=== PATIENT | male | born 1935 | race Caucasian/White ===

== ENCOUNTER → 2023-06-24 11:10 | Outpatient (REF) | payer MEDICARE, SELFPAY ==
[2023-06-24 12:02] LABS: Hematocrit 34.8 % (39.0-52.0); Hemoglobin 11.8 g/dL (13.0-18.0)
[2023-06-24 12:22] LABS: Protein/creatinine Ratio 0.3; Urine Protein 21 mg/dl
[2023-06-24 13:01] LABS: Albumin 4.4 g/dl (3.5-5.0); Blood Urea Nitrogen 53 mg/dl (9-20); Calcium 9.6 mg/dl (8.4-10.2); Carbon Dioxide 23 mmol/L (22-30); Chloride 104 mmol/L (98-107); Glucose 87 mg/dl (70-99); Phosphorus 4.8 mg/dl (2.5-4.5); Potassium 5.8 mmol/L (3.5-5.1); Sodium 134 mmol/L (135-145); Uric Acid 4.9 mg/dl (3.5-8.5); eGFR 33.93
[2023-06-25 10:58] LABS: Intact PTH 29.3 pg/ml (13.6-85.8)
== END ==
LOC: REG 11:10
PROVIDERS: ATTENDING PHYSICIAN Specialist
DX: R80.9 Proteinuria, unspecified (principal); I10 Essential (primary) hypertension; E87.5 Hyperkalemia; D63.1 Anemia in chronic kidney disease
CPT/HCPCS: 36415; 80069; 82570; 83970; 84156; 84550; 85014; 85018

== ENCOUNTER → 2023-07-05 15:19 | Outpatient (REF) | payer MEDICARE, SELFPAY ==
[2023-07-05 16:49] LABS: Blood Urea Nitrogen 46 mg/dl (9-20); Calcium 9.4 mg/dl (8.4-10.2); Carbon Dioxide 23 mmol/L (22-30); Chloride 103 mmol/L (98-107); Glucose 92 mg/dl (70-99); Potassium 5.4 mmol/L (3.5-5.1); Sodium 133 mmol/L (135-145); eGFR 30.09
== END ==
LOC: REG 15:19
PROVIDERS: ATTENDING PHYSICIAN Specialist; FAMILY PHYSICIAN Internal Medicine
DX: N18.32 Chronic kidney disease, stage 3b (principal)
CPT/HCPCS: 36415; 80048

== ENCOUNTER → 2023-07-21 13:17 | Outpatient (REF) | payer MEDICARE, SELFPAY | LOC: WDC 13:17 | PROVIDERS: ATTENDING PHYSICIAN Nurse Practitioner Adult Health; FAMILY PHYSICIAN Internal Medicine | DX: N64.4 Mastodynia (principal) | CPT/HCPCS: 76642; 77062; 77066 ==

== ENCOUNTER → 2023-07-22 11:58 | Outpatient (REF) | payer MEDICARE, SELFPAY ==
[2023-07-22 13:24] LABS: Blood Urea Nitrogen 57 mg/dl (9-20); Calcium 10.5 mg/dl (8.4-10.2); Carbon Dioxide 23 mmol/L (22-30); Chloride 101 mmol/L (98-107); Glucose 95 mg/dl (70-99); Sodium 137 mmol/L (135-145)
[2023-07-22 13:29] LABS: Potassium 5.2 mmol/L (3.5-5.1)
== END ==
LOC: REG 11:58
PROVIDERS: ATTENDING PHYSICIAN Specialist; FAMILY PHYSICIAN Internal Medicine
DX: Z86.39 Personal history of other endocrine, nutritional and metabolic disease (principal)
CPT/HCPCS: 36415; 80048

== ENCOUNTER → 2023-08-15 11:45 | Outpatient (REF) | payer MEDICARE, SELFPAY | LOC: RAD 11:45 | PROVIDERS: ATTENDING PHYSICIAN Internal Medicine | DX: M89.8X1 Other specified disorders of bone, shoulder (principal) | CPT/HCPCS: 71046; 73010; 73030 ==

== ENCOUNTER → 2023-08-17 11:10 | Outpatient (REF) | payer MEDICARE, SELFPAY ==
[2023-08-17 12:40] LABS: Blood Urea Nitrogen 41 mg/dl (9-20); Calcium 9.5 mg/dl (8.4-10.2); Carbon Dioxide 22 mmol/L (22-30); Chloride 104 mmol/L (98-107); Glucose 101 mg/dl (70-99); Potassium 4.7 mmol/L (3.5-5.1); Sodium 136 mmol/L (135-145); eGFR 38.78
== END ==
LOC: REG 11:10
PROVIDERS: ATTENDING PHYSICIAN Specialist; FAMILY PHYSICIAN Internal Medicine
DX: N18.32 Chronic kidney disease, stage 3b (principal); I10 Essential (primary) hypertension; E83.52 Hypercalcemia
CPT/HCPCS: 36415; 80048

== ENCOUNTER 2023-09-27 15:58 | Inpatient (IN) | payer MEDICARE, SELFPAY ==
[2023-09-27] VITALS (9 sets, daily range): BP systolic 132–168; BP diastolic 65–87; BMI 26.4
--- NOTE | 2023-09-27 11:59 | ED.GENMED ---
History of Present Illness
General
Chief Complaint: Breathing Problem
Time Seen by Provider: 09/27/23 11:24
Travel History
Have you had any contact with someone who has COVID-19?: No
Do you have any symptoms of coronavirus? Fever > 100 degrees, chills, cough, shortness of breath, sore throat, loss of taste or smell, muscle aches, or headache?: No
History of Present Illness
History of Present Illness:
87-year-old male with history of hypertension, hyperlipidemia, and aortic stenosis status post aortic valve replacement presents to the emergency department for evaluation of dyspnea on exertion developing rather abruptly over the past 7 days.
States he is typically very active and able to work out by using an elliptical for approximately 20 to 30-day, moderate distress with only walk 10 to 20 feet before becoming winded. Denies any orthopnea or chest pain, but does state he has been
waking up at night frequently due to left-sided thoracic back pain. Denies any fevers, chills, sweats, chest pain, leg swelling, coughing. Not on any anticoagulants, takes 162 mg of aspirin daily
Past History
Past History
ED Past Medical History: HTN, Hypercholesterolemia, Valvular disease, Other (Renal disease) and Other (Chronic prostatitis)
ED Past Surgical History: Cardiac (Aortic valve repair mitral repair, pericardial tissue heart valve) and Other (Valve replacement surgery)
Social History
Tobacco: Non-smoker
Alcohol: None
Drug: None
Personal:
Living: with family
Employment: Retired
Family History
Family History: Hypertension
Review of Systems
Review of Systems
Allergies reviewed?: Yes
All Other Systems: ROS reviewed and negative except as documented in HPI and ROS
Phy Exam
Physical Exam
Physical Exam:
GEN: Well appearing, NAD, WDWN
Eyes: PERRLA, EOMs intact, no scleral icterus
HENT: NCAT, oral mucosa moist
Lungs: Normal respiratory effort, severely diminished mid and lower lobe breath sounds no rales or crackles
Cardiac: RRR, no M/R/G, no peripheral edema. Radial pulses 2+ bilat
Abdomen: S, NT, ND, NABS, no masses or hepatosplenomegaly
Neuro: AO x 3
MSK: No gross deformity or ecchymosis. No edema. No digital clubbing
Skin: No rashes, petechiae. Normal color, no pallor or jaundice.
Psych: Calm, cooperative, proper hygiene
Scores
Heart Failure Risk
Heart Failure Risk Score: Not Applicable
Course
Orders/Labs/Results
Orders:
Orders
09/27/23 10:41
Electrocardiogram (*1) Urgent
Reason for Study: Chest Pain
09/27/23 10:42
EKG- Treatment ONCE
09/27/23 11:59
CR Chest - 2 Views Urgent
Comment:
Reason For Exam: WELLER
09/27/23 12:13
Complete Blood Count/With Diff Urgent
Comprehensive Metabolic Panel Urgent
NT-proBNP Urgent
Troponin I Urgent
09/27/23 15:23
Glucose Routine
LDH Routine
Comment: post procedure, add on to morning labs if already drawn
Total Protein Routine
Comment: post procedure, add on to morning labs if already drawn
09/27/23 15:25
Body Fluid Amylase Routine
Fluid Source: Pleural
Body Fluid Cell Count Routine
What is the Body Fluid: pleural fluid
Comment: post procedure
09/27/23 15:26
Add On- LAB Routine
Tests Added?: Body Fluid Triglycerides
Body Fluid Glucose Routine
Fluid Source: Pleural
Body Fluid LDH Routine
Fluid Source: Pleural
Body Fluid Protein Routine
Fluid Source: Pleural
Body Fluid Triglycerides Routine
Fluid Source: Pleural
Body Fluid pH Routine
Fluid Source: Pleural
Fluid Culture with Gram Stain Routine
EMIL Source: Pleural Fluid
Specimen Description:
Comment: post procedure
09/27/23 15:27
IR[facility] CONSULT Routine
Consulting Provider: Dionisio yHatt
Was physician already notified: Yes
Reason for Consult/Procedure: Left Thoracentesis
Acknowledgement that appropriate orders are entered: Yes
IR[facility] Cytology Routine
Source: Pleural Fluid, Left
Clinical Impression: large pleural effusion
History of Malignancy: No
09/27/23 15:29
Admit/Transfer Patient As Directed
Co-Sign Provider:
Level of Care: Inpatient admission
Assign to:: Telemetry
Physician / Group: Guanako Mina
Diagnosis: Pleural Effusion
Reason for Telemetry: Arrhythmia
Date to Stop Telemetry: 09/30/23
Time to Stop Telemetry: 11:00
Reason for Hospitalization: Thoracentesis
Expected length of stay greater than two midnights?: Yes
ELOS- Estimated Length of Stay in days: 3
I certify the patient meets the requirements for IP care: Yes
09/27/23 15:36
Code Status As Directed
Resuscitation Status: Full Code
09/30/23 11:00
DC Protocol for Telemetry ONCE
Abnormal Lab Results
09/27/23
12:13
RBC 3.53 L 10^6/uL
(4.70-6.10)
Hgb 11.3 L g/dL
(13.0-18.0)
Hct 34.2 L %
(39.0-52.0)
MCV 96.9 H fL
(80.0-94.0)
MCH 32.0 H pg
(27.0-31.0)
Abs Immat Gran (auto) 0.2 H 10^3/uL
(0-0.05)
Absolute Neuts (auto) 8.3 H 10^3/uL
(1.4-6.5)
Absolute Monos (auto) 0.7 H 10^3/uL
(0.1-0.6)
Immature Gran % 1.8 H %
(0-0.5)
Neutrophils % 76.2 H %
(42.2-75.2)
Lymphocytes % 14.2 L %
(20.5-51.1)
Carbon Dioxide 21 L mmol/L
(22-30)
BUN 46 H mg/dl
(9-20)
Creatinine 1.8 H mg/dL
(0.7-1.3)
Glucose 100 H mg/dl
(70-99)
09/27/23 12:13
Vital Signs
Initial and Last Documented VS:
Initial Vital Signs
Temp Pulse Resp BP Pulse Ox
98.3 F 87 16 134/74 96
09/27/23 10:40 09/27/23 10:40 09/27/23 10:40 09/27/23 10:40 09/27/23 10:40
Last Documented Vital Signs
Temp Pulse Resp BP Pulse Ox
98.3 F 87 16 134/74 97
09/27/23 10:40 09/27/23 10:40 09/27/23 10:40 09/27/23 10:40 09/27/23 11:59
MDM/Problems Addressed
MDM/Problems Addressed:
Although the patient not hypoxic at rest, he is severely limited with ambulation due to the large left pleural effusion. Prior chest x-ray from 6 weeks ago was independently reviewed by myself and this is a rather rapid development of an effusion.
Does not appear to be volume overloaded and BNP is low suggesting CHF is not a suspected etiology. He has no chest pain or recent hospitalizations suggestive of pulmonary embolism. Will ultimately need diagnostic and therapeutic thoracentesis,
will admit to the hospitalist service for further management of this
Comment
Comment:
EKG independently interpreted by me shows normal sinus rhythm at a rate of [address] changes concerning for ischemia, QTc of 415
*Critical Care Note
Total Time (30-74mins, 75-104mins- exclusive of procedures): Not Applicable
ED Attending Note
-
Portions of this chart may have been created with voice recognition software.� Occasional wrong word or��sound alike� substitutions may have occurred due to the inherent limitations of voice recognition software.
Discharge Plan
Departure
Patient Disposition: Admit
Date of Disposition: 09/27/23
Time of Disposition: 14:36
Admit to: Med/Surg
Presentation/result/management discussed w/ accepting MD/DO: Hospitalist
Discharge Problem:
Pleural effusion on left, Acute respiratory insufficiency, WELLER (dyspnea on exertion)
Prescriptions:
No Action
terazosin 5 MG capsule
5 mg PO HS
simvastatin 20 MG tablet
20 mg PO HS
allopurinol 300 MG tablet
150 mg PO DAILY
aspirin 81 MG tablet,chewable
162 mg PO HS
carvedilol 12.5 MG tablet
6.25 mg PO BID
chlorthalidone 25 MG tablet
12.5 mg PO DAILY
coenzyme Q10 [Co Q-10] 200 MG capsule
200 mg PO HS
Ultra Rohini Plus 1 EACH capsule
1 ea PO DAILY
turmeric 400 MG capsule
400 mg PO BID
Theragen Tablet
1 tab PO DAILY
spironolactone 25 mg Tablet
25 mg PO DAILY
acetaminophen [Tylenol Arthritis Pain] 650 mg Tablet Extended Release
1,300 mg PO Q8H
docusate sodium [Colace] 100 mg Capsule
100 mg PO QPM
Memory Complex 60-30-70-40 ic-umzj-pmv-mg Tablet
1 tab PO HS
PreserVision AREDS 2,148 mcg-113 mg-45 mg-17.4mg Tablet
1 tab PO BID
dapagliflozin propanediol [Farxiga] 10 mg Tablet
10 mg PO DAILY
Referrals:
Jake Oro MD [Family Provider] -
Interventions
Interventions:
*Risk Screen - Suicide Last Done: 09/27/23 11:59
*General Assessment Last Done: 09/27/23 11:59
*Neglect/Abuse Screening Last Done: 09/27/23 11:59
ED- Fall Risk Assessment Last Done: 09/27/23 11:59
*ED COVID-19 Vaccine History Last Done: 09/27/23 10:40
ED- Cardiac Assessment Last Done: 09/27/23 11:59
ED- Pulmonary Assessment Last Done: 09/27/23 11:59
Discharge Date and Time
Print Language: INDONESIAN
[2023-09-27 12:28] LABS: % Basophils 0.3 % (0-2); % Eosinophils 0.9 % (0-6); % Immature Granulocytes 1.8 % (0-0.5); % Lymphocytes 14.2 % (20.5-51.1); % Monocytes 6.6 % (1.7-9.3); % Neutrophils 76.2 % (42.2-75.2); Absolute Eosinophils 0.1 10^3/uL (0-0.7); Absolute Immature Granulocytes 0.2 10^3/uL (0-0.05); Absolute Lymphocytes 1.5 10^3/uL (1.2-3.4); Absolute Monocytes 0.7 10^3/uL (0.1-0.6); Absolute Neutrophils 8.3 10^3/uL (1.4-6.5); Hematocrit 34.2 % (39.0-52.0); Hemoglobin 11.3 g/dL (13.0-18.0); Mean Corpuscular Volume 96.9 fL (80.0-94.0); Mean Platelet Volume 9.6 fL (7.4-10.4); Nucleated Red Blood Cells % 0 % (-); Platelet Count 233 10^3/uL (130-400); Red Blood Cell Count 3.53 10^6/uL (4.70-6.10); Red Cell Dist. Width 14.5 % (11.5-14.5); White Blood Cell Count 10.8 10^3/uL (4.8-10.8)
[2023-09-27 12:49] LABS: AST (SGOT) 23 U/L (17-59); Albumin 4.1 g/dl (3.5-5.0); Alkaline Phosphatase 115 U/L (38-126); Blood Urea Nitrogen 46 mg/dl (9-20); Calcium 9.4 mg/dl (8.4-10.2); Carbon Dioxide 21 mmol/L (22-30); Chloride 106 mmol/L (98-107); Estimated Creatinine Clearance 31 ml/min; Glucose 100 mg/dl (70-99); Sodium 137 mmol/L (135-145); Total Bilirubin 0.3 mg/dl (0.2-1.3); Total Protein 7.1 g/dl (6.3-8.2); eGFR 36.21
[2023-09-27 12:58] LABS: ALT (SGPT) 17 U/L (0-50)
[2023-09-27 14:11] LABS: NT-proBNP 210 pg/ml; Troponin I < 0.012 ng/ml
--- NOTE | 2023-09-27 15:43 | HPS.HSE ---
Family Physician
-
Family Physician: Ruben Oro
Chief Complaint
-
Shortness of breath
History of Present Illness
Patient is an 87 y/o male past medical history of valvular heart disease, hypertension and CKD who presents with dyspnea on exertion. Patient reports he is usually very active exercising on the elliptical for about 20 minutes almost every day.
However over the past week he developed increasing shortness of breath to the point he cant exercise for even a fw minutes. Today he noted shortness of breath with just ambulating a few feet which prompted him to come the emergency department. He
denies cough, chest pain, palpitations or lower extremity edema.
Medical History
Past Medical History
Past Medical History: Reports Other
Additional Past Medical History:
Valvular Heart Disease
Essential Hypertension
Hyperlipemia
CKD Stage III
BPH
Gout
Past Surgical History: Reports Other
Additional Past Surgical History:
Mitral Valve Repair
Aortic Valve Replacement
Left Hand Surgery
Left Arm Surgery
Hernia Repair
Social History
Tobacco: Former Smoker (Quit over 40 years ago)
Alcohol: Daily (One drink nightly)
Family History
Family History: Not pertinent
Allergies / Home Medications
Allergies reflects when Allergies were last updated in [facility].
Home Medications with original date entered in [facility]
Allergy/Medication List:
Allergies
Allergy/AdvReac Type Severity Reaction Status Date / Time
No Known Allergies Allergy Verified 09/27/23 10:41
Home Medications
allopurinol 300 mg tablet 150 mg PO DAILY Gout 04/07/10
simvastatin 20 mg tablet 20 mg PO HS High cholesterol 04/07/10
terazosin 5 mg capsule 5 mg PO HS Urinary issue 04/07/10
aspirin 81 mg chewable tablet 162 mg PO HS Blood clot prevention/tx 01/22/11
carvedilol 12.5 mg tablet 6.25 mg PO BID Heart disease/condition 07/22/14
chlorthalidone 25 mg tablet 12.5 mg PO DAILY Blood pressure 08/20/20
coenzyme Q10 200 mg capsule (Co Q-10) 200 mg PO HS Supplement 08/20/20
lactobacillus rymmu-tovsrk-ioillhec protein 15 billion cell-170 mg cap (Ultra Rohini Plus) 1 ea PO DAILY Supplement 08/20/20
turmeric 400 mg capsule 400 mg PO BID Supplement 08/20/20
acetaminophen 650 mg tablet,extended release (Tylenol Arthritis Pain) 1,300 mg PO Q8H 09/27/23
dapagliflozin propanediol 10 mg tablet (Farxiga) 10 mg PO DAILY 09/27/23
docusate sodium 100 mg capsule (Colace) 100 mg PO QPM 09/27/23
spironolactone 25 mg tablet 25 mg PO DAILY 09/27/23
therapeutic multivitamin 1 tab PO DAILY 09/27/23
vit C-vit E-Se-ginkgo biloba 60 mg-30 unit-70 mcg-40 mg tablet 1 tab PO HS 09/27/23
vitamins A,C,M-fsov-qefozh 2,148 mcg-113 mg-45 mg-17.4 mg tablet (PreserVision AREDS) 1 tab PO BID 09/27/23
Review of Systems
-
A 12 point ROS was completed and negative except as noted: Yes
Constitutional: Denies Fever or Chills
Respiratory: Reports See HPI
Cardiac: Reports See HPI
Physical Exam
Vital Signs
Vital Signs
Temp Pulse Resp BP Pulse Ox
98.3 F 87 16 134/74 97
09/27/23 10:40 09/27/23 10:40 09/27/23 10:40 09/27/23 10:40 09/27/23 11:59
Physical Exam
General: Comfortable and Conversant (Noted conversational dyspnea)
HEENT: Anicteric and Moist mucous membranes
Respiratory: Clear and Decreased Breath Sounds (Decreased/Absent breath sounds left base)
Cardiac: S1/S2 and Regular Rhythm
GI: Soft and Non Tender
Rectal: Deferred by Provider
Musculoskeletal: No Clubbing, No Cyanosis and No Edema
Skin: Warm and Dry
Neuro: Awake, Alert, Oriented and Nonfocal/grossly intact
Laboratory Results
-
09/27/23 12:13
Laboratory Results
Total Bilirubin 0.3 mg/dl (0.2-1.3) 09/27/23 12:13
AST 23 U/L (17-59) 09/27/23 12:13
ALT 17 U/L (0-50) 09/27/23 12:13
Alkaline Phosphatase 115 U/L (38-126) 09/27/23 12:13
Troponin I < 0.012 ng/ml 09/27/23 12:13
Data Reviewed
-
Lab Data: Labs Reviewed by me
Impression/Plan
-
Moderate/Large Left Pleural Effusion, unclear etiology
-Consult IR for diagnostic and therapeutic thoracentesis
-Await fluid studies
Valvular Heart Disease s/p Aortic Valve Replacement and Mitral Valve Repair
-Check Echocardiogram
Essential Hypertension
-continue carvedilol, chlorthalidone and spironolactone
Hyperlipidemia
-Continue statin
CKD Stage III
-Creatinine at baseline
-Continue Farxiga
BPH
-Continue terazosin
Gout
-Continue allopurinol
DVT proph: SC Heparin
Code Status: Full Code
[2023-09-27] MEDS: TYLENOL 650 MG PO ×2 (16:27→21:35)
--- NOTE | 2023-09-27 18:13 | W.PN.UPDATE ---
Update Note
Progress Note Update
I saw and examined the patient.
The COMPLIANCE INVESTIGATOR's note was reviewed and I agree with the note.
87-year-old male presented with new onset of exertional shortness of breath for few days. No reported history of heart failure. Follows up with cardiology with history of mitral valve repair. Patient have not noticed any signs of lower extremity
leg swelling. No recent episode of cough/fever. No recent URTI episode.
HEENT: No pallor, cyanosis, or jaundice. Throat clear.
NECK: Supple. No JVD.
RESPIRATORY: decreased left lung breath sound
CVS: S1, S2 normal. RRR. No murmur, rub or gallop.
ABDOMEN: Soft, non-tender. No distension. BS+/normal.
EXTREMITIES: No peripheral cyanosis or edema.
DRUG SAFETY SPECIALIST: AOx3. No focal deficits.
Left sided pleural effusion
-Chest x-ray showing moderate left-sided pleural effusion.
-Patient denies previous history of heart failure/pleural effusion
-Check echocardiogram
-IRAD consulted for paracentesis
-No signs of underlying infection. Monitor off of antibiotics.
-No hypoxia. Continue monitor.
Full code
[2023-09-27 18:35] LABS: LDH 202 U/L (120-246)
[2023-09-27] MEDS: COREG 6.25 MG PO (20:17)
[2023-09-27] MEDS: HEPARIN 5000 UNITS SC (20:18)
[2023-09-27] MEDS: LIPITOR 10 MG PO (20:19)
[2023-09-27] MEDS: LOW STRENGTH ASPIRIN 162 MG PO (20:20)
[2023-09-27] MEDS: HYTRIN 5 MG PO (20:20)
[2023-09-28] VITALS (10 sets, daily range): BP systolic 66–152; BP diastolic 64–77; PULSE 68–69; O2SAT 97; BMI 25.3
[2023-09-28] MEDS: LIDOCAINE 4% PATCH 1 PATCH TOPICAL ×2 (01:04→20:08)
[2023-09-28] MEDS: HEPARIN 5000 UNITS SC ×4 (01:05→23:47)
[2023-09-28] MEDS: MOTRIN 400 MG PO (04:55)
[2023-09-28 06:02] LABS: Hematocrit 30.2 % (39.0-52.0); Hemoglobin 10.2 g/dL (13.0-18.0); Mean Corp Hgb Conc. 33.8 g/dL (33.0-37.0); Mean Corpuscular Hgb 31.5 pg (27.0-31.0); Mean Corpuscular Volume 93.2 fL (80.0-94.0); Mean Platelet Volume 9.1 fL (7.4-10.4); Platelet Count 198 10^3/uL (130-400); Red Blood Cell Count 3.24 10^6/uL (4.70-6.10); Red Cell Dist. Width 14.4 % (11.5-14.5); White Blood Cell Count 7.9 10^3/uL (4.8-10.8)
[2023-09-28 06:33] LABS: Blood Urea Nitrogen 49 mg/dl (9-20); Calcium 9.1 mg/dl (8.4-10.2); Carbon Dioxide 21 mmol/L (22-30); Estimated Creatinine Clearance 31 ml/min; Glucose 99 mg/dl (70-99); Potassium 4.7 mmol/L (3.5-5.1); Sodium 137 mmol/L (135-145); eGFR 36.21
[2023-09-28 06:41] LABS: Chloride 107 mmol/L (98-107)
[2023-09-28] MEDS: Hygroton 12.5 MG PO (08:14)
[2023-09-28] MEDS: ALDACTONE 25 MG PO (08:16)
[2023-09-28] MEDS: COREG 6.25 MG PO ×2 (08:16→20:03)
[2023-09-28] MEDS: FARXIGA 10 MG PO (08:16)
[2023-09-28] MEDS: ZYLOPRIM 150 MG PO (08:16)
[2023-09-28 09:44] LABS: Body Fluid pH 7.16
[2023-09-28 10:10] LABS: Body Fluid Glucose 41 mg/dl; Body Fluid Protein 4.8 g/dl; Body Fluid Triglycerides 51 mg/dl
[2023-09-28 10:42] LABS: Body Fluid Mononuclear 55.5 %; Body Fluid Polymorphonuclear 44.5 %; Body Fluid WBC 1788 /CUMM
[2023-09-28 10:50] LABS: Body Fluid Second Tech SS
[2023-09-28 11:07] LABS: Body Fluid Amylase 71 U/L; Body Fluid LDH 281 U/L
--- NOTE | 2023-09-28 12:49 | CON.PUL ---
Consultation
Consultation Request
Date/Time Consultation Requested: 09/28/23-12 noon
Date/Time Consultation Performed: 09/28/23-12:15 PM
Requesting Provider: Dr. Mina
Performing Provider: Dr. Basilio
Reason for Consultation: pleural fluid/asbestos exposure
Medical History
-
Chief Complaint: , shortness of breath
History of Present Illness:
87-year-old male with history of hypertension, chronic kidney disease, mitral valve repair, aortic valve replacement who presented with significant shortness of breath and noted to have large pleural effusion-pulmonary consulted for pleural
effusion/shortness of breath 09/28/23. The patient feels much improved after thoracentesis. At rest. He denies any shortness of breath, chest pain, has minimal pleurisy at the site of the thoracentesis, has no hemoptysis, anorexia, unintentional
weight loss, abdominal pain, reflux, increased leg swelling or focal weakness.
Past Medical History
Past Medical History: None ( hypertension. Hyperlipidemia. Chronic kidney disease stage III. BPH. Gout. Mitral valve repair. Aortic valve replacement. Left hand surgery. Left arm surgery. Hernia repair.)
Social History
Tobacco: Former Smoker ( [id number], quit 1959)
Alcohol: Daily ( [id number], quit 1960 drink nightly)
Drug: None
Personal:
Living: With Family
Occupational Exposures: asbestos dust exposure
Environmental Exposures: . No known tuberculosis exposure
Family History
Family History: Other (. No family history of lung disease)
Allergies / Home Medications
Allergies
Allergy/AdvReac Type Severity Reaction Status Date / Time
No Known Allergies Allergy Verified 09/27/23 10:41
Home Medications
�Medication �Instructions �Recorded �Confirmed �Last Taken �Type
allopurinol 300 mg tablet 150 mg PO DAILY Gout 04/07/10 09/27/23 09/27/23 History
simvastatin 20 mg tablet 20 mg PO HS High cholesterol 04/07/10 09/27/23 09/26/23 History
terazosin 5 mg capsule 5 mg PO HS Urinary issue 04/07/10 09/27/23 09/26/23 History
aspirin 81 mg chewable tablet 162 mg PO HS Blood clot 01/22/11 09/27/23 09/26/23 History
prevention/tx
carvedilol 12.5 mg tablet 6.25 mg PO BID Heart 07/22/14 09/27/23 09/27/23 History
disease/condition
chlorthalidone 25 mg tablet 12.5 mg PO DAILY Blood pressure 08/20/20 09/27/23 09/27/23 History
coenzyme Q10 200 mg capsule (Co 200 mg PO HS Supplement 08/20/20 09/27/23 09/26/23 History
Q-10)
lactobacillus 1 ea PO DAILY Supplement 08/20/20 09/27/23 09/27/23 History
rfoyt-qeqnhf-yszeshdp protein 15
billion cell-170 mg cap (Ultra
Rohini Plus)
turmeric 400 mg capsule 400 mg PO BID Supplement 08/20/20 09/27/23 09/27/23 History
acetaminophen 650 mg 1,300 mg PO Q8H 09/27/23 09/27/23 09/27/23 History
tablet,extended release (Tylenol
Arthritis Pain)
dapagliflozin propanediol 10 mg 10 mg PO DAILY 09/27/23 09/27/23 09/27/23 History
tablet (Farxiga)
docusate sodium 100 mg capsule 100 mg PO QPM 09/27/23 09/27/23 09/26/23 History
(Colace)
spironolactone 25 mg tablet 25 mg PO DAILY 09/27/23 09/27/23 09/27/23 History
therapeutic multivitamin 1 tab PO DAILY 09/27/23 09/27/23 09/27/23 History
vit C-vit E-Se-ginkgo biloba 60 1 tab PO HS 09/27/23 09/27/23 09/26/23 History
mg-30 unit-70 mcg-40 mg tablet
vitamins A,C,N-mcdb-ebahwh 2,148 1 tab PO BID 09/27/23 09/27/23 09/27/23 History
mcg-113 mg-45 mg-17.4 mg tablet
(PreserVision AREDS)
Review of Systems
-
Unable to Obtain full review of systems at this time due to: Other ( per HPI)
Vitals / Labs / Diagnostic Testing
Vital Signs
Temp Pulse Resp BP Pulse Ox
97.6 F 64 22 135/68 95
09/28/23 10:30 09/28/23 10:30 09/28/23 10:30 09/28/23 10:30 09/28/23 10:30
Lab Data
09/28/23 05:54
09/28/23 05:54
Microbiology
09/28/23 09:00 Pleural Fluid Gram Stain - Preliminary
Diagnostic Testing:
Physical Exam
-
Exam:
HEENT atraumatic normocephalic and anicteric. Heart was regular without murmur. Chest was clear without wheezes or crackles. Integument without rashes or icterus. Neurologic exam without weakness or numbness. Abdomen soft and nondistended.
The patient had no JVD, cyanosis, clubbing or edema.
Assessment
-
87-year-old male with history of hypertension, chronic kidney disease, mitral valve repair, aortic valve replacement who presented with significant shortness of breath and noted to have large pleural effusion-pulmonary consulted for pleural
effusion/shortness of breath 09/28/23.
Shortness of breath from large left pleural effusion
Large left pleural effusion
Status post thoracentesis 09/27/23
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
Mild hkazdp-xfdqmwqzfw-ytcyyutfpe 10.2
Conditions present prior to admission:
Hypertension
Hyperlipidemia.
Chronic kidney disease stage III.
BPH.
Gout.
Former glsfly-43-boug-year-quit 40 years ago
Mitral valve repair. Aortic valve replacement. Left hand surgery. Left arm surgery. Hernia repair.
Plan
Radiographs dating back to 2009 were personally reviewed-patient had pleural plaque that was calcified dating back to 2010 with some progression and now a pleural effusion.
Bloody pleural fluid worrisome for asbestos-related potential pleural malignancy such as mesothelioma.
Supplemental oxygen.
Incentive spirometry.
Follow radiographically-obtain CT chest
Monitor for fluid reaccumulation.
If pleural fluid analysis is nondiagnostic, then VATS pleural biopsy may be in order.
Nebulizers if needed.
DVT prophylaxis.
Nutrition
Early mobilization.
Reviewed with Dr. Mina
Outpatient pulmonary kifxkm-fx-Empvpio pleural fluid, follow up on pathology, PFTs
Data:
Chest x-ray 03/04/10-cardiac dilation, interstitial pulmonary edema, no signs of asbestos related lung disease.
Chest x-ray 05/04/10-no acute cardiopulmonary disease, bilateral asbestos calcified pleural plaques.
Chest x-ray 07/22/14-chronic changes, no acute pathology.
Chest x--bilateral calcified pleural plaques, left greater than right, plaques are slightly progressed compared to 2014.
Chest x-ray 09/27/23-moderate to large left pleural effusion
CT jreia-ljx-lowp 01/15/14 few small pulmonary nodules unchanged from 09/06/06, 1 cm pulmonary nodule lateral basilar segment left lower lobe appears unchanged, calcified pleural plaques consistent with prior asbestos exposure, status post midline
sternotomy and aortic valve replacement..
CT abdomen and pelvis 04/19/18-acute diverticulitis. No comments on lower lung ward.
CT abdomen and pelvis 10/29/19-calcified pleural plaques in the lung bases suggesting prior asbestos exposure, mild subpleural interstitial fibrosis at the lung bases.
CT abdomen and pelvis 02/07/23-multiple calcified pleural plaques suggesting prior asbestos exposure, acute sigmoid diverticulitis.
Thoracentesis 09/28/23-successful ultrasound-guided thoracentesis for 1.45 L of dark bloody pleural fluid, cultures pending, pathology pending
Echocardiogram 07/23/22-EF 50-55%, mitral valve angioplasty ring with mild mitral regurgitation, bovine aortic valve
Data Reviewed
-
EKG: Report reviewed by me
Radiology: Image personally visualized and interpreted and Report reviewed by me
CT Scan: Image personally visualized and interpreted and Report reviewed by me
Medical Tests (Nuc Med, Echo etc): Report reviewed by me
Labs: Labs reviewed by me
Old Records: Reviewed
Total Time Spent with Patient (in minutes): 65
--- NOTE | 2023-09-28 13:06 | W.PN.HOSP.TC ---
Today's Communication/Plan
-
f/u fluid cs and cytopath report
ct chest w/o contrast
Assessment / Plan
Assessment / Plan
1. Left sided pleural effusion
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
-Chest x-ray showing moderate left-sided pleural effusion.
-s/p drainage of 1.4 L sero sanguinous fluid. TWBC 1.8K PMN 45%, f/u cytopathology report
-Patient approximate 30-year occupational asbestos exposure. Have not seen pulmonology for 20 years plus
-CT abdomen pelvis in 23 showing left pleural thickening and calcification on review of images myself
-Pulmonology has asked to evaluate
-CT chest w/o contrast ordered
2. Valvular Heart Disease
s/p Aortic Valve Replacement and Mitral Valve Repair
-f/u TTE report
3. Essential Hypertension
-continue carvedilol, chlorthalidone and spironolactone
4. Hyperlipidemia
-Continue statin
5. CKD Stage III
-Creatinine at baseline
-Continue Farxiga
6. BPH
-Continue terazosin
7. Gout
-Continue allopurinol
DVT proph: SC Heparin
Code Status: Full Code
Anticipated Discharge: Within 24 hours
Subjective/Interval History
-
Date of Service: September 28, 2023
Resting comfortably in bed
Denies of having any significant shortness of breath or left-sided chest pain
No other acute issues reported overnight
Objective Data
-
Labs:
Laboratory Results
09/28/23
05:54
WBC 7.9
Hgb 10.2 L
Hct 30.2 L
Plt Count 198
Sodium 137
Potassium 4.7
Chloride 107
Carbon Dioxide 21 L
BUN 49 H
Creatinine 1.8 H
Glucose 99
Calcium 9.1
Vital Signs:
Vital Signs
Temp Pulse Resp BP Pulse Ox
97.6 F 64 22 135/68 95
09/28/23 10:30 09/28/23 10:30 09/28/23 10:30 09/28/23 10:30 09/28/23 10:30
I&O
09/27/23 09/28/23 09/29/23
06:59 06:59 06:59
Intake Total 300 / 300
Balance 300 / 300
Review of Systems
-
Respiratory: Reports No Symptoms
Cardiac: Reports No Symptoms
Abdomen/GI: Reports No Symptoms
Physical Exam
-
General: No Apparent Distress and Comfortable
HEENT: Negative Oxygen
Respiratory: Clear to Auscultation
Cardiac: Regular Rhythm and S1/S2; Negative Murmur or Rub
GI: Soft, Nontender, Nondistended and Normal Bowel Sounds
Musculoskeletal: No Edema
Neuro: Awake, Alert, Oriented, No Motor Deficits and Nonfocal/Grossly Intact
Psych: Calm
--- NOTE | 2023-09-28 15:05 | CM ---
Alert awake oriented patient who lives with his Abiola who lives in a 1 story home with 2 step to enter and bed and bathroom on first floor. He is independent in driving and in all activities of daily living.He was offered VN he declined need.He
uses a cane.
No VN hx / No SNF history
[facility]
PCP DR Melvina Cummings
PLAN Home Declined VN
[2023-09-28] MEDS: ROXICODONE 5 MG PO (20:08)
[2023-09-28] MEDS: LOW STRENGTH ASPIRIN 162 MG PO (20:08)
[2023-09-28] MEDS: HYTRIN 5 MG PO (20:08)
[2023-09-28] MEDS: LIPITOR 10 MG PO (20:09)
[2023-09-28] MEDS: TYLENOL 650 MG PO (23:50)
[2023-09-29] MEDS: ROXICODONE 5 MG PO (00:42)
[2023-09-29 03:56] VITALS: BP 127/65
[2023-09-29 05:39] VITALS: BMI 25.3
[2023-09-29 07:53] LABS: Hematocrit 32.1 % (39.0-52.0); Hemoglobin 10.8 g/dL (13.0-18.0); Mean Corp Hgb Conc. 33.6 g/dL (33.0-37.0); Mean Corpuscular Hgb 32.4 pg (27.0-31.0); Mean Corpuscular Volume 96.4 fL (80.0-94.0); Mean Platelet Volume 9.9 fL (7.4-10.4); Platelet Count 234 10^3/uL (130-400); Red Blood Cell Count 3.33 10^6/uL (4.70-6.10); Red Cell Dist. Width 14.4 % (11.5-14.5); White Blood Cell Count 8.1 10^3/uL (4.8-10.8)
[2023-09-29 07:55] VITALS: BP 132/74
[2023-09-29 08:14] LABS: Blood Urea Nitrogen 45 mg/dl (9-20); Calcium 9.5 mg/dl (8.4-10.2); Carbon Dioxide 22 mmol/L (22-30); Chloride 106 mmol/L (98-107); Estimated Creatinine Clearance 33 ml/min; Glucose 100 mg/dl (70-99); Potassium 4.8 mmol/L (3.5-5.1); Sodium 137 mmol/L (135-145); eGFR 38.78
[2023-09-29] MEDS: Hygroton 12.5 MG PO (08:29)
[2023-09-29] MEDS: HEPARIN 5000 UNITS SC (08:29)
[2023-09-29] MEDS: ALDACTONE 25 MG PO (08:29)
[2023-09-29] MEDS: ZYLOPRIM 150 MG PO (08:29)
[2023-09-29] MEDS: FARXIGA 10 MG PO (08:29)
[2023-09-29] MEDS: COREG 6.25 MG PO (08:29)
--- NOTE | 2023-09-29 10:04 | W.PN.PUL.V3 ---
Today's Communication / Plan
-
.
Wean oxygen.
Increase activity.
Monitor for pleural fluid reaccumulation.
Await pleural fluid cytology.
Outpatient pulmonary follow-up
Assessment
-
87-year-old male with history of hypertension, chronic kidney disease, mitral valve repair, aortic valve replacement who presented with significant shortness of breath and noted to have large pleural effusion-pulmonary consulted for pleural
effusion/shortness of breath 09/28/23.
Shortness of breath from large left pleural effusion
Large left pleural effusion
Status post thoracentesis 09/27/23
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
Mild jtxyun-afqafalfwi-pwuhqhnhfe 10.2
Conditions present prior to admission:
Hypertension
Hyperlipidemia.
Chronic kidney disease stage III.
BPH.
Gout.
Former joujeg-75-lhlv-year-quit 40 years ago
Mitral valve repair. Aortic valve replacement. Left hand surgery. Left arm surgery. Hernia repair.
Plan
Once again, the patient's radiographs dating back to 2009 were personally reviewed-patient had pleural plaque that was calcified dating back to 2010 with some progression and now a pleural effusion.
Bloody pleural fluid worrisome for asbestos-related potential pleural malignancy such as mesothelioma.
Supplemental oxygen-does not appear like he will require supplemental oxygen at the time of discharge
Incentive spirometry
CT chest-09/28/23-small loculated left pleural effusion, much improved, moderate lingular and left lower lobe atelectasis, severe pleural calcifications
Monitor for fluid reaccumulation-patient told if increased shortness of breath, then to call an outpatient thoracentesis could be arranged.
Consider PET scan
If pleural fluid analysis is nondiagnostic, then VATS pleural biopsy may be in order.
Nebulizers if needed.
DVT prophylaxis.
Nutrition
Early mobilization..
Stable for proposed discharge
Reviewed with Dr. Mina as well as nursing
Outpatient pulmonary wbhglj-uw-Niptrea pleural fluid, follow up on pathology, PFTs
Data:
Chest x-ray 03/04/10-cardiac dilation, interstitial pulmonary edema, no signs of asbestos related lung disease.
Chest x-ray 05/04/10-no acute cardiopulmonary disease, bilateral asbestos calcified pleural plaques.
Chest x-ray 07/22/14-chronic changes, no acute pathology.
Chest x--bilateral calcified pleural plaques, left greater than right, plaques are slightly progressed compared to 2014.
Chest x-ray 09/27/23-moderate to large left pleural effusion
CT ysjrb-akp-srel 01/15/14 few small pulmonary nodules unchanged from 09/06/06, 1 cm pulmonary nodule lateral basilar segment left lower lobe appears unchanged, calcified pleural plaques consistent with prior asbestos exposure, status post midline
sternotomy and aortic valve replacement..
CT abdomen and pelvis 04/19/18-acute diverticulitis. No comments on lower lung ward.
CT abdomen and pelvis 10/29/19-calcified pleural plaques in the lung bases suggesting prior asbestos exposure, mild subpleural interstitial fibrosis at the lung bases.
CT abdomen and pelvis 02/07/23-multiple calcified pleural plaques suggesting prior asbestos exposure, acute sigmoid diverticulitis.
Thoracentesis 09/28/23-successful ultrasound-guided thoracentesis for 1.45 L of dark bloody pleural fluid, cultures pending, pathology pending
Echocardiogram 07/23/22-EF 50-55%, mitral valve angioplasty ring with mild mitral regurgitation, bovine aortic valve
Subjective Data
-
Date of Service:
Date of Service: September 29, 2023
Chief Complaint: Pulmonary Follow Up and Dyspnea Follow Up
Subjective:
Feels much improved, no shortness of breath, ambulating without difficulties or desaturations, no chest pain or abdominal pain
Review of Systems
General: Other (. Her HPI)
Objective Data
Data Reviewed
Vital Signs / I&O:
Vital Signs
Temp Pulse Resp BP Pulse Ox
97.8 F 69 16 132/74 96
09/29/23 07:55 09/29/23 07:55 09/29/23 07:55 09/29/23 07:55 09/29/23 08:00
Intake and Output
09/28/23 09/29/23 09/30/23
06:59 06:59 06:59
Intake Total 300 / 300 1140 / 1140
Balance 300 / 300 1140 / 1140
SaO2: 96
Physical Exam
General: Respiratory Distress (n) and Comfortable
HEENT: Normocephalic, Anicteric and Moist Mucous Membranes
Cardiovascular: Regular Rhythm and Murmur
Respiratory: Wheeze (n), Crackles ( rare left basilar), Rhonchi (n), Non-Labored Respirations, Accessory Resp Muscle Use (n) and Stridor (n)
GI: Soft, Non Distended and Non Tender
Neurology: Awake, Alert and No Motor Deficits
Skin: Warm, Good Color, Cyanosis (n), Jaundice (n) and Rash (n)
Labs/Micro/Reports
Lab Data
09/29/23 07:06
09/29/23 07:06
Microbiology
09/28/23 09:00 Pleural Fluid Gram Stain - Preliminary
--- NOTE | 2023-09-29 10:27 | W.PN.HOSP.TC ---
Today's Communication/Plan
-
d/c home
Assessment / Plan
Assessment / Plan
1. Left sided pleural effusion
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
-Chest x-ray showing moderate left-sided pleural effusion.
-s/p drainage of 1.4 L sero sanguinous fluid. TWBC 1.8K PMN 45%,
-Patient approximate 30-year occupational asbestos exposure. Have not seen pulmonology for 20 years plus
-CT abdomen pelvis in 23 showing left pleural thickening and calcification on review of images myself
-CT chest w/o contrast showing bilateral lower lobe pleural thickening with some calcification suggestive of stable asbestosis changes
-Patient to follow-up with pulmonology office. Cytopathology report is pending at time of discharge.
2. Valvular Heart Disease
s/p Aortic Valve Replacement and Mitral Valve Repair
-TTE showing preserved EF. No change in valvulopathy with
3. Essential Hypertension
-continue carvedilol, chlorthalidone and spironolactone
4. Hyperlipidemia
-Continue statin
5. CKD Stage III
-Creatinine at baseline
-Continue Farxiga
6. BPH
-Continue terazosin
7. Gout
-Continue allopurinol
DVT proph: SC Heparin
Code Status: Full Code
Care plan Discussed with Pulmonology
More than 30 minutes spent in discharge including
Final examination of the patient
Summarizing hospital stay
Instructions for continuing care to all relevant caregivers
Preparation of discharge records, prescriptions, and referral forms
Total time spent (in minutes): 39 mins
Anticipated Discharge: Today
Subjective/Interval History
-
Date of Service: September 29, 2023
Resting comfortably in chair
Denies of any issues overnight
Objective Data
-
Labs:
Laboratory Results
09/29/23
07:06
WBC 8.1
Hgb 10.8 L
Hct 32.1 L
Plt Count 234
Sodium 137
Potassium 4.8
Chloride 106
Carbon Dioxide 22
BUN 45 H
Creatinine 1.7 H
Glucose 100 H
Calcium 9.5
Vital Signs:
Vital Signs
Temp Pulse Resp BP Pulse Ox
97.8 F 69 16 132/74 96
09/29/23 07:55 09/29/23 07:55 09/29/23 07:55 09/29/23 07:55 09/29/23 10:04
I&O
09/28/23 09/29/23 09/30/23
06:59 06:59 06:59
Intake Total 300 / 300 1140 / 1140
Balance 300 / 300 1140 / 1140
Review of Systems
-
Respiratory: Reports No Symptoms
Cardiac: Reports No Symptoms
Abdomen/GI: Reports No Symptoms
Physical Exam
-
General: No Apparent Distress and Comfortable
HEENT: Negative Oxygen
Respiratory: Clear to Auscultation
Cardiac: Regular Rhythm and S1/S2; Negative Murmur or Rub
GI: Soft, Nontender, Nondistended and Normal Bowel Sounds
Musculoskeletal: No Edema
Neuro: Awake, Alert, Oriented, No Motor Deficits and Nonfocal/Grossly Intact
Psych: Calm
[2023-09-29 11:05] VITALS: BP 121/71
--- NOTE | 2023-09-29 11:35 | CM ---
Patient seen at bedside. Patient stated that he has a ride home and CM reviewed with him IMM completed by admissions 09/27/23 at 11:31. Patient indicated that he had no questions. CM will continue to follow for discharge planning needs.
Plan; home with no needs.
--- NOTE | 2023-09-29 18:46 | W.DCSUMMARY ---
Discharge Summary
Discharge Data
Date of Admission: 09/27/23
Date of Discharge: 09/29/23
-
Pending Results: No
Hospital Course
Discharging Physician : Dr Guanako Mina
Disposition : Home with home care
Primary care physician : Dr Miley Cummings
Principal Discharge diagnosis :
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
Chronic Discharge diagnosis :
Valvular heart disease
History of aortic valve replacement and mitral valve repair
Essential hypertension
Hyperlipidemia
Chronic kidney disease stage III
Benign prostatic hyperplasia
Gout
Hospital Course :
Patient is a 57-year-old male with mentioned past medical history came to ER for having new onset of shortness of breath ongoing for few days. Symptoms were noted to be exertional mainly over the last 1 week. In ER chest x-ray done showing patient
had moderate left-sided effusion. Patient denied of having previous history of effusion/heart failure any pulmonary problems. Interventional radiology was consulted and patient underwent drainage of 1.4 L serosanguineous fluid with fluid studies
showing this being exudative in nature. On further history gathering patient reported a 30-year occupational asbestos exposure. CT abdomen pelvis from previous visits are showing pleural thickening and calcification. Repeat CT chest was done this
admission confirming pleural thickening and calcification suggestive of stable asbestosis changes. Pulmonology was involved in care and have requested for patient to follow-up in office to discuss cytopathology report which is pending at time of
discharge. Of note an echocardiogram was done which did not show any change in EF/no new valvulopathy. Patient was discharged home with plan for follow-up in pulmonology office.
Important imaging findings :
None
Procedure findings :
None
Discharge Plan
-
Patient Disposition: Home (Routine Discharge)
Discharge Diagnosis/Procedures: Left pleural effusion from asbestosis
Condition: Fair
Diet: Regular
Activity: As tolerated
Driving Restrictions: As prior to admission
Bathing Restrictions: OK to Shower
Referrals:
Jake Oro MD [Family Provider] - in one week
Meño Basilio MD [Active] - in four to six weeks (Follow-up pleural fluid)
Prescriptions:
Continued
terazosin 5 MG capsule
5 mg PO HS
simvastatin 20 MG tablet
20 mg PO HS
allopurinol 300 MG tablet
150 mg PO DAILY
aspirin 81 MG tablet,chewable
162 mg PO HS
carvedilol 12.5 MG tablet
6.25 mg PO BID
chlorthalidone 25 MG tablet
12.5 mg PO DAILY
coenzyme Q10 [Co Q-10] 200 MG capsule
200 mg PO HS
Ultra Rohini Plus 1 EACH capsule
1 ea PO DAILY
turmeric 400 MG capsule
400 mg PO BID
therapeutic multivitamin Tablet
1 tab PO DAILY
spironolactone 25 mg Tablet
25 mg PO DAILY
acetaminophen [Tylenol Arthritis Pain] 650 mg Tablet Extended Release
1,300 mg PO Q8H
docusate sodium [Colace] 100 mg Capsule
100 mg PO QPM
vit C-vit E-Se-ginkgo biloba 60-30-70-40 jg-yamt-qev-mg Tablet
1 tab PO HS
PreserVision AREDS 2,148 mcg-113 mg-45 mg-17.4mg Tablet
1 tab PO BID
dapagliflozin propanediol [Farxiga] 10 mg Tablet
10 mg PO DAILY
Discharge Orders:
Discharge Patient (As Directed); Ordered 09/29/23
Ordered By: Guanako Mina
Discharge Date and Time
Discharge Date/Time: 09/29/23 12:38
Print Language: [place]
== END 2023-09-29 12:38 | disposition home or self-care (01) | DRG 197 ==
LOC: 4 EAST ACU 15:58
PROVIDERS: Physician Assistant; Physician Assistant Medical; Radiology Vascular & Interventional Radiology; ADMITTING PHYSICIAN Hospitalist; CONSULT PHYSICIAN Internal Medicine Critical Care Medicine; EMERGENCY PHYSICIAN Emergency Medicine; FAMILY PHYSICIAN Internal Medicine
PROC: 0W9B3ZZ Drainage of Left Pleural Cavity, Percutaneous Approach (ICD-10-PCS; 2023-09-28)
DX: J61 Pneumoconiosis due to asbestos and other mineral fibers (principal); J90 Pleural effusion, not elsewhere classified; Z87.891 Personal history of nicotine dependence; I51.7 Cardiomegaly; N18.30 Chronic kidney disease, stage 3 unspecified; I13.10 Hypertensive heart and chronic kidney disease without heart failure, with stage 1 through stage 4 chronic kidney disease, or unspecified chronic kidney disease; N40.0 Benign prostatic hyperplasia without lower urinary tract symptoms; M10.9 Gout, unspecified; Z77.090 Contact with and (suspected) exposure to asbestos; E78.00 Pure hypercholesterolemia, unspecified
CPT/HCPCS: 88305; 32555; 71045; 71046; 71250; 80048; 80053; 82150; 82945; 83615; 83880; 83986; 84157; 84478; 84484; 85025; 85027; 87015; 87070; 87205; 88112; 89051; 93005; 93306; 97116; 97162; 97166; 99285; Q9950

== ENCOUNTER → 2023-10-07 14:58 | Outpatient (REF) | payer MEDICARE, SELFPAY | LOC: RAD 14:58 | PROVIDERS: ATTENDING PHYSICIAN Internal Medicine | DX: Z09 Encounter for follow-up examination after completed treatment for conditions other than malignant neoplasm (principal) | CPT/HCPCS: 71046 ==

== ENCOUNTER → 2023-10-07 19:18 | Outpatient (REF) | payer MEDICARE, SELFPAY | LOC: MRI 19:18 | PROVIDERS: ATTENDING PHYSICIAN Physical Medicine & Rehabilitation; FAMILY PHYSICIAN Internal Medicine | DX: M47.22 Other spondylosis with radiculopathy, cervical region (principal) | CPT/HCPCS: 72141 ==

== ENCOUNTER 2023-10-11 01:16 | Inpatient (IN) | payer MEDICARE, SELFPAY ==
[2023-10-10 22:26] VITALS: BMI 26.9
[2023-10-10 22:27] VITALS: BP 127/75
--- NOTE | 2023-10-10 23:01 | ED.GENMED ---
History of Present Illness
General
Chief Complaint: Breathing Problem
Source: patient
Exam Limitations: none
Time Seen by Provider: 10/10/23 22:42
Travel History
Have you had any contact with someone who has COVID-19?: No
Do you have any symptoms of coronavirus? Fever > 100 degrees, chills, cough, shortness of breath, sore throat, loss of taste or smell, muscle aches, or headache?: No
History of Present Illness
History of Present Illness:
This is a 87 year old male that comes in with c/o SOB. States that a couple weeks ago he had his lung taped. States that he feels it is filling up with fluid again. States that he went to see Dr. Oro after his discharge and he had an X-ray last
. States that tonight he was more SOB with any activity. Denies any fever, chills, chest pain, abd pain, nausea, vomiting, diarrhea, headache, dizziness, urinary burning
Past History
Past History
ED Past Medical History: HTN, Hypercholesterolemia, Valvular disease, Other (Renal disease, chronic back pain, Diverticulitis, Urinary retention, Anemia, ) and Other (Chronic prostatitis)
ED Past Surgical History: Cardiac (Aortic valve repair mitral repair, pericardial tissue heart valve), Orthopedic (Left hand surgery, Left arm surgery, ) and Other ( Hernia. Pilonidal cyst, )
Social History
Tobacco: Former smoker
Alcohol: Occasional
Drug: None
Personal:
Living: with family
Employment: Retired
Family History
Family History: Hypertension
Review of Systems
Review of Systems
All Other Systems: ROS reviewed and negative except as documented in HPI and ROS
Constitutional: Reports no symptoms; Denies fever or chills
EENT: Reports no symptoms
Respiratory: Reports trouble breathing; Denies cough
Cardiac: Reports no symptoms; Denies chest pain
ABD/GI: Reports no symptoms; Denies abdominal pain, nausea, vomiting or diarrhea
: Reports no symptoms; Denies dysuria, frequency or urgency
Musculoskeletal: Reports no symptoms
Skin: Reports no symptoms
Neurological: Reports no symptoms; Denies dizzy or headache
Psychiatric: Reports no symptoms
Phy Exam
General Physical Exam
General Presentation: no apparent distress
General age: appears stated age
General Skin: warm and dry
General Habitus: elderly
General Mental: alert
General Hydration: dry mucous membranes
ENT Exam
ENT Exam: TM's normal, pharynx normal and neck supple
Eye Exam
Eye Exam: EOMI
Cardiovascular Exam
Cardiovascular Exam: regular rate/rhythm and normal peripheral pulses
Pulmonary Exam
Pulmonary Exam: no respiratory distress, chest non tender, no rhonchi, no wheezing, no cough and other (Fine rales left base)
Gastrointestinal Exam
Gastrointestinal Exam: normal bowel sounds, non tender, soft, no organomegaly, no pulsatile mass and non distended
Musculoskeletal Exam
Musculoskeletal Exam: full ROM and edema (Slight nonpitting lower leg edema)
Skin Exam
Skin Exam: normal color, warm/dry, no rash and no petechia
Psychiatric Exam
Psychiatric Exam: normal mood/affect
Scores
Heart Failure Risk
Heart Failure Risk Score: Not Applicable
Course
Orders/Labs/Results
Orders:
Orders
10/10/23 23:01
CR Chest - 2 Views Urgent
Comment:
Reason For Exam: SOB
10/10/23 23:12
Electrocardiogram (*1) Urgent
Reason for Study: Shortness of Breath
EKG- Treatment ONCE
10/10/23 23:20
Complete Blood Count/With Diff Urgent
Comprehensive Metabolic Panel Urgent
NT-proBNP Urgent
Prothrombin Time Urgent
Troponin I Urgent
Abnormal Lab Results
10/10/23
23:20
RBC 3.28 L 10^6/uL
(4.70-6.10)
Hgb 10.5 L g/dL
(13.0-18.0)
Hct 32.2 L %
(39.0-52.0)
MCV 98.2 H fL
(80.0-94.0)
MCH 32.0 H pg
(27.0-31.0)
MCHC 32.6 L g/dL
(33.0-37.0)
Absolute Monos (auto) 0.8 H 10^3/uL
(0.1-0.6)
Lymphocytes % 16.1 L %
(20.5-51.1)
BUN 45 H mg/dl
(9-20)
Creatinine 1.7 H mg/dL
(0.7-1.3)
Glucose 121 H mg/dl
(70-99)
Alkaline Phosphatase 156 H U/L
(38-126)
10/10/23 23:20
10/10/23 23:20
H/H low. Anemia, chronic renal insufficiency, Glucose nonfasting. Alk phos elevation. PT 14.4 with INR 1.13, Troponin <0.012, Pro-BNP 289
Vital Signs
Initial and Last Documented VS:
Initial Vital Signs
Temp Pulse Resp BP Pulse Ox
98.9 F 76 20 127/75 96
10/10/23 22:27 10/10/23 22:27 10/10/23 22:27 10/10/23 22:27 10/10/23 22:27
Last Documented Vital Signs
Temp Pulse Resp BP Pulse Ox
98.9 F 76 20 128/76 97
10/10/23 22:27 10/10/23 22:27 10/10/23 22:27 10/11/23 00:00 10/11/23 00:00
MDM/Problems Addressed
Differential Diagnosis Includes:
Pleural effusion. CHF
MDM/Problems Addressed:
This is a 87 year old male that comes in with c/o SOB. States that he was tapped a couple weeks ago and he was seen by his PCP on . States that he had a repeat X-ray done at that time.States that tonight he became more SOB with any
activity.
will check labs, Chest X-ray.
Back into see patient. Explained that his blood work shows that he is anemic and he has chronic renal insufficiency. Patient X-ray shows a left sided pleural effusion. Will patient c/o SOB and his pulse ox goes down with any movement will admit.
Hospitalist notified.
Chronic conditions affecting care:
history of Pleural effusion
Acute Exacerbation and/or Progression of Chronic Illness:
Pleural effusion
*Radiology
Radiology exam reviewed: preliminary read by ED provider (Chest- Left pleural effusion)
*Pulse Oximetry
Patient hypoxic: no
*EKG
Interpreted by ED Provider?: Yes
Heart Rate: 66
Rhythm: sinus
[place]: left axis deviation
Interval: normal interval
QRS Pattern: normal QRS
Ischemia: no ischemia
*Critical Care Note
Total Time (30-74mins, 75-104mins- exclusive of procedures): Not Applicable
ED Attending Note
-
Portions of this chart may have been created with voice recognition software.� Occasional wrong word or��sound alike� substitutions may have occurred due to the inherent limitations of voice recognition software.
Discharge Plan
Departure
Patient Disposition: Admit
Date of Disposition: 10/11/23
Time of Disposition: 00:43
Admit to: Telemetry
Presentation/result/management discussed w/ accepting MD/DO: Hospitalist
Patient with high blood pressure during this ER visit?: No
Condition: Good
Covid-19: Not Applicable
Discharge Problem:
Pleural effusion, left, SOB (shortness of breath)
Prescriptions:
No Action
terazosin 5 MG capsule
5 mg PO HS
simvastatin 20 MG tablet
20 mg PO HS
allopurinol 300 MG tablet
150 mg PO DAILY
chlorthalidone 25 MG tablet
12.5 mg PO DAILY
coenzyme Q10 [Co Q-10] 200 MG capsule
200 mg PO HS
Ultra Rohini Plus 1 EACH capsule
1 cap PO DAILY
Patient Comments:
10/10/2023, probiotic.
turmeric 400 MG capsule
400 mg PO BID
Patient Comments:
10/10/2023, w/ curcumin.
therapeutic multivitamin Tablet
1 tab PO DAILY
Patient Comments:
10/10/2023, Essential 1 multi.
spironolactone 25 mg Tablet
25 mg PO DAILY
acetaminophen [Tylenol Arthritis Pain] 650 mg Tablet Extended Release
1,300 mg PO Q8HPRN PRN (Reason: mild pain)
docusate sodium [Colace] 100 mg Capsule
100 mg PO HSPRN PRN (Reason: constipation)
PreserVision AREDS 2,148 mcg-113 mg-45 mg-17.4mg Tablet
1 tab PO BID
dapagliflozin propanediol [Farxiga] 10 mg Tablet
10 mg PO DAILY
B12 Folate tablet
500 mg PO DAILY
carvedilol 6.25 mg Tablet
6.25 mg PO BID
aspirin 81 mg Tablet,Delayed Release (Dr/Ec)
162 mg PO HS
tramadol 50 mg Tablet
50 mg PO Q6H PRN (Reason: severe pain)
esomeprazole magnesium 40 mg Capsule,Delayed Release(Dr/Ec)
40 mg PO DAILY PRN (Reason: indigestion/heartburn)
gabapentin 300 mg Capsule
300 mg PO BID
Patient Comments:
10/10/2023. filled on 10/06/2023 for 15-day supply.
calcium carbonate [Tums 500] 500 mg calcium (1,250 mg) Tablet,Chewable
500 mg PO TID PRN (Reason: indigestion)
Memory And Brain Supplement capsule
1 cap PO HS
Metamucil Fiber Thin wafer
2 wafer PO DAILY@1500
Patient Comments:
10/10/2023, one packet contains 2 wafers.
Referrals:
Jake Oro MD [Family Provider] -
Interventions
Interventions:
*Risk Screen - Suicide Last Done: 10/10/23 22:27
*General Assessment Last Done: 10/10/23 22:27
*Neglect/Abuse Screening Last Done: 10/10/23 22:27
ED- Fall Risk Assessment Last Done: 10/10/23 23:24
*ED COVID-19 Vaccine History Last Done: 10/10/23 23:22
ED- Cardiac Assessment Last Done: 10/10/23 23:24
ED- Pulmonary Assessment Last Done: 10/10/23 23:24
Discharge Date and Time
Print Language: STATELESS
[2023-10-10 23:22] VITALS: BP 132/68
[2023-10-10 23:39] LABS: % Basophils 0.3 % (0-2); % Eosinophils 2.4 % (0-6); % Immature Granulocytes 0.5 % (0-0.5); % Lymphocytes 16.1 % (20.5-51.1); % Monocytes 8.9 % (1.7-9.3); % Neutrophils 71.8 % (42.2-75.2); Absolute Eosinophils 0.2 10^3/uL (0-0.7); Absolute Lymphocytes 1.4 10^3/uL (1.2-3.4); Absolute Monocytes 0.8 10^3/uL (0.1-0.6); Absolute Neutrophils 6.2 10^3/uL (1.4-6.5); Hematocrit 32.2 % (39.0-52.0); Hemoglobin 10.5 g/dL (13.0-18.0); Mean Corp Hgb Conc. 32.6 g/dL (33.0-37.0); Mean Corpuscular Volume 98.2 fL (80.0-94.0); Mean Platelet Volume 9.4 fL (7.4-10.4); Nucleated Red Blood Cells % 0 % (-); Platelet Count 300 10^3/uL (130-400); Red Blood Cell Count 3.28 10^6/uL (4.70-6.10); Red Cell Dist. Width 13.8 % (11.5-14.5); White Blood Cell Count 8.7 10^3/uL (4.8-10.8)
[2023-10-10 23:48] LABS: ALT (SGPT) 30 U/L (0-50); AST (SGOT) 31 U/L (17-59); Alkaline Phosphatase 156 U/L (38-126); Blood Urea Nitrogen 45 mg/dl (9-20); Calcium 9.7 mg/dl (8.4-10.2); Carbon Dioxide 23 mmol/L (22-30); Chloride 105 mmol/L (98-107); Estimated Creatinine Clearance 32 ml/min; Glucose 121 mg/dl (70-99); Potassium 4.9 mmol/L (3.5-5.1); Sodium 139 mmol/L (135-145); Total Bilirubin 0.3 mg/dl (0.2-1.3); Total Protein 7.2 g/dl (6.3-8.2); eGFR 38.78
[2023-10-10 23:49] LABS: INR 1.13; PT 14.4 Sec (11.4-14.6)
[2023-10-11] VITALS (8 sets, daily range): BP systolic 128–174; BP diastolic 71–93; BMI 26.9
[2023-10-11 00:07] LABS: NT-proBNP 289 pg/ml; Troponin I < 0.012 ng/ml
--- NOTE | 2023-10-11 01:01 | HPS.HSE ---
Family Physician
-
Family Physician: Ruben Oro
Chief Complaint
-
SoB
History of Present Illness
87M HX 30 yrs occupational exposure to asbestos, recent s/p thoracentesis of Lt sided pleural effusion, NEG cytopathology for malignant cells seen at ER for evaluation of SoB
Current SoB
- worsening for last few days ? recurrent Lt sided pleural effusion
- Current XR looks recurrent Lt sided plural effusion
ROS
Denies any fever, chills, chest pain,
Medical History
Past Medical History
Past Medical History: Reports Other
Additional Past Medical History:
Valvular Heart Disease
Essential Hypertension
Hyperlipemia
CKD Stage III
BPH
Gout
Past Surgical History: Reports Other
Additional Past Surgical History:
Mitral Valve Repair
Aortic Valve Replacement
Left Hand Surgery
Left Arm Surgery
Hernia Repair
Social History
Tobacco: Former Smoker (Quit over 40 years ago)
Alcohol: Daily (One drink nightly)
Family History
Family History: Not pertinent
Allergies / Home Medications
Allergies reflects when Allergies were last updated in [facility].
Home Medications with original date entered in [facility]
Allergy/Medication List:
Allergies
Allergy/AdvReac Type Severity Reaction Status Date / Time
No Known Allergies Allergy Verified 09/27/23 10:41
Home Medications
allopurinol 300 mg tablet 150 mg PO DAILY Gout 04/07/10
simvastatin 20 mg tablet 20 mg PO HS High cholesterol 04/07/10
terazosin 5 mg capsule 5 mg PO HS Urinary issue 04/07/10
aspirin 81 mg chewable tablet 162 mg PO HS Blood clot prevention/tx 01/22/11
carvedilol 12.5 mg tablet 6.25 mg PO BID Heart disease/condition 07/22/14
chlorthalidone 25 mg tablet 12.5 mg PO DAILY Blood pressure 08/20/20
coenzyme Q10 200 mg capsule (Co Q-10) 200 mg PO HS Supplement 08/20/20
lactobacillus ibwjj-odhxon-wggdxpls protein 15 billion cell-170 mg cap (Ultra Rohini Plus) 1 ea PO DAILY Supplement 08/20/20
turmeric 400 mg capsule 400 mg PO BID Supplement 08/20/20
acetaminophen 650 mg tablet,extended release (Tylenol Arthritis Pain) 1,300 mg PO Q8H 09/27/23
dapagliflozin propanediol 10 mg tablet (Farxiga) 10 mg PO DAILY 09/27/23
docusate sodium 100 mg capsule (Colace) 100 mg PO QPM 09/27/23
spironolactone 25 mg tablet 25 mg PO DAILY 09/27/23
therapeutic multivitamin 1 tab PO DAILY 09/27/23
vit C-vit E-Se-ginkgo biloba 60 mg-30 unit-70 mcg-40 mg tablet 1 tab PO HS 09/27/23
vitamins A,C,I-ggjm-cyjnna 2,148 mcg-113 mg-45 mg-17.4 mg tablet (PreserVision AREDS) 1 tab PO BID 09/27/23
Review of Systems
-
Constitutional: Reports No Symptoms
EENT: Reports No Symptoms
Respiratory: Reports See HPI and Trouble Breathing
Cardiac: Reports No Symptoms
Abdomen/GI: Reports No Symptoms
: Reports No Symptoms
Musculoskeletal: Reports No Symptoms
Skin: Reports No Symptoms
Neurological: Reports No Symptoms
Endocrine: Reports No Symptoms
Hematologic/Lymphatic: Reports No Symptoms
Psych: Reports No Symptoms
Physical Exam
Vital Signs
Vital Signs
Temp Pulse Resp BP Pulse Ox
98.9 F 76 20 128/76 98
10/10/23 22:27 10/10/23 22:27 10/10/23 22:27 10/11/23 00:00 10/11/23 00:45
Physical Exam
General: Comfortable and Conversant (Noted conversational dyspnea)
HEENT: Anicteric and Moist mucous membranes
Respiratory: Clear and Decreased Breath Sounds (Decreased/Absent breath sounds left base)
Cardiac: S1/S2 and Regular Rhythm
GI: Soft and Non Tender
Rectal: Deferred by Provider
Musculoskeletal: No Clubbing, No Cyanosis and No Edema
Skin: Warm and Dry
Neuro: Awake, Alert, Oriented and Nonfocal/grossly intact
Laboratory Results
-
10/10/23 23:20
10/10/23 23:20
Laboratory Results
PT 14.4 Sec (11.4-14.6) 10/10/23 23:20
INR 1.13 10/10/23 23:20
Total Bilirubin 0.3 mg/dl (0.2-1.3) 10/10/23 23:20
AST 31 U/L (17-59) 10/10/23 23:20
ALT 30 U/L (0-50) 10/10/23 23:20
Alkaline Phosphatase 156 U/L (38-126) H 10/10/23 23:20
Troponin I < 0.012 ng/ml 10/10/23 23:20
Data Reviewed
-
Diagnostic Radiology: Image Personally Visualized and interpreted
CT Scan: Report Reviewed by me
Lab Data: Labs Reviewed by me
Old Records: Reviewed
Impression/Plan
-
Reviewed VS: unremarkable
Data
Hgb 10.5 - bl is 10s
BUN 45
Cr 1.7 - bl is 1.7
NEG TPNI
pro BNP 290
10/09/26 My view on CXR :
Lt sided pleural effusion ? moderate
10/07/23 CXR:
Small to moderate left effusion, partially loculated laterally. As appears slightly increased as compared with the most recent prior examination.
09/28/23 : Successful ultrasound-guided thoracentesis, yielding 1450 cc of dark bloody pleural fluid.
09/28/23 Patho: NEG for malignant cells
09/28/23 CT Chest W/o Iv Contrast
- Small loculated left pleural effusion. Much improved.
- Moderate lingular and left lower lobe possibly atelectasis.
- New from prior CT of the abdomen Pneumonia. and underlying masses not excluded.
- Limited exam without IV contrast.
- Severe pleural calcification bilaterally suggesting prior asbestos exposure. Stable
- Mild diffuse pleural thickening left hemithorax. New
Last hospitalist admission: 09/27/23 - 09/29/23
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
ASSESSMENT & PLAN
Pending Rx reconciliation
Recurrent symptomatic pleural effusion
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
- Recent Lt thoracentesis yielding 1450 cc of dark bloody pleural fluid on 09/28/23
- NEG cytopathology for malignant cells
- Pul consult ? evaluation for pleural catheter
HX Aortic Valve Replacement and Mitral Valve Repair
- stable
Essential HTN
- cont carvedilol, chlorthalidone and spironolactone
Hyperlipidemia
-cont. statin
CKD3
- Creatinine at baseline
- Continue Farxiga
BPH
- cont. terazosin
Gout
- cont allopurinol
Chr back pain
- use TENs simulator applied to Lt post chest
DVT proph: SC Heparin
Code Status: Full Code
IP MS
--- NOTE | 2023-10-11 07:55 | CON.PUL ---
Consultation
Consultation Request
Date/Time Consultation Requested: 10/11/2023-8 AM
Date/Time Consultation Performed: 10/11/2023-8:30 AM
Requesting Provider: Hospitalist
Performing Provider: Dr. Basilio
Reason for Consultation: Shortness of breath
Medical History
-
Chief Complaint: Shortness of breath
History of Present Illness:
87-year-old male with history of hypertension, chronic kidney disease, mitral valve repair, aortic valve replacement who presented with significant shortness of breath and noted to have large pleural effusion-pulmonary consulted for pleural
effusion/shortness of breath 09/28/23-thoracentesis was performed, patient felt much improved, cytology was negative and returns with progressive shortness of breath and moderate loculated pleural effusion-pulmonary reconsulted for shortness of
breath/pleural effusion 10/11/2023.
.
Past Medical History
Past Medical History: None (Hypertension. Hyperlipidemia. Chronic kidney disease stage III. BPH. Gout. Mitral valve repair. Aortic valve replacement. Left hand surgery. Left arm surgery. Hernia repair.)
Social History
Tobacco: Former Smoker (34-yhyd-idre quit 1960)
Alcohol: Occasional (1 drink nightly)
Drug: None
Personal:
Living: With Family
Occupational Exposures: No known tuberculosis exposure
Environmental Exposures: Asbestos dust exposure
Family History
Family History: Other (No family history of lung disease)
Allergies / Home Medications
Allergies
Allergy/AdvReac Type Severity Reaction Status Date / Time
No Known Allergies Allergy Verified 10/10/23 22:27
Home Medications
�Medication �Instructions �Recorded �Confirmed �Last Taken �Type
allopurinol 300 mg tablet 150 mg PO DAILY Gout 04/07/10 10/10/23 10/10/23 History
simvastatin 20 mg tablet 20 mg PO HS High cholesterol 04/07/10 10/10/23 10/10/23 History
terazosin 5 mg capsule 5 mg PO HS Urinary issue 04/07/10 10/10/23 10/10/23 History
chlorthalidone 25 mg tablet 12.5 mg PO DAILY Blood pressure 08/20/20 10/10/23 10/10/23 History
coenzyme Q10 200 mg capsule (Co 200 mg PO HS Supplement 08/20/20 10/10/23 10/10/23 History
Q-10)
lactobacillus 1 cap PO DAILY Supplement 08/20/20 10/10/23 10/10/23 History
dpvde-gomqcb-wwopnprf protein 15
billion cell-170 mg cap (Ultra
Rohini Plus)
turmeric 400 mg capsule 400 mg PO BID Supplement 08/20/20 10/10/23 10/10/23 History
acetaminophen 650 mg 1,300 mg PO Q8HPRN PRN mild pain 09/27/23 10/10/23 10/09/23 History
tablet,extended release (Tylenol
Arthritis Pain)
dapagliflozin propanediol 10 mg 10 mg PO DAILY 09/27/23 10/10/23 10/10/23 History
tablet (Farxiga)
docusate sodium 100 mg capsule 100 mg PO HSPRN PRN constipation 09/27/23 10/10/23 10/09/23 History
(Colace)
spironolactone 25 mg tablet 25 mg PO DAILY 09/27/23 10/10/23 10/10/23 History
therapeutic multivitamin 1 tab PO DAILY 09/27/23 10/10/23 10/10/23 History
vitamins A,C,X-nxer-ozbfeg 2,148 1 tab PO BID 09/27/23 10/10/23 10/10/23 History
mcg-113 mg-45 mg-17.4 mg tablet
(PreserVision AREDS)
B12 Folate 500 mg PO DAILY 10/10/23 10/10/23 10/10/23 History
Memory And Brain Supplement 1 cap PO HS 10/10/23 10/10/23 10/10/23 History
Metamucil Fiber Thin 2 wafer PO DAILY@1500 10/10/23 10/10/23 10/10/23 History
aspirin 81 mg tablet,delayed 162 mg PO HS 10/10/23 10/10/23 10/10/23 History
release
calcium carbonate 500 mg PO TID PRN indigestion 10/10/23 10/10/23 10/10/23 History
carvedilol 6.25 mg tablet 6.25 mg PO BID 10/10/23 10/10/23 10/10/23 History
esomeprazole magnesium 40 mg 40 mg PO DAILY PRN 10/10/23 10/10/23 3 Weeks Ago History
capsule,delayed release indigestion/heartburn ~09/19/23
gabapentin 300 mg capsule 300 mg PO BID 10/10/23 10/10/23 10/10/23 History
tramadol 50 mg tablet 50 mg PO Q6H PRN severe pain 10/10/23 10/10/23 10/10/23 History
Review of Systems
-
Unable to Obtain full review of systems at this time due to: Other (Per HPI)
Vitals / Labs / Diagnostic Testing
Vital Signs
Temp Pulse Resp BP Pulse Ox
97.5 F 68 18 160/90 96
10/11/23 07:25 10/11/23 07:25 10/11/23 07:25 10/11/23 07:25 10/11/23 07:25
Lab Data
10/10/23 23:20
10/10/23 23:20
Laboratory Results
10/10/23
23:20
PT 14.4
INR 1.13
Diagnostic Testing:
Physical Exam
-
Exam:
Well-nourished and well-developed in no apparent distress
HEENT-atraumatic, normocephalic
Neck-supple, no JVD, no bruit
Heart-regular rate and rhythm-systolic murmur
Chest with diminished breath sounds left greater than right base and no wheezes
Back without tenderness
Abdomen-soft, nontender, nondistended, no hepatosplenomegaly
Extremities-no cyanosis, clubbing, edema and good peripheral pulses
Integument-intact, no rashes, lesions or ecchymosis
Neurology-alert and oriented, nonfocal motor and sensory exam
Assessment
-
87-year-old male with history of hypertension, chronic kidney disease, mitral valve repair, aortic valve replacement who presented with significant shortness of breath and noted to have large pleural effusion-pulmonary consulted for pleural
effusion/shortness of breath 09/28/23-thoracentesis was performed, patient felt much improved, cytology was negative and returns with progressive shortness of breath and moderate loculated pleural effusion-pulmonary reconsulted for shortness of
breath/pleural effusion 10/11/2023.
Assessment
Conditions present prior to admission:
Recent hospitalization 08/2023-large left pleural effusion status post thoracentesis
Hypertension
Hyperlipidemia.
Chronic kidney disease stage III.
BPH.
Gout.
Former [id number]-year-quit 40 years ago
Mitral valve repair. Aortic valve replacement. Left hand surgery. Left arm surgery. Hernia repair.
Plan
Radiographs dating back to 2009 were personally reviewed-patient had pleural plaque that was calcified dating back to 2010 with some progression and now a recurrent pleural effusion.
He had a thoracentesis 08/2023-bloody pleural fluid worrisome for asbestos-related potential pleural malignancy such as mesothelioma-however cytology was negative
Interventional radiology consulted-repeat thoracentesis-recheck cytology
If pleural fluid continues to reaccumulate then thoracic surgical consultation for VATS pleural biopsy may be in order
If pleural fluid continues to reaccumulate may be a candidate for Pleurx catheter
Supplemental oxygen as needed-assess discharge supplemental oxygen needs
Incentive spirometry.
Follow radiographically
Continue to monitor for fluid reaccumulation.
Nebulizers if needed-currently not bronchospastic
DVT prophylaxis-on subcu heparin
Nutrition
Early mobilization.
Reviewed with nursing and primary team
Outpatient pulmonary nkwlpn-hl-Xjvwzfn pleural fluid, follow up on pathology, PFTs-patient has appointment tomorrow 10/12/2023 at 3:15 PM-will rearrange for 2 weeks later with PFTs
Diagnostic data:
Chest x-ray 03/04/10-cardiac dilation, interstitial pulmonary edema, no signs of asbestos related lung disease.
Chest x-ray 05/04/10-no acute cardiopulmonary disease, bilateral asbestos calcified pleural plaques.
Chest x-ray 07/22/14-chronic changes, no acute pathology.
Chest x-ray-bilateral calcified pleural plaques, left greater than right, plaques are slightly progressed compared to 2014.
Chest x-ray 09/27/23-moderate to large left pleural effusion
CT qhtyu-hgx-mldn 01/15/14 few small pulmonary nodules unchanged from 09/06/06, 1 cm pulmonary nodule lateral basilar segment left lower lobe appears unchanged, calcified pleural plaques consistent with prior asbestos exposure, status post midline
sternotomy and aortic valve replacement..
CT abdomen and pelvis 04/19/18-acute diverticulitis. No comments on lower lung ward.
CT abdomen and pelvis 10/29/19-calcified pleural plaques in the lung bases suggesting prior asbestos exposure, mild subpleural interstitial fibrosis at the lung bases.
CT abdomen and pelvis 02/07/23-multiple calcified pleural plaques suggesting prior asbestos exposure, acute sigmoid diverticulitis.
Thoracentesis 09/28/23-successful ultrasound-guided thoracentesis for 1.45 L of dark bloody pleural fluid, cultures pending, pathology pending
Echocardiogram 07/23/22-EF 50-55%, mitral valve angioplasty ring with mild mitral regurgitation, bovine aortic valve
Data Reviewed
-
EKG: Report reviewed by me
Radiology: Image personally visualized and interpreted and Report reviewed by me
CT Scan: Image personally visualized and interpreted and Report reviewed by me
Ultrasound: Report reviewed by me
Medical Tests (Nuc Med, Echo etc): Report reviewed by me
Labs: Labs reviewed by me and Discussed with Physician
Old Records: Reviewed
Total Time Spent with Patient (in minutes): 65
[2023-10-11] MEDS: NEURONTIN 300 MG PO ×2 (08:38→22:37)
[2023-10-11] MEDS: ALDACTONE 25 MG PO (08:38)
[2023-10-11] MEDS: ZYLOPRIM 150 MG PO (08:39)
[2023-10-11] MEDS: HEPARIN 5000 UNITS SC ×2 (08:39→20:51)
[2023-10-11] MEDS: VISBIOME 1 CAP PO (08:40)
[2023-10-11] MEDS: FARXIGA 10 MG PO (08:40)
[2023-10-11] MEDS: Hygroton 12.5 MG PO (08:40)
[2023-10-11] MEDS: COREG 6.25 MG PO ×2 (08:40→20:51)
[2023-10-11] MEDS: ULTRAM 25 MG PO ×2 (10:25→22:42)
--- NOTE | 2023-10-11 10:50 | W.PN.UPDATE ---
Update Note
Progress Note Update
Patient seen and examined after post midnight admission. Patient denies chest pain or shortness of breath at rest. He does have dyspnea on exertion. Vital signs stable. No acute distress, awake alert and orient x 3, regular rate and rhythm,
normal S1-S2. Decreased breath sounds in the left base and midlung field. Cranials 2-12 are intact. Consult IR for left thoracentesis. Appreciate pulmonary. Continue plan as outlined in the H&P done earlier today.
--- NOTE | 2023-10-11 15:17 | CM ---
MEt with patient who is admitted from home. He said he has thought he had to come to for thorcentisis but had evaluation today and no fluid needed to be tapped. He lives with in one level home with 2 steps to enter. He and are
independent. He remarked he had pool cleaned and opened up for his . He has a cane he uses at times.
He does not anticipate any discharge needs.
PCP Dr. Jan Cummings
Pharmacy [facility]
PLAN: home no needs.
[2023-10-11] MEDS: METAMUCIL, KONSYL 1 PACKET PO (15:31)
[2023-10-11] MEDS: NEURONTIN PO (20:51)
[2023-10-11] MEDS: LIPITOR 10 MG PO (22:37)
[2023-10-11] MEDS: ASPIR LOW (ENTERIC COATED) 162 MG PO (22:37)
[2023-10-11] MEDS: HYTRIN 5 MG PO (22:39)
[2023-10-12 03:00] VITALS: BP 127/74
[2023-10-12] MEDS: ULTRAM 25 MG PO (05:17)
[2023-10-12 07:00] VITALS: BP 159/80
[2023-10-12] MEDS: FARXIGA 10 MG PO (08:30)
[2023-10-12] MEDS: VISBIOME 1 CAP PO (08:30)
[2023-10-12] MEDS: Hygroton 12.5 MG PO (08:31)
[2023-10-12] MEDS: NEURONTIN 300 MG PO (08:31)
[2023-10-12] MEDS: ALDACTONE 25 MG PO (08:31)
[2023-10-12] MEDS: ZYLOPRIM 150 MG PO (08:33)
[2023-10-12] MEDS: COREG 6.25 MG PO (08:33)
[2023-10-12] MEDS: HEPARIN 5000 UNITS SC (08:34)
--- NOTE | 2023-10-12 09:26 | W.PN.PUL.V3 ---
Today's Communication / Plan
-
Wean oxygen
Increase activity
Not enough fluid for thoracentesis
Outpatient pulmonary follow-up
Assessment
-
87-year-old male with history of hypertension, chronic kidney disease, mitral valve repair, aortic valve replacement who presented with significant shortness of breath and noted to have large pleural effusion-pulmonary consulted for pleural
effusion/shortness of breath 09/28/23-thoracentesis was performed, patient felt much improved, cytology was negative and returns with progressive shortness of breath and moderate loculated pleural effusion-pulmonary reconsulted for shortness of
breath/pleural effusion 10/11/2023.
Assessment
Conditions present prior to admission:
Recent hospitalization 08/2023-large left pleural effusion status post thoracentesis
Hypertension
Hyperlipidemia.
Chronic kidney disease stage III.
BPH.
Gout.
Former [id number]-year-quit 40 years ago
Mitral valve repair. Aortic valve replacement. Left hand surgery. Left arm surgery. Hernia repair.
Plan
Radiographs dating back to 2009 were personally reviewed-patient had pleural plaque that was calcified dating back to 2010 with some progression and now a recurrent pleural effusion.
He had a thoracentesis 08/2023-bloody pleural fluid worrisome for asbestos-related potential pleural malignancy such as mesothelioma-however cytology was negative
Interventional radiology consulted-not enough fluid for thoracentesis
If pleural fluid continues to reaccumulate then thoracic surgical consultation for VATS pleural biopsy may be in order
If pleural fluid continues to reaccumulate may be a candidate for Pleurx catheter
Supplemental oxygen as needed-assess discharge supplemental oxygen needs
Incentive spirometry.
Follow radiographically as an outpatient if increased shortness of breath
Continue to monitor for fluid reaccumulation.
Nebulizers if needed-currently not bronchospastic
DVT prophylaxis-on subcu heparin
Nutrition
Increase activity
Stable from a pulmonary perspective for tentative discharge
Reviewed with nursing and primary team
Outpatient pulmonary fbetqt-pr-Ggyxofx pleural fluid, follow up on pathology, PFTs-patient has appointment today 10/12/2023 at 3:15 PM-will rearrange for 2 weeks later with PFTs
Diagnostic data:
Chest x-ray 03/04/10-cardiac dilation, interstitial pulmonary edema, no signs of asbestos related lung disease.
Chest x-ray 05/04/10-no acute cardiopulmonary disease, bilateral asbestos calcified pleural plaques.
Chest x-ray 07/22/14-chronic changes, no acute pathology.
Chest x-ray-bilateral calcified pleural plaques, left greater than right, plaques are slightly progressed compared to 2014.
Chest x-ray 09/27/23-moderate to large left pleural effusion
CT jmwun-ppk-bcre 01/15/14 few small pulmonary nodules unchanged from 09/06/06, 1 cm pulmonary nodule lateral basilar segment left lower lobe appears unchanged, calcified pleural plaques consistent with prior asbestos exposure, status post midline
sternotomy and aortic valve replacement..
CT abdomen and pelvis 04/19/18-acute diverticulitis. No comments on lower lung ward.
CT abdomen and pelvis 10/29/19-calcified pleural plaques in the lung bases suggesting prior asbestos exposure, mild subpleural interstitial fibrosis at the lung bases.
CT abdomen and pelvis 02/07/23-multiple calcified pleural plaques suggesting prior asbestos exposure, acute sigmoid diverticulitis.
Thoracentesis 09/28/23-successful ultrasound-guided thoracentesis for 1.45 L of dark bloody pleural fluid, cultures pending, pathology pending
Echocardiogram 07/23/22-EF 50-55%, mitral valve angioplasty ring with mild mitral regurgitation, bovine aortic valve
Subjective Data
-
Date of Service:
Date of Service: October 12, 2023
Chief Complaint: Pulmonary Follow Up and Dyspnea Follow Up
Subjective:
Patient still frustrated that he has some dyspnea on exertion. He has no fevers, chills, chest pain, chest congestion, productive cough or abdominal pain
Review of Systems
General: Other (Per HPI)
Objective Data
Data Reviewed
Vital Signs / I&O:
Vital Signs
Temp Pulse Resp BP Pulse Ox
98.0 F 76 18 159/80 96
10/12/23 07:00 10/12/23 07:00 10/12/23 07:00 10/12/23 07:00 10/12/23 07:00
Intake and Output
10/11/23 10/12/23 10/13/23
06:59 06:59 06:59
Intake Total 1620 / 1620
Balance 1620 / 1620
SaO2: 96
Physical Exam
General: Respiratory Distress (n) and Comfortable
HEENT: Normocephalic, Anicteric and Moist Mucous Membranes
Cardiovascular: Regular Rhythm
Respiratory: Wheeze (n), Crackles (Rare basilar), Rhonchi (n), Non-Labored Respirations, Accessory Resp Muscle Use (n) and Stridor (n)
GI: Soft, Non Distended and Non Tender
Neurology: Awake, Alert and No Motor Deficits
Skin: Warm, Good Color, Cyanosis (n), Jaundice (n) and Rash (n)
Labs/Micro/Reports
Lab Data
10/10/23 23:20
10/10/23 23:20
--- NOTE | 2023-10-12 09:38 | CM ---
Patient seen at bedside. Patient stated that his son or daughter would provide transportation home. Patient states that he has no needs at this time. IMM completed and signed form placed on chart. CM will continue to follow for discharge planning
needs.
Plan; home with no needs at this time.
--- NOTE | 2023-10-12 10:19 | W.PN.HOSP.TC ---
Today's Communication/Plan
-
d/c
Assessment / Plan
Assessment / Plan
Gen: NAD, AAOx3.
Eyes: EOMI, PERRLA, no scleral icterus.
Neck: supple.
CV: RRR, +S1/S2, no m/r/g.
Resp: decreased BS L base
Abd: +BS, soft, NT, ND
Skin: No rashes.
Neuro: CN 2-12 intact, non-focal.
Psych: Normal mood and affect.
Recurrent L pleural effusion due to pleural asbestosis:
-Currently not enough fluid to tap
-Patient saturating well on room air
-Case discussed with pulmonary and patient is medically cleared for discharge.
Other problems:
h/o Aortic Valve Replacement and Mitral Valve Repair
Essential HTN: cont carvedilol, chlorthalidone and spironolactone
Hyperlipidemia cont statin
CKD3
BPH: cont terazosin
Gout: cont allopurinol
Chronic back pain: uses TENs simulator applied to Lt post chest
Total time spent on d/c = 31 min. This included today's physical exam, progress note, review of laboratory and diagnostic data, preparation of discharge documents and prescriptions, and discussions about the pt's hospital course and discharge plan
with the patient and other medical editor involved in the patient's care.
Anticipated Discharge: Today
Subjective/Interval History
-
Date of Service: October 12, 2023
No new complaints.
Objective Data
-
Vital Signs:
Vital Signs
Temp Pulse Resp BP Pulse Ox
98.0 F 76 18 159/80 96
10/12/23 07:00 10/12/23 07:00 10/12/23 07:00 10/12/23 07:00 10/12/23 09:26
I&O
10/11/23 10/12/23 10/13/23
06:59 06:59 06:59
Intake Total 1620 / 1620
Balance 1620 / 1620
--- NOTE | 2023-10-12 13:16 | W.DCSUMMARY ---
Discharge Summary
Discharge Data
Date of Admission: 10/11/23
Date of Discharge: 10/12/23
-
Pending Results: No
Hospital Course
Primary diagnoses:
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
Secondary diagnoses:
h/o Aortic Valve Replacement and Mitral Valve Repair
Essential hypertension
Hyperlipidemia
Chronic kidney disease stage 3
Benign prostatic hypertrophy
Gout
Chronic back pain
Consultants:
Pulmonary
Imaging:
CXR: Moderate loculated left pleural effusion. Slightly improved. Findings consistent with prior benign granulomas disease. Stable.
L chest U/S: Small LEFT pleural effusion. Amount of fluid present not sufficient for safe thoracentesis.
Hospital course: 87-year-old male who presented with a chief complaint of shortness of breath as outlined in the H&P done on admission. Imaging above. The patient was admitted for left-sided thoracentesis. The patient ended up not having enough
fluid for thoracentesis. He was discharged in medically stable condition.
Discharge Plan
-
Patient Disposition: Home (Routine Discharge)
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
Condition: Good
Diet: Regular
Activity: As tolerated
Driving Restrictions: As prior to admission
Referrals:
Jake Oro MD [Family Provider] - in less than 1 week
Prescriptions:
Continued
terazosin 5 MG capsule
5 mg PO HS
simvastatin 20 MG tablet
20 mg PO HS
allopurinol 300 MG tablet
150 mg PO DAILY
chlorthalidone 25 MG tablet
12.5 mg PO DAILY
coenzyme Q10 [Co Q-10] 200 MG capsule
200 mg PO HS
Ultra Rohini Plus 1 EACH capsule
1 cap PO DAILY
Patient Comments:
10/10/2023, probiotic.
turmeric 400 MG capsule
400 mg PO BID
Patient Comments:
10/10/2023, w/ curcumin.
therapeutic multivitamin Tablet
1 tab PO DAILY
Patient Comments:
10/10/2023, Essential 1 multi.
spironolactone 25 mg Tablet
25 mg PO DAILY
acetaminophen [Tylenol Arthritis Pain] 650 mg Tablet Extended Release
1,300 mg PO Q8HPRN PRN (Reason: mild pain)
docusate sodium [Colace] 100 mg Capsule
100 mg PO HSPRN PRN (Reason: constipation)
PreserVision AREDS 2,148 mcg-113 mg-45 mg-17.4mg Tablet
1 tab PO BID
dapagliflozin propanediol [Farxiga] 10 mg Tablet
10 mg PO DAILY
B12 Folate tablet
500 mg PO DAILY
carvedilol 6.25 mg Tablet
6.25 mg PO BID
aspirin 81 mg Tablet,Delayed Release (Dr/Ec)
162 mg PO HS
tramadol 50 mg Tablet
50 mg PO Q6H PRN (Reason: severe pain)
esomeprazole magnesium 40 mg Capsule,Delayed Release(Dr/Ec)
40 mg PO DAILY PRN (Reason: indigestion/heartburn)
gabapentin 300 mg Capsule
300 mg PO BID
Patient Comments:
10/10/2023. filled on 10/06/2023 for 15-day supply.
calcium carbonate 500 mg calcium (1,250 mg) Tablet,Chewable
500 mg PO TID PRN (Reason: indigestion)
Memory And Brain Supplement capsule
1 cap PO HS
Metamucil Fiber Thin wafer
2 wafer PO DAILY@1500
Patient Comments:
10/10/2023, one packet contains 2 wafers.
Discharge Orders:
Discharge Patient (As Directed); Ordered 10/12/23
Ordered By: Taye Rolon
Discharge Date and Time
Print Language: [place]
[2023-10-12 13:25] VITALS: BP 128/71
== END 2023-10-12 13:40 | disposition home or self-care (01) | DRG 195 ==
LOC: 4 WEST ACU 01:16
PROVIDERS: Clinical Nurse Specialist Family Health; ADMITTING PHYSICIAN Internal Medicine; ATTENDING PHYSICIAN Internal Medicine; EMERGENCY PHYSICIAN Emergency Medicine; FAMILY PHYSICIAN Internal Medicine; OTHER PHYSICIAN Internal Medicine Critical Care Medicine
DX: J92.0 Pleural plaque with presence of asbestos (principal); J91.8 Pleural effusion in other conditions classified elsewhere; I12.9 Hypertensive chronic kidney disease with stage 1 through stage 4 chronic kidney disease, or unspecified chronic kidney disease; D64.9 Anemia, unspecified; N18.30 Chronic kidney disease, stage 3 unspecified; Z95.2 Presence of prosthetic heart valve; G89.29 Other chronic pain; M54.9 Dorsalgia, unspecified; M10.9 Gout, unspecified; N40.0 Benign prostatic hyperplasia without lower urinary tract symptoms; E78.5 Hyperlipidemia, unspecified; Z77.090 Contact with and (suspected) exposure to asbestos; Z87.19 Personal history of other diseases of the digestive system; Z87.891 Personal history of nicotine dependence
CPT/HCPCS: 71046; 76604; 80053; 83880; 84484; 85025; 85610; 93005; 99285

== ENCOUNTER → 2023-10-27 16:07 | Outpatient (REF) | payer MEDICARE, SELFPAY ==
[2023-10-27 17:01] LABS: Blood Urea Nitrogen 48 mg/dl (9-20); Calcium 9.7 mg/dl (8.4-10.2); Carbon Dioxide 25 mmol/L (22-30); Chloride 103 mmol/L (98-107); Glucose 90 mg/dl (70-99); Potassium 5.3 mmol/L (3.5-5.1); Sodium 136 mmol/L (135-145); eGFR 33.93
== END ==
LOC: REG 16:07
PROVIDERS: ATTENDING PHYSICIAN Specialist; FAMILY PHYSICIAN Internal Medicine
DX: R80.9 Proteinuria, unspecified (principal); I10 Essential (primary) hypertension; E87.5 Hyperkalemia; D63.1 Anemia in chronic kidney disease
CPT/HCPCS: 36415; 80048

== ENCOUNTER → 2023-11-10 09:00 | Outpatient (REF) | payer MEDICARE, SELFPAY | LOC: RAD 09:00 | PROVIDERS: ATTENDING PHYSICIAN Nurse Practitioner Family; FAMILY PHYSICIAN Internal Medicine | DX: J90 Pleural effusion, not elsewhere classified (principal); R06.02 Shortness of breath | CPT/HCPCS: 71046 ==

== ENCOUNTER → 2023-11-18 13:43 | Outpatient (REF) | payer MEDICARE, SELFPAY ==
[2023-11-18 15:39] LABS: Blood Urea Nitrogen 59 mg/dl (9-20); Calcium 9.9 mg/dl (8.4-10.2); Carbon Dioxide 22 mmol/L (22-30); Chloride 103 mmol/L (98-107); Glucose 115 mg/dl (70-99); Potassium 6.2 mmol/L (3.5-5.1); Sodium 135 mmol/L (135-145); eGFR 28.46
== END ==
LOC: REG 13:43
PROVIDERS: ATTENDING PHYSICIAN Specialist; FAMILY PHYSICIAN Internal Medicine
DX: N18.32 Chronic kidney disease, stage 3b (principal)
CPT/HCPCS: 36415; 80048

== ENCOUNTER → 2023-11-24 16:17 | Outpatient (REF) | payer MEDICARE, SELFPAY ==
[2023-11-24 17:47] LABS: Blood Urea Nitrogen 43 mg/dl (9-20); Calcium 10.7 mg/dl (8.4-10.2); Carbon Dioxide 28 mmol/L (22-30); Chloride 102 mmol/L (98-107); Glucose 90 mg/dl (70-99); Potassium 4.3 mmol/L (3.5-5.1); Sodium 134 mmol/L (135-145)
== END ==
LOC: REG 16:17
PROVIDERS: ATTENDING PHYSICIAN Specialist; FAMILY PHYSICIAN Internal Medicine
DX: R80.9 Proteinuria, unspecified (principal); E87.5 Hyperkalemia; D63.1 Anemia in chronic kidney disease
CPT/HCPCS: 36415; 80048

== ENCOUNTER → 2023-12-16 10:42 | Outpatient (REF) | payer MEDICARE, SELFPAY | LOC: RAD 10:42 | PROVIDERS: ATTENDING PHYSICIAN Internal Medicine Critical Care Medicine; FAMILY PHYSICIAN Internal Medicine | DX: R06.02 Shortness of breath (principal) | CPT/HCPCS: 71046 ==

== ENCOUNTER → 2023-12-23 13:59 | Outpatient (REF) | payer MEDICARE, SELFPAY ==
[2023-12-23 15:49] LABS: Albumin 4.1 g/dl (3.5-5.0); Blood Urea Nitrogen 46 mg/dl (9-20); Calcium 9.7 mg/dl (8.4-10.2); Carbon Dioxide 29 mmol/L (22-30); Chloride 98 mmol/L (98-107); Glucose 97 mg/dl (70-99); Potassium 4.7 mmol/L (3.5-5.1); Sodium 138 mmol/L (135-145); eGFR 38.53
[2023-12-24 10:10] LABS: Intact PTH 44.9 pg/ml (13.6-85.8)
== END ==
LOC: REG 13:59
PROVIDERS: ATTENDING PHYSICIAN Specialist; FAMILY PHYSICIAN Internal Medicine
DX: I10 Essential (primary) hypertension (principal); E87.5 Hyperkalemia; N26.9 Renal sclerosis, unspecified; N25.81 Secondary hyperparathyroidism of renal origin
CPT/HCPCS: 36415; 80069; 83970

== ENCOUNTER → 2024-01-10 08:42 | Outpatient (REF) | payer MEDICARE, SELFPAY ==
[2024-01-10 10:05] LABS: % Basophils 0.3 % (0-2); % Eosinophils 2.5 % (0-6); % Immature Granulocytes 0.5 % (0-0.5); % Lymphocytes 12.3 % (20.5-51.1); % Monocytes 7.2 % (1.7-9.3); % Neutrophils 77.2 % (42.2-75.2); Absolute Eosinophils 0.3 10^3/uL (0-0.7); Absolute Immature Granulocytes 0.1 10^3/uL (0-0.05); Absolute Lymphocytes 1.4 10^3/uL (1.2-3.4); Absolute Monocytes 0.8 10^3/uL (0.1-0.6); Absolute Neutrophils 8.8 10^3/uL (1.4-6.5); Hematocrit 32.2 % (39.0-52.0); Hemoglobin 10.7 g/dL (13.0-18.0); Mean Corp Hgb Conc. 33.2 g/dL (33.0-37.0); Mean Corpuscular Volume 93.3 fL (80.0-94.0); Nucleated Red Blood Cells % 0 % (-); Platelet Count 274 10^3/uL (130-400); Red Blood Cell Count 3.45 10^6/uL (4.70-6.10); Red Cell Dist. Width 15.7 % (11.5-14.5); White Blood Cell Count 11.5 10^3/uL (4.8-10.8)
[2024-01-10 10:39] LABS: Intact PTH 33.5 pg/ml (13.6-85.8)
[2024-01-10 10:40] LABS: ALT (SGPT) 28 U/L (0-50); AST (SGOT) 28 U/L (17-59); Albumin 3.8 g/dl (3.5-5.0); Alkaline Phosphatase 112 U/L (38-126); Blood Urea Nitrogen 44 mg/dl (9-20); Calcium 10.6 mg/dl (8.4-10.2); Carbon Dioxide 26 mmol/L (22-30); Chloride 102 mmol/L (98-107); Glucose 101 mg/dl (70-99); HDL Cholesterol 57 mg/dl; LDL Cholesterol, Calculated 63 mg/dl; Sodium 140 mmol/L (135-145); Total Bilirubin 0.3 mg/dl (0.2-1.3); Total Cholesterol 149 mg/dl (50-199); Total Protein 6.6 g/dl (6.3-8.2); Triglyceride 145 mg/dl (10-149); Very Low Density Lipoprotein 29 mg/dl (0-30); eGFR 38.53
== END ==
LOC: REG 08:42
PROVIDERS: ATTENDING PHYSICIAN Internal Medicine; REFERRING PHYSICIAN Specialist
DX: I15.8 Other secondary hypertension (principal); H26.9 Unspecified cataract; R09.89 Other specified symptoms and signs involving the circulatory and respiratory systems; M21.371 Foot drop, right foot; M21.372 Foot drop, left foot; M79.622 Pain in left upper arm; G56.00 Carpal tunnel syndrome, unspecified upper limb; I10 Essential (primary) hypertension; E87.5 Hyperkalemia; N26.9 Renal sclerosis, unspecified; N25.81 Secondary hyperparathyroidism of renal origin; N18.32 Chronic kidney disease, stage 3b
CPT/HCPCS: 36415; 80053; 80061; 83970; 84100; 85025

== ENCOUNTER → 2024-01-25 15:48 | Outpatient (REF) | payer MEDICARE, SELFPAY ==
[2024-01-25 17:18] LABS: Blood Urea Nitrogen 63 mg/dl (9-20); Calcium 9.7 mg/dl (8.4-10.2); Carbon Dioxide 24 mmol/L (22-30); Chloride 100 mmol/L (98-107); Glucose 95 mg/dl (70-99); Phosphorus 5.3 mg/dl (2.5-4.5); Potassium 4.9 mmol/L (3.5-5.1); Sodium 140 mmol/L (135-145)
[2024-01-28 08:35] LABS: 24 Hour Urine Total Volume Random mL; Urine Collection Length Random hr; Urine Free Lambda Light Chains 17.33 mg/L (0.00-3.79)
== END ==
LOC: REG 15:48
PROVIDERS: ATTENDING PHYSICIAN Specialist; FAMILY PHYSICIAN Internal Medicine
DX: R80.9 Proteinuria, unspecified (principal); N18.32 Chronic kidney disease, stage 3b; N25.81 Secondary hyperparathyroidism of renal origin
CPT/HCPCS: 36415; 80069; 83521; 84155; 84156; 84165; 86335

== ENCOUNTER → 2024-02-01 16:09 | Outpatient (REF) | payer MEDICARE, SELFPAY | LOC: RAD 16:09 | PROVIDERS: ATTENDING PHYSICIAN Internal Medicine Critical Care Medicine; FAMILY PHYSICIAN Internal Medicine | DX: J90 Pleural effusion, not elsewhere classified (principal) | CPT/HCPCS: 71046 ==

== ENCOUNTER → 2024-02-02 16:29 | Outpatient (REF) | payer MEDICARE, SELFPAY ==
[2024-02-02 17:17] LABS: Urine Protein 23 mg/dl (0-12)
[2024-02-02 17:23] LABS: Albumin 4.1 g/dl (3.5-5.0); Blood Urea Nitrogen 46 mg/dl (9-20); Calcium 9.2 mg/dl (8.4-10.2); Carbon Dioxide 25 mmol/L (22-30); Chloride 105 mmol/L (98-107); Glucose 91 mg/dl (70-99); Phosphorus 3.4 mg/dl (2.5-4.5); Potassium 4.6 mmol/L (3.5-5.1); Sodium 143 mmol/L (135-145); eGFR 41.44
[2024-02-02 17:25] LABS: NT-proBNP 542 pg/ml
[2024-02-02 17:41] LABS: Intact PTH 72.1 pg/ml (13.6-85.8)
== END ==
LOC: REG 16:29
PROVIDERS: ATTENDING PHYSICIAN Specialist; FAMILY PHYSICIAN Internal Medicine
DX: I10 Essential (primary) hypertension (principal); E87.5 Hyperkalemia; N25.81 Secondary hyperparathyroidism of renal origin; R80.9 Proteinuria, unspecified; D63.1 Anemia in chronic kidney disease; N18.32 Chronic kidney disease, stage 3b; I42.9 Cardiomyopathy, unspecified
CPT/HCPCS: 36415; 80069; 82570; 83880; 83970; 84156

== ENCOUNTER 2024-02-13 22:42 | Inpatient (IN) | payer MEDICARE, SELFPAY ==
[2024-02-13 14:13] VITALS: BP 149/72
--- NOTE | 2024-02-13 14:17 | ED.GENMED ---
ED Provider Triage
<Ruben Ji PA-C - Last Filed: 02/13/24 14:18>
-
Patient seen by provider in Triage?: Seen in Triage
88-year-old male with history of asbestosis presents with shortness of breath. Is followed by pulmonology. He was admitted in September of this year for pleural effusion requiring thoracentesis. His shortness of breath has progressed over the past
week. He denies leg swelling or chest pain. He is not anticoagulated.
Chest x-ray ordered labs ordered. EKG ordered through triage. He is not hypoxic
History of Present Illness
<Ruben Ji PA-C - Last Filed: 02/13/24 14:18>
General
Chief Complaint: Breathing Problem
Time Seen by Provider: 02/13/24 19:24
<Danya Salamanca PA-C - Last Filed: 02/13/24 23:27>
General
Source: patient and family
Exam Limitations: none
Nursing documentation reviewed up to this point in time: agreed with
History of Present Illness
History of Present Illness:
Patient is an 88-year-old male with past medical history of large pleural effusion on the left requiring thoracentesis back in October 2023 thought to be secondary to asbestos exposure, hypertension, hyperlipidemia, valve replacement currently on
aspirin daily, who presents emergency department from home accompanied by his son for evaluation of dyspnea on exertion. Patient reports that his symptoms have become much worse over the past week or so. He reports that just walking to the
restroom makes him extremely dyspneic. He states that he is also dyspneic when he talks for a little while. Son reports that when the patient returns from the bathroom, he checks his pulse ox and notes that it sometimes as low as 88%. He reports
that it does come up relatively quickly to the in the low 90s. Patient denies any chest pain, abdominal pain, nausea, vomiting, change in his bowel habits. Patient reports that he does have bilateral lower extremity edema for which he is on
furosemide every other day as prescribed by his PCP. He reports that he is also been wearing compression stockings which does help. Patient denies fevers, chills, cough. Patient notes that he was started on pregabalin 2 or 3 weeks ago. He
reports that it is helping with severe nerve pain that he has from neck and back problems. However, he read the side effects list and is concerned that that could be contributing to his shortness of breath today.
Past History
<Ruben Ji PA-C - Last Filed: 02/13/24 14:18>
Past History
ED Past Medical History: HTN, Hypercholesterolemia, Valvular disease, Other (Renal disease, chronic back pain, Diverticulitis, Urinary retention, Anemia, ) and Other (Chronic prostatitis)
ED Past Surgical History: Cardiac (Aortic valve repair mitral repair, pericardial tissue heart valve), Orthopedic (Left hand surgery, Left arm surgery, ) and Other ( Hernia. Pilonidal cyst, )
Social History
Tobacco: Former smoker
Alcohol: Occasional
Drug: None
Personal:
Living: with family
Employment: Retired
Family History
Family History: Hypertension
Review of Systems
<Danya Salamanca PA-C - Last Filed: 02/13/24 23:27>
Review of Systems
Allergies reviewed?: Yes
All Other Systems: ROS reviewed and negative except as documented in HPI and ROS
Constitutional: Reports no symptoms
EENT: Reports no symptoms
Respiratory: Reports trouble breathing; Denies cough or hemoptysis
Cardiac: Reports no symptoms
ABD/GI: Reports no symptoms
: Reports no symptoms
Musculoskeletal: Reports edema
Skin: Reports no symptoms
Neurological: Reports no symptoms
Endocrine: Reports no symptoms
Hematologic/Lymphatic: Reports no symptoms
Psychiatric: Reports no symptoms
Phy Exam
<Danya Salamanca PA-C - Last Filed: 02/13/24 23:27>
General Physical Exam
General Presentation: well appearing and no apparent distress
General Skin: warm and dry
General Habitus: normal
General Mental: alert
General Hydration: appears well hydrated
ENT Exam
ENT Exam: EOMI, pharynx normal, neck supple and normocephalic
Eye Exam
Eye Exam: PERRL, cornea clear and conjunctiva normal
Cardiovascular Exam
Cardiovascular Exam: regular rate/rhythm, no edema, no murmur and normal peripheral pulses
Pulmonary Exam
Pulmonary Exam: no respiratory distress, no rales, no crackles, no rhonchi, no stridor, no wheezing, no cough and decreased breath sounds (on the left)
Gastrointestinal Exam
Gastrointestinal Exam: normal bowel sounds, non tender, soft, no organomegaly, no pulsatile mass and non distended
Neurological Exam
Neurological Exam: alert, oriented x3, no motor deficits and speech normal
Musculoskeletal Exam
Musculoskeletal Exam: full ROM and no edema
Skin Exam
Skin Exam: normal color, warm/dry, no rash and no petechia
Psychiatric Exam
Psychiatric Exam: normal mood/affect
Scores
<Danya Salamanca PA-C - Last Filed: 02/13/24 23:27>
Heart Failure Risk
Heart Failure Risk Score: Not Applicable
Course
<Ruben Ji PA-C - Last Filed: 02/13/24 14:18>
Orders/Labs/Results
Orders:
Orders
02/13/24 Breakfast
Cholesterol Lowering
At Your Request: Non-Participating
Cholesterol Lowering: Sodium, 2 Gram
02/13/24 14:07
Electrocardiogram (*1) Urgent
Reason for Study: Shortness of Breath
EKG- Treatment ONCE
02/13/24 14:16
CR Chest - 2 Views Urgent
Comment:
Reason For Exam: sob
02/13/24 14:24
Complete Blood Count/With Diff Urgent
Comprehensive Metabolic Panel Urgent
NT-proBNP Urgent
02/13/24 21:58
Azithromycin 500 mg/250 ml [Zithromax Infusion] 500 mg in 250 ml IV NOW
CefTRIAXone [Rocephin] 1,000 mg IV NOW STA
02/13/24 22:32
Admit/Transfer Patient As Directed
Co-Sign Provider:
Level of Care: Inpatient admission
Assign to:: Medical/Surgical
Physician / Group: htay
Diagnosis: Recurrent Lt sided pleural effusion/ LLL PNA
Reason for Hospitalization: Recurrent Lt sided pleural effusion/ LLL PNA
Expected length of stay greater than two midnights?: Yes
ELOS- Estimated Length of Stay in days: 3
I certify the patient meets the requirements for IP care: Yes
02/13/24 22:34
Code Status As Directed
Resuscitation Status: Full Code
02/13/24 23:00
Flush (0.9% Sodium Chloride) [Flush (Nss)] See Dose Instructions IV PER PROTOCOL
02/13/24 23:05
Acetaminophen [Tylenol] 650 mg PO Q4HPRN PRN
Bisacodyl [Dulcolax] 10 mg RECTAL [id number] PRN
Docusate W/Senna [Senokot-S] 1 tablet PO BIDPRN PRN
Polyethylene Glycol Powder [Miralax] 17 grams PO DAILYPRN PRN
02/13/24 23:05
Consult Interventional Radiology [IRAD CONSULT] Routine
Consulting Provider: Dionisio Hyatt
Was physician already notified: No
Reason for Consult/Procedure: Recurrent symptomatic Lt sided loculated pleural effusion
Acknowledgement that appropriate orders are entered: Yes
Consult Notification Routine
Specialty to Notify: IRAD (Interventional Radiology)
Consult Notification Routine
Specialty to Notify: Pulmonary
PULMONARY CONSULT Routine
Consulting Provider: Meño Basilio
Was physician already notified: No
Reason for consult: Recurrent symptomatic Lt sided loculated pleural effusion, PNA @ LLL
Body Fluid Cell Count Routine
What is the Body Fluid: pleural fluid
Comment: post procedure
Body Fluid Glucose Routine
Fluid Source: Pleural
Body Fluid Protein Routine
Fluid Source: Pleural
Body Fluid pH Routine
Fluid Source: Pleural
Glucose Routine
Hematocrit Routine
Total Protein Routine
Comment: post procedure, add on to morning labs if already drawn
Gram Stain Routine
EMIL Source: Pleural Fluid
Specimen Description:
Comment: POST PROCEDURE
Activity As Directed
Activity Level: With Assistance
Intake/ Output As Directed
Frequency: Per unit guidelines
Vital Signs As Directed
Frequency: Per unit guidelines
Weight As Directed
Frequency: Daily
DX Deep Vein Thrombosis Video Routine
02/13/24 23:15
Pantoprazole [Protonix] 40 mg PO DAILYPRN PRN
02/14/24 06:00
Basic Metabolic Panel IN AM
Complete Blood Count/No Diff IN AM
Procalcitonin IN AM
PCT Algorithmm Indication: Respiratory
02/14/24 08:00
Allopurinol [Zyloprim] 150 mg PO DAILY
Carvedilol [Coreg] 6.25 mg PO BID
Dapagliflozin [Farxiga] 10 mg PO DAILY
Heparin 5,000 units SC Q12
Pregabalin [Lyrica] 75 mg PO BID
Spironolactone [Aldactone] 25 mg PO DAILY
Vit C/Vit E/Lutein/Min/[place]-3 [Ocuvite Softgel] 1 cap PO BID
02/14/24 15:00
Psyllium [Metamucil, Konsyl] 1 packet PO DAILY@1500
02/14/24 22:00
Aspirin Low Dose EC [Aspir Low (Enteric Coated)] 162 mg PO HS
Atorvastatin [Lipitor] 10 mg PO HS
Azithromycin [Zithromax] 500 mg PO DAILY@2200
CefTRIAXone [Rocephin] 1,000 mg IV Q24H
Terazosin [Hytrin] 5 mg PO HS
Abnormal Lab Results
02/13/24
14:24
RBC 3.21 L 10^6/uL
(4.70-6.10)
Hgb 9.7 L g/dL
(13.0-18.0)
Hct 30.4 L %
(39.0-52.0)
MCV 94.7 H fL
(80.0-94.0)
MCHC 31.9 L g/dL
(33.0-37.0)
RDW 17.1 H %
(11.5-14.5)
Absolute Monos (auto) 0.7 H 10^3/uL
(0.1-0.6)
Lymphocytes % 17.7 L %
(20.5-51.1)
Monocytes % 9.7 H %
(1.7-9.3)
BUN 44 H mg/dl
(9-20)
Creatinine 1.6 H mg/dL
(0.7-1.3)
Glucose 124 H mg/dl
(70-99)
Alkaline Phosphatase 141 H U/L
(38-126)
02/13/24 14:24
02/13/24 14:24
Vital Signs
Initial and Last Documented VS:
Initial Vital Signs
Temp Pulse Resp BP Pulse Ox
97.5 F 68 20 149/72 97
02/13/24 14:13 02/13/24 14:13 02/13/24 14:13 02/13/24 14:13 02/13/24 14:13
Last Documented Vital Signs
Temp Pulse Resp BP Pulse Ox
97.5 F 67 20 157/83 96
02/13/24 21:16 02/13/24 18:24 02/13/24 14:13 02/13/24 18:24 02/13/24 21:14
<aDnya Salamanca PA-C - Last Filed: 02/13/24 23:27>
Orders/Labs/Results
Orders:
Orders
02/13/24 Breakfast
Cholesterol Lowering
At Your Request: Non-Participating
Cholesterol Lowering: Sodium, 2 Gram
02/13/24 14:07
Electrocardiogram (*1) Urgent
Reason for Study: Shortness of Breath
EKG- Treatment ONCE
02/13/24 14:16
CR Chest - 2 Views Urgent
Comment:
Reason For Exam: sob
02/13/24 14:24
Complete Blood Count/With Diff Urgent
Comprehensive Metabolic Panel Urgent
NT-proBNP Urgent
02/13/24 21:58
Azithromycin 500 mg/250 ml [Zithromax Infusion] 500 mg in 250 ml IV NOW
CefTRIAXone [Rocephin] 1,000 mg IV NOW STA
02/13/24 22:32
Admit/Transfer Patient As Directed
Co-Sign Provider:
Level of Care: Inpatient admission
Assign to:: Medical/Surgical
Physician / Group: htay
Diagnosis: Recurrent Lt sided pleural effusion/ LLL PNA
Reason for Hospitalization: Recurrent Lt sided pleural effusion/ LLL PNA
Expected length of stay greater than two midnights?: Yes
ELOS- Estimated Length of Stay in days: 3
I certify the patient meets the requirements for IP care: Yes
02/13/24 22:34
Code Status As Directed
Resuscitation Status: Full Code
02/13/24 23:00
Flush (0.9% Sodium Chloride) [Flush (Nss)] See Dose Instructions IV PER PROTOCOL
02/13/24 23:05
Acetaminophen [Tylenol] 650 mg PO Q4HPRN PRN
Bisacodyl [Dulcolax] 10 mg RECTAL [id number] PRN
Docusate W/Senna [Senokot-S] 1 tablet PO BIDPRN PRN
Polyethylene Glycol Powder [Miralax] 17 grams PO DAILYPRN PRN
02/13/24 23:05
Consult Interventional Radiology [IRAD CONSULT] Routine
Consulting Provider: Dionisio Hyatt
Was physician already notified: No
Reason for Consult/Procedure: Recurrent symptomatic Lt sided loculated pleural effusion
Acknowledgement that appropriate orders are entered: Yes
Consult Notification Routine
Specialty to Notify: IRAD (Interventional Radiology)
Consult Notification Routine
Specialty to Notify: Pulmonary
PULMONARY CONSULT Routine
Consulting Provider: Meño Basilio
Was physician already notified: No
Reason for consult: Recurrent symptomatic Lt sided loculated pleural effusion, PNA @ LLL
Body Fluid Cell Count Routine
What is the Body Fluid: pleural fluid
Comment: post procedure
Body Fluid Glucose Routine
Fluid Source: Pleural
Body Fluid Protein Routine
Fluid Source: Pleural
Body Fluid pH Routine
Fluid Source: Pleural
Glucose Routine
Hematocrit Routine
Total Protein Routine
Comment: post procedure, add on to morning labs if already drawn
Gram Stain Routine
EMIL Source: Pleural Fluid
Specimen Description:
Comment: POST PROCEDURE
Activity As Directed
Activity Level: With Assistance
Intake/ Output As Directed
Frequency: Per unit guidelines
Vital Signs As Directed
Frequency: Per unit guidelines
Weight As Directed
Frequency: Daily
DX Deep Vein Thrombosis Video Routine
02/13/24 23:15
Pantoprazole [Protonix] 40 mg PO DAILYPRN PRN
02/14/24 06:00
Basic Metabolic Panel IN AM
Complete Blood Count/No Diff IN AM
Procalcitonin IN AM
PCT Algorithmm Indication: Respiratory
02/14/24 08:00
Allopurinol [Zyloprim] 150 mg PO DAILY
Carvedilol [Coreg] 6.25 mg PO BID
Dapagliflozin [Farxiga] 10 mg PO DAILY
Heparin 5,000 units SC Q12
Pregabalin [Lyrica] 75 mg PO BID
Spironolactone [Aldactone] 25 mg PO DAILY
Vit C/Vit E/Lutein/Min/[place]-3 [Ocuvite Softgel] 1 cap PO BID
02/14/24 15:00
Psyllium [Metamucil, Konsyl] 1 packet PO DAILY@1500
02/14/24 22:00
Aspirin Low Dose EC [Aspir Low (Enteric Coated)] 162 mg PO HS
Atorvastatin [Lipitor] 10 mg PO HS
Azithromycin [Zithromax] 500 mg PO DAILY@2200
CefTRIAXone [Rocephin] 1,000 mg IV Q24H
Terazosin [Hytrin] 5 mg PO HS
Abnormal Lab Results
02/13/24
14:24
RBC 3.21 L 10^6/uL
(4.70-6.10)
Hgb 9.7 L g/dL
(13.0-18.0)
Hct 30.4 L %
(39.0-52.0)
MCV 94.7 H fL
(80.0-94.0)
MCHC 31.9 L g/dL
(33.0-37.0)
RDW 17.1 H %
(11.5-14.5)
Absolute Monos (auto) 0.7 H 10^3/uL
(0.1-0.6)
Lymphocytes % 17.7 L %
(20.5-51.1)
Monocytes % 9.7 H %
(1.7-9.3)
BUN 44 H mg/dl
(9-20)
Creatinine 1.6 H mg/dL
(0.7-1.3)
Glucose 124 H mg/dl
(70-99)
Alkaline Phosphatase 141 H U/L
(38-126)
02/13/24 14:24
02/13/24 14:24
Vital Signs
Initial and Last Documented VS:
Initial Vital Signs
Temp Pulse Resp BP Pulse Ox
97.5 F 68 20 149/72 97
02/13/24 14:13 02/13/24 14:13 02/13/24 14:13 02/13/24 14:13 02/13/24 14:13
Last Documented Vital Signs
Temp Pulse Resp BP Pulse Ox
97.5 F 67 20 157/83 96
02/13/24 21:16 02/13/24 18:24 02/13/24 14:13 02/13/24 18:24 02/13/24 21:14
<Danya Salamanca PA-C - Last Filed: 02/13/24 23:27>
*Critical Care Note
Total Time (30-74mins, 75-104mins- exclusive of procedures): Not Applicable
<Danya Salamanca PA-C - Last Filed: 02/13/24 23:27>
Update Note
Update Note:
88 yo male with recurrent pleural effusion requiring thoracentesis p/w worsening dyspnea on exertion over the past 1.5 weeks. Pt is mildly hypertensive, afebrile. On exam, pt is well-appearing and in NAD, he does have decreased breath sounds on
the left as well as mild pedal and pretibial edema bilaterally. Labs are at the patient's baseline. CXR demonstrates persistent pleural effusion, which is not significantly changed from prior. However, there is also note of a left lower lobe
pneumonia. Will treat the patient for community acquired pneumonia and admit given his comorbidities and worsening shortness of breath. All results and plan were discussed with the patient and his son who expressed understanding and agreed.
ED Attending Note
<Ruben Ji PA-C - Last Filed: 02/13/24 14:18>
-
Portions of this chart may have been created with voice recognition software.� Occasional wrong word or��sound alike� substitutions may have occurred due to the inherent limitations of voice recognition software.
Discharge Plan
Departure
Patient Disposition: Admit
Date of Disposition: 02/13/24
Time of Disposition: 22:03
Presentation/result/management discussed w/ accepting MD/DO: Hospitalist
Patient with high blood pressure during this ER visit?: Yes
Condition: Good
Covid-19: Not Applicable
Discharge Problem:
Pleural effusion, left, Left lower lobe pneumonia, WELLER (dyspnea on exertion)
Interventions
Interventions:
*Risk Screen - Suicide Last Done: 02/13/24 14:13
*General Assessment Last Done: 02/13/24 14:13
*Neglect/Abuse Screening Last Done: 02/13/24 14:19
*ED COVID-19 Vaccine History Last Done: 02/13/24 14:13
ED- Cardiac Assessment Last Done: 02/13/24 21:14
ED- Pulmonary Assessment Last Done: 02/13/24 21:14
[2024-02-13 14:39] LABS: % Basophils 0.5 % (0-2); % Immature Granulocytes 0.4 % (0-0.5); % Lymphocytes 17.7 % (20.5-51.1); % Monocytes 9.7 % (1.7-9.3); % Neutrophils 68.7 % (42.2-75.2); Absolute Eosinophils 0.2 10^3/uL (0-0.7); Absolute Lymphocytes 1.3 10^3/uL (1.2-3.4); Absolute Monocytes 0.7 10^3/uL (0.1-0.6); Hematocrit 30.4 % (39.0-52.0); Hemoglobin 9.7 g/dL (13.0-18.0); Mean Corp Hgb Conc. 31.9 g/dL (33.0-37.0); Mean Corpuscular Hgb 30.2 pg (27.0-31.0); Mean Corpuscular Volume 94.7 fL (80.0-94.0); Mean Platelet Volume 10.2 fL (7.4-10.4); Nucleated Red Blood Cells % 0 % (-); Platelet Count 231 10^3/uL (130-400); Red Blood Cell Count 3.21 10^6/uL (4.70-6.10); Red Cell Dist. Width 17.1 % (11.5-14.5); White Blood Cell Count 7.3 10^3/uL (4.8-10.8)
[2024-02-13 14:55] LABS: ALT (SGPT) 22 U/L (0-50); AST (SGOT) 24 U/L (17-59); Alkaline Phosphatase 141 U/L (38-126); Blood Urea Nitrogen 44 mg/dl (9-20); Calcium 9.5 mg/dl (8.4-10.2); Carbon Dioxide 25 mmol/L (22-30); Chloride 106 mmol/L (98-107); Glucose 124 mg/dl (70-99); Potassium 4.9 mmol/L (3.5-5.1); Sodium 142 mmol/L (135-145); Total Bilirubin 0.2 mg/dl (0.2-1.3); Total Protein 6.9 g/dl (6.3-8.2); eGFR 41.44
[2024-02-13 14:58] LABS: NT-proBNP 703 pg/ml
[2024-02-13 18:24] VITALS: BP 157/83
[2024-02-13 21:10] VITALS: BMI 28.1
[2024-02-13 21:11] VITALS: BP 132/61
--- NOTE | 2024-02-13 22:27 | HPS.HSE ---
Family Physician
-
Family Physician: Ruben Oro
Chief Complaint
-
worsening SoB
History of Present Illness
88FM HX Asbestos Lung dz, HX recurrent pleural effusion asbestosis requiring thoracentesis was seen at ER for:
- worsening dyspnea on exertion x 1 week.
- He denies leg swelling or chest pain. He is not anticoagulated.
Medical History
Past Medical History
Past Medical History: Reports Other
Additional Past Medical History:
Valvular Heart Disease
Essential Hypertension
Hyperlipemia
CKD Stage III
BPH
Gout
Past Surgical History: Reports Other
Additional Past Surgical History:
Mitral Valve Repair
Aortic Valve Replacement
Left Hand Surgery
Left Arm Surgery
Hernia Repair
Social History
Tobacco: Former Smoker (Quit over 40 years ago)
Alcohol: Daily (One drink nightly)
Family History
Family History: Not pertinent
Allergies / Home Medications
Allergies reflects when Allergies were last updated in [employer].
Home Medications with original date entered in [employer]
Allergy/Medication List:
Allergies
Allergy/AdvReac Type Severity Reaction Status Date / Time
No Known Allergies Allergy Verified 09/27/23 10:41
Home Medications
allopurinol 300 mg tablet 150 mg PO DAILY Gout 04/07/10
simvastatin 20 mg tablet 20 mg PO HS High cholesterol 04/07/10
terazosin 5 mg capsule 5 mg PO HS Urinary issue 04/07/10
aspirin 81 mg chewable tablet 162 mg PO HS Blood clot prevention/tx 01/22/11
carvedilol 12.5 mg tablet 6.25 mg PO BID Heart disease/condition 07/22/14
chlorthalidone 25 mg tablet 12.5 mg PO DAILY Blood pressure 08/20/20
coenzyme Q10 200 mg capsule (Co Q-10) 200 mg PO HS Supplement 08/20/20
lactobacillus dojuo-sdbpqd-mcxqpvrm protein 15 billion cell-170 mg cap (Ultra Rohini Plus) 1 ea PO DAILY Supplement 08/20/20
turmeric 400 mg capsule 400 mg PO BID Supplement 08/20/20
acetaminophen 650 mg tablet,extended release (Tylenol Arthritis Pain) 1,300 mg PO Q8H 09/27/23
dapagliflozin propanediol 10 mg tablet (Farxiga) 10 mg PO DAILY 09/27/23
docusate sodium 100 mg capsule (Colace) 100 mg PO QPM 09/27/23
spironolactone 25 mg tablet 25 mg PO DAILY 09/27/23
therapeutic multivitamin 1 tab PO DAILY 09/27/23
vit C-vit E-Se-ginkgo biloba 60 mg-30 unit-70 mcg-40 mg tablet 1 tab PO HS 09/27/23
vitamins A,C,K-pixn-npctou 2,148 mcg-113 mg-45 mg-17.4 mg tablet (PreserVision AREDS) 1 tab PO BID 09/27/23
Review of Systems
-
Constitutional: Reports No Symptoms
EENT: Reports No Symptoms
Respiratory: Reports Trouble Breathing
Cardiac: Reports No Symptoms
Abdomen/GI: Reports No Symptoms
: Reports No Symptoms
Musculoskeletal: Reports No Symptoms
Skin: Reports No Symptoms
Neurological: Reports No Symptoms
Endocrine: Reports No Symptoms
Hematologic/Lymphatic: Reports No Symptoms
Psych: Reports No Symptoms
Physical Exam
Vital Signs
Vital Signs
Temp Pulse Resp BP Pulse Ox
97.5 F 67 20 157/83 96
02/13/24 21:16 02/13/24 18:24 02/13/24 14:13 02/13/24 18:24 02/13/24 21:14
Physical Exam
General: Comfortable and Conversant (Noted conversational dyspnea)
HEENT: Anicteric and Moist mucous membranes
Respiratory: Clear and Decreased Breath Sounds (Decreased/Absent breath sounds left base)
Cardiac: S1/S2 and Regular Rhythm
GI: Soft and Non Tender
Rectal: Deferred by Provider
Musculoskeletal: No Clubbing, No Cyanosis and No Edema
Skin: Warm and Dry
Neuro: Awake, Alert, Oriented and Nonfocal/grossly intact
Laboratory Results
-
02/13/24 14:24
02/13/24 14:24
Laboratory Results
Total Bilirubin 0.2 mg/dl (0.2-1.3) 02/13/24 14:24
AST 24 U/L (17-59) 02/13/24 14:24
ALT 22 U/L (0-50) 02/13/24 14:24
Alkaline Phosphatase 141 U/L (38-126) H 02/13/24 14:24
Data Reviewed
-
Diagnostic Radiology: Report Reviewed by me
Lab Data: Labs Reviewed by me
Old Records: Reviewed
Impression/Plan
-
Reviewed VS: unremarkable
Data
nl WCC
Hgb 9.7 - baseline is hi 10s
Cr 1.6 - baseline is 1.6- 1.7
eGFR 41
CXR :
Moderate loculated left pleural effusion. Stable.
Probable associated mild left lower lobe pneumonia. New
Findings consistent with prior asbestos exposure. Stable.
Last hospitalist admission: Date of Admission: 10/11/23 - Date of Discharge: 10/12/23
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
ASSESSMENT & PLAN
Recurrent symptomatic Lt sided loculated pleural effusion
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
- Recent Lt thoracentesis yielding 1450 cc of dark bloody pleural fluid on 09/28/23 with NEG cytopathology
- IR consult for Lt sided therapeutic thoracentesis
- Pul consult
Probable associated mild left lower lobe pneumonia
- check PCT
- c/w empiric IV CFTZ and PO Azithromycin
HX Aortic Valve Replacement and Mitral Valve Repair
- stable
Essential HTN
- cont carvedilol, chlorthalidone and spironolactone
Hyperlipidemia
-cont. statin
CKD3
- Creatinine at baseline
- Continue Farxiga
BPH
- cont. terazosin
Gout
- cont allopurinol
Chr back pain
- use TENs simulator applied to Lt post chest
DVT proph: SC Heparin
Code Status: Full Code
IP MS
[2024-02-13] MEDS: ROCEPHIN 1000 MG IV (23:07)
[2024-02-13] MEDS: ZITHROMAX INFUSION 250 IV (23:07)
[2024-02-14] VITALS (8 sets, daily range): BP systolic 67–138; BP diastolic 62–81
[2024-02-14] MEDS: COREG 6.25 MG PO ×3 (00:51→20:12)
[2024-02-14] MEDS: LIPITOR 10 MG PO ×2 (00:51→20:13)
[2024-02-14] MEDS: HYTRIN 5 MG PO ×2 (00:51→20:13)
[2024-02-14] MEDS: TYLENOL 650 MG PO (00:52)
[2024-02-14] MEDS: ROXICODONE 5 MG PO (02:27)
[2024-02-14] MEDS: SENOKOT-S 1 TABLET PO (02:27)
[2024-02-14 04:20] LABS: Hematocrit 27.6 % (39.0-52.0); Hemoglobin 9.1 g/dL (13.0-18.0); Mean Corpuscular Hgb 29.3 pg (27.0-31.0); Mean Corpuscular Volume 88.7 fL (80.0-94.0); Mean Platelet Volume 10.3 fL (7.4-10.4); Platelet Count 231 10^3/uL (130-400); Red Blood Cell Count 3.11 10^6/uL (4.70-6.10); White Blood Cell Count 7.4 10^3/uL (4.8-10.8)
[2024-02-14 04:38] LABS: Glucose 91 mg/dl (70-99); Total Protein 6.8 g/dl (6.3-8.2)
[2024-02-14 05:25] LABS: Procalcitonin < 0.05 ng/ml (0.0-0.25)
[2024-02-14 05:28] LABS: Blood Urea Nitrogen 45 mg/dl (9-20); Calcium 9.5 mg/dl (8.4-10.2); Carbon Dioxide 22 mmol/L (22-30); Chloride 109 mmol/L (98-107); Estimated Creatinine Clearance 34 ml/min; Glucose 91 mg/dl (70-99); Potassium 4.9 mmol/L (3.5-5.1); Sodium 142 mmol/L (135-145); eGFR 41.44
[2024-02-14] MEDS: LYRICA 75 MG PO (06:02)
--- NOTE | 2024-02-14 07:40 | W.PN.HOSP.TC ---
Today's Communication/Plan
-
.
Assessment / Plan
Assessment / Plan
Mr. Reji Cruz is an 88yoM pmh HTN, HLD, CKD stage 3, asbestosis, BPH admitted 02/12 for dyspnea on exertion.
Recurrent symptomatic L sided loculated pleural effusion
Pleural asbestosis
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
- L thoracentesis (09/28/23) - 1450 cc of dark bloody pleural fluid. Neg cytopathology
- [facility] consulted for L thoracentesis - not enough fluid to tap
- pulmonary consulted
Possible L lower lobe pneumonia vs atelectasis
- procal undetectable
- started on empiric abx (azithromycin, ceftriaxone) - stopped
- unlikely an infectious process as pt is afebrile, WBC wnl, procal undetectable
- incentive spirometer
Acute onset exertional dyspnea
BL JUSTUS
- likely pregabalin side effect since WELLER started same time as pregabalin
- infectious process unlikely at this time
- diurese
- stop pregabalin
Aortic valve replacement, Mitral valve repair
- echo (09/28/23) - well seated aortic valve
- well seated annuloplasty ring for mitral valve
HTN, HLD, overweight secondary to excessive calory intake
- cont carvedilol, chlothalidone, spironolactone
- cont statin
CKD stage 3
- Cr at baseline
- cont farxiga
BPH
- cont terazosin
Gout
- cont allopurinol
Chronic back pain
- TENs simulator to L posterior chest
- f/u 03/14 w [facility]
- pain control
DVT prophylaxis
- SC heparin
Code status: FULL CODE
Diet: cholesterol lowering
Anticipated Discharge: Today
Subjective/Interval History
-
Date of Service: February 14, 2024
Mr. Reji Cruz is an 88yoM h HTN, HLD, CKD stage 3, asbestosis, chronic back pain admitted 02/12 for dyspnea on exertion. Started lyrica 2 weeks ago for his chronic back pain. States his WELLER started two weeks ago. Was unsure if the WELLER was
related to lyrica side effects or another pleural effusion. No sx at rest. Also has b/l foot swelling for the last two weeks.
Objective Data
-
Labs:
Laboratory Results
02/14/24 02/14/24 02/14/24
04:03 04:03 04:03
WBC 7.4
Hgb 9.1 L
Hct Cancelled 27.6 L
Plt Count 231
Sodium 142
Potassium 4.9
Chloride 109 H
Carbon Dioxide 22
BUN 45 H
Creatinine 1.6 H
Glucose 91 91
Calcium 9.5
Vital Signs:
Vital Signs
Temp Pulse Resp BP Pulse Ox
97.5 F 73 20 128/67 96
02/14/24 06:19 02/13/24 21:52 02/13/24 21:52 02/14/24 06:07 02/13/24 21:14
Review of Systems
-
History Source: Patient
Constitutional: Reports Sleep Disturbance (unable to sleep last night secondary to pain/discomfort)
Respiratory: Reports Trouble Breathing; Denies Cough or Hemoptysis
Cardiac: Reports No Symptoms
Abdomen/GI: Reports Constipated; Denies Nausea, Vomiting, Diarrhea or Bloody Stools
Genitourinary: Reports No Symptoms
Musculoskeletal: Reports Muscle Pain and Muscle Stiffness
Neuro: Reports Headache; Denies Ataxia or Lightheadedness
Physical Exam
-
General: Well Developed and Well Nourished
HEENT: Normocephalic, Atraumatic, Moist Mucous Membranes and Neck Non Tender
Respiratory: Wheezes (L basilar) and Non Labored Respirations
Cardiac: Regular Rhythm and S1/S2
GI: Soft, Nontender, Nondistended, Normal Bowel Sounds and No Hepatosplenomegaly
Genito-urinary: No Costovertebral Tender
Musculoskeletal: No Clubbing, No Cyanosis, Edema, Right Lower Extrem, Edema, Left Lower Extrem and Other (atrophied L supraspinatus, hypertonic paraspinal mm b/l in cervical and thoracic regions)
Skin: Warm and Dry; Negative Rash
Neuro: AO x 3
Psych: Calm
[2024-02-14] MEDS: ZYLOPRIM 150 MG PO (07:58)
[2024-02-14] MEDS: ALDACTONE 25 MG PO (07:58)
[2024-02-14] MEDS: OCUVITE SOFTGEL 1 CAP PO ×2 (07:58→20:12)
[2024-02-14] MEDS: FARXIGA 10 MG PO (07:58)
[2024-02-14] MEDS: LYRICA PO (08:07)
--- NOTE | 2024-02-14 08:14 | PTCARENOTE ---
VSS. 97% on RA, Left side diminished throughout, R base w/ fine crackles. AM meds given as were available. Pt taken to [facility] at this time.
--- NOTE | 2024-02-14 09:37 | CON.PUL ---
Consultation
Consultation Request
Date/Time Consultation Requested: 02/13/20242304
Date/Time Consultation Performed: 02/14/2024 - 932
Requesting Provider: Dr. Lubin
Performing Provider: Dr. Villeda
Reason for Consultation: Recurrent symptomatic left-sided pleural effusion
Medical History
-
Chief Complaint: SOB
History of Present Illness:
88-year-old male former tobacco smoker with a past medical history of asbestosis, benign asbestos related pleural plaque, LLL rounded atelectasis, anemia, recurrent left-sided loculated pleural effusion most likely due to asbestos related pleural
effusion, restrictive lung disease, history of prostatitis, pulmonary hypertension, paroxysmal A-fib, BPH, gout, spinal stenosis with chronic back pain, personal history of COVID-19 (May 2023), history of RA and cervical neck pain who presents
with worsening SOB. Shortness of breath been ongoing for about 1 week without chest pain or leg swelling. Initial vitals in the ER showed he was afebrile to 97.5 �F, pulse rate 68, breathing at 20 breaths/min, BP 149/72 and saturating 97% on room
air. Labs showed normal WBC at 7.3, anemia to 9.7, creatinine 1.6, ALP 141, proBNP 713 and procalcitonin negative at <0.05. CXR showed moderate left-sided loculated pleural effusion, stable when compared to prior CXR on 02/01/2024. Chest
ultrasound performed on 02/14/2024 showing small left-sided pleural effusion insufficient for thoracentesis. Patient continues to be managed on the floor and pulmonary service now consulted for additional management/recommendations.
When I saw the pt he was sitting in a chair in the ER with son, Geovanny, at bedside. All questions were answered. The pt still is feeling SOB when he exerts himself, but breathing well at rest. He is currently on room air saturating 97%. He has a
pulse oximeter at home and he drops down to 88% with activity, but quickly rebounds with rest. He has chronic back pain and is awaiting another epidural shot next month - if this is not helpful for his Sx then he will get an ablation, as per
patient. He started to have lower extremity swelling after starting Lyrica. He currently denies chest pain, HEATON, abd pain, N/V/f/c.
Of note patient follows with us in the [facility] office with Dr. Aaron, last visit on 01/30/2024. Patient endorsed mild shortness of breath especially when taking a shower with activity limited by back pain causing him to be sedentary. There was no
complaints of cough, wheezing or shortness of breath at nighttime. Patient does have moderate-severe restrictive lung disease (T%, VC: 71%, with DLco: 46% and DLco/VA: 100% via PFT on 01/03/2024). He does have a history of left-sided loculated
pleural effusion requiring a thoracentesis on 09/28/2023 removing 1.45 L of sanguinous fluid with cytology + cultures negative. Suspected asbestos related effusion. 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
Also history of LLL rounded atelectasis. Prior 6MWT in October 2023 showed dionna SpO2 96% and he walked 675 feet. Pleural biopsy was discussed given risk of malignant mesothelioma however given the patient's advanced age this was held off with plans
for discussion of pleural biopsy if fluid becomes significantly increased.
PMHx: Recurrent left-sided loculated pleural effusion, asbestos induced pleural plaque, history of aortic valve replacement with bioprosthetic valve, MR s/p mitral valve repair, GERD, snoring, hypertension, CKD stage IIIb, history of rounded
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
stenosis, personal history COVID-19 (May 2023), history of hyponatremia (thiazide induced), history of RA, cervical neck pain
PSHx: Bioprosthetic aortic valve replacement (2009), MV repair (2009), left arm ORIF (as a child), left hand surgery (), hernia repair, pilonidal cyst I&D, right L4-5 ILESI (October 2018), Reyes catheter (2019), TURP (August 2020), bilateral
cataract surgery (August 2023), left-sided thoracentesis (August 2023)
Past Medical History
Past Medical History: Other (Above as per HPI)
Past Surgical History: Other (Above as per HPI)
Social History
Tobacco: Former Smoker
Alcohol: Occasional (5 beers a week)
Drug: None
Employment: Retired (Retired [employer])
Family History
Family History: CAD (Father), Cancer (Sister: Breast cancer in remission), Hypertension (Son) and Other (Mother: History of emphysema)
Allergies / Home Medications
Allergies
Allergy/AdvReac Type Severity Reaction Status Date / Time
No Known Allergies Allergy Verified 02/13/24 14:19
Home Medications
�Medication �Instructions �Recorded �Confirmed �Last Taken �Type
allopurinol 300 mg tablet 150 mg PO DAILY Gout 04/07/10 02/13/24 02/13/24 History
simvastatin 20 mg tablet 20 mg PO HS High cholesterol 04/07/10 02/13/24 02/12/24 History
terazosin 5 mg capsule 5 mg PO HS Urinary issue 04/07/10 02/13/24 02/12/24 History
coenzyme Q10 200 mg capsule (Co 200 mg PO HS Supplement 08/20/20 02/13/24 02/12/24 History
Q-10)
lactobacillus 1 cap PO DAILY Supplement 08/20/20 02/13/24 02/13/24 History
ymaux-popfnm-kkosrgfj protein 15
billion cell-170 mg cap (Ultra
Rohini Plus)
turmeric 400 mg capsule 400 mg PO BID Supplement 08/20/20 02/13/24 02/13/24 History
acetaminophen 650 mg 1,300 mg PO Q8HPRN PRN mild pain 09/27/23 02/13/24 10/09/23 History
tablet,extended release (Tylenol
Arthritis Pain)
dapagliflozin propanediol 10 mg 10 mg PO DAILY diabetes 09/27/23 02/13/24 02/13/24 History
tablet (Farxiga)
docusate sodium 100 mg capsule 100 mg PO HSPRN PRN constipation 09/27/23 02/13/24 10/09/23 History
(Colace)
spironolactone 25 mg tablet 25 mg PO DAILY Blood Pressure/edema 09/27/23 02/13/24 02/13/24 History
therapeutic multivitamin 1 tab PO DAILY Supplement 09/27/23 02/13/24 02/13/24 History
vitamins A,C,Z-nhvm-zwpqlu 2,148 1 tab PO BID Supplement 09/27/23 02/13/24 02/13/24 History
mcg-113 mg-45 mg-17.4 mg tablet
(PreserVision AREDS)
Metamucil Fiber Thin 2 wafer PO DAILY@1500 constipation 10/10/23 02/13/24 02/12/24 History
aspirin 81 mg tablet,delayed 162 mg PO HS Blood Clot 10/10/23 02/13/24 02/12/24 History
release Prevention/Tx
calcium carbonate 500 mg PO TIDPRN PRN indigestion 10/10/23 02/13/24 10/10/23 History
carvedilol 6.25 mg tablet 6.25 mg PO BID Blood Pressure 10/10/23 02/13/24 02/13/24 History
esomeprazole magnesium 40 mg 40 mg PO DAILY PRN 10/10/23 02/13/24 02/13/24 History
capsule,delayed release indigestion/heartburn
amoxicillin 500 mg capsule 2,000 mg PO DAILYPRN PRN prior to 02/13/24 02/13/24 Unknown History
dental procedure
pregabalin 75 mg capsule 75 mg PO BID 02/13/24 02/13/24 02/13/24 17:00 History
torsemide 5 mg tablet 5 mg PO Q48H 02/13/24 02/13/24 02/13/24 History
Review of Systems
-
History Source: Patient
All other systems: Negative unless noted
Vitals / Labs / Diagnostic Testing
Vital Signs
Temp Pulse Resp BP Pulse Ox
97.6 F 67 18 134/81 97
02/14/24 08:31 02/14/24 08:31 02/14/24 08:31 02/14/24 08:31 02/14/24 08:31
Lab Data
02/14/24 04:03
02/14/24 04:03
Diagnostic Testing:
Physical Exam
-
HEENT: Normocephalic and Anicteric
Cardiovascular: S1/S2 and Peripheral Edema (+1 LE pitting edema b/l)
Respiratory: Wheeze (negative), Rales (right hemithorax), Rhonchi (negative), Non-Labored Respirations and Other (Diminished BS at left hemithorax)
GI: Soft, Non Distended, Non Tender and Normal Bowel Sounds
Neurology: Awake, Alert and Tremors (negative)
Skin: Warm and Dry
General: Respiratory Distress (negative), Comfortable, Chills (negative) and Sweats (negative)
Assessment
-
Assessment: 88-year-old male former tobacco smoker with a past medical history of asbestosis, benign asbestos related pleural plaque, LLL rounded atelectasis, anemia, recurrent left-sided loculated pleural effusion most likely due to asbestos
related pleural effusion, restrictive lung disease, history of prostatitis, pulmonary hypertension, paroxysmal A-fib, BPH, gout, spinal stenosis with chronic back pain, personal history of COVID-19 (May 2023), history of RA and cervical neck
pain who presents with worsening SOB. Shortness of breath been ongoing for about 1 week without chest pain or leg swelling. Initial vitals in the ER showed he was afebrile to 97.5 �F, pulse rate 68, breathing at 20 breaths/min, BP 149/72 and
saturating 97% on room air. Labs showed normal WBC at 7.3, anemia to 9.7, creatinine 1.6, ALP 141, proBNP 713 and procalcitonin negative at <0.05. CXR showed moderate left-sided loculated pleural effusion, stable when compared to prior CXR on
02/01/2024. Chest ultrasound performed on 02/14/2024 showing small left-sided pleural effusion insufficient for thoracentesis. Patient continues to be managed on the floor and pulmonary service now consulted for additional
management/recommendations.
Chronic conditions [employer]ILDR[employer]S [employer] DIRECTOR: Recurrent left-sided loculated pleural effusion, asbestos induced pleural plaque, history of aortic valve replacement with bioprosthetic valve, MR s/p mitral valve repair, GERD, snoring, hypertension, CKD stage IIIb, history
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
spinal stenosis, personal history COVID-19 (May 2023), history of hyponatremia (thiazide induced), history of RA, cervical neck pain
Impression:
#Recurrent left-sided loculated pleural effusion likely due to benign asbestos pleural effusion; doubt this is due to malignant mesothelioma as no evidence of nodular pleural masses and pleural thickening is <1 cm in thickness
#Lower extremity peripheral edema - likely due to adverse reaction from pregabalin
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
#Acute on chronic anemia (baseline Hb 11�12.5)
#CKD III
#Former tobacco smoker
#Personal Hx of COVID-19 (May 2023)
#LLL rounded atelectasis
#Gout
#Spinal stenosis with chronic LBP now on Lyrica
Plan:
- Patient was going to undergo thoracentesis today however chest ultrasound shows small L-sided pleural effusion which is not amenable to tapping
- Doubt that this left-sided pleural effusion is due to mesothelioma given pleural thickening is <1 cm in thickness with no evidence of nodular pleural masses per last CT chest in August 2023; re-check CT chest to assess lung parenchyma/pleural
surface, andreina given concern for moderate sized pleural effusion on CXR which was found to be very small on chest US
- Patient received ceftriaxone/Zithromax on 02/13/2024, however with negative procalcitonin (<0.05), continue to monitor off antibiotics ; if patient spikes fever then consider resuming Abx
- Infectious workup with sputum cultures if patient can produce a decent sample
- Maintain SpO2 >90-94% with supplemental O2 as needed
- If pt is going to resume lyrica despite it causing peripheral edema, then he should wear compression stockings, and may need to raise the dose of torsemide (home med)
- Incentive spirometer encouraged
- Replete electrolytes with K>4, Mg>2
- Maintain euglycemia with goal BG >100 and <180
- prn nebulized bronchodilators - pt not currently bronchospastic
- DVT ppx: HSQ
Pulmonary service will continue to follow along. Outpatient follow-up will be arranged with Dr. Aaron, as last visit was on 01/30/2024 - he already has a follow-up appointment on 03/14/2024 at 4 PM and was advised to keep that appt.
Patient was seen and evaluated on 02/14/2024
Data:
CXR 02/13/2024:
Moderate loculated left pleural effusion. Stable.
Probable associated mild left lower lobe pneumonia. New
Findings consistent with prior asbestos exposure. Stable.
Chest US 02/14/2024: Small LEFT pleural effusion. Amount of fluid present not sufficient for safe thoracentesis.
Total time spent today was 58 minutes for this encounter. Time includes reviewing laboratory test/imaging results, reviewing pertinent medical records, obtaining and reviewing medical history, performing an appropriate exam, ordering medications,
tests and procedures. Time also includes documentation of this encounter, coordinating patient care and communicating with other healthcare professionals. Total time does not include separately billed tests performed on this date of service.
[2024-02-14] MEDS: LASIX 20 MG IV (11:38)
[2024-02-14] MEDS: METAMUCIL, KONSYL 1 PACKET PO (14:18)
[2024-02-14] MEDS: ASPIR LOW (ENTERIC COATED) 162 MG PO (20:12)
[2024-02-14] MEDS: LIDOCAINE 4% PATCH 2 PATCH TOPICAL (21:07)
[2024-02-14] MEDS: MOTRIN 200 MG PO (21:08)
--- NOTE | 2024-02-15 04:15 | DOWNTIME ---
There was a [employer] Client Help Desk Team Leader Downtime on 02/15/2024 from 0100 to 02/15/2024 at 0355. Downtime documentation of patient's care, including medication administrations, has been reconciled in the electronic record per guidelines. Refer to the
patient's paper chart under the miscellaneous tab to see printed paper medication records and downtime forms.
[2024-02-15 06:00] VITALS: BMI 26.6
--- NOTE | 2024-02-15 07:58 | W.PN.PUL3 ---
Today's Communication / Plan
-
Recommend to stop lyrica given his SOB, lower extremity edema and L-sided pleural effusion, which is overall stable when compared to prior CT chest in August 2023 and is likely due to asbestos exposure
Check home O2 assessment prior to discharge - done today showing dionna SpO2 92% and he walked 250 feet and does not need home O2 upon discharge
Output follow up with repeat Ct chest to re-assess left pleural effusion
Patient is stable for discharge home. Outpatient follow-up will be arranged with Dr. Aaron, as last visit was on 01/30/2024 - he already has a follow-up appointment on 03/14/2024 at 4 PM and was advised to keep that appt. Pulmonary service will
now sign off. Please call back with any questions.
Assessment
-
Assessment: 88-year-old male former tobacco smoker with a past medical history of asbestosis, benign asbestos related pleural plaque, LLL rounded atelectasis, anemia, recurrent left-sided loculated pleural effusion most likely due to asbestos
related pleural effusion, restrictive lung disease, history of prostatitis, pulmonary hypertension, paroxysmal A-fib, BPH, gout, spinal stenosis with chronic back pain, personal history of COVID-19 (May 2023), history of RA and cervical neck
pain who presents with worsening SOB. Shortness of breath been ongoing for about 1 week without chest pain or leg swelling. Initial vitals in the ER showed he was afebrile to 97.5 �F, pulse rate 68, breathing at 20 breaths/min, BP 149/72 and
saturating 97% on room air. Labs showed normal WBC at 7.3, anemia to 9.7, creatinine 1.6, ALP 141, proBNP 713 and procalcitonin negative at <0.05. CXR showed moderate left-sided loculated pleural effusion, stable when compared to prior CXR on
02/01/2024. Chest ultrasound performed on 02/14/2024 showing small left-sided pleural effusion insufficient for thoracentesis. Patient continues to be managed on the floor and pulmonary service now consulted for additional
management/recommendations.
Chronic conditions [facility]: Recurrent left-sided loculated pleural effusion, asbestos induced pleural plaque, history of aortic valve replacement with bioprosthetic valve, MR s/p mitral valve repair, GERD, snoring, hypertension, CKD stage IIIb, history
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
spinal stenosis, personal history COVID-19 (May 2023), history of hyponatremia (thiazide induced), history of RA, cervical neck pain
Impression:
#Recurrent left-sided loculated pleural effusion likely due to benign asbestos pleural effusion in setting of lyrica; doubt this is due to malignant mesothelioma as no evidence of nodular pleural masses and pleural thickening is <1 cm in thickness
#Lower extremity peripheral edema - likely due to adverse reaction from pregabalin
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
#Acute on chronic anemia (baseline Hb 11�12.5)
#CKD III
#Former tobacco smoker
#Personal Hx of COVID-19 (May 2023)
#LLL rounded atelectasis
#Gout
#Spinal stenosis with chronic LBP now on Lyrica
Plan:
- Patient was going to undergo thoracentesis yesterday however chest ultrasound shows small L-sided pleural effusion which is not amenable to tapping
- Doubt that this left-sided pleural effusion is due to mesothelioma given pleural thickening is <1 cm in thickness with no evidence of nodular pleural masses per last CT chest in August 2023; CT chest shows similar effusion compared to prior Ct chest
from August 2023, with slightly more reticular changes/patchy GGO in the lingula/LLL
- Patient received ceftriaxone/Zithromax on 02/13/2024, however with negative procalcitonin (<0.05), continue to monitor off antibiotics ; if patient spikes fever then consider resuming Abx
- Infectious workup with sputum cultures if patient can produce a decent sample
- Maintain SpO2 >90-94% with supplemental O2 as needed
- Check walking home o2 assessment prior to discharge - checked today and he does not need home O2
- If pt is going to resume lyrica despite it causing peripheral edema, then he should wear compression stockings, and may need to raise the dose of torsemide (home med)
- given his degree of SOB (which lyrica can also cause), I advised him to stop lyrica and to discuss alternative options with his doctor who started this on him
- Incentive spirometer encouraged
- Replete electrolytes with K>4, Mg>2
- Maintain euglycemia with goal BG >100 and <180
- prn nebulized bronchodilators - pt not currently bronchospastic
- DVT ppx: HSQ
Patient is stable for discharge home. Outpatient follow-up will be arranged with Dr. Aaron, as last visit was on 01/30/2024 - he already has a follow-up appointment on 03/14/2024 at 4 PM and was advised to keep that appt. Pulmonary service will
now sign off. Thank you for allowing us to be involved in the care of this patient. Please call back with any questions.
Data:
CT Chest 02/15/2024:
Small-moderate stable partially loculated left pleural effusion with associated underlying atelectasis.
Stable postoperative changes
Stable calcified pleural plaques suggesting prior asbestos exposure
Atherosclerosis
CXR 02/13/2024:
Moderate loculated left pleural effusion. Stable.
Probable associated mild left lower lobe pneumonia. New
Findings consistent with prior asbestos exposure. Stable.
Chest US 02/14/2024: Small LEFT pleural effusion. Amount of fluid present not sufficient for safe thoracentesis.
Total time spent today was 38 minutes for this encounter. Time includes reviewing laboratory test/imaging results, reviewing pertinent medical records, obtaining and reviewing medical history, performing an appropriate exam, ordering medications,
tests and procedures. Time also includes documentation of this encounter, coordinating patient care and communicating with other healthcare professionals. Total time does not include separately billed tests performed on this date of service.
Subjective Data
-
Date of Service:
Date of Service: February 15, 2024
Chief Complaint: Pulmonary Follow Up
Subjective:
Pt seen this AM - he is doing well. He is eager to go home. He is able to walk around the floor and still feels SOB, but it is not worsening. He does not endorse a cough. Also denies abd pain, N/v/D/f/c.
Review of Systems
General: Other (negative unless mentioned above)
Objective Data
Data Reviewed
Vital Signs / I&O / Oxygen:
Vital Signs
Temp Pulse Resp BP Pulse Ox
98.2 F 71 16 129/67 97
02/14/24 22:41 02/14/24 22:41 02/14/24 22:41 02/14/24 22:41 02/14/24 22:41
Intake and Output
02/14/24 02/15/24 02/16/24
06:59 06:59 06:59
Intake Total 1200 / 1200
Output Total 1450 / 1450
Balance -250 / -250
SaO2 97
Physical Exam
General: Respiratory Distress (negative), Comfortable, Chills (negative), Sweats (negative) and Good Appetite
HEENT: Normocephalic and Anicteric
Cardiovascular: S1-S2 and Peripheral Edema (+1 LE pitting edema)
Respiratory: Wheeze (negative), Crackles (right hemithorax), Rhonchi (negative), Non-Labored Respirations and Other (diminished BS at left base)
GI: Soft, Non Distended, Non Tender and Normal Bowel Sounds
Neurology: AO x 3 and Tremors (negative)
Skin: Warm, Dry, Cyanosis (negative) and Jaundice (negative)
Labs/Micro/Reports
Lab Data
02/14/24 04:03
02/14/24 04:03
[2024-02-15] MEDS: ZYLOPRIM 150 MG PO (08:03)
[2024-02-15] MEDS: FARXIGA 10 MG PO (08:03)
[2024-02-15] MEDS: OCUVITE SOFTGEL 1 CAP PO (08:03)
[2024-02-15] MEDS: COREG 6.25 MG PO (08:03)
[2024-02-15] MEDS: ALDACTONE 25 MG PO (08:03)
[2024-02-15 08:17] VITALS: BP 141/69
--- NOTE | 2024-02-15 08:18 | W.PN.HOSP.TC ---
Today's Communication/Plan
-
.
Assessment / Plan
Assessment / Plan
Mr. Reji Cruz is an 88yoM pmh HTN, HLD, CKD stage 3, asbestosis, BPH admitted 02/12 for dyspnea on exertion.
Recurrent symptomatic L sided loculated pleural effusion
Pleural asbestosis
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
- L thoracentesis (09/28/23) - 1450 cc of dark bloody pleural fluid. Neg cytopathology
- IRAD consulted for L thoracentesis - not enough fluid to tap
- pulmonary consulted
- chest CT: Small-moderate stable partially loculated left pleural effusion with associated underlying atelectasis. Stable postoperative changes. Stable calcified pleural plaques suggesting prior asbestos exposure. Atherosclerosis
Possible L lower lobe pneumonia vs atelectasis
- procal undetectable
- started on empiric abx (azithromycin, ceftriaxone) - stopped
- unlikely an infectious process as pt is afebrile, WBC wnl, procal undetectable
- incentive spirometer
- prn neb bronchodilators
- sputum cx
- maintain SpO2>90-94%
- f/u outpt pulm
Acute onset exertional dyspnea
BL JUSTUS
- likely pregabalin side effect since WELLER started same time as pregabalin
- infectious process unlikely at this time
- diurese - torsemide daily for 1 week
Aortic valve replacement, Mitral valve repair
- echo (09/28/23) - well seated aortic valve
- well seated annuloplasty ring for mitral valve
HTN, HLD, overweight secondary to excessive calory intake
- cont carvedilol, chlothalidone, spironolactone
- cont statin
CKD stage 3
- Cr at baseline
- cont farxiga
BPH
- cont terazosin
Gout
- cont allopurinol
Chronic back pain secondary to spinal stenosis
- TENs simulator to L posterior chest
- f/u 03/14 w [facility]
- pain control
DVT prophylaxis
- SC heparin
Code status: FULL CODE
Diet: cholesterol lowering
Anticipated Discharge: Within 24 hours
Subjective/Interval History
-
Date of Service: February 15, 2024
Mr. Reji Cruz is an 88yoM h HTN, HLD, CKD stage 3, asbestosis, BPH admitted 02/12 for dyspnea on exertion. Wishes to continue taking lyrica despite the side effects.
Objective Data
-
Vital Signs:
Vital Signs
Temp Pulse Resp BP Pulse Ox
98.2 F 71 16 129/67 97
02/14/24 22:41 02/14/24 22:41 02/14/24 22:41 02/14/24 22:41 02/14/24 22:41
I&O
02/14/24 02/15/24 02/16/24
06:59 06:59 06:59
Intake Total 1200 / 1200
Output Total 1450 / 1450
Balance -250 / -250
[2024-02-15] MEDS: LYRICA 75 MG PO (10:51)
[2024-02-15] MEDS: DEMADEX 5 MG PO (10:51)
[2024-02-15] MEDS: SENOKOT-S 1 TABLET PO (10:54)
--- NOTE | 2024-02-15 15:03 | W.DCSUMMARY ---
Discharge Summary
Discharge Data
Date of Admission: 02/13/24
Date of Discharge: 02/15/24
-
Pending Results: No
Hospital Course
Discharging Physician : Dr. Guanako Mina, Dr. Paola Hooper
Disposition : home
Primary care physician : Ruben Oro
Principal Discharge diagnosis : Dyspnea on exertion, iatrogenic
Chronic Discharge diagnosis : HTN, HLD, CKD stage 3, asbestosis, chronic back pain, bph, gout
Hospital Course : Mr. Reji Cruz is an 88yoM pmh HTN, HLD, CKD stage 3, asbestosis, chronic back pain admitted 02/12 for dyspnea on exertion. Findings on CXR concerning for L pleural effusion vs pneumonia. Insufficient fluid for thoracentesis,
so pleural effusion ruled out. Sx timeline aligns with starting pregabalin 2 weeks prior. Also aligns w b/l le edema that started about two weeks ago, also a known side effect of gabapentin. Evaluated by pulmonology. Hemodynamically stable,
afebrile.
Important imaging findings :
CXR (02/12) - Moderate loculated left pleural effusion. Stable. Probable associated mild left lower lobe pneumonia. New. Findings consistent with prior asbestos exposure. Stable.
Chest CT - Small-moderate stable partially loculated left pleural effusion with associated underlying atelectasis. Stable postoperative changes. Stable calcified pleural plaques suggesting prior asbestos exposure. Atherosclerosis
Procedure findings :
U/s prior to Thoracentesis (02/13) - insufficient fluid to tap
Discharge Plan
-
Patient Disposition: Home (Routine Discharge)
Discharge Diagnosis/Procedures: Iatrogenic dyspnea on exertion, Asbestosis
Condition: Fair
Diet: Low Cholesterol
Activity: As tolerated
Driving Restrictions: As prior to admission
Bathing Restrictions: OK to Shower
Activity Restrictions/Additional Instructions:
Please get a repeat chest CT in 3-4 weeks, before your appointment w Dr. James Aaron at 4pm on 03/14.
Please follow up with Dr. Ruben Oro in 1 week.
Instructions: Pregabalin, Low-fat diet
Referrals:
James Aaron MD [Active] - 03/14/24 4:00 pm
Jake Oro MD [Family Provider] - in one week
Additional Discharge Medication Instructions: Take torsemide 5mg/d for next 5 days and then switch back to 5mg every other day.
Prescriptions:
Continued
terazosin 5 MG capsule
5 mg PO HS
simvastatin 20 MG tablet
20 mg PO HS
allopurinol 300 MG tablet
150 mg PO DAILY
coenzyme Q10 [Co Q-10] 200 MG capsule
200 mg PO HS
Ultra Rohini Plus 1 EACH capsule
1 cap PO DAILY
Patient Comments:
10/10/2023, probiotic.
turmeric 400 MG capsule
400 mg PO BID
Patient Comments:
10/10/2023, w/ curcumin.
therapeutic multivitamin Tablet
1 tab PO DAILY
Patient Comments:
10/10/2023, Essential 1 multi.
spironolactone 25 mg Tablet
25 mg PO DAILY
acetaminophen [Tylenol Arthritis Pain] 650 mg Tablet Extended Release
1,300 mg PO Q8HPRN PRN (Reason: mild pain)
docusate sodium [Colace] 100 mg Capsule
100 mg PO HSPRN PRN (Reason: constipation)
PreserVision AREDS 2,148 mcg-113 mg-45 mg-17.4mg Tablet
1 tab PO BID
dapagliflozin propanediol [Farxiga] 10 mg Tablet
10 mg PO DAILY
carvedilol 6.25 mg Tablet
6.25 mg PO BID
aspirin 81 mg Tablet,Delayed Release (Dr/Ec)
162 mg PO HS
esomeprazole magnesium 40 mg Capsule,Delayed Release(Dr/Ec)
40 mg PO DAILY PRN (Reason: indigestion/heartburn)
calcium carbonate 500 mg calcium (1,250 mg) Tablet,Chewable
500 mg PO TIDPRN PRN (Reason: indigestion)
Metamucil Fiber Thin wafer
2 wafer PO DAILY@1500
Patient Comments:
10/10/2023, one packet contains 2 wafers.
amoxicillin 500 mg capsule
2,000 mg PO DAILYPRN PRN (Reason: prior to dental procedure)
torsemide 5 mg tablet
5 mg PO Q48H
pregabalin 75 mg capsule
75 mg PO BID
Discharge Orders:
Discharge Patient (As Directed); Ordered 02/15/24
Ordered By: Guanako Mina
Discharge Date and Time
Print Language: MACEDONIAN
--- NOTE | 2024-02-15 15:32 | CM ---
Alert awake oriented patient who lives with his Abiola who lives in a 1 story home with 2 step to enter and bed and bathroom on first floor. He is independent in driving and in all activities of daily living.He was offered VN he declined need.He
said his son Neal will drive him home.He uses a cane.
No VN hx / No SNF history
[facility] [place].
PCP DR Melvina Cummings
PLAN Home Declined VN
[2024-02-15 15:42] VITALS: BP 127/69
[2024-02-15] MEDS: METAMUCIL, KONSYL 1 PACKET PO (16:08)
== END 2024-02-15 17:32 | disposition home or self-care (01) | DRG 197 ==
LOC: 3 WEST ACU 22:42
PROVIDERS: Physician Assistant; ADMITTING PHYSICIAN Internal Medicine; ATTENDING PHYSICIAN Hospitalist; EMERGENCY PHYSICIAN Emergency Medicine; FAMILY PHYSICIAN Internal Medicine; OTHER PHYSICIAN Internal Medicine Critical Care Medicine
DX: J61 Pneumoconiosis due to asbestos and other mineral fibers (principal); J98.11 Atelectasis; I27.20 Pulmonary hypertension, unspecified; I12.9 Hypertensive chronic kidney disease with stage 1 through stage 4 chronic kidney disease, or unspecified chronic kidney disease; N18.32 Chronic kidney disease, stage 3b; Z95.3 Presence of xenogenic heart valve; D53.9 Nutritional anemia, unspecified; J84.9 Interstitial pulmonary disease, unspecified; J98.4 Other disorders of lung; E78.00 Pure hypercholesterolemia, unspecified; I48.0 Paroxysmal atrial fibrillation; M10.9 Gout, unspecified; M48.00 Spinal stenosis, site unspecified; N40.1 Benign prostatic hyperplasia with lower urinary tract symptoms; R33.8 Other retention of urine; K21.9 Gastro-esophageal reflux disease without esophagitis; G89.29 Other chronic pain; M54.50 Low back pain, unspecified; M54.2 Cervicalgia; E55.9 Vitamin D deficiency, unspecified; R73.9 Hyperglycemia, unspecified; Z77.090 Contact with and (suspected) exposure to asbestos; Z79.82 Long term (current) use of aspirin; Z79.899 Other long term (current) drug therapy; Z86.16 Personal history of COVID-19; Z87.891 Personal history of nicotine dependence; Z87.19 Personal history of other diseases of the digestive system; Z86.79 Personal history of other diseases of the circulatory system; Z82.49 Family history of ischemic heart disease and other diseases of the circulatory system; Z82.5 Family history of asthma and other chronic lower respiratory diseases
CPT/HCPCS: 71046; 71250; 76604; 80048; 80053; 82947; 83880; 84145; 84155; 85025; 85027; 93005; 99285

== ENCOUNTER → 2024-02-23 12:46 | Outpatient (REF) | payer MEDICARE, SELFPAY ==
[2024-02-23 13:32] LABS: Hematocrit 32.3 % (39.0-52.0); Hemoglobin 10.4 g/dL (13.0-18.0)
[2024-02-23 13:58] LABS: Albumin 4.2 g/dl (3.5-5.0); Blood Urea Nitrogen 56 mg/dl (9-20); Calcium 10.1 mg/dl (8.4-10.2); Carbon Dioxide 28 mmol/L (22-30); Chloride 99 mmol/L (98-107); Glucose 99 mg/dl (70-99); Phosphorus 4.1 mg/dl (2.5-4.5); Sodium 139 mmol/L (135-145); eGFR 35.98
[2024-02-23 14:10] LABS: Uric Acid 4.9 mg/dl (3.5-8.5)
== END ==
LOC: REG 12:46
PROVIDERS: ATTENDING PHYSICIAN Specialist; FAMILY PHYSICIAN Internal Medicine
DX: R80.9 Proteinuria, unspecified (principal); N25.81 Secondary hyperparathyroidism of renal origin; I10 Essential (primary) hypertension; E87.5 Hyperkalemia; D63.1 Anemia in chronic kidney disease
CPT/HCPCS: 36415; 80069; 84550; 85014; 85018

== ENCOUNTER → 2024-03-12 08:37 | Outpatient (REF) | payer MEDICARE, SELFPAY | LOC: RAD 08:37 | PROVIDERS: FAMILY PHYSICIAN Internal Medicine; REFERRING PHYSICIAN Internal Medicine Critical Care Medicine | DX: J90 Pleural effusion, not elsewhere classified (principal); J61 Pneumoconiosis due to asbestos and other mineral fibers | CPT/HCPCS: 71250 ==

== ENCOUNTER 2024-04-12 23:03 | Observation (INO) | payer MEDICARE, SELFPAY ==
[2024-04-12] VITALS (8 sets, daily range): BP systolic 101–152; BP diastolic 57–93; BMI 22.3
[2024-04-12] MEDS: NSS 500 IV (13:40)
[2024-04-12] MEDS: ULTRAM 50 MG PO ×2 (13:40→19:59)
--- NOTE | 2024-04-12 13:48 | ED.GENMED ---
History of Present Illness
General
Chief Complaint: Abdominal Symptoms
Source: patient
Exam Limitations: none
Time Seen by Provider: 04/12/24 13:02
Nursing documentation reviewed up to this point in time: agreed with
History of Present Illness
History of Present Illness:
88-year-old male with past medical history of hypertension hyperlipidemia, anemia presenting to the emergency department today with concerns of decreased appetite decreased ability to tolerate by mouth and today with vomiting. This been progressing
over the past few weeks. Initially this was presumed to be secondary to his severe back pain and new medications including tramadol but symptoms have been significantly worsening. He had some outpatient testing ordered for assessment of this but
had significant issues tolerating by mouth today which prompted him to come to the ER. He has lost 25 pounds in the last month.
Past History
Past History
ED Past Medical History: HTN, Hypercholesterolemia, Valvular disease, Other (Renal disease, chronic back pain, Diverticulitis, Urinary retention, Anemia, ) and Other (Chronic prostatitis)
ED Past Surgical History: Cardiac (Aortic valve repair mitral repair, pericardial tissue heart valve), Orthopedic (Left hand surgery, Left arm surgery, ) and Other ( Hernia. Pilonidal cyst, )
Social History
Tobacco: Former smoker
Alcohol: Occasional
Drug: None
Personal:
Living: with family
Employment: Retired
Family History
Family History: Hypertension
Review of Systems
Review of Systems
Allergies reviewed?: Yes
All Other Systems: ROS reviewed and negative except as documented in HPI and ROS
Phy Exam
Physical Exam
Physical Exam:
GENERAL: Alert , in no apparent distress
EYE: pupils equal and reactive
NECK: Supple, no significant adenopathy.
ENT: o/p clr, mmm.
CARDIAC: Regular rate and rhythm .
LUNGS: Clear breath sounds bilaterally, no acute respiratory distress, no wheezes/rales/rhonchi
ABDOMEN: Soft, without focal tenderness, no r/g, no cvat
NEUROLOGICAL: Alert and oriented, no focal neuro deficits
SKIN: Warm and dry, skin intact.
MUSCULOSKELETAL: No edema, well perfused.
PSYCH: Normal and appropriate interaction.
Course
Orders/Labs/Results
Orders:
Orders
04/12/24 13:32
CT Abd/Pel (IV only)-DH only Urgent
Comment:
Reason For Exam: abd pain decreased ability to toleraste by mouth
0.9% Sodium Chloride 500 ml [Nss] 500 ml IV BOLUS
04/12/24 13:33
Tramadol HCl [Ultram] 50 mg PO NOW STA
04/12/24 13:39
Complete Blood Count/With Diff Urgent
Comprehensive Metabolic Panel Urgent
Lipase Urgent
04/12/24 15:27
Urinalysis Reflex To Culture Urgent
Date Specimen was Collected: 04/12/24
Time Specimen was Collected: 14:00
04/12/24 17:37
Enema- Treatment ONCE
Type: Soap Suds
04/12/24 19:44
Lactulose Enema 300 ml RECTAL NOW STA
Magnesium Citrate [Citroma] 300 ml PO ONCE ONE
04/12/24 19:47
Tramadol HCl [Ultram] 50 mg PO NOW STA
04/12/24 19:58
Glycerin [Glycerin Suppository Adult] 1 supp RECTAL NOW STA
Abnormal Lab Results
04/12/2424
13:39 15:27
RBC 3.86 L 10^6/uL
(4.70-6.10)
Hgb 11.2 L g/dL
(13.0-18.0)
Hct 33.6 L %
(39.0-52.0)
RDW 15.7 H %
(11.5-14.5)
Abs Immat Gran (auto) 0.1 H 10^3/uL
(0-0.05)
Absolute Neuts (auto) 8.1 H 10^3/uL
(1.4-6.5)
Absolute Monos (auto) 0.8 H 10^3/uL
(0.1-0.6)
Immature Gran % 0.6 H %
(0-0.5)
Neutrophils % 78.6 H %
(42.2-75.2)
Lymphocytes % 12.6 L %
(20.5-51.1)
Sodium 132 L mmol/L
(135-145)
BUN 51 H mg/dl
(9-20)
Glucose 100 H mg/dl
(70-99)
Calcium 10.3 H mg/dl
(8.4-10.2)
Alkaline Phosphatase 201 H U/L
(38-126)
Urine Glucose 1+ A
(Negative)
04/12/24 13:39
04/12/24 13:39
Vital Signs
Initial and Last Documented VS:
Initial Vital Signs
BP
122/69
04/12/24 12:46
Last Documented Vital Signs
Temp Pulse Resp BP Pulse Ox
97.7 F 91 17 152/82 97
04/12/24 12:47 04/12/24 20:15 04/12/24 20:15 04/12/24 20:03 04/12/24 20:15
MDM/Problems Addressed
MDM/Problems Addressed:
88-year-old male presenting to the emergency department today with concerns of decreased oral intake over the past 4 weeks worse to the point today where he was unable to tolerate any food by mouth. He is also concerned about weight over the past
month. At this time patient in no obvious distress vital signs are normal on arrival. Labs showing slightly low sodium level and elevated BUN however this is somewhat chronic. CT scan was obtained showing large amount of fecal retention in the
rectum with fat stranding as well as potential stercoral colitis. No signs of obstruction. Also finding of iliac artery aneurysm that is unchanged compared to prior CT. Here manual disimpaction was attempted unable to relieve the fecal impaction.
Was then given enema without relief as well. Patient was watched for multiple hours and given magnesium citrate still unable to have a bowel movement. Concerning findings of potential stercoral colitis and inability to resolve the impaction at
this time plan to admit for further monitoring and treatment. Here he was able to urinate but did have some retaining urine in his bladder. No discomfort to the area. Plan to monitor.
*Critical Care Note
Total Time (30-74mins, 75-104mins- exclusive of procedures): Not Applicable
ED Attending Note
-
Portions of this chart may have been created with voice recognition software.� Occasional wrong word or��sound alike� substitutions may have occurred due to the inherent limitations of voice recognition software.
Discharge Plan
Departure
Patient Disposition: Admit
Date of Disposition: 04/12/24
Time of Disposition: 21:01
Admit to: Med/Surg
Admit to doctor: Tj
Presentation/result/management discussed w/ accepting MD/DO: Hospitalist
Patient with high blood pressure during this ER visit?: No
Condition: Good
Covid-19: Not Applicable
Discharge Problem:
Stercoral colitis, Fecal impaction
Prescriptions:
No Action
terazosin 5 MG capsule
5 mg PO HS
simvastatin 20 MG tablet
20 mg PO HS
allopurinol 300 MG tablet
150 mg PO DAILY
coenzyme Q10 [Co Q-10] 200 MG capsule
200 mg PO HS
Ultra Rohini Plus 1 EACH capsule
1 cap PO DAILY
Patient Comments:
10/10/2023, probiotic.
turmeric 400 MG capsule
400 mg PO BID
Patient Comments:
10/10/2023, w/ curcumin.
therapeutic multivitamin Tablet
1 tab PO DAILY
Patient Comments:
10/10/2023, Essential 1 multi.
spironolactone 25 mg Tablet
25 mg PO DAILY
acetaminophen [Tylenol Arthritis Pain] 650 mg Tablet Extended Release
1,300 mg PO Q8HPRN PRN (Reason: mild pain)
docusate sodium [Colace] 100 mg Capsule
100 mg PO HSPRN PRN (Reason: constipation)
PreserVision AREDS 2,148 mcg-113 mg-45 mg-17.4mg Tablet
1 tab PO BID
dapagliflozin propanediol [Farxiga] 10 mg Tablet
10 mg PO DAILY
carvedilol 6.25 mg Tablet
6.25 mg PO BID
aspirin 81 mg Tablet,Delayed Release (Dr/Ec)
162 mg PO HS
esomeprazole magnesium 40 mg Capsule,Delayed Release(Dr/Ec)
40 mg PO DAILY PRN (Reason: indigestion/heartburn)
calcium carbonate 500 mg calcium (1,250 mg) Tablet,Chewable
500 mg PO TIDPRN PRN (Reason: indigestion)
Metamucil Fiber Thin wafer
2 wafer PO DAILY@1500
Patient Comments:
10/10/2023, one packet contains 2 wafers.
amoxicillin 500 mg capsule
2,000 mg PO DAILYPRN PRN (Reason: prior to dental procedure)
torsemide 5 mg tablet
5 mg PO Q48H
pregabalin 75 mg capsule
75 mg PO BID
Referrals:
Jake Oro MD [Family Provider] -
Interventions
Interventions:
*Risk Screen - Suicide Last Done: 04/12/24 12:47
*General Assessment Last Done: 04/12/24 12:47
*Neglect/Abuse Screening Last Done: 04/12/24 12:47
ED- Fall Risk Assessment Last Done: 04/12/24 12:54
*ED COVID-19 Vaccine History Last Done: 04/12/24 12:47
IJ-Xyqwyl-Wketxvpvgq Assessment Last Done: 04/12/24 12:54
ED-Musculoskeletal Assessment Last Done: 04/12/24 12:54
Discharge Date and Time
Print Language: [place]IZ[place]
[2024-04-12 13:56] LABS: % Basophils 0.3 % (0-2); % Eosinophils 0.2 % (0-6); % Immature Granulocytes 0.6 % (0-0.5); % Lymphocytes 12.6 % (20.5-51.1); % Monocytes 7.7 % (1.7-9.3); % Neutrophils 78.6 % (42.2-75.2); Absolute Immature Granulocytes 0.1 10^3/uL (0-0.05); Absolute Lymphocytes 1.3 10^3/uL (1.2-3.4); Absolute Monocytes 0.8 10^3/uL (0.1-0.6); Absolute Neutrophils 8.1 10^3/uL (1.4-6.5); Hematocrit 33.6 % (39.0-52.0); Hemoglobin 11.2 g/dL (13.0-18.0); Mean Corp Hgb Conc. 33.3 g/dL (33.0-37.0); Mean Platelet Volume 9.7 fL (7.4-10.4); Nucleated Red Blood Cells % 0 % (-); Platelet Count 314 10^3/uL (130-400); Red Blood Cell Count 3.86 10^6/uL (4.70-6.10); Red Cell Dist. Width 15.7 % (11.5-14.5); White Blood Cell Count 10.3 10^3/uL (4.8-10.8)
[2024-04-12 14:13] LABS: ALT (SGPT) 34 U/L (0-50); AST (SGOT) 36 U/L (17-59); Albumin 3.6 g/dl (3.5-5.0); Alkaline Phosphatase 201 U/L (38-126); Blood Urea Nitrogen 51 mg/dl (9-20); Calcium 10.3 mg/dl (8.4-10.2); Carbon Dioxide 23 mmol/L (22-30); Chloride 100 mmol/L (98-107); Estimated Creatinine Clearance 40 ml/min; Glucose 100 mg/dl (70-99); Lipase 122 U/L (23-300); Potassium 4.7 mmol/L (3.5-5.1); Sodium 132 mmol/L (135-145); Total Bilirubin 0.4 mg/dl (0.2-1.3); Total Protein 6.6 g/dl (6.3-8.2); eGFR 53.17
[2024-04-12 15:43] LABS: Urine Albumin Trace (Neg - Trace); Urine Bilirubin Negative (Negative); Urine Character Clear (Clear); Urine Color Yellow; Urine Glucose 1+ (Negative); Urine Ketone Negative (Negative); Urine Leukocyte Negative (Negative); Urine Nitrite Negative (Negative); Urine Occult Blood Negative (Negative); Urine Urobilinogen Negative (Neg - 1+)
[2024-04-12] MEDS: CITROMA 300 ML PO (20:00)
[2024-04-12] MEDS: GLYCERIN SUPPOSITORY ADULT 1 SUPP RECTAL (20:04)
--- NOTE | 2024-04-12 21:38 | HPS.HSE ---
Family Physician
-
Family Physician: Ruben Oro
Chief Complaint
-
Constipation x 1 week
History of Present Illness
88-year-old male who has been taking different types of pain medications due to extreme right posterior scapular pain(muscle surrounding scapular from cervical to thoracic area nonradiating to arm or neck) he currently is on tramadol 50 mg every 6
hours with Flexeril 5 mg at bedtime along with Tylenol arthritis 1300 mg twice daily and Tylenol p.m. 2 tabs at bedtime. The patient's son is at bedside and states the patient has been in so much pain he has not been eating like he normally does
for the past 3 to 4 weeks he has noticed a significant weight loss he believes 25 pounds. When I compared to his recent admission February 14 he has lost 30.8 pounds in the last 60 days. The patient has seen his primary care provider
Ruben Cummings who is given him a prescription for a CMP, PSA, TSH with T4 along with a nuc med bone scan of his whole body. His son states he has been also giving his father some marijuana Gummies 2-3 a day and smoking occasional marijuana for
pain relief although they have not perfected and exact regimen. The patient reports 1 week of constipation he was given soapsuds enema, mag citrate and Dulcolax suppository with eventual 2 bowel movements in the ER.
He past medical history HTN, HLD, CKD 3B, anemia macrocytic, chronic back pain secondary to spinal stenosis/10 stimulator left posterior chest, diverticulitis, urinary retention, chronic prostatitis, former smoker, asbestosis, BPH, gout, loculated
left pleural effusion on CXR 02/13/2024 new consistent with prior asbestosis exposure, obesity
Medical History
Past Medical History
Past Medical History: Reports Other
Additional Past Medical History:
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
Weight loss from February 15, 2024�04/1224 30 pounds possible underlying malignancy versus failure to thrive
HTN
HLD
CKD 3
anemia macrocytic
chronic right scapular neuro cervical and thoracic posterior back pain
History of stimulator left posterior chest
diverticulitis
urinary retention
chronic prostatitis
former smoker
loculated left pleural effusion on CXR 02/13/2024 new consistent with prior asbestosis exposure ( follows with Dr. Uriostegui has been stable on recent CT 03/12/2024)
asbestosis
BPH/TURP
gout
Prior obesity
Past Surgical History: Reports Other
Additional Past Surgical History:
Aortic valve repair, mitral repair, pericardial tissue heart valve
Left hand surgery/left arm surgery
Hernia repair
Pilonidal cyst
Social History
Tobacco: Former Smoker (Quit 40 years ago)
Alcohol: None
Drug: Marijuana (Using Gummies 2 to 3/day and occasionally smoking marijuana)
Personal:
Living: With Family ( and son)
Employment: Retired
Family History
Family History: Not pertinent
Allergies / Home Medications
Allergies reflects when Allergies were last updated in [employer].
Home Medications with original date entered in [employer]
Allergy/Medication List:
Allergies
Allergy/AdvReac Type Severity Reaction Status Date / Time
No Known Allergies Allergy Verified 02/13/24 14:19
Home Medications
allopurinol 300 mg tablet 150 mg PO DAILY Gout 04/07/10
coenzyme Q10 200 mg capsule (Co Q-10) 200 mg PO HS Supplement 08/20/20
turmeric 400 mg capsule 400 mg PO BID Supplement 08/20/20
acetaminophen 650 mg tablet,extended release (Tylenol Arthritis Pain) 1,300 mg PO Q8H 09/27/23
dapagliflozin propanediol 10 mg tablet (Farxiga) 10 mg PO DAILY diabetes 09/27/23
docusate sodium 100 mg capsule (Colace) 200 mg PO HS 09/27/23
spironolactone 25 mg tablet 12.5 mg PO DAILY Blood Pressure/edema 09/27/23
therapeutic multivitamin 1 tab PO DAILY Supplement 09/27/23
vitamins A,C,D-qwfg-ulusps 2,148 mcg-113 mg-45 mg-17.4 mg tablet (PreserVision AREDS) 1 tab PO BID Supplement 09/27/23
aspirin 81 mg tablet,delayed release 162 mg PO HS Blood Clot Prevention/Tx 10/10/23
calcium carbonate 500 mg PO TIDPRN PRN indigestion 10/10/23
esomeprazole magnesium 40 mg capsule,delayed release 40 mg PO DAILYPRN PRN indigestion/heartburn 10/10/23
amoxicillin 500 mg capsule 2,000 mg PO DAILYPRN PRN prior to dental procedure 02/13/24
Lactobac no.2-Bifidobac no.1-S. thermo 112.5 billion cell capsule (Visbiome) 1 cap PO DAILY 04/12/24
carvedilol 3.125 mg tablet 3.125 mg PO BID 04/12/24
cyclobenzaprine 5 mg tablet 5 mg PO HS 04/12/24
diphenhydramine 25 mg-acetaminophen 500 mg tablet (Tylenol PM Extra Strength) 2 tab PO HS 04/12/24
fluorouracil 5 % topical cream 1 applic topical BIDPRN PRN scalp lesions 04/12/24
polyethylene glycol 3350 17 gram oral powder packet (Miralax) 17 g PO DAILYPRN PRN constipation 04/12/24
tamsulosin 0.4 mg capsule 0.4 mg PO HS 04/12/24
tramadol 50 mg tablet 50 mg PO Q6H 04/12/24
Review of Systems
-
History Source: Patient and Family (Son at bedside)
A 12 point ROS was completed and negative except as noted: Yes
Constitutional: Reports Weight Loss (30.8 pounds past 2 months); Denies Fever or Chills
EENT: Denies Sore Throat or Runny Nose
Respiratory: Denies Cough or Trouble Breathing
Cardiac: Denies Chest Pain, Diaphoresis, Palpitations or Syncope
Abdomen/GI: Reports Constipated; Denies Abdominal Pain, Nausea, Vomiting, Diarrhea, Bloody Stools or Black Stools
: Denies Dysuria, Frequency, Flank Pain, Incontinence or Difficulty Voiding
Musculoskeletal: Reports Other (Chronic right scapular pain near cervical and thoracic area); Denies Joint Pain or Edema
Skin: Denies Itching or Rash
Neurological: Denies Dizzy or Headache
Endocrine: Reports No Symptoms
Hematologic/Lymphatic: Reports No Symptoms
Psych: Reports Calm
Physical Exam
Vital Signs
Vital Signs
Temp Pulse Resp BP Pulse Ox
97.7 F 103 27 142/70 96
04/12/24 12:47 04/12/24 21:00 04/12/24 21:00 04/12/24 21:00 04/12/24 21:30
Physical Exam
General: Comfortable, Conversant and Pain; No Fever or Chills
HEENT: NormoCephalic, Anicteric, Moist mucous membranes, PERRLA, [place] Conjunctivae and No Ptosis
Respiratory: Clear; No Wheezes, Rales or Rhonchi
Cardiac: S1/S2 and Regular Rhythm; No Murmur, Rub, Gallop or Peripheral Edema
Breast: Deferred by me
GI: Soft, Non Tender, Non Distended, Normal Bowel Sounds and No Hepatosplenomegaly
Rectal: Deferred by Provider
Genito-urinary: Deferred by me
Musculoskeletal: No Clubbing, No Cyanosis and No Edema
Skin: Warm and Dry; No Rash or Jaundice
Neuro: AO x 3 (Patient tends to talk in tangent about past and does not focus on current present time so when questions are asked they can become skewed patient's son brought this up during our discussion) and No Motor Deficits; No Slurred Speech,
Facial Droop, Tremors or Sedated
Psych: Calm
Laboratory Results
-
04/12/24 13:39
04/12/24 13:39
Laboratory Results
Total Bilirubin 0.4 mg/dl (0.2-1.3) 04/12/24 13:39
AST 36 U/L (17-59) 04/12/24 13:39
ALT 34 U/L (0-50) 04/12/24 13:39
Alkaline Phosphatase 201 U/L (38-126) H 04/12/24 13:39
Lipase 122 U/L (23-300) 04/12/24 13:39
Data Reviewed
-
Lab Data: Labs Reviewed by me
Impression/Plan
-
Impression/plan:
Observation MedSurg
#Fecal impaction possible stercoral colitis possibly secondary to pain meds(tramadol, Flexeril)
-Manual disimpaction attempted in the ER without relief
-Soapsuds enema given in ER without relief
-Will start mag citrate and Dulcolax suppository
-Will start MiraLAX 17 g p.o. Daily
-Start senna twice daily
-If no bowel movement Milk molasses
--Bladder scan protocol to monitor for urinary retention due to above constipation
#Acute weight loss unclear etiology concern for possible underlying malignancy versus failure to thrive
30.8 pound weight loss past 60 days
Weight 70.45 kg <84 kg on 02/15/2024 total weight loss 14 kg/30.8 pounds past 60 days
-Per son at bedside father decreased oral intake 1/10 of what he was eating now drinking 1 Ensure 30 mg protein a day, some scrambled eggs and 2 to 3 ounces of meat but not consistent
-Patient has prescription for outpatient NUC med bone scan whole body by Dr. Ruben Cummings
-We will add on CMP, TSH with free T4 and PSA per Dr. Cummings's lab prescription
#Chronic cervical/thoracic scapular pain x 1 month due to severe DDD at C4/C5, C5-C6, C6/C7
- TENs simulator to L posterior chest
-Follows with [facility]
-History of Cervical epidural x 3 last 1 approximately 3 weeks ago
-Is currently taking tramadol 50 mg every 6 hours along with Flexeril 5 mg at bedtime, Tylenol arthritis 1300 mg twice daily and Tylenol PM 1000 mg / 50 mg Benadryl at bedtime
-Will initiate bowel regimen with MiraLAX 17 g twice daily, senna twice daily
MRI cervical spine 10/10/2023.
1. VERY SEVERE DISCOGENIC DEGENERATIVE DISEASE at C4/C5, C5/C6, and C6/C7.
2. Large disc-osteophyte complex at C4/C5 causing MODERATE SPINAL CORD COMPRESSION, MODERATE CENTRAL CANAL STENOSIS, and SEVERE BILATERAL NEURAL FORAMINAL NARROWING.
3. Moderate-sized disc-osteophyte complex at C3/C4 causing mild spinal cord compression. Severe right neural foraminal narrowing at C3/C4.
4. Large disc-osteophyte complex at C6/C7 causing mild spinal cord compression
#CKD stage 3
- Cr 1.3 appears better than baseline
-Follow BMP
#Hx recurrent symptomatic L sided loculated pleural effusion on CXR 02/13/2024 new consistent with prior asbestosis exposure
#Hx pleural asbestosis
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
- L thoracentesis (09/28/23) - 1450 cc of dark bloody pleural fluid. Neg cytopathology
-CT 03/12/2024 shows stable left-sided loculated pleural effusion
-Patient follows with Dr. Uriostegui from pulmonary
#Chronic heart failure -unclear type
I/O, daily weight
-Continue Farxiga 10 mg daily
-Continue spironolactone 12.5 mg daily
#Exertional dyspnea BL JUSTUS thought to be a side effect to Lyrica-no current swelling on exam
Symptoms started at time of Lyrica initiation
Completed 1 week of torsemide in January
#Aortic valve replacement, Mitral valve repair
- echo (09/28/23) - well seated aortic valve
- well seated annuloplasty ring for mitral valve
#HTN- benign
-BP 142/70
-Continue carvedilol 3.125 mg twice daily
#HLD
-No reported meds
#GERD
-Continue Nexium 40 mg daily, calcium carbonate 500 mg 3 times daily as needed
#BPH/TURP
- cont terazosin
#Gout
- cont allopurinol
DVT prophylaxis
-SCDs
Code status: FULL CODE
--- NOTE | 2024-04-12 22:45 | W.PN.UPDATE ---
Update Note
Progress Note Update
This is an addendum to the H&P written by Yudelka Marvin on 04/12/2024. Patient seen and examined independently with [employer].
88-year-old male past medical history of recurrent loculated left-sided pleural effusion, pleural asbestosis, CKD 3, aortic valve replacement, mitral valve repair, HFmrEF, hypertension, hyperlipidemia, BPH s/p TURP, gout, chronic back pain secondary
to spinal stenosis, presenting for decreased appetite, vomiting, weight loss.
Patient recently with severe scapular pain secondary to cervical disc disease undergoing spinal epidural injections with minimal improvement. Taking tramadol and Flexeril for this.
Primary care physician has been concern for underlying malignancy and recommended lab work including CMP, TSH and PSA. There is also plan for nuclear medicine scan of whole body.
CT abdomen pelvis shows fecal retention within the rectum secondary to fecal impaction/possible stercoral colitis. Labs unremarkable.
Manual disimpaction attempted unable to relieve the fecal impaction. Patient given glycerin enema, lactulose, magnesium citrate without any bowel movement.
Patient with 1 week of constipation secondary to decreased oral intake and tramadol. Patient had 2 bowel movements in ER with improvement in symptoms.
Start MiraLAX and senna twice daily. Concern for urinary retention from constipation. Bladder scan protocol. Check CMP, TSH and PSA. No pulmonary symptoms to suggest reaccumulation of pleural effusion.
[2024-04-12] MEDS: TYLENOL 1000 MG PO (22:59)
[2024-04-12] MEDS: BENADRYL 50 MG PO (23:00)
[2024-04-13] MEDS: ULTRAM 50 MG PO ×2 (00:32→09:00)
[2024-04-13] MEDS: ZOFRAN 4 MG IV (00:33)
[2024-04-13] MEDS: TUMS CHEWABLE TABLET 400 MG PO (00:53)
[2024-04-13 01:17] VITALS: BP 109/60
[2024-04-13] MEDS: LIDOCAINE 4% PATCH 2 PATCH TOPICAL (01:48)
--- NOTE | 2024-04-13 02:14 | PTCARENOTE ---
Pt arrived from ED via stretcher safely to room 317-1 with nurse to sit in chair. Pt oriented to room, call nunez within reach, will continue to monitor.
[2024-04-13 06:00] VITALS: BMI 23.5
[2024-04-13 06:31] VITALS: BMI 23.5
[2024-04-13 07:15] VITALS: BP 143/80
[2024-04-13 07:15] LABS: % Basophils 0.3 % (0-2); % Eosinophils 0.5 % (0-6); % Immature Granulocytes 0.3 % (0-0.5); % Lymphocytes 19.7 % (20.5-51.1); % Monocytes 8.8 % (1.7-9.3); % Neutrophils 70.4 % (42.2-75.2); Absolute Lymphocytes 1.7 10^3/uL (1.2-3.4); Absolute Monocytes 0.8 10^3/uL (0.1-0.6); Absolute Neutrophils 6.1 10^3/uL (1.4-6.5); Hemoglobin 10.8 g/dL (13.0-18.0); Mean Corp Hgb Conc. 32.7 g/dL (33.0-37.0); Mean Corpuscular Hgb 28.6 pg (27.0-31.0); Mean Corpuscular Volume 87.5 fL (80.0-94.0); Mean Platelet Volume 9.7 fL (7.4-10.4); Nucleated Red Blood Cells % 0 % (-); Platelet Count 341 10^3/uL (130-400); Red Blood Cell Count 3.77 10^6/uL (4.70-6.10); Red Cell Dist. Width 15.9 % (11.5-14.5); White Blood Cell Count 8.7 10^3/uL (4.8-10.8)
[2024-04-13 07:32] LABS: ALT (SGPT) 33 U/L (0-50); AST (SGOT) 37 U/L (17-59); Albumin 3.5 g/dl (3.5-5.0); Alkaline Phosphatase 191 U/L (38-126); Blood Urea Nitrogen 44 mg/dl (9-20); Carbon Dioxide 22 mmol/L (22-30); Chloride 102 mmol/L (98-107); Estimated Creatinine Clearance 42 ml/min; Glucose 82 mg/dl (70-99); Potassium 4.8 mmol/L (3.5-5.1); Sodium 135 mmol/L (135-145); Total Bilirubin 0.3 mg/dl (0.2-1.3); Total Protein 6.5 g/dl (6.3-8.2); eGFR 58.53
[2024-04-13 08:04] LABS: PSA, Total - Diagnostic 0.43 ng/ml (0.0-4.0); TSH Reflex To Free T4 1.54 uIU/ml (0.47-4.68)
--- NOTE | 2024-04-13 08:32 | W.PN.UPDATE ---
Addendum entered and electronically signed by Taye Rolon MD 04/13/24 10:32:
Total time spent on d/c = 31 min. This included today's physical exam, progress note, review of laboratory and diagnostic data, preparation of discharge documents and prescriptions, and discussions about the pt's hospital course and discharge plan
with the patient and other medical collections specialist involved in the patient's care.
Original Note:
Update Note
Progress Note Update
I saw and evaluated the patient. I reviewed the resident�s note and agree with findings and plan as documented in the resident�s note.
Gen: NAD, Awake and alert, NCAT
Eyes: EOMI, PERRLA, no scleral icterus.
Neck: supple.
CV: RRR, +S1/S2, no m/r/g.
Resp: CTAB, no rales, wheezes, or rhonchi.
Abd: +BS, soft, NT, ND
Skin: No rashes.
Neuro: CN 2-12 intact, non-focal.
Psych: Normal mood and affect.
CT A/P:
1. Pronounced fecal retention within the rectum, which measures 8.1 cm in greatest transverse dimension. Fat stranding in the perirectal fat. Findings may related to fecal impaction and/or stercoral colitis.
2. No evidence of intestinal obstruction. Colonic diverticulosis without evidence of diverticulitis.
3. 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
4. Small loculated left pleural effusion. Given asbestos related pleural plaques and pleural effusion, mesothelioma is not excluded. Consider thoracentesis with fluid analysis, as clinically appropriate.
5. 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 Ectasia of the abdominal aorta, which measures 2.8 cm in greatest orthogonal dimension.
Constipation/fecal retention:
-Likely due to SEs of tramadol
-had 2 BMs in the ER and 1 this AM
-cont Miralax/senna
Acute weight loss:
-31lb wt loss past 60 days
-poor PO intake
-has prescription for outpatient full body nuclear bone scan
-outpt w/u
Chronic cervical/thoracic scapular pain x 1 month due to severe DDD at C4/C5, C5-C6, C6/C7
-TENs simulator to L posterior chest
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
-cont standing Tylenol/Tramadol with bowel regimen as above
Other problems:
h/o recurrent symptomatic L sided loculated pleural effusion
h/o pleural asbestosis
CKD3a
Chronic HFpEF: cont BB
h/o WELLER and B/L LE edema thought to be a side effect to Lyrica
h/o AVR and MVR
Essential HTN: cont Coreg
HLD
GERD: cont PPI
BPH/TURP: cont terazosin
Gout: cont allopurinol
FULL/SCDs
Medically cleared for d/c. Case management aware.
--- NOTE | 2024-04-13 08:52 | W.PN.HOSP.TC ---
Today's Communication/Plan
-
.
Assessment / Plan
Assessment / Plan
Fecal impaction:
- Today patient had a large bowel movement at around 6 am and feels much better
- Currently on miralax, senna, and as needed maalox
- Had a glycerin enema, lactulose, magnesium citrate last night without any relief
- Manual disimpaction and enema in ER did not provide any relief
- Bladder scan protocol
Acute weight possible malignancy versus failure to thrive:
- around 30.8 pounds past 60 days
-Patient is supposed to undergo whole body nuclear scan that he planned with his pcp
-check CMP, TSH with free T4 and PSA per primary
Severe degenerative disease of spine:
-Follows with [facility]
- Currently on as needed tramadol every 6 hours, and tylenol, and lidocaine patch
L sided loculated pleural effusion
pleural asbestosis:
- Seen on CT abdomen/ pelvis on 04/12/24
-Continue to follow up with Dr. Uriostegui from pulmonary
Heart failure with reduced ejection fraction:
- Last echo shows ejection fraction of 50%
-Continue Farxiga and spironolactone
- Aortic valve replacement, Mitral valve repair
HTN:
-BP 143/80 and well controlled
-Continue carvedilol
GERD
-Continue protonix and calcium carbonate
BPH:
- cont terazosin
Gout:
- cont allopurinol
DVT prophylaxis
-SCDs
Anticipated Discharge: Within 24 hours
Subjective/Interval History
-
Date of Service: April 13, 2024
88-year-old male, full code, pmh of recurrent loculated left-sided pleural effusion, pleural asbestosis, CKD 3, aortic valve replacement, mitral valve repair, HFmrEF, hypertension, hyperlipidemia, BPH s/p TURP, gout, chronic back pain secondary to
spinal stenosis, presenting for decreased appetite, vomiting, weight loss since 4 weeks. Hes had decreased appetite and has not been able to tolerate anything oral since 4 weeks. Yesterday he had an episode of non bloody vomiting. Overall hes lost
about 30.8since 1 month. Had planned to get labs and whole body nuclear scan done with at the insistence of PCP but symptoms got worse and patient was admitted here. Ct scan showed fecal impaction and calcified pleural plaques at both the bases of
lungs, small loculated pleural effusion.
Patient has had a bowel movement today at around 6 am. Started on miralx and senna twice daily.
Would like pain control for his back pain.
Objective Data
-
Labs:
Laboratory Results
04/13/24
06:40
WBC 8.7
Hgb 10.8 L
Hct 33.0 L
Plt Count 341
Sodium 135
Potassium 4.8
Chloride 102
Carbon Dioxide 22
BUN 44 H
Creatinine 1.2
Glucose 82
Calcium 10.0
Total Bilirubin 0.3
AST 37
ALT 33
Alkaline Phosphatase 191 H
Vital Signs:
Vital Signs
Temp Pulse Resp BP Pulse Ox
97.5 F 77 18 143/80 99
04/13/24 07:15 04/13/24 07:15 04/13/24 07:15 04/13/24 07:15 04/13/24 07:15
Review of Systems
-
History Source: Patient
Constitutional: Reports Weight Loss; Denies Fever or Chills
Respiratory: Denies Cough or Wheezing
Cardiac: Denies Chest Pain, Diaphoresis, Palpitations, Syncope, PND or Orthopnea
Abdomen/GI: Reports Abdominal Pain, Vomiting and Constipated; Denies Nausea, Diarrhea or Bloody Stools
Genitourinary: Denies Dysuria
Musculoskeletal: Denies Joint Pain
Skin: Denies Itching or Rash
Neuro: Denies Dizzy or Headache
Physical Exam
-
Respiratory: Clear to Auscultation
Cardiac: Regular Rhythm and S1/S2
GI: Soft, Nontender, Nondistended and Normal Bowel Sounds
Skin: Warm and Dry
Neuro: Awake and Alert
Data Reviewed
-
Medical Tests (Nuc Med, Echo etc): Image personally visualized and interpreted and Discussed with Physician
Labs: Labs Reviewed by me and Discussed with Physician
[2024-04-13] MEDS: ALDACTONE 12.5 MG PO (09:00)
[2024-04-13] MEDS: ZYLOPRIM 150 MG PO (09:00)
[2024-04-13] MEDS: VISBIOME 1 CAP PO (09:00)
[2024-04-13] MEDS: OCUVITE SOFTGEL 1 CAP PO (09:00)
[2024-04-13] MEDS: COREG 3.125 MG PO (09:00)
[2024-04-13] MEDS: MIRALAX 17 GRAMS PO (09:02)
[2024-04-13] MEDS: TYLENOL 1000 MG PO (09:04)
[2024-04-13] MEDS: SENNA SYRUP 8.8 MG PO (09:27)
--- NOTE | 2024-04-13 10:35 | W.DCSUMMARY ---
Addendum entered and electronically signed by Taye Rolon MD 04/13/24 16:04:
Read, reviewed, and agree. See same day progress note for additional details.
Original Note:
Discharge Summary
Discharge Data
Date of Admission: 04/12/24
Date of Discharge: 04/13/24
-
Pending Results: No
Hospital Course
Discharging Physician : Dr. Taye Rolon
Disposition : Home
Primary care physician : Dr. Ruben Oro
Principal Discharge diagnosis : Fecal impaction
Chronic Discharge diagnosis : Acute weight loss due to possible malignancy vs failure to thrive, severe degenerative disease of spine, Left sided loculated pleural effusion, Heart failure with ejection fraction, Hypertension, Acid reflux, Benign
prostatic hyperplasia, gout
Hospital Course : 88-year-old male, full code, pm of recurrent loculated left-sided pleural effusion, pleural asbestosis, CKD 3, aortic valve replacement, mitral valve repair, HFmrEF, hypertension, hyperlipidemia, BPH s/p TURP, gout, chronic back
pain secondary to spinal stenosis, presenting for decreased appetite, vomiting, weight loss since 4 weeks. He's had decreased appetite and has not been able to tolerate anything oral since 4 weeks. Yesterday he had an episode of non bloody vomiting.
Overall hes lost about 30 pounds in 2 months. Had planned to get labs and whole body nuclear scan done with at the insistence of PCP but symptoms got worse and patient was admitted to [facility] emergency department. Ct scan showed fecal impaction
and calcified pleural plaques at both the bases of lungs, small loculated pleural effusion. In the ED manual disimpaction, glycerin enema, lactulose, magnesium citrate were all attempted. After some time, Patient had 2 bowel movements in the ER and
then a bowel movement today at around 6 am. Started on Miralax and senna twice daily. He is medically stable for discharge as his symptoms have improved considerably and he had multiple bowel movements.
Acute weight loss due to malignancy or failure to thrive- patient is to undergo whole body nuclear scan with primary care. CMP, TSH, PSA to be repeated outpatient.
Severe degenerative disease of spine- Continue tramadol
L sided loculated pleural effusion: seen on CT scan 04/12/24, continue to follow up with Primary care.
Hypertension- continue carvedilol
Gerd- continue Protonix and calcium carbonate
BPH- continue terazosin
Gout- Continue allopurinol
Important imaging findings :
Abdomen/ pelvis CT 04/12/24:
IMPRESSION:
1. Pronounced fecal retention within the rectum, which measures 8.1 cm in greatest transverse dimension. Fat stranding in the perirectal fat. Findings may related to fecal impaction and/or stercoral colitis.
2. No evidence of intestinal obstruction. Colonic diverticulosis without evidence of diverticulitis.
3. 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
4. Small loculated left pleural effusion. Given asbestos related pleural plaques and pleural effusion, mesothelioma is not excluded. Consider thoracentesis with fluid analysis, as clinically appropriate.
5. 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 Ectasia of the abdominal aorta, which measures 2.8 cm in greatest orthogonal dimension.
Procedure findings :
Discharge Plan
-
Patient Disposition: Home (Routine Discharge)
Discharge Diagnosis/Procedures: Fecal impaction, acute weight loss due to either malignancy or failure to thrive, severe degenerative disease of spine, left sided loculated pleural effusion, heart failure with reduced ejection fraction,
Hypertension, Acid reflux, Benign prostatic hyperplasia, gout, Hyponatremia
Condition: Fair
Diet: Regular
Activity: As tolerated
Driving Restrictions: As prior to admission
Bathing Restrictions: None
Activity Restrictions/Additional Instructions:
CBC with primary care in 1 week
Instructions: Constipation, Adult (DC), Fecal Impaction (DC)
Referrals:
Jake Oro MD [Family Provider] - in less than 1 week
Prescriptions:
New
sennosides 8.8 mg/5 mL Syrup
8.8 mg PO BID Qty: 10 0RF
Continued
fluorouracil 5 % Cream
1 applic TOPICAL BIDPRN PRN (Reason: scalp lesions)
amoxicillin 500 mg capsule
2,000 mg PO DAILYPRN PRN (Reason: prior to dental procedure) Qty: 10 0RF
aspirin 81 mg Tablet,Delayed Release (Dr/Ec)
162 mg PO HS Qty: 30 0RF
carvedilol 3.125 mg Tablet
3.125 mg PO BID Qty: 30 0RF
acetaminophen [Tylenol Arthritis Pain] 650 mg Tablet Extended Release
1,300 mg PO Q8H Qty: 30 0RF
docusate sodium [Colace] 100 mg Capsule
200 mg PO HS Qty: 30 0RF
allopurinol 300 MG tablet
150 mg PO DAILY Qty: 30 0RF
calcium carbonate 500 mg calcium (1,250 mg) Tablet,Chewable
500 mg PO TIDPRN PRN (Reason: indigestion) Qty: 30 0RF
diphenhydramine-acetaminophen [Tylenol PM Extra Strength] 25-500 mg Tablet
2 tab PO HS Qty: 30 0RF
cyclobenzaprine 5 mg Tablet
5 mg PO HS Qty: 30 0RF
coenzyme Q10 [Co Q-10] 200 MG capsule
200 mg PO HS Qty: 30 0RF
dapagliflozin propanediol [Farxiga] 10 mg Tablet
10 mg PO DAILY Qty: 30 0RF
polyethylene glycol 3350 [Miralax] 17 gram Powder In Packet
17 g PO DAILYPRN PRN (Reason: constipation) Qty: 1 0RF
therapeutic multivitamin Tablet
1 tab PO DAILY Qty: 30 0RF
tramadol 50 mg Tablet
50 mg PO Q6H Qty: 30 0RF
spironolactone 25 mg Tablet
12.5 mg PO DAILY Qty: 30 0RF
tamsulosin 0.4 mg Capsule
0.4 mg PO HS Qty: 30 0RF
esomeprazole magnesium 40 mg Capsule,Delayed Release(Dr/Ec)
40 mg PO DAILYPRN PRN (Reason: indigestion/heartburn) Qty: 30 0RF
Visbiome 112.5 billion cell Capsule
1 cap PO DAILY Qty: 30 0RF
PreserVision AREDS 2,148 mcg-113 mg-45 mg-17.4mg Tablet
1 tab PO BID Qty: 30 0RF
turmeric 400 MG capsule
400 mg PO BID Qty: 30 0RF
Discharge Orders:
Discharge Patient (As Directed); Ordered 04/13/24
Ordered By: Alexandro Townsend
Discharge Date and Time
Discharge Date/Time: 04/13/24 13:48
Print Language: SWEDISH
[2024-04-13 11:15] VITALS: BP 121/69; BP 135/86; PULSE 64; O2SAT 98
[2024-04-13 11:17] VITALS: BP 121/69; BP 135/86; PULSE 70; O2SAT 96
--- NOTE | 2024-04-13 12:08 | CM ---
Received notification from attending that patient is cleared for discharge. Met with patient to obtain information for assessment. Patient stated that he lives with his and son in a one story home with a basement and one step to enter. He
stated that he is able to complete his ADLs, personal care, dress and bathe but it is difficult as he has severe back pain. He stated he takes Tramadol for the pain. Patient's son does all the cooking, cleaning, marketing team lead and laundry. He
transports patient to his appointments and takes him shopping or does the shopping for patient and his .
Patient stated that he uses a cane for short distances, and a walker for long distances.
He denied any other DME.
He has never had VN services.
He has not been to a SNF in the past.
Patient has a prescription plan and uses, [facility] in [place] for all of his medications.
Patient signed and reviewed CAI letter. He was advised that he is stable for discharge and is agreeable. He stated that his son will be in to pick him up soon. He had no further concerns.
Attending updated that patient will be returning home.
Plan: Case management will continue to follow and assist with discharge planning. Home today.
[2024-04-13 13:00] VITALS: BP 132/78
== END 2024-04-13 13:48 | disposition home or self-care (01) ==
LOC: 3 WEST ACU 23:03
PROVIDERS: Clinical Nurse Specialist Family Health; Physician Assistant; ADMITTING PHYSICIAN Hospitalist; ATTENDING PHYSICIAN Internal Medicine; EMERGENCY PHYSICIAN Emergency Medicine; FAMILY PHYSICIAN Internal Medicine
DX: K56.41 Fecal impaction (principal); R10.9 Unspecified abdominal pain; R63.4 Abnormal weight loss; R11.2 Nausea with vomiting, unspecified; J90 Pleural effusion, not elsewhere classified; G89.29 Other chronic pain; I50.32 Chronic diastolic (congestive) heart failure; M54.9 Dorsalgia, unspecified; M50.021 Cervical disc disorder at C4-C5 level with myelopathy; M48.02 Spinal stenosis, cervical region; E78.00 Pure hypercholesterolemia, unspecified; I13.0 Hypertensive heart and chronic kidney disease with heart failure and stage 1 through stage 4 chronic kidney disease, or unspecified chronic kidney disease; N18.31 Chronic kidney disease, stage 3a; N40.1 Benign prostatic hyperplasia with lower urinary tract symptoms; R33.9 Retention of urine, unspecified; E87.1 Hypo-osmolality and hyponatremia; F12.90 Cannabis use, unspecified, uncomplicated; M10.9 Gout, unspecified; R94.4 Abnormal results of kidney function studies; K57.30 Diverticulosis of large intestine without perforation or abscess without bleeding; I77.811 Abdominal aortic ectasia; K21.9 Gastro-esophageal reflux disease without esophagitis; M25.78 Osteophyte, vertebrae; I72.3 Aneurysm of iliac artery; M25.511 Pain in right shoulder; Z87.891 Personal history of nicotine dependence; Z82.49 Family history of ischemic heart disease and other diseases of the circulatory system; Z96.82 Presence of neurostimulator; Z77.090 Contact with and (suspected) exposure to asbestos; Z79.84 Long term (current) use of oral hypoglycemic drugs; Z90.79 Acquired absence of other genital organ(s)
CPT/HCPCS: 51798; 74177; 80053; 81003; 83690; 84153; 84443; 85025; 96360; 97162; 97166; 99285; Q9967

== ENCOUNTER → 2024-04-18 08:00 | Outpatient (REF) | payer MEDICARE, SELFPAY | LOC: RAD 08:00 | PROVIDERS: ATTENDING PHYSICIAN Internal Medicine | DX: R63.4 Abnormal weight loss (principal); M54.2 Cervicalgia; M54.59 Other low back pain; R63.0 Anorexia | CPT/HCPCS: 78306; A9503 ==

== ENCOUNTER 2024-04-20 14:42 | Observation (INO) | payer MEDICARE, SELFPAY ==
[2024-04-20] VITALS (9 sets, daily range): BP systolic 98–140; BP diastolic 56–75; BMI 25.1; BMI 21.8
[2024-04-20 09:55] LABS: % Basophils 0.5 % (0-2); % Eosinophils 1.4 % (0-6); % Immature Granulocytes 1.1 % (0-0.5); % Lymphocytes 19.5 % (20.5-51.1); % Monocytes 14.5 % (1.7-9.3); Absolute Eosinophils 0.1 10^3/uL (0-0.7); Absolute Immature Granulocytes 0.1 10^3/uL (0-0.05); Absolute Lymphocytes 1.7 10^3/uL (1.2-3.4); Absolute Monocytes 1.2 10^3/uL (0.1-0.6); Absolute Neutrophils 5.4 10^3/uL (1.4-6.5); Hematocrit 33.9 % (39.0-52.0); Hemoglobin 11.2 g/dL (13.0-18.0); Mean Corpuscular Hgb 28.5 pg (27.0-31.0); Mean Corpuscular Volume 86.3 fL (80.0-94.0); Mean Platelet Volume 9.1 fL (7.4-10.4); Nucleated Red Blood Cells % 0 % (-); Platelet Count 454 10^3/uL (130-400); Red Blood Cell Count 3.93 10^6/uL (4.70-6.10); Red Cell Dist. Width 15.9 % (11.5-14.5); White Blood Cell Count 8.5 10^3/uL (4.8-10.8)
[2024-04-20 10:42] LABS: Blood Urea Nitrogen 48 mg/dl (9-20); Calcium 10.2 mg/dl (8.4-10.2); Carbon Dioxide 23 mmol/L (22-30); Chloride 95 mmol/L (98-107); Glucose 95 mg/dl (70-99); Sodium 129 mmol/L (135-145); eGFR 44.78
--- NOTE | 2024-04-20 11:10 | EDRN ---
Dr. Harrison in room w/pt at this time.
--- NOTE | 2024-04-20 11:15 | EDRN ---
Pt administered water after emigdio w/ Dr. Harrison.
--- NOTE | 2024-04-20 11:50 | ED.GENMED ---
History of Present Illness
General
Chief Complaint: Failure to Thrive
Time Seen by Provider: 04/20/24 10:49
History of Present Illness
History of Present Illness:
88-year-old male with history of chronic kidney disease, hypertension, hyperlipidemia, chronic pain to the back presenting from nephrology's office for concern of failure to thrive. Patient arrives with son who lives with him, notes decreased p.o.
intake in the past several months, decreased appetite. At the nephrology office today, was hypotensive. Patient has lost about 30 pounds in the past few months without trying. He has been following with orthopedics regarding the chronic pain to
his back. Denies any acute weakness or numbness to his extremities. Denies abdominal pain. Denies any fever. Denies additional acute medical complaints
Past History
Past History
ED Past Medical History: HTN, Hypercholesterolemia, Valvular disease, Other (Renal disease, chronic back pain, Diverticulitis, Urinary retention, Anemia, ) and Other (Chronic prostatitis)
ED Past Surgical History: Cardiac (Aortic valve repair mitral repair, pericardial tissue heart valve), Orthopedic (Left hand surgery, Left arm surgery, ) and Other ( Hernia. Pilonidal cyst, )
Social History
Tobacco: Former smoker
Alcohol: Occasional
Drug: None
Personal:
Living: with family
Employment: Retired
Family History
Family History: Hypertension
Phy Exam
Physical Exam
Physical Exam:
General: No acute distress, dry mucous membranes
HEENT: protecting airway
Neck: appears supple
CV: Normal heart rate, regular rhythm, no evidence of cyanosis
Resp: No accessory muscle use, no increased work of breathing, lungs clear to auscultation bilaterally
Abd: Soft and non-distended, no tenderness to palpation
Extremities: No deformities, no swelling, no erythema
Neuro: alert, no focal neurologic deficit
: deferred
Rectal: deferred
Psych: Normal affect
Skin: Intact
Course
Orders/Labs/Results
Orders:
Orders
04/20/24 09:45
Basic Metabolic Panel Urgent
CBC/With Diff [Complete Blood Count/With Diff] Urgent
04/20/24 11:02
Cardiac Monitoring- Treatment ONCE
IV Insert/Care/Rem.- Treatment PRN
04/20/24 11:13
Urinalysis Reflex To Culture Urgent
0.9% Sodium Chloride 1000 ml [Nss] 1,000 ml IV BOLUS
04/20/24 11:50
Comprehensive Metabolic Panel Urgent
PTT Urgent
Prothrombin Time Urgent
04/20/24 12:00
Tramadol HCl [Ultram] 50 mg PO NOW STA
Abnormal Lab Results
04/20/24 04/20/24
09:45 11:50
RBC 3.93 L 10^6/uL
(4.70-6.10)
Hgb 11.2 L g/dL
(13.0-18.0)
Hct 33.9 L %
(39.0-52.0)
RDW 15.9 H %
(11.5-14.5)
Plt Count 454 H 10^3/uL
(130-400)
Abs Immat Gran (auto) 0.1 H 10^3/uL
(0-0.05)
Absolute Monos (auto) 1.2 H 10^3/uL
(0.1-0.6)
Immature Gran % 1.1 H %
(0-0.5)
Lymphocytes % 19.5 L %
(20.5-51.1)
Monocytes % 14.5 H %
(1.7-9.3)
Sodium 129 L mmol/L 129 L mmol/L
(135-145) (135-145)
Potassium 5.2 H mmol/L
(3.5-5.1)
Chloride 95 L mmol/L 95 L mmol/L
(98-107) (98-107)
BUN 48 H mg/dl 49 H mg/dl
(9-20) (9-20)
Creatinine 1.5 H mg/dL 1.5 H mg/dL
(0.7-1.3) (0.7-1.3)
Alkaline Phosphatase 212 H U/L
(38-126)
Total Protein 6.2 L g/dl
(6.3-8.2)
Albumin 3.4 L g/dl
(3.5-5.0)
04/20/24 11:13
04/20/24 11:50
Vital Signs
Initial and Last Documented VS:
Initial Vital Signs
Temp Pulse Resp BP Pulse Ox
97.9 F 89 16 102/56 95
04/20/24 09:32 04/20/24 09:32 04/20/24 09:32 04/20/24 09:32 04/20/24 09:32
Last Documented Vital Signs
Temp Pulse Resp BP Pulse Ox
97.9 F 80 24 108/71 94
04/20/24 09:32 04/20/24 12:00 04/20/24 12:00 04/20/24 12:00 04/20/24 12:00
MDM/Problems Addressed
MDM/Problems Addressed:
88-year-old male with history of chronic kidney disease and chronic musculoskeletal pain presenting for failure to thrive from nephrology office. Vital signs on arrival within normal limits, however noted to be hypotensive prior to arrival.
On exam patient is resting comfortably, no acute distress or discomfort. Per implementation architect prior to arrival, was hypotensive, with concern for failure to thrive, has lost 40 pounds over the past 3 to 4 months and is not eating, recommending
admission. On arrival, patient afebrile, nontoxic. Does have some dry mucous membranes, suspect underlying dehydration. Will start IV fluids and screen with laboratory analysis.
12:20 - Labs consistent with mild GIOVANY on CKD, as well as hyponatremia. Labs are consistent with acute dehydration. Agree of nephrology, plan for admission for failure to thrive for nutrition, goals of care discussion, volume repletion
*Critical Care Note
Total Time (30-74mins, 75-104mins- exclusive of procedures): Not Applicable
ED Attending Note
-
Portions of this chart may have been created with voice recognition software.� Occasional wrong word or��sound alike� substitutions may have occurred due to the inherent limitations of voice recognition software.
Discharge Plan
Departure
Prescriptions:
No Action
fluorouracil 5 % Cream
1 applic TOPICAL BIDPRN PRN (Reason: scalp lesions)
amoxicillin 500 mg capsule
2,000 mg PO DAILYPRN PRN (Reason: prior to dental procedure) Qty: 10 0RF
aspirin 81 mg Tablet,Delayed Release (Dr/Ec)
162 mg PO HS Qty: 30 0RF
carvedilol 3.125 mg Tablet
3.125 mg PO BID Qty: 30 0RF
acetaminophen [Tylenol Arthritis Pain] 650 mg Tablet Extended Release
1,300 mg PO Q8H Qty: 30 0RF
docusate sodium [Colace] 100 mg Capsule
200 mg PO HS Qty: 30 0RF
allopurinol 300 MG tablet
150 mg PO DAILY Qty: 30 0RF
calcium carbonate 500 mg calcium (1,250 mg) Tablet,Chewable
500 mg PO TIDPRN PRN (Reason: indigestion) Qty: 30 0RF
diphenhydramine-acetaminophen [Tylenol PM Extra Strength] 25-500 mg Tablet
2 tab PO HS Qty: 30 0RF
cyclobenzaprine 5 mg Tablet
5 mg PO HS Qty: 30 0RF
coenzyme Q10 [Co Q-10] 200 MG capsule
200 mg PO HS Qty: 30 0RF
dapagliflozin propanediol [Farxiga] 10 mg Tablet
10 mg PO DAILY Qty: 30 0RF
polyethylene glycol 3350 [Miralax] 17 gram Powder In Packet
17 g PO DAILYPRN PRN (Reason: constipation) Qty: 1 0RF
therapeutic multivitamin Tablet
1 tab PO DAILY Qty: 30 0RF
tramadol 50 mg Tablet
50 mg PO Q6H Qty: 30 0RF
spironolactone 25 mg Tablet
12.5 mg PO DAILY Qty: 30 0RF
tamsulosin 0.4 mg Capsule
0.4 mg PO HS Qty: 30 0RF
esomeprazole magnesium 40 mg Capsule,Delayed Release(Dr/Ec)
40 mg PO DAILYPRN PRN (Reason: indigestion/heartburn) Qty: 30 0RF
Visbiome 112.5 billion cell Capsule
1 cap PO DAILY Qty: 30 0RF
PreserVision AREDS 2,148 mcg-113 mg-45 mg-17.4mg Tablet
1 tab PO BID Qty: 30 0RF
turmeric 400 MG capsule
400 mg PO BID Qty: 30 0RF
sennosides 8.8 mg/5 mL Syrup
8.8 mg PO BID Qty: 10 0RF
Referrals:
Jake Oro MD [Family Provider] -
Interventions
Interventions:
*Risk Screen - Suicide Last Done: 04/20/24 09:32
*General Assessment Last Done: 04/20/24 09:32
*Neglect/Abuse Screening Last Done: 04/20/24 09:32
ED- Fall Risk Assessment Last Done: 04/20/24 11:06
*ED COVID-19 Vaccine History Last Done: 04/20/24 11:06
Discharge Date and Time
Print Language: MALAY
[2024-04-20] MEDS: NSS 1000 IV ×2 (11:51→15:57)
[2024-04-20 12:15] LABS: INR 1.05
[2024-04-20 12:16] LABS: APTT 36.5 Sec (23.4-35.0)
[2024-04-20 12:23] LABS: ALT (SGPT) 48 U/L (0-50); AST (SGOT) 52 U/L (17-59); Albumin 3.4 g/dl (3.5-5.0); Alkaline Phosphatase 212 U/L (38-126); Blood Urea Nitrogen 49 mg/dl (9-20); Carbon Dioxide 24 mmol/L (22-30); Chloride 95 mmol/L (98-107); Estimated Creatinine Clearance 32 ml/min; Glucose 91 mg/dl (70-99); Potassium 5.2 mmol/L (3.5-5.1); Sodium 129 mmol/L (135-145); Total Bilirubin 0.3 mg/dl (0.2-1.3); Total Protein 6.2 g/dl (6.3-8.2); eGFR 44.78
[2024-04-20] MEDS: ULTRAM 50 MG PO ×3 (12:41→23:28)
--- NOTE | 2024-04-20 12:49 | HPS.HSE ---
Family Physician
-
Family Physician: Ruben Oro
Chief Complaint
-
Sent by nephrology for hypotension and weight loss which is chronic
History of Present Illness
88-year-old male who was seen by his tenterer today was hypotensive in the office was sent here for evaluation of failure to thrive and nutrition consult. He is normotensive 108/71 in the ER of the weight loss is not new for this patient he has
been seeing his primary care provider for a 30 to 40 pound weight loss since the middle of January. His son is very concerned about his intake he was very concerned thinking his father needed a feeding tube. I discussed both with the son and the
patient that his weight loss is related to his chronic pain which is causing a failure to thrive. The patient reports he is drinking Ensure 30 g protein in the morning and he is attempting to eat small bites but he does not have an appetite due to
his pain. He has tried Remeron but had hallucinations with that pill. I advised the patient and his son we will add Megace and consult dietary to add suggestions in addition to what he is currently doing, however I feel until he has his facet
rhizotomy which is currently scheduled in June with [facility] it is going to be difficult to manage his oral intake until he has adequate pain control. The patient reports chronic sharp, spasm, dull ache left side cervical into upper
thoracic left scapular area nonradiating he currently is wearing 4% Lidoderm patch and is using a TENS unit. Due to multiple appointments today he took his Flexeril in the a.m. instead of p.m. he is currently only taking once a day which we can
increase. He reports his current pain 6 out of 10 his last solid bowel movement was 2 days ago he does have history of recent fecal impaction I advised the patient we will add his MiraLAX 17 g daily with as needed senna twice daily. His son states
when he takes them altogether he tends to get diarrhea. He has had a 0.9 pound weight gain in the past 8 days. Patient denies any current headache, fever, chills, chest pain, palpitations, shortness breath, cough, abdominal pain, nausea, vomiting,
diarrhea, urinary symptoms.
He had a recent admission 04/12 - 04/13/2024 secondary to fecal impaction requiring manual disimpaction, glycerin enema, lactulose, mag citrate with eventual 2 bowel movements in the ED and in the early a.m. he was discharged on MiraLAX in the a.m.
and senna twice daily. He was also seen for weight loss and failure to thrive that is being managed outpatient. He is on chronic tramadol for severe DDD of the spine. He past medical history Severe DDD cervical spine causing chronic left sided
scapular pain, HTN, HLD, CKD 3B, anemia macrocytic, chronic back pain secondary to spinal stenosis/10 stimulator left posterior chest, diverticulitis, urinary retention, chronic prostatitis, former smoker, asbestosis, BPH, gout, loculated left
pleural effusion on CXR 02/13/2024 new consistent with prior asbestosis exposure, obesity
Medical History
Past Medical History
Past Medical History: Reports Other
Additional Past Medical History:
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
Weight loss from February 15, 2024�04/1224 30 pounds possible underlying malignancy versus failure to thrive
HTN
HLD
CKD 3
anemia macrocytic
chronic right scapular neuro cervical and thoracic posterior back pain
History of stimulator left posterior chest
diverticulitis
urinary retention
chronic prostatitis
former smoker
loculated left pleural effusion on CXR 02/13/2024 new consistent with prior asbestosis exposure ( follows with Dr. Uriostegui has been stable on recent CT 03/12/2024)
asbestosis
BPH/TURP
gout
Prior obesity
Past Surgical History: Reports Other
Additional Past Surgical History:
Aortic valve repair, mitral repair, pericardial tissue heart valve
Left hand surgery/left arm surgery
Hernia repair
Pilonidal cyst
Social History
Tobacco: Former Smoker (Quit 40 years ago)
Alcohol: None
Drug: Marijuana (Using Gummies 2 to 3/day and occasionally smoking marijuana)
Personal:
Living: With Family ( and son)
Employment: Retired
Family History
Family History: Not pertinent
Allergies / Home Medications
Allergies reflects when Allergies were last updated in [facility].
Home Medications with original date entered in [facility]
Allergy/Medication List:
Allergies
Allergy/AdvReac Type Severity Reaction Status Date / Time
No Known Allergies Allergy Verified 04/20/24 09:32
Home Medications
Lactobac no.2-Bifidobac no.1-S. thermo 112.5 billion cell capsule (Visbiome) 1 cap PO DAILY #30 caps 04/13/24
allopurinol 300 mg tablet 150 mg (1/2 x 300 mg) PO DAILY Gout #30 tabs 04/13/24
aspirin 81 mg tablet,delayed release 162 mg (2 x 81 mg) PO HS Blood Clot Prevention/Tx #30 tabs 04/13/24
calcium carbonate 500 mg PO TIDPRN PRN indigestion #30 tabs 04/13/24
coenzyme Q10 200 mg capsule (Co Q-10) 200 mg PO HS Supplement #30 caps 04/13/24
cyclobenzaprine 5 mg tablet 5 mg PO HS #30 tabs 04/13/24
dapagliflozin propanediol 10 mg tablet (Farxiga) 10 mg PO DAILY diabetes #30 tabs 04/13/24
polyethylene glycol 3350 17 gram oral powder packet (Miralax) 17 g PO DAILYPRN PRN constipation #1 ea 04/13/24
tamsulosin 0.4 mg capsule 0.4 mg PO HS #30 caps 04/13/24
therapeutic multivitamin 1 tab PO DAILY Supplement #30 tabs 04/13/24
tramadol 50 mg tablet 50 mg PO Q6H #30 tabs 04/13/24
turmeric 400 mg capsule 400 mg PO BID Supplement #30 caps 04/13/24
vitamins A,C,O-ihmd-slfuff 2,148 mcg-113 mg-45 mg-17.4 mg tablet (PreserVision AREDS) 1 tab PO BID Supplement #30 tabs 04/13/24
acetaminophen 500 mg tablet (Tylenol Extra Strength) 1,000 mg PO BID 04/20/24
carvedilol 3.125 mg tablet 1.56 mg PO BID 04/20/24
docusate sodium 100 mg capsule (Colace) 200 mg PO HSPRN PRN constipation 04/20/24
lidocaine 4 % topical patch 1 patch topical Q8H back pains 04/20/24
sennosides 8.6 mg tablet (senna) 17.2 mg PO DAILYPRN PRN constipation 04/20/24
Review of Systems
-
History Source: Patient and Family (Son at bedside)
A 12 point ROS was completed and negative except as noted: Yes
Constitutional: Denies Fever, Fatigue or Chills
EENT: Denies Sore Throat or Runny Nose
Respiratory: Denies Cough or Trouble Breathing
Cardiac: Denies Chest Pain, Diaphoresis, Palpitations or Syncope
Abdomen/GI: Reports Other (Last bowel movement 2 days ago 04/18/2024); Denies Abdominal Pain, Nausea, Vomiting, Diarrhea, Constipated, Bloody Stools, Black Stools or Anorexia
: Denies Dysuria, Frequency, Flank Pain, Incontinence, Difficulty Voiding or Urgency
Musculoskeletal: Reports Other (Chronic left cervical/thoracic/scapular pain chronic 4% Lidoderm patch in place with patient own TENS unit); Denies Joint Pain or Edema
Skin: Denies Itching or Rash
Neurological: Denies Dizzy, Headache or Weakness
Endocrine: Reports No Symptoms
Hematologic/Lymphatic: Reports No Symptoms
Psych: Reports Calm
Physical Exam
Vital Signs
Vital Signs
Temp Pulse Resp BP Pulse Ox
97.9 F 80 24 108/71 94
04/20/24 09:32 04/20/24 12:00 04/20/24 12:00 04/20/24 12:00 04/20/24 12:00
Physical Exam
General: Conversant and Pain; No Fever or Chills
HEENT: NormoCephalic, Anicteric, Moist mucous membranes, PERRLA, Enders Conjunctivae, No Ptosis, Neck Nontender and Other (Chronic left cervical/thoracic/scapular pain chronic 4% Lidoderm patch in place with patient own TENS unit)
Respiratory: Clear; No Wheezes, Rales or Rhonchi
Cardiac: S1/S2 and Regular Rhythm; No Murmur, Rub, Gallop or Peripheral Edema
Breast: Deferred by me
GI: Soft, Non Tender, Non Distended, Normal Bowel Sounds and No Hepatosplenomegaly
Rectal: Deferred by Provider
Genito-urinary: Deferred by me
Musculoskeletal: No Clubbing, No Cyanosis and No Edema
Skin: Warm and Dry; No Rash or Jaundice
Neuro: AO x 3, No Motor Deficits, Nonfocal/grossly intact, Cranial Nerves Intact and No Sensory Deficits; No Slurred Speech, Facial Droop, Tremors or Sedated
Psych: Calm
Laboratory Results
-
04/20/24 11:13
04/20/24 11:50
Laboratory Results
PT 14.0 Sec (11.4-14.6) 04/20/24 11:50
INR 1.05 04/20/24 11:50
APTT 36.5 Sec (23.4-35.0) H 04/20/24 11:50
Total Bilirubin 0.3 mg/dl (0.2-1.3) 04/20/24 11:50
AST 52 U/L (17-59) 04/20/24 11:50
ALT 48 U/L (0-50) 04/20/24 11:50
Alkaline Phosphatase 212 U/L (38-126) H 04/20/24 11:50
Data Reviewed
-
Lab Data: Labs Reviewed by me
Impression/Plan
-
Impression/plan:
Observation MedSurg
# Hypotension 2/2 volume depletion/HTN- benign
-BP 108/71> 99/57
-IV NSS 1 L given in ER
-Continue IV NSS 60 cc/h
-Continue carvedilol 3.125 mg twice daily, Flomax 0.4 mg at bedtime with hold parameters
#Hyponatremia unclear
NA 129
TSH was normal 1.54 on 04/12/2024
#GIOVANY 2/2 volume depletion on CKD stage IIIB
Creat 1.5 was 1.21 on 04/13/2024
-IV 1 L NSS given in ER, IV NSS 60 cc an hour
-Follow BMP
#Acute on chronic weight loss 2/2 acute on chronic cervical/thoracic pain with failure to thrive
30.8 pound weight loss past since 02/15/2024
Weight 70.45 kg <84 kg on 02/15/2024 total weight loss 14 kg/30.8 pounds on 04/12/2024
Patient weight today 04/20/2024 70.9 kg > 70.45 kg on 04/12/2024= WT gain 0.45= 0.9 pounds past 8 days
-Patient had outpatient NUC med bone whole-body scan who he was told was NORMAL by Dr. Ventura today( the scan was ordered by his PCP Dr. Ruben Cummings due to weight loss)
-Patient had normal TSH 1.54, PSA 0.43, normal AST ALT alk phos slightly elevated 212 on 04/12/2024
-Consult Dietary-patient has been drinking Ensure 30 g daily with some scrambled eggs and 2 to 3 ounces of meat but not consistent son is attempting to keep his protein and intake up but patient has not had appetite seems to be related to chronic
pain with failure to thrive
-Will add Megace 400 mg daily solution to see if improvement in appetite patient had hallucinations with Remeron per son
#Hx 04/12/2024 fecal impaction possible stercoral colitis possibly secondary to pain meds(tramadol, Flexeril)
-Manual disimpaction, mag citrate, Dulcolax in ER with eventual relief 04/13/2024 in a.m.
-Was recommended MiraLAX daily and senna twice twice daily constipation
#Chronic cervical/thoracic scapular pain x 1 month due to severe DDD at C4/C5, C5-C6, C6/C7
-Continue patient on TENs simulator to L posterior chest
-Follows with [facility]
-History of Cervical epidural x 3, last 1 approximately 5 weeks ago
-Continue tramadol 50 mg every 6 hours along with Flexeril 5 mg at bedtime,
Will add Tylenol 1000 mg 06, 16 and Tylenol PM 1000 mg / 50 mg Benadryl at bedtime(he was taking prior 1300 mg Tylenol with right is twice daily plus Tylenol PM then decrease to 2 Tylenol a.m.1300mg plus p.m.)
-Will initiate bowel regimen with MiraLAX 17 g twice daily, senna twice daily
-Add Gabapentin 100 mg tid hold for sedation, percocet prn mod severe pain breathru
MRI cervical spine 10/10/2023.
1. VERY SEVERE DISCOGENIC DEGENERATIVE DISEASE at C4/C5, C5/C6, and C6/C7.
2. Large disc-osteophyte complex at C4/C5 causing MODERATE SPINAL CORD COMPRESSION, MODERATE CENTRAL CANAL STENOSIS, and SEVERE BILATERAL NEURAL FORAMINAL NARROWING.
3. Moderate-sized disc-osteophyte complex at C3/C4 causing mild spinal cord compression. Severe right neural foraminal narrowing at C3/C4.
4. Large disc-osteophyte complex at C6/C7 causing mild spinal cord compression
#Hx recurrent symptomatic L sided loculated pleural effusion on CXR 02/13/2024 new consistent with prior asbestosis exposure
#Hx pleural asbestosis
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
- L thoracentesis (09/28/23) - 1450 cc of dark bloody pleural fluid. Neg cytopathology
-CT 03/12/2024 shows stable left-sided loculated pleural effusion
-Patient follows with Dr. Uriostegui from pulmonary
#Chronic heart failure -unclear type-son reports his leg ed[place] related to Lyrica
I/O, daily weight
-Patient follows with Dr. Helio Salinas
-Continue Farxiga 10 mg daily
-Was on former spironolactone
#Exertional dyspnea BL JUSTUS thought to be a side effect to Lyrica-no current swelling on exam
Symptoms started at time of Lyrica initiation
-Completed 1 week of torsemide in January
#Aortic valve replacement, Mitral valve repair
- echo (09/28/23) - well seated aortic valve
- well seated annuloplasty ring for mitral valve
#HLD
-No reported meds
#GERD
-Continue Nexium 40 mg daily, calcium carbonate 500 mg 3 times daily as needed
#BPH/TURP
- cont terazosin
#Gout
- cont allopurinol
DVT prophylaxis
-Heparin subcu
Code status: FULL CODE
--- NOTE | 2024-04-20 13:55 | EDRN ---
Pt still has not voided but is aware urine spec is needed. Dr. Lubin was in to see pt at this time.
--- NOTE | 2024-04-20 14:20 | W.PN.UPDATE ---
Update Note
Progress Note Update
This note serves as an addendum to the H&P by spot washer PREETHI Yudelka BORGES
HPI
88M HX CKD3b (b/l Cr 1.2, b/l eGFR low30s) HTN, hyperlipidemia, chronic mid thoracic Lt > Rt pain sent to ER by Dr. Middleton, Patient Flow Coordinator:
- he was hypotensive in the office was sent here for evaluation of failure to thrive and nutrition consult.
- Relatively normotensive 108/71 in the ER
- known for weight loss -f/u by PCP for a 30 to 40 pound weight loss since March with plans for outpatient workup including nuclear body scan, PSA, TSH and CMP.
- HX chronic mid thoracic Lt > Rt pain: on chronic tramadol for severe DDD of the spine
HX recent admission 04/12 - 04/13/2024:
Fecal impaction requiring manual disimpaction, glycerin enema, lactulose, mag citrate with eventual 2 bowel movements in the ED and in the early a.m. he was discharged on MiraLAX in the a.m. and senna twice daily.
PHX: see HPI
Reviewed VS:
Vital Signs
Temp Pulse Resp BP Pulse Ox
97.9 F 87 24 99/57 97
04/20/24 09:32 04/20/24 14:00 04/20/24 14:00 04/20/24 13:00 04/20/24 13:15
PE
General: Conversant , NAD
HEENT: Anicteric, Moist mucous membranes
Neck: Nontender
Respiratory: Clear; No Wheezes, Rales or Rhonchi
Cardiac: S1/S2 and Regular Rhythm; No Murmur
GI: Soft, Non Tender, Non Distended, Normal Bowel Sounds
Rectal: Deferred by Provider
Genito-urinary: Deferred by me
Musculoskeletal: No Edema
Skin: Warm and Dry; No Rash or Jaundice
Neuro: AO x 3, No Motor Deficits, Nonfocal/grossly intact, Cranial Nerves Intact and No Sensory Deficits;
Psych: Calm
Laboratory Tests
01/10/24 02/13/24 04/20/24
09:13 14:24 11:50
Hgb 10.7 L 9.7 L
Sodium 129 L
Potassium 5.2 H
Chloride 95 L
04/13/24 04/20/24
06:40 11:50
Sodium 135 129
Potassium 4.8 5.2
BUN 44 H 49 H
Creatinine 1.2 1.5 H
eGFR 58.53 44.78
MRI cervical spine 10/10/2023.
1. VERY SEVERE DISCOGENIC DEGENERATIVE DISEASE at C4/C5, C5/C6, and C6/C7.
2. Large disc-osteophyte complex at C4/C5 causing MODERATE SPINAL CORD COMPRESSION, MODERATE CENTRAL CANAL STENOSIS, and SEVERE BILATERAL NEURAL FORAMINAL NARROWING.
3. Moderate-sized disc-osteophyte complex at C3/C4 causing mild spinal cord compression. Severe right neural foraminal narrowing at C3/C4.
4. Large disc-osteophyte complex at C6/C7 causing mild spinal cord compression
ASSESSMENT & PLAN
GIOVANY due to poor POs intake s/2 inadequate Mid back pain control
Hyperkalemia due to GIOVANY
Hypovolemic hyponatremia
Azotemia due to dehydration
Relative hypotensive - suspect hypovolemia
HX CKD3b
Baseline Creat 1.5 was 1.21 on 04/13/2024
- Adequate pain control : Narc Analgesia PRN
- Hod parameter for Carvedilol if SBP < 105
- IV 1 L NSS given in ER
- Follow BMP
Acute on chronic weight loss unclear etiology
- concern for possible underlying malignancy versus failure to thrive
- Roughly 30 -35 lbs weight loss past 60 days per trend form wt chart
- Per son at bedside: father decreased oral intake & inconsistent PO intake
- Patient has prescription for outpatient NUC med bone scan whole body by Dr. Ruben Cummings
- Patient has prescription for CMP, TSH with free T4 and PSA per Dr. Cummings's lab prescription
- Patient had normal TSH 1.54, PSA 0.43, normal AST ALT alk phos slightly elevated 212 on 04/12/2024
Chronic cervical/thoracic scapular pain
Underlying severe DDD at C4/C5, C5-C6, C6/C7
- TENs simulator to L posterior chest
- Follows with [facility]
- S/P Cervical epidural x 3, last 1 approximately 5 weeks ago
- Continue tramadol 50 mg every 6 hours along with Flexeril 5 mg at bedtime,
- agree with adding Gabapentin and PRN Narcotic anlgesia
- on COTTON PULLER bowel regimen with MiraLAX 17 g twice daily, senna twice daily
HX 04/12/2024 fecal impaction possible stercoral colitis possibly secondary to pain meds(tramadol, Flexeril)
- HX need for manual disimpaction, mag citrate, Dulcolax in ER with eventual relief 04/13/2024 in a.m.
- cont MiraLAX daily and senna twice daily
DVT PPX; SQH
Full code
Obs MS
[2024-04-20] MEDS: MEGACE ORAL SUSPENSION 400 MG PO (15:56)
--- NOTE | 2024-04-20 15:57 | EDRN ---
Pt refused to take gabapentin at this time because he said (and his son said) that it caused him constipation.
[2024-04-20 16:49] LABS: Urine Albumin Trace (Neg - Trace); Urine Bilirubin Negative (Negative); Urine Character Clear (Clear); Urine Color Yellow; Urine Glucose 1+ (Negative); Urine Ketone Negative (Negative); Urine Leukocyte Negative (Negative); Urine Nitrite Negative (Negative); Urine Occult Blood Negative (Negative); Urine Specific Gravity 1.015 (<1.030); Urine Urobilinogen Negative (Neg - 1+)
[2024-04-20] MEDS: NEURONTIN 100 MG PO ×2 (17:34→21:10)
--- NOTE | 2024-04-20 17:37 | EDRN ---
Riccardo BOGGS who is caring for this pt was just called and informed that during my care of pt he refused gabapentin that was ordered r/t it having caused him constipation.
--- NOTE | 2024-04-20 17:41 | EDRN ---
Pt had unformed black stool in diaper. Pt was just changed w/ good pericare at this time.
--- NOTE | 2024-04-20 18:07 | VATNOTE ---
Attempts to relocate IV unsuccessful, another VAT nurse to attempt.
[2024-04-20] MEDS: COREG 1.56 MG PO (20:06)
[2024-04-20] MEDS: MIRALAX 17 GRAMS PO (20:06)
[2024-04-20] MEDS: OCUVITE SOFTGEL 1 CAP PO (20:06)
[2024-04-20] MEDS: HEPARIN 5000 UNITS SC (20:06)
[2024-04-20] MEDS: FLOMAX 0.4 MG PO (21:10)
[2024-04-20] MEDS: ASPIR LOW (ENTERIC COATED) 162 MG PO (21:10)
[2024-04-20] MEDS: FLEXERIL 5 MG PO (21:10)
[2024-04-21] MEDS: ULTRAM 50 MG PO ×4 (05:30→23:03)
[2024-04-21] MEDS: NSS 1000 IV (05:32)
[2024-04-21 06:00] VITALS: BMI 21.9
[2024-04-21 07:30] VITALS: BP 139/78
[2024-04-21 07:47] LABS: % Basophils 0.4 % (0-2); % Eosinophils 1.9 % (0-6); % Immature Granulocytes 0.7 % (0-0.5); % Lymphocytes 22.5 % (20.5-51.1); % Monocytes 15.6 % (1.7-9.3); % Neutrophils 58.9 % (42.2-75.2); Absolute Eosinophils 0.1 10^3/uL (0-0.7); Absolute Immature Granulocytes 0.1 10^3/uL (0-0.05); Absolute Lymphocytes 1.5 10^3/uL (1.2-3.4); Absolute Monocytes 1.1 10^3/uL (0.1-0.6); Hematocrit 31.8 % (39.0-52.0); Hemoglobin 10.1 g/dL (13.0-18.0); Mean Corp Hgb Conc. 31.8 g/dL (33.0-37.0); Mean Corpuscular Hgb 28.1 pg (27.0-31.0); Mean Corpuscular Volume 88.6 fL (80.0-94.0); Mean Platelet Volume 9.6 fL (7.4-10.4); Nucleated Red Blood Cells % 0 % (-); Platelet Count 381 10^3/uL (130-400); Red Blood Cell Count 3.59 10^6/uL (4.70-6.10); White Blood Cell Count 6.9 10^3/uL (4.8-10.8)
[2024-04-21 08:00] LABS: Blood Urea Nitrogen 35 mg/dl (9-20); Calcium 9.2 mg/dl (8.4-10.2); Carbon Dioxide 20 mmol/L (22-30); Chloride 101 mmol/L (98-107); Estimated Creatinine Clearance 46 ml/min; Glucose 88 mg/dl (70-99); Potassium 4.9 mmol/L (3.5-5.1); Sodium 131 mmol/L (135-145); eGFR > 60.00
[2024-04-21] MEDS: FARXIGA 10 MG PO (08:33)
[2024-04-21] MEDS: NEURONTIN 100 MG PO ×3 (08:33→21:25)
[2024-04-21] MEDS: OCUVITE SOFTGEL 1 CAP PO ×2 (08:33→20:33)
[2024-04-21] MEDS: VISBIOME 1 CAP PO (08:33)
[2024-04-21] MEDS: ZYLOPRIM 150 MG PO (08:33)
[2024-04-21] MEDS: COREG 1.56 MG PO ×2 (08:34→20:32)
[2024-04-21] MEDS: LIDOCAINE 4% PATCH 1 PATCH TOPICAL (08:35)
[2024-04-21] MEDS: HEPARIN 5000 UNITS SC ×2 (08:36→20:32)
[2024-04-21] MEDS: THERAGRAN 1 TABLET PO (08:36)
[2024-04-21] MEDS: MEGACE ORAL SUSPENSION 400 MG PO (09:52)
--- NOTE | 2024-04-21 12:30 | W.PN.HOSP.TC ---
Addendum entered and electronically signed by Edu Adkins MD 04/21/24 13:01:
Updated son over the phone.
Original Note:
Today's Communication/Plan
-
START CALORIE COUNT
DIETARY EVAL
MEGACE
PAIN CONTROL
PT/OT
Assessment / Plan
Assessment / Plan
# Hypotension 2/2 volume depletion
#HTN- benign
-Blood pressure stabilized. DC further fluids and observe.
-Continue carvedilol 3.125 mg twice daily, Flomax 0.4 mg at bedtime with hold parameters
#Hyponatremia unclear
NA 129
TSH was normal 1.54 on 04/12/2024
Sodium improved.
#GIOVANY 2/2 volume depletion on CKD stage IIIB
Creat 1.5 was 1.21 on 04/13/2024
-Status post IV fluids. Creatinine down trended.
-Follow BMP
#Acute on chronic weight loss 2/2 acute on chronic cervical/thoracic pain with failure to thrive
30.8 pound weight loss past since 02/15/2024
Weight 70.45 kg <84 kg on 02/15/2024 total weight loss 14 kg/30.8 pounds on 04/12/2024
Patient weight today 04/20/2024 70.9 kg > 70.45 kg on 04/12/2024= WT gain 0.45= 0.9 pounds past 8 days
-Patient had outpatient NUC med bone whole-body scan who he was told was NORMAL by Dr. Ventura today( the scan was ordered by his PCP Dr. Ruben Cummings due to weight loss)
-Patient had normal TSH 1.54, PSA 0.43, normal AST ALT alk phos slightly elevated 212 on 04/12/2024
-Had recent CT abdomen pelvis which did not show any lesion. Also had CT chest in 03/12/2024 was negative for pulmonary lesion
-Consult Dietary
-Will add Megace 400 mg daily solution to see if improvement in appetite patient had hallucinations with Remeron per son
-start calorie count
#Hx 04/12/2024 fecal impaction possible stercoral colitis possibly secondary to pain meds(tramadol, Flexeril)
-Manual disimpaction, mag citrate, Dulcolax in ER with eventual relief 04/13/2024 in a.m.
-Was recommended MiraLAX daily and senna twice twice daily constipation
#Chronic cervical/thoracic scapular pain x 1 month due to severe DDD at C4/C5, C5-C6, C6/C7
-Continue patient on TENs simulator to L posterior chest
-Follows with [facility]
-History of Cervical epidural x 3, last 1 approximately 5 weeks ago
-Continue tramadol 50 mg every 6 hours along with Flexeril 5 mg at bedtime,
-Will initiate bowel regimen with MiraLAX 17 g twice daily, senna twice daily
-Add Gabapentin 100 mg tid hold for sedation, percocet prn mod severe pain breathru
#Hx recurrent symptomatic L sided loculated pleural effusion on CXR 02/13/2024 new consistent with prior asbestosis exposure
#Hx pleural asbestosis
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
- L thoracentesis (09/28/23) - 1450 cc of dark bloody pleural fluid. Neg cytopathology
-CT 03/12/2024 shows stable left-sided loculated pleural effusion
-Patient follows with Dr. Uriostegui from pulmonary
#Chronic heart failure -unclear type-son reports his leg [place] related to Lyrica
I/O, daily weight
-Patient follows with Dr. Helio Salinas
-Continue Farxiga 10 mg daily
-Was on former spironolactone
#Exertional dyspnea BL JUSTUS thought to be a side effect to Lyrica-no current swelling on exam
Symptoms started at time of Lyrica initiation
-Completed 1 week of torsemide in January
#Aortic valve replacement, Mitral valve repair
- echo (09/28/23) - well seated aortic valve
- well seated annuloplasty ring for mitral valve
#HLD
-No reported meds
#GERD
-Continue Nexium 40 mg daily, calcium carbonate 500 mg 3 times daily as needed
#BPH/TURP
- cont terazosin
#Gout
- cont allopurinol
DVT prophylaxis
-Heparin subcu
Code status: FULL CODE
Anticipated Discharge: > 48 hours
Subjective/Interval History
-
Date of Service: April 21, 2024
states of neck pain earlier today
states will be ordering breakfast
states was tired from yesterday
Objective Data
-
Labs:
Laboratory Results
04/21/24
06:56
WBC 6.9
Hgb 10.1 L
Hct 31.8 L
Plt Count 381
Sodium 131 L
Potassium 4.9
Chloride 101
Carbon Dioxide 20 L
BUN 35 H
Creatinine 1.1
Glucose 88
Calcium 9.2
Vital Signs:
Vital Signs
Temp Pulse Resp BP Pulse Ox
98.1 F 83 18 139/78 98
04/21/24 07:30 04/21/24 08:34 04/21/24 07:30 04/21/24 08:34 04/21/24 08:30
I&O
04/20/24 04/21/24 04/22/24
06:59 06:59 06:59
Intake Total 600 / 600
Output Total 180 / 180
Balance 420 / 420
Data Reviewed
-
Total Time Spent with Patient (in minutes): 55
[2024-04-21 12:42] VITALS: BP 122/63; BP 139/84; PULSE 84; O2SAT 99
[2024-04-21 14:27] VITALS: BP 122/63; BP 139/84; PULSE 84; O2SAT 99
[2024-04-21 15:10] VITALS: BMI 21.9
[2024-04-21 15:15] VITALS: BP 106/57
[2024-04-21] MEDS: ASPIR LOW (ENTERIC COATED) 162 MG PO (21:24)
[2024-04-21] MEDS: FLEXERIL 5 MG PO (21:24)
[2024-04-21] MEDS: FLOMAX 0.4 MG PO (21:24)
--- NOTE | 2024-04-21 22:52 | W.PN.UPDATE ---
Update Note
Progress Note Update
-Patient complained of productive cough, slightly SOB. Denied chest pain. Vital signs. Temp 97.6, hr 76, R 20, BP 139/80, SPO2 96% RA.
-Expiratory wheezing on lung bases.
-Chest x-ray, covid, flu, and duo nebs ordered .
-Covid and flu are neg. Chest x-ray result is pending.
[2024-04-21 23:05] VITALS: BP 138/80
[2024-04-21 23:36] LABS: COVID-19 Antigen Negative (Negative)
[2024-04-22] MEDS: ULTRAM 50 MG PO ×4 (05:16→23:11)
[2024-04-22 06:00] VITALS: BMI 21.9
[2024-04-22 07:10] VITALS: BP 123/70
[2024-04-22] MEDS: OCUVITE SOFTGEL 1 CAP PO ×2 (07:59→19:30)
[2024-04-22] MEDS: COREG 1.56 MG PO ×2 (07:59→19:29)
[2024-04-22] MEDS: FARXIGA 10 MG PO (07:59)
[2024-04-22] MEDS: THERAGRAN 1 TABLET PO (07:59)
[2024-04-22] MEDS: ZYLOPRIM 150 MG PO (08:00)
[2024-04-22] MEDS: NEURONTIN 100 MG PO ×3 (08:00→21:15)
[2024-04-22] MEDS: VISBIOME 1 CAP PO (08:00)
[2024-04-22] MEDS: MEGACE ORAL SUSPENSION 400 MG PO (08:00)
[2024-04-22] MEDS: LIDOCAINE 4% PATCH 1 PATCH TOPICAL (08:00)
[2024-04-22] MEDS: HEPARIN 5000 UNITS SC ×2 (08:00→21:15)
[2024-04-22 08:04] LABS: % Basophils 0.4 % (0-2); % Eosinophils 2.9 % (0-6); % Immature Granulocytes 1.1 % (0-0.5); % Lymphocytes 23.5 % (20.5-51.1); % Monocytes 14.3 % (1.7-9.3); % Neutrophils 57.8 % (42.2-75.2); Absolute Eosinophils 0.2 10^3/uL (0-0.7); Absolute Immature Granulocytes 0.1 10^3/uL (0-0.05); Absolute Lymphocytes 1.7 10^3/uL (1.2-3.4); Absolute Neutrophils 4.2 10^3/uL (1.4-6.5); Hematocrit 30.7 % (39.0-52.0); Hemoglobin 10.3 g/dL (13.0-18.0); Mean Corp Hgb Conc. 33.6 g/dL (33.0-37.0); Mean Corpuscular Hgb 28.6 pg (27.0-31.0); Mean Corpuscular Volume 85.3 fL (80.0-94.0); Mean Platelet Volume 9.7 fL (7.4-10.4); Nucleated Red Blood Cells % 0 % (-); Platelet Count 402 10^3/uL (130-400); Red Cell Dist. Width 16.1 % (11.5-14.5); White Blood Cell Count 7.3 10^3/uL (4.8-10.8)
[2024-04-22] MEDS: PERCOCET 5/325 2 TABLET PO ×2 (08:16→19:28)
[2024-04-22 08:34] LABS: Blood Urea Nitrogen 25 mg/dl (9-20); Calcium 9.5 mg/dl (8.4-10.2); Carbon Dioxide 22 mmol/L (22-30); Chloride 103 mmol/L (98-107); Estimated Creatinine Clearance 46 ml/min; Glucose 88 mg/dl (70-99); Potassium 4.9 mmol/L (3.5-5.1); Sodium 133 mmol/L (135-145); eGFR > 60.00
--- NOTE | 2024-04-22 12:11 | W.PN.HOSP.TC ---
Today's Communication/Plan
-
Trial of prednisone
Increase gabapentin
Bowel regimen adjusted
Continue with physical therapy
Monitor p.o. intake
Assessment / Plan
Assessment / Plan
# Hypotension 2/2 volume depletion
#HTN- benign
-Blood pressure stabilized. DC further fluids and observe.
-Continue carvedilol 3.125 mg twice daily, Flomax 0.4 mg at bedtime with hold parameters
#Hyponatremia unclear
NA 129
TSH was normal 1.54 on 04/12/2024
Sodium improved.
#GIOVANY 2/2 volume depletion on CKD stage IIIB
Creat 1.5 was 1.21 on 04/13/2024
-Status post IV fluids. Creatinine down trended.
-Follow BMP
#Acute on chronic weight loss 2/2 acute on chronic cervical/thoracic pain with failure to thrive
# Severe caloric malnutrition of chronic illness
30.8 pound weight loss past since 02/15/2024
Weight 70.45 kg <84 kg on 02/15/2024 total weight loss 14 kg/30.8 pounds on 04/12/2024
Patient weight today 04/20/2024 70.9 kg > 70.45 kg on 04/12/2024= WT gain 0.45= 0.9 pounds past 8 days
-Patient had outpatient NUC med bone whole-body scan who he was told was NORMAL by Dr. Ventura today( the scan was ordered by his PCP Dr. Ruben Cummings due to weight loss)
-Patient had normal TSH 1.54, PSA 0.43, normal AST ALT alk phos slightly elevated 212 on 04/12/2024
-Had recent CT abdomen pelvis which did not show any lesion. Also had CT chest in 03/12/2024 was negative for pulmonary lesion
-Consult Dietary
-Will add Megace 400 mg daily solution to see if improvement in appetite patient had hallucinations with Remeron per son
#Chronic cervical/thoracic scapular pain x 1 month due to severe DDD at C4/C5, C5-C6, C6/C7
-Continue patient on TENs simulator to L posterior chest
-Follows with [facility]
-History of Cervical epidural x 3, last 1 approximately 5 weeks ago
-Continue tramadol 50 mg every 6 hours along with Flexeril 5 mg at bedtime,
-Will initiate bowel regimen with MiraLAX 17 g twice daily, senna twice daily
- Will start prednisone and increased dose of gabapentin for cervical radiculopathy
#Hx recurrent symptomatic L sided loculated pleural effusion on CXR 02/13/2024 new consistent with prior asbestosis exposure
#Hx pleural asbestosis
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
-Patient follows with Dr. Uriostegui from pulmonary
#Chronic heart failure -unclear type-son reports his leg [place] related to Lyrica
I/O, daily weight
-Patient follows with Dr. Helio Salinas
-Continue Farxiga 10 mg daily
-Was on former spironolactone
#Exertional dyspnea BL JUSTUS thought to be a side effect to Lyrica-no current swelling on exam
Symptoms started at time of Lyrica initiation
-Completed 1 week of torsemide in January
#Aortic valve replacement, Mitral valve repair
- echo (09/28/23) - well seated aortic valve
- well seated annuloplasty ring for mitral valve
#HLD
-No reported meds
#GERD
-Continue Nexium 40 mg daily, calcium carbonate 500 mg 3 times daily as needed
#BPH/TURP
- cont terazosin
#Gout
- cont allopurinol
DVT prophylaxis
-Heparin subcu
Code status: FULL CODE
Discussed with patient's son over the detail. Patient sensitive the pain is controlled and patient can work better for physical therapy
Patient's son stated they will discuss among FAMILY about SNF upon discharge.
Anticipated Discharge: > 48 hours
Subjective/Interval History
-
Date of Service: April 22, 2024
States had severe neck pain earlier today and with the Percocet it came down to fly a scale of 1-10.
States his appetite is significantly improving
Not feeling short of breath this morning
Overnight events noted
Objective Data
-
Labs:
Laboratory Results
04/22/24
07:16
WBC 7.3
Hgb 10.3 L
Hct 30.7 L
Plt Count 402 H
Sodium 133 L
Potassium 4.9
Chloride 103
Carbon Dioxide 22
BUN 25 H
Creatinine 1.1
Glucose 88
Calcium 9.5
Vital Signs:
Vital Signs
Temp Pulse Resp BP Pulse Ox
97.9 F 90 22 123/70 97
04/22/24 07:10 04/22/24 07:10 04/22/24 07:10 04/22/24 07:10 04/22/24 08:20
I&O
04/21/24 04/22/24 04/23/24
06:59 06:59 06:59
Intake Total 600 / 600 1460 / 1460
Output Total 180 / 180 950 / 950
Balance 420 / 420 510 / 510
Physical Exam
-
General: No Apparent Distress and Pain
HEENT: Normocephalic, Atraumatic and Moist Mucous Membranes
Respiratory: Clear to Auscultation
Cardiac: Regular Rhythm and S1/S2
GI: Soft, Nontender, Nondistended and Normal Bowel Sounds
Musculoskeletal: No Edema
Skin: Warm and Dry
Neuro: Awake, Alert and No Motor Deficits
Psych: Calm
Data Reviewed
-
Total Time Spent with Patient (in minutes): 55
[2024-04-22] MEDS: DELTASONE 40 MG PO (13:14)
[2024-04-22 15:15] VITALS: BP 127/73
--- NOTE | 2024-04-22 18:31 | CM ---
Chart reviewed. Patient is here for FTT s/t severe pain. Patient lives home with and son. Daughter at bedside. Patient is independent and lives in a SL home with 2 steps to enter. Patient utilizes a walker but also owns a cane and wheelchair.
Patient is not driving. Son and daughter provide transportation for him and his . Patient is retired. Used to work with [employer]. Retired, denies any +SODHs. He has active PCP and pharmacy.
CAI form was explained to patient and verbalized understanding. Copy given to patient, original placed in chart.
ANTICIPATED DISCHARGE PLAN: Discharge home to and , when medically stable.
[2024-04-22] MEDS: FLEXERIL 5 MG PO (21:15)
[2024-04-22] MEDS: ASPIR LOW (ENTERIC COATED) 162 MG PO (21:15)
[2024-04-22] MEDS: FLOMAX 0.4 MG PO (21:15)
[2024-04-22] MEDS: COLACE 200 MG PO (21:16)
[2024-04-22] MEDS: DULCOLAX 10 MG PO (21:17)
[2024-04-22] MEDS: SENOKOT 17.2 MG PO (21:17)
[2024-04-22 23:38] VITALS: BP 143/78
[2024-04-23] MEDS: ULTRAM 50 MG PO ×4 (05:13→23:09)
[2024-04-23 06:00] VITALS: BMI 21.8
[2024-04-23 07:30] VITALS: BP 104/68
[2024-04-23] MEDS: PERCOCET 5/325 2 TABLET PO (08:37)
[2024-04-23] MEDS: OCUVITE SOFTGEL 1 CAP PO ×2 (08:39→20:54)
[2024-04-23] MEDS: MIRALAX 17 GRAMS PO (08:39)
[2024-04-23] MEDS: LIDOCAINE 4% PATCH 1 PATCH TOPICAL (08:39)
[2024-04-23] MEDS: FARXIGA 10 MG PO (08:39)
[2024-04-23] MEDS: COREG PO (08:40)
[2024-04-23] MEDS: DELTASONE 40 MG PO (08:40)
[2024-04-23] MEDS: VISBIOME 1 CAP PO (08:40)
[2024-04-23] MEDS: ZYLOPRIM 150 MG PO (08:41)
[2024-04-23] MEDS: THERAGRAN 1 TABLET PO (08:41)
[2024-04-23] MEDS: NEURONTIN 100 MG PO ×3 (08:41→21:03)
[2024-04-23] MEDS: HEPARIN 5000 UNITS SC ×2 (08:41→20:53)
[2024-04-23] MEDS: MEGACE ORAL SUSPENSION 400 MG PO (08:42)
--- NOTE | 2024-04-23 09:00 | W.PN.HOSP.TC ---
Today's Communication/Plan
-
Bowel regimen
Discharge planning
Assessment / Plan
Assessment / Plan
Gen-AAOx3, NAD
HEENT-NC, AT, anicteric, clear oral mm
Neck-supple
CV-reg, no M, +S1/S2
Lungs-clear B/L
Abd-soft, NT, ND
Ext-no edema
Musculoskeletal-no cyanosis, clubbing
Skin-warm and dry
Neuro-grossly non-focal
Psych-calm, cooperative
Hypotension -due to volume depletion. Improved.
Essential hypertension -controlled on current regimen.
Hyponatremia -sodium improving. 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
GIOVANY on CKD 3a -GIOVANY resolved and suspected to be due to volume depletion.
Acute on chronic weight loss - due to acute on chronic cervical/thoracic pain with failure to thrive
Severe protein/calorie malnutrition of chronic illness
30.8 pound weight loss past since 02/15/2024
Weight 70.45 kg <84 kg on 02/15/2024 total weight loss 14 kg/30.8 pounds on 04/12/2024
Patient weight today 04/20/2024 70.9 kg > 70.45 kg on 04/12/2024= WT gain 0.45= 0.9 pounds past 8 days
-Patient had outpatient NUC med bone whole-body scan who he was told was NORMAL by Dr. Ventura today( the scan was ordered by his PCP Dr. Ruben Cummings due to weight loss)
-Patient had normal TSH 1.54, PSA 0.43, normal AST ALT alk phos slightly elevated 212 on 04/12/2024
-Had recent CT abdomen pelvis which did not show any lesion. Also had CT chest in 03/12/2024 was negative for pulmonary lesion
-Consult Dietary
-Appetite improving on Megace. Patient had hallucinations with Remeron per son
Chronic pain syndrome/chronic opiate dependence
Chronic cervical/thoracic scapular pain x 1 month due to severe DDD at C4/C5, C5-C6, C6/C7
-Continue patient on TENs simulator to L posterior chest
-Follows with [facility]
-History of Cervical epidural x 3, last 1 approximately 5 weeks ago
-Continue tramadol 50 mg every 6 hours along with Flexeril 5 mg at bedtime,
-Will initiate bowel regimen with MiraLAX 17 g twice daily, senna twice daily
- Will start prednisone and increased dose of gabapentin for cervical radiculopathy
Opioid-induced constipation -continue bowel regimen. Add Dulcolax suppository. If no bowel movement will order Relistor.
Hx recurrent symptomatic L sided loculated pleural effusion on CXR 02/13/2024 new consistent with prior asbestosis exposure
Hx pleural asbestosis
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
-Patient follows with Dr. Uriostegui from pulmonary
Chronic heart failure -unclear type-son reports his leg edema was related to Lyrica
I/O, daily weight
-Patient follows with Dr. Helio Salinas
-Continue Farxiga 10 mg daily
-Was on former spironolactone
Exertional dyspnea BL JUSTUS thought to be a side effect to Lyrica-no current swelling on exam
Symptoms started at time of Lyrica initiation
-Completed 1 week of torsemide in January
Aortic valve replacement, Mitral valve repair
- echo (09/28/23) - well seated aortic valve
- well seated annuloplasty ring for mitral valve
Chronic normocytic anemia -hemoglobin stable. Anemia likely due to chronic kidney disease.
Hyperlipidemia
-No reported meds
GERD
-Continue Nexium 40 mg daily, calcium carbonate 500 mg 3 times daily as needed
BPH/TURP
- cont terazosin
Gout
- cont allopurinol
DVT prophylaxis
-Heparin subcu
Code status: FULL CODE
Dispo -SNF recommended by PT on discharge. Medically stable for discharge. Case management aware.
Anticipated Discharge: Within 24 hours
Subjective/Interval History
-
Date of Service: April 23, 2024
Patient seen and examined. Complaining of chronic back and neck pain.
Objective Data
-
Vital Signs:
Vital Signs
Temp Pulse Resp BP Pulse Ox
97.8 F 107 18 104/68 96
04/23/24 07:30 04/23/24 07:30 04/23/24 07:30 04/23/24 07:30 04/23/24 07:30
I&O
04/22/24 04/23/24 04/24/24
06:59 06:59 06:59
Intake Total 1460 / 1460 660 / 660
Output Total 950 / 950 450 / 450
Balance 510 / 510 210 / 210
Review of Systems
-
History Source: Patient
All other systems: Reviewed and negative
[2024-04-23] MEDS: DULCOLAX 10 MG RECTAL (12:46)
[2024-04-23] MEDS: TUMS EX (EXTRA STRENGTH) CHEWABLE TABLET 300 MG PO ×2 (14:13→23:25)
[2024-04-23 15:30] VITALS: BP 116/73
--- NOTE | 2024-04-23 15:59 | W.DS.TRANS ---
DC Summary - Digital Product Manager
-
Discharge Instructions:
Discharge Diagnosis/Procedures Acute kidney injury, volume depletion,
hyponatremia
Diet Regular
Activity As tolerated
Driving Restrictions As prior to admission
Bathing Restrictions None
Other Services VN
Instructions:
Stand-Alone Forms:
Changes to Home Medications: No
Discharge Medications:
DC Medications w/original date entered in [employer]
Lactobac no.2-Bifidobac no.1-S. thermo 112.5 billion cell capsule (Visbiome) 1 cap PO DAILY #30 caps 04/13/24
allopurinol 300 mg tablet 150 mg (1/2 x 300 mg) PO DAILY Gout #30 tabs 04/13/24
aspirin 81 mg tablet,delayed release 162 mg (2 x 81 mg) PO HS Blood Clot Prevention/Tx #30 tabs 04/13/24
calcium carbonate 500 mg PO TIDPRN PRN indigestion #30 tabs 04/13/24
coenzyme Q10 200 mg capsule (Co Q-10) 200 mg PO HS Supplement #30 caps 04/13/24
cyclobenzaprine 5 mg tablet 5 mg PO HS #30 tabs 04/13/24
dapagliflozin propanediol 10 mg tablet (Farxiga) 10 mg PO DAILY diabetes #30 tabs 04/13/24
polyethylene glycol 3350 17 gram oral powder packet (Miralax) 17 g PO DAILYPRN PRN constipation #1 ea 04/13/24
tamsulosin 0.4 mg capsule 0.4 mg PO HS #30 caps 04/13/24
therapeutic multivitamin 1 tab PO DAILY Supplement #30 tabs 04/13/24
turmeric 400 mg capsule 400 mg PO BID Supplement #30 caps 04/13/24
vitamins A,C,N-osca-arvjqq 2,148 mcg-113 mg-45 mg-17.4 mg tablet (PreserVision AREDS) 1 tab PO BID Supplement #30 tabs 04/13/24
acetaminophen 500 mg tablet (Tylenol Extra Strength) 1,000 mg PO BID Pain 04/20/24
carvedilol 3.125 mg tablet 1.56 mg PO BID Blood Pressure 04/20/24
docusate sodium 100 mg capsule (Colace) 200 mg PO HSPRN PRN constipation 04/20/24
lidocaine 4 % topical patch 1 patch topical Q8H back pains 04/20/24
sennosides 8.6 mg tablet (senna) 17.2 mg PO DAILYPRN PRN constipation 04/20/24
bisacodyl 5 mg tablet,delayed release 10 mg (2 x 5 mg) PO HS #0 tabs 04/23/24
gabapentin 100 mg capsule 100 mg PO TID #90 caps 04/23/24
megestrol 400 mg/10 mL (40 mg/mL) oral suspension 400 mg (10 mL) PO DAILY #240 mL 04/23/24
oxycodone-acetaminophen 5 mg-325 mg tablet (Percocet) 1 tab PO Q4H PRN severe pain #20 tabs 04/23/24
Home Medication Changes
Pending Results: No
[2024-04-23] MEDS: COREG 1.56 MG PO (20:52)
[2024-04-23] MEDS: SENOKOT 17.2 MG PO (21:02)
[2024-04-23] MEDS: ASPIR LOW (ENTERIC COATED) 162 MG PO (21:03)
[2024-04-23] MEDS: COLACE 200 MG PO (21:03)
[2024-04-23] MEDS: FLEXERIL 5 MG PO (21:04)
[2024-04-23] MEDS: DULCOLAX 10 MG PO (21:04)
[2024-04-23] MEDS: FLOMAX 0.4 MG PO (21:04)
[2024-04-23 23:55] VITALS: BP 147/85
[2024-04-24] MEDS: ULTRAM 50 MG PO ×2 (05:24→13:04)
[2024-04-24 06:00] VITALS: BMI 22.0
[2024-04-24 08:01] VITALS: BP 98/67
[2024-04-24] MEDS: OCUVITE SOFTGEL 1 CAP PO (08:19)
[2024-04-24] MEDS: DELTASONE 40 MG PO (08:19)
[2024-04-24] MEDS: FARXIGA 10 MG PO (08:19)
[2024-04-24] MEDS: NEURONTIN 100 MG PO (08:19)
[2024-04-24] MEDS: MIRALAX 17 GRAMS PO (08:19)
[2024-04-24] MEDS: VISBIOME 1 CAP PO (08:20)
[2024-04-24] MEDS: ZYLOPRIM 150 MG PO (08:20)
[2024-04-24] MEDS: THERAGRAN 1 TABLET PO (08:20)
[2024-04-24] MEDS: MEGACE ORAL SUSPENSION 400 MG PO (08:22)
[2024-04-24] MEDS: HEPARIN 5000 UNITS SC (08:23)
[2024-04-24] MEDS: LIDOCAINE 4% PATCH 1 PATCH TOPICAL (08:23)
[2024-04-24] MEDS: PERCOCET 5/325 2 TABLET PO (08:27)
[2024-04-24 08:36] VITALS: BP 98/62
[2024-04-24] MEDS: COREG PO (08:40)
[2024-04-24 09:12] LABS: Blood Urea Nitrogen 42 mg/dl (9-20); Calcium 10.2 mg/dl (8.4-10.2); Carbon Dioxide 24 mmol/L (22-30); Chloride 98 mmol/L (98-107); Estimated Creatinine Clearance 39 ml/min; Glucose 115 mg/dl (70-99); Potassium 5.2 mmol/L (3.5-5.1); Sodium 132 mmol/L (135-145); eGFR 53.17
[2024-04-24 09:34] VITALS: BP 95/64; PULSE 93
[2024-04-24] MEDS: TUMS EX (EXTRA STRENGTH) CHEWABLE TABLET 300 MG PO (09:42)
--- NOTE | 2024-04-24 10:15 | W.PN.HOSP.TC ---
Today's Communication/Plan
-
Discharge
Assessment / Plan
Assessment / Plan
Gen-AAOx3, NAD
HEENT-NC, AT, anicteric, clear oral mm
Neck-supple
CV-reg, no M, +S1/S2
Lungs-clear B/L
Abd-soft, NT, ND
Ext-no edema
Musculoskeletal-no cyanosis, clubbing
Skin-warm and dry
Neuro-grossly non-focal
Psych-calm, cooperative
Hypotension -due to volume depletion. Improved.
Essential hypertension -controlled on current regimen.
Hyponatremia -sodium improving. 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
GIOVANY on CKD 3a -GIOVANY resolved and suspected to be due to volume depletion.
Acute on chronic weight loss - due to acute on chronic cervical/thoracic pain with failure to thrive
Severe protein/calorie malnutrition of chronic illness
30.8 pound weight loss past since 02/15/2024
Weight 70.45 kg <84 kg on 02/15/2024 total weight loss 14 kg/30.8 pounds on 04/12/2024
Patient weight today 04/20/2024 70.9 kg > 70.45 kg on 04/12/2024= WT gain 0.45= 0.9 pounds past 8 days
-Patient had outpatient NUC med bone whole-body scan who he was told was NORMAL by Dr. Middleton today( the scan was ordered by his PCP Dr. Ruben Cummings due to weight loss)
-Patient had normal TSH 1.54, PSA 0.43, normal AST ALT alk phos slightly elevated 212 on 04/12/2024
-Had recent CT abdomen pelvis which did not show any lesion. Also had CT chest in 03/12/2024 was negative for pulmonary lesion
-Consult Dietary
-Appetite improving on Megace. Patient had hallucinations with Remeron per son. Discussed with patient and son risks of Megace including DVT, PE.
Chronic pain syndrome/chronic opiate dependence
Chronic cervical/thoracic scapular pain x 1 month due to severe DDD at C4/C5, C5-C6, C6/C7
-Continue patient on TENs simulator to L posterior chest
-Follows with [facility]
-History of Cervical epidural x 3, last 1 approximately 5 weeks ago
-Continue tramadol 50 mg every 6 hours along with Flexeril 5 mg at bedtime,
-Will initiate bowel regimen with MiraLAX 17 g twice daily, senna twice daily
- Will start prednisone and increased dose of gabapentin for cervical radiculopathy
Opioid-induced constipation -continue bowel regimen. Add Dulcolax suppository. Had a bowel movement yesterday.
Hx recurrent symptomatic L sided loculated pleural effusion on CXR 02/13/2024 new consistent with prior asbestosis exposure
Hx pleural asbestosis
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
-Patient follows with Dr. Uriostegui from pulmonary
Chronic heart failure -unclear type-son reports his leg edema was related to Lyrica
I/O, daily weight
-Patient follows with Dr. Helio Salinas
-Continue Farxiga 10 mg daily
-Was on former spironolactone
Exertional dyspnea BL JUSTUS thought to be a side effect to Lyrica-no current swelling on exam
Symptoms started at time of Lyrica initiation
-Completed 1 week of torsemide in January
Aortic valve replacement, Mitral valve repair
- echo (09/28/23) - well seated aortic valve
- well seated annuloplasty ring for mitral valve
Chronic normocytic anemia -hemoglobin stable. Anemia likely due to chronic kidney disease.
Hyperlipidemia
-No reported meds
GERD
-Continue Nexium 40 mg daily, calcium carbonate 500 mg 3 times daily as needed
BPH/TURP
- cont terazosin
Gout
- cont allopurinol
DVT prophylaxis
-Heparin subcu
Code status: FULL CODE
Dispo -patient and family prefer to take him home with VN. Medically stable for discharge. Updated son at the bedside.
35 minutes spent in discharge process.
Anticipated Discharge: Today
Subjective/Interval History
-
Date of Service: April 24, 2024
Patient seen and examined. No complaints.
Objective Data
-
Labs:
Laboratory Results
04/24/24
08:25
Sodium 132 L
Potassium 5.2 H
Chloride 98
Carbon Dioxide 24
BUN 42 H
Creatinine 1.3
Glucose 115 H
Calcium 10.2
Vital Signs:
Vital Signs
Temp Pulse Resp BP Pulse Ox
98.2 F 87 18 98/62 96
04/24/24 08:01 04/24/24 08:36 04/24/24 08:01 04/24/24 08:36 04/24/24 08:01
I&O
04/23/24 04/24/24 04/25/24
06:59 06:59 06:59
Intake Total 660 / 660 480 / 480
Output Total 450 / 450
Balance 210 / 210 480 / 480
Review of Systems
-
History Source: Patient
All other systems: Reviewed and negative
[2024-04-24] MEDS: LOKELMA 10 GRAM PO (12:07)
[2024-04-24 12:14] VITALS: BP 112/64
--- NOTE | 2024-04-24 12:52 | CM ---
CM following for discharge planning. VN offered and pt/son agreeable to same.
Referral sent to [facility] in [place], [place], however when I called they advised that they do not accept pt's insurance. Referral sent to [facility]; VM left asking if they accept pt's
insurance. Await return call.
== END 2024-04-24 13:55 | disposition home health service (06) ==
LOC: 4 EAST ACU 14:42
PROVIDERS: Clinical Nurse Specialist Family Health; Emergency Medicine; Nurse Practitioner Family; ADMITTING PHYSICIAN Internal Medicine; ATTENDING PHYSICIAN Hospitalist; EMERGENCY PHYSICIAN Student in an Organized Health Care Education/Training Program; FAMILY PHYSICIAN Internal Medicine
DX: N17.9 Acute kidney failure, unspecified (principal); R62.7 Adult failure to thrive; E87.1 Hypo-osmolality and hyponatremia; E86.0 Dehydration; N18.32 Chronic kidney disease, stage 3b; I13.0 Hypertensive heart and chronic kidney disease with heart failure and stage 1 through stage 4 chronic kidney disease, or unspecified chronic kidney disease; G89.4 Chronic pain syndrome; M10.9 Gout, unspecified; N40.1 Benign prostatic hyperplasia with lower urinary tract symptoms; I95.9 Hypotension, unspecified; R63.4 Abnormal weight loss; M50.321 Other cervical disc degeneration at C4-C5 level; E78.00 Pure hypercholesterolemia, unspecified; M25.78 Osteophyte, vertebrae; M48.02 Spinal stenosis, cervical region; K21.9 Gastro-esophageal reflux disease without esophagitis; E87.5 Hyperkalemia; M54.6 Pain in thoracic spine; E86.1 Hypovolemia; R05.9 Cough, unspecified; K59.03 Drug induced constipation; T40.2X5A Adverse effect of other opioids, initial encounter; D64.9 Anemia, unspecified; J98.11 Atelectasis; J90 Pleural effusion, not elsewhere classified; E43 Unspecified severe protein-calorie malnutrition; Z87.891 Personal history of nicotine dependence; Z82.49 Family history of ischemic heart disease and other diseases of the circulatory system; Z68.22 Body mass index [BMI] 22.0-22.9, adult; Z11.52 Encounter for screening for COVID-19; Z79.891 Long term (current) use of opiate analgesic; Z77.090 Contact with and (suspected) exposure to asbestos; Z95.2 Presence of prosthetic heart valve
CPT/HCPCS: 71045; 80048; 80053; 81003; 85025; 85610; 85730; 87502; 87811; 96360; 96361; 97116; 97129; 97163; 97167; 97530; 99284; G0378

== ENCOUNTER 2024-05-06 05:26 | Observation (INO) | payer MEDICARE, SELFPAY ==
[2024-05-05 23:18] VITALS: BP 128/74
--- NOTE | 2024-05-05 23:38 | ED.GENMED ---
History of Present Illness
General
Chief Complaint: Breathing Problem
Source: patient
Exam Limitations: none
Time Seen by Provider: 05/05/24 23:36
Nursing documentation reviewed up to this point in time: agreed with
History of Present Illness
History of Present Illness:
The patient is an 88-year-old man who was recently admitted to the hospital for hyponatremia and significant weight loss. Patient was started on Megace to enhance his appetite, which the understanding that it can increase the risk of thrombosis.
The patient returns to the ED with complaints of sudden onset of shortness of breath that occurred between 9:30 and 10:00 this evening. Patient reports that just simple movements and speaking makes him feel short of breath which is unusual.
Patient denies chest pain, cough and fever. He reports mid upper back pain which is chronic and typical for him. Patient reports he is due to have a procedure done to his neck to help with nerve pain.
Past History
Past History
ED Past Medical History: HTN, Hypercholesterolemia, Valvular disease, Other (Renal disease, chronic back pain, Diverticulitis, Urinary retention, Anemia, ) and Other (Chronic prostatitis)
ED Past Surgical History: Cardiac (Aortic valve repair mitral repair, pericardial tissue heart valve), Orthopedic (Left hand surgery, Left arm surgery, ) and Other ( Hernia. Pilonidal cyst, )
Social History
Tobacco: Former smoker
Alcohol: Occasional
Drug: None
Personal:
Living: with family
Employment: Retired
Family History
Family History: Hypertension
Review of Systems
Review of Systems
Allergies reviewed?: Yes
All Other Systems: ROS reviewed and negative except as documented in HPI and ROS
Constitutional: Reports no symptoms
EENT: Reports no symptoms
Respiratory: Reports trouble breathing
Cardiac: Reports no symptoms
ABD/GI: Reports no symptoms
: Reports no symptoms
Musculoskeletal: Reports back pain
Skin: Reports no symptoms
Neurological: Reports no symptoms
Endocrine: Reports no symptoms
Hematologic/Lymphatic: Reports no symptoms
Psychiatric: Reports no symptoms
Phy Exam
Physical Exam
Physical Exam:
Physical Exam
General: Patient appears nontoxic but appears slightly anxious and tachypneic
Neck: supple. no meningeal signs. normal psoterior pharynx
Heart: s1/s2 regular rate and rhythm, no murmur. equal radial pulses.
Lungs: Mild tachypnea. Decreased breath sounds bilaterally
Abdomen: normal bowel sounds. not tender. no CVAT
Neuro: alert and oriented. no focal neurological deficits
Skin: no rash
Psychiatric: well kept. interactive and cooperative
Extremities: no edema. no calf tenderness. negative homans. good distal pulses
Scores
Heart Failure Risk
Heart Failure Risk Score: Not Applicable
Course
Orders/Labs/Results
Orders:
Orders
05/05/24 23:18
Electrocardiogram (*1) Urgent
Reason for Study: Shortness of Breath
EKG- Treatment ONCE
05/05/24 23:42
Complete Blood Count/With Diff Urgent
Comprehensive Metabolic Panel Urgent
NT-proBNP Urgent
Troponin I Urgent
05/06/24 00:00
CT Chest PE Study Urgent
Reason For Exam: abrupt sob back pain
05/06/24 00:04
Gabapentin [Neurontin] 100 mg PO NOW STA
Tramadol HCl [Ultram] 50 mg PO NOW STA
Abnormal Lab Results
05/05/24
23:42
WBC 15.5 H 10^3/uL
(4.8-10.8)
RBC 3.85 L 10^6/uL
(4.70-6.10)
Hgb 10.9 L g/dL
(13.0-18.0)
Hct 32.7 L %
(39.0-52.0)
RDW 16.8 H %
(11.5-14.5)
Plt Count 456 H 10^3/uL
(130-400)
Abs Immat Gran (auto) 0.2 H 10^3/uL
(0-0.05)
Absolute Neuts (auto) 12.0 H 10^3/uL
(1.4-6.5)
Absolute Monos (auto) 1.3 H 10^3/uL
(0.1-0.6)
Immature Gran % 1.0 H %
(0-0.5)
Neutrophils % 77.4 H %
(42.2-75.2)
Lymphocytes % 11.4 L %
(20.5-51.1)
Potassium 5.4 H mmol/L
(3.5-5.1)
BUN 40 H mg/dl
(9-20)
Glucose 102 H mg/dl
(70-99)
ALT 71 H U/L
(0-50)
Alkaline Phosphatase 290 H U/L
(38-126)
Albumin 3.4 L g/dl
(3.5-5.0)
05/05/24 23:42
05/05/24 23:42
Vital Signs
Initial and Last Documented VS:
Initial Vital Signs
Temp Pulse Resp BP Pulse Ox
97.8 F 96 24 128/74 98
05/05/24 23:18 05/05/24 23:18 05/05/24 23:18 05/05/24 23:18 05/05/24 23:18
Last Documented Vital Signs
Temp Pulse Resp BP Pulse Ox
97.8 F 81 32 131/69 94
05/05/24 23:18 05/06/24 00:45 05/06/24 00:45 05/06/24 00:00 05/06/24 00:45
MDM/Problems Addressed
Differential Diagnosis Includes:
Pulmonary embolism, pneumonia, pleural effusion, CHF
MDM/Problems Addressed:
Patient presents with acute shortness of breath
Chronic conditions affecting care:
Asbestosis causing recent left pleural effusion
Acute Exacerbation and/or Progression of Chronic Illness:
Patient can have reoccurrence and acute development of pleural effusion
*Radiology
Radiology exam reviewed: radiology read reviewed
*Pulse Oximetry
Patient hypoxic: no
*EKG
Interpreted by ED Provider?: Yes
Interpretation: abnormal
Comparison EKG: changes noted
Rate: normal
Rhythm: sinus and PVC's
[place]: left axis deviation
Interval: normal interval
QRS Pattern: normal QRS
Ischemia: non-specific ST changes
*Nursing Executive Interpretation
Rate: normal
Interpretation: normal
Rhythm: sinus
*Critical Care Note
Total Time (30-74mins, 75-104mins- exclusive of procedures): Not Applicable
Data Reviewed
Review of Other/Old Records Reveals: Discharge Summary (Patient admitted in 624 for recurrent left pleural effusion. Hospitalist note reviewed by me)
Source: patient and family
ED Attending Note
-
Portions of this chart may have been created with voice recognition software.� Occasional wrong word or��sound alike� substitutions may have occurred due to the inherent limitations of voice recognition software.
Discharge Plan
Departure
Patient Disposition: Home (Routine Discharge)
Date of Disposition: 05/06/24
Time of Disposition: 02:05
Admit to: Med/Surg
Patient with high blood pressure during this ER visit?: Yes
Condition: Good
Covid-19: Not Applicable
Discharge Problem:
Recurrent left pleural effusion, Acute dyspnea
Prescriptions:
No Action
aspirin 81 mg Tablet,Delayed Release (Dr/Ec)
162 mg PO HS Qty: 30 0RF
allopurinol 300 MG tablet
150 mg PO DAILY Qty: 30 0RF
calcium carbonate 500 mg calcium (1,250 mg) Tablet,Chewable
500 mg PO TIDPRN PRN (Reason: indigestion) Qty: 30 0RF
cyclobenzaprine 5 mg Tablet
5 mg PO HS Qty: 30 0RF
coenzyme Q10 [Co Q-10] 200 MG capsule
200 mg PO HS Qty: 30 0RF
dapagliflozin propanediol [Farxiga] 10 mg Tablet
10 mg PO DAILY Qty: 30 0RF
polyethylene glycol 3350 [Miralax] 17 gram Powder In Packet
17 g PO DAILYPRN PRN (Reason: constipation) Qty: 1 0RF
therapeutic multivitamin Tablet
1 tab PO DAILY Qty: 30 0RF
tamsulosin 0.4 mg Capsule
0.4 mg PO HS Qty: 30 0RF
Visbiome 112.5 billion cell Capsule
1 cap PO DAILY Qty: 30 0RF
PreserVision AREDS 2,148 mcg-113 mg-45 mg-17.4mg Tablet
1 tab PO BID Qty: 30 0RF
turmeric 400 MG capsule
400 mg PO BID Qty: 30 0RF
sennosides [senna] 8.6 mg Tablet
17.2 mg PO DAILYPRN PRN (Reason: constipation)
lidocaine 4 % Adhesive Patch,Medicated
1 patch TOPICAL Q8H
acetaminophen [Tylenol Extra Strength] 500 mg Tablet
1,000 mg PO BID
carvedilol 3.125 mg tablet
1.56 mg PO BID
docusate sodium [Colace] 100 mg capsule
200 mg PO HSPRN PRN (Reason: constipation)
bisacodyl 5 mg Tablet,Delayed Release (Dr/Ec)
10 mg PO HS Qty: 0 0RF
gabapentin 100 mg Capsule
100 mg PO TID Qty: 90 0RF
oxycodone-acetaminophen [Percocet] 5-325 mg tablet
1 tab PO Q4H PRN (Reason: severe pain) Qty: 20 0RF
megestrol 400 mg/10 mL (40 mg/mL) suspension
400 mg PO DAILY Qty: 240 0RF
Referrals:
Jake Oro MD [Family Provider] -
Interventions
Interventions:
*Risk Screen - Suicide Last Done: 05/05/24 23:18
*General Assessment Last Done: 05/05/24 23:18
*Neglect/Abuse Screening Last Done: 05/05/24 23:18
ED- Fall Risk Assessment Last Done: 05/05/24 23:52
*ED COVID-19 Vaccine History Last Done: 05/05/24 23:18
ED- Cardiac Assessment Last Done: 05/05/24 23:53
ED- Pulmonary Assessment Last Done: 05/05/24 23:53
Discharge Date and Time
Print Language: SYRIAN
[2024-05-05 23:42] VITALS: BP 156/77
[2024-05-05 23:52] VITALS: BMI 23.0
[2024-05-05 23:54] LABS: % Basophils 0.5 % (0-2); % Eosinophils 1.2 % (0-6); % Lymphocytes 11.4 % (20.5-51.1); % Monocytes 8.5 % (1.7-9.3); % Neutrophils 77.4 % (42.2-75.2); Absolute Basophils 0.1 10^3/uL (0-0.2); Absolute Eosinophils 0.2 10^3/uL (0-0.7); Absolute Immature Granulocytes 0.2 10^3/uL (0-0.05); Absolute Lymphocytes 1.8 10^3/uL (1.2-3.4); Absolute Monocytes 1.3 10^3/uL (0.1-0.6); Hematocrit 32.7 % (39.0-52.0); Hemoglobin 10.9 g/dL (13.0-18.0); Mean Corp Hgb Conc. 33.3 g/dL (33.0-37.0); Mean Corpuscular Hgb 28.3 pg (27.0-31.0); Mean Corpuscular Volume 84.9 fL (80.0-94.0); Mean Platelet Volume 9.6 fL (7.4-10.4); Nucleated Red Blood Cells % 0 % (-); Platelet Count 456 10^3/uL (130-400); Red Blood Cell Count 3.85 10^6/uL (4.70-6.10); Red Cell Dist. Width 16.8 % (11.5-14.5); White Blood Cell Count 15.5 10^3/uL (4.8-10.8)
[2024-05-06] VITALS: BP 131/69
[2024-05-06 00:07] LABS: ALT (SGPT) 71 U/L (0-50); AST (SGOT) 54 U/L (17-59); Albumin 3.4 g/dl (3.5-5.0); Alkaline Phosphatase 290 U/L (38-126); Blood Urea Nitrogen 40 mg/dl (9-20); Carbon Dioxide 25 mmol/L (22-30); Chloride 100 mmol/L (98-107); Estimated Creatinine Clearance 39 ml/min; Glucose 102 mg/dl (70-99); Potassium 5.4 mmol/L (3.5-5.1); Sodium 136 mmol/L (135-145); Total Bilirubin 0.3 mg/dl (0.2-1.3); Total Protein 6.6 g/dl (6.3-8.2); eGFR 53.17
[2024-05-06] MEDS: NEURONTIN 100 MG PO ×4 (00:08→23:00)
[2024-05-06] MEDS: ULTRAM 50 MG PO ×2 (00:08→08:59)
[2024-05-06 00:19] LABS: NT-proBNP 1320 pg/ml; Troponin I < 0.012 ng/ml
[2024-05-06 02:00] VITALS: BP 127/76
--- NOTE | 2024-05-06 02:10 | ED.GENMED ---
History of Present Illness
General
Chief Complaint: Breathing Problem
Time Seen by Provider: 05/05/24 23:36
Past History
Past History
ED Past Medical History: HTN, Hypercholesterolemia, Valvular disease, Other (Renal disease, chronic back pain, Diverticulitis, Urinary retention, Anemia, ) and Other (Chronic prostatitis)
ED Past Surgical History: Cardiac (Aortic valve repair mitral repair, pericardial tissue heart valve), Orthopedic (Left hand surgery, Left arm surgery, ) and Other ( Hernia. Pilonidal cyst, )
Social History
Tobacco: Former smoker
Alcohol: Occasional
Drug: None
Personal:
Living: with family
Employment: Retired
Family History
Family History: Hypertension
Course
Orders/Labs/Results
Orders:
Orders
05/05/24 23:18
Electrocardiogram (*1) Urgent
Reason for Study: Shortness of Breath
EKG- Treatment ONCE
05/05/24 23:42
Complete Blood Count/With Diff Urgent
Comprehensive Metabolic Panel Urgent
NT-proBNP Urgent
Troponin I Urgent
05/06/24 00:00
CT Chest PE Study Urgent
Reason For Exam: abrupt sob back pain
05/06/24 00:04
Gabapentin [Neurontin] 100 mg PO NOW STA
Tramadol HCl [Ultram] 50 mg PO NOW STA
05/06/24 02:13
Acetaminophen [Tylenol] 1,000 mg .ROUTE .STK-MED ONE
05/06/24 02:14
Acetaminophen [Tylenol] 1,000 mg PO NOW STA
05/06/24 04:53
Admit/Transfer Patient As Directed
Co-Sign Provider:
Level of Care: Observation services
Assign to:: Medical/Surgical
Physician / Group: hospitalist
Diagnosis: shortness of breath
PRN Pain Medication Management As Directed
May give lesser potent ordered pain med per pt: Yes
preference::
Protocol:: Medication orders for pain may be administered in a
manner that supports deferring to patient preference
when the pt is:
- Requesting an ordered lesser potent pain medication.
Least to most potent pain medications are defined
as: acetaminophen < NSAID < tramadol < opioids
(morphine, oxycodone, hydromorphone).
- Requesting a lesser dose of the same medication IF
ORDERED.
- Requesting a less intrusive route of administration
if both routes are prescribed by the provider (PO <
IV).
05/06/24 04:55
Code Status As Directed
Resuscitation Status: Full Code
05/06/24 05:00
Flush (0.9% Sodium Chloride) [Flush (Nss)] See Dose Instructions IV PER PROTOCOL
05/06/24 05:25
HYDROmorphone [Dilaudid] 0.5 mg IV Q4HPRN PRN
05/06/24 05:54
Acetaminophen [Tylenol] 650 mg PO Q4HPRN PRN
Bisacodyl [Dulcolax] 10 mg RECTAL [id number] PRN
Docusate Sodium [Colace] 200 mg PO HSPRN PRN
Docusate W/Senna [Senokot-S] 1 tablet PO BIDPRN PRN
Polyethylene Glycol Powder [Miralax] 17 grams PO DAILYPRN PRN
Tramadol HCl [Ultram] 50 mg PO Q6HPRN PRN
05/06/24 05:54
Consult Notification Routine
Specialty to Notify: IRAD (Interventional Radiology)
Date consulting provider notified: 05/06/24
Time consulting provider notified: 09:18
Notified:: Provider
Consult Notification Routine
Specialty to Notify: Pulmonary
Date consulting provider notified: 05/06/24
Time consulting provider notified: 09:18
Notified:: Provider
IRAD CONSULT Routine
Consulting Provider: Dionisio Hyatt
Was physician already notified: No
Reason for Consult/Procedure: recurrent L loculated pleural effusion
Acknowledgement that appropriate orders are entered: Yes
PULMONARY CONSULT Routine
Consulting Provider: Federico Desai
Was physician already notified: No
Reason for consult: recurrent loculated pleural effusion
Body Fluid Cell Count Routine
What is the Body Fluid: pleural fluid
Comment: post procedure
Body Fluid Glucose Routine
Fluid Source: Pleural
Body Fluid LDH Routine
Fluid Source: Pleural
Body Fluid Protein Routine
Fluid Source: Pleural
Fluid Culture with Gram Stain Routine
EMIL Source: Pleural Fluid
Specimen Description:
Comment: post procedure
Activity As Directed
Activity Level: With Assistance
Bedside Glucose Monitoring As Directed
Frequency: AC&HS
Pneumatic Compression Sleeves As Directed
Type: Knee high
Vital Signs As Directed
Frequency: Per unit guidelines
Pulse Ox/spot Check [RESP] Routine
Quantity: 1
Rx Incentive Spirometry [RESP] Routine
Frequency: q1h while awake
DX Deep Vein Thrombosis Video Routine
05/06/24 Breakfast
Regular
At Your Request: Non-Participating
05/06/24 06:15
Basic Metabolic Panel IN AM
Complete Blood Count/No Diff IN AM
LDH IN AM
Comment: post procedure, add on to morning labs if already drawn
Total Protein IN AM
Comment: post procedure, add on to morning labs if already drawn
05/06/24 07:30
Insulin Aspart Corrective Low [Novolog Flexpen-Low Resistance] See Protocol SC AC
05/06/24 08:00
Allopurinol [Zyloprim] 150 mg PO DAILY
Carvedilol [Coreg] 1.5625 mg PO BID
Dapagliflozin [Farxiga] 10 mg PO DAILY
Gabapentin [Neurontin] 100 mg PO TID
Ipratropium/Albuterol Sulfate [Duoneb] 3 ml INH R QID
05/06/24 22:00
Bisacodyl [Dulcolax] 10 mg PO HS
Abnormal Lab Results
05/05/24
23:42
WBC 15.5 H 10^3/uL
(4.8-10.8)
RBC 3.85 L 10^6/uL
(4.70-6.10)
Hgb 10.9 L g/dL
(13.0-18.0)
Hct 32.7 L %
(39.0-52.0)
RDW 16.8 H %
(11.5-14.5)
Plt Count 456 H 10^3/uL
(130-400)
Abs Immat Gran (auto) 0.2 H 10^3/uL
(0-0.05)
Absolute Neuts (auto) 12.0 H 10^3/uL
(1.4-6.5)
Absolute Monos (auto) 1.3 H 10^3/uL
(0.1-0.6)
Immature Gran % 1.0 H %
(0-0.5)
Neutrophils % 77.4 H %
(42.2-75.2)
Lymphocytes % 11.4 L %
(20.5-51.1)
Potassium 5.4 H mmol/L
(3.5-5.1)
BUN 40 H mg/dl
(9-20)
Glucose 102 H mg/dl
(70-99)
ALT 71 H U/L
(0-50)
Alkaline Phosphatase 290 H U/L
(38-126)
Albumin 3.4 L g/dl
(3.5-5.0)
05/05/24 23:42
05/05/24 23:42
Vital Signs
Initial and Last Documented VS:
Initial Vital Signs
Temp Pulse Resp BP Pulse Ox
97.8 F 96 24 128/74 98
05/05/24 23:18 05/05/24 23:18 05/05/24 23:18 05/05/24 23:18 05/05/24 23:18
Last Documented Vital Signs
Temp Pulse Resp BP Pulse Ox
98.1 F 86 18 115/62 97
05/06/24 15:30 05/06/24 15:30 05/06/24 15:30 05/06/24 15:30 05/06/24 15:30
ED Attending Note
-
Portions of this chart may have been created with voice recognition software.� Occasional wrong word or��sound alike� substitutions may have occurred due to the inherent limitations of voice recognition software.
Discharge Plan
Departure
Patient Disposition: Admit
Date of Disposition: 05/06/24
Time of Disposition: 02:05
Admit to: Med/Surg
Presentation/result/management discussed w/ accepting MD/DO: Hospitalist
Patient with high blood pressure during this ER visit?: Yes
Condition: Good
Covid-19: Not Applicable
Discharge Problem:
Recurrent left pleural effusion, Acute dyspnea
Interventions
Interventions:
*Risk Screen - Suicide Last Done: 05/06/24 06:04
*General Assessment Last Done: 05/05/24 23:18
*Neglect/Abuse Screening Last Done: 05/05/24 23:18
ED- Fall Risk Assessment Last Done: 05/05/24 23:52
*ED COVID-19 Vaccine History Last Done: 05/06/24 06:04
*Nursing Disposition Last Done: 05/06/24 05:51
ED- Cardiac Assessment Last Done: 05/05/24 23:53
ED- Pulmonary Assessment Last Done: 05/05/24 23:53
Discharge Date and Time
Discharge Date/Time: 05/06/24 05:52
[2024-05-06] MEDS: TYLENOL 1000 MG PO (02:14)
--- NOTE | 2024-05-06 04:32 | HPS.HSE ---
Family Physician
-
Family Physician: Ruben Oro
Chief Complaint
-
Shortness of breath
History of Present Illness
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
thrive and initiation of Megace who presents to the emergency department with acute episode of dyspnea on exertion today.
The patient was recently admitted with hyponatremia and GIOVANY and found to be severely dehydrated due to decreased p.o. intake. At that time the patient was started on Megace. He was hydrated with IV fluids. He recovered and his appetite actually
improved significantly. Due to his age and the risk of thrombosis with Megace he was started on Eliquis while he is on the Megace. The patient is pending a cervical spinal nerve ablation for his chronic debilitating back pain on Tuesday at 12:30 PM
for which anticoagulation had to be held for 1/2 to 2 days. The patient last took Eliquis on Tuesday morning. On Tuesday evening at around 7 PM he apparently walked prior to walk from the bathroom to his seat. After doing this if he became suddenly
dyspneic. He denied anterior chest pain but always has his posterior back pain. He denies any fevers or chills. He said that he had a cough for about 3 days ago but that ended yesterday. He has never had any fevers or chills. He denies any
nausea or vomiting. He denies any diarrhea. He denies feeling dizzy or lightheaded.
In the ED he was afebrile, blood pressure was 127/76, pulse was 80, he was satting 93% on room air. His respiratory rate has remained in the 20s. He is white count was 15.5, hemoglobin and platelet counts were normal. His BUN and creatinine were
14 and 1.3 similar to prior. BNP was slightly increased at 1300. ECG showed a normal sinus rhythm at [address] angio of the chest was negative for a PE. Showed a right loculated pleural effusion that was similar to a previous CT scan from March 12. Patient's had a recent echocardiogram last year which showed a normally seated bioprosthetic aortic
valve with preserved EF.
Medical History
Past Medical History
Past Medical History: Reports Cancer (asbestosis) and Valvular Disease (aortic stenosis s/p bovine aortic valve replacement)
Additional Past Medical History:
Pleural effusion
Gout
Chronic back pain
Failure to thrive
Hyponatremia
Past Surgical History: Reports Cardiac (Status post aortic valve replacement)
Social History
Tobacco: Former Smoker
Alcohol: None
Drug: None
Personal: Single
Living: With Family
Employment: Retired
Family History
Family History: Not pertinent
Allergies / Home Medications
Allergies reflects when Allergies were last updated in [facility].
Home Medications with original date entered in [facility]
Allergy/Medication List:
Allergies
Allergy/AdvReac Type Severity Reaction Status Date / Time
No Known Allergies Allergy Verified 04/20/24 09:32
Home Medications
Lactobac no.2-Bifidobac no.1-S. thermo 112.5 billion cell capsule (Visbiome) 1 cap PO DAILY #30 caps 04/13/24
allopurinol 300 mg tablet 150 mg (1/2 x 300 mg) PO DAILY Gout #30 tabs 04/13/24
calcium carbonate 500 mg PO TIDPRN PRN indigestion #30 tabs 04/13/24
coenzyme Q10 200 mg capsule (Co Q-10) 200 mg PO HS Supplement #30 caps 04/13/24
dapagliflozin propanediol 10 mg tablet (Farxiga) 10 mg PO DAILY diabetes #30 tabs 04/13/24
polyethylene glycol 3350 17 gram oral powder packet (Miralax) 17 g PO DAILYPRN PRN constipation #1 ea 04/13/24
therapeutic multivitamin 1 tab PO DAILY Supplement #30 tabs 04/13/24
turmeric 400 mg capsule 400 mg PO BID Supplement #30 caps 04/13/24
vitamins A,C,I-lyvl-wxxdlb 2,148 mcg-113 mg-45 mg-17.4 mg tablet (PreserVision AREDS) 1 tab PO BID Supplement #30 tabs 04/13/24
acetaminophen 500 mg tablet (Tylenol Extra Strength) 1,000 mg PO BID Pain 04/20/24
carvedilol 3.125 mg tablet 1.56 mg PO BID Blood Pressure 04/20/24
docusate sodium 100 mg capsule (Colace) 200 mg PO HSPRN PRN constipation 04/20/24
lidocaine 4 % topical patch 1 patch topical Q8H back pains 04/20/24
sennosides 8.6 mg tablet (senna) 17.2 mg PO DAILYPRN PRN constipation 04/20/24
bisacodyl 5 mg tablet,delayed release 10 mg (2 x 5 mg) PO HS #0 tabs 04/23/24
gabapentin 100 mg capsule 100 mg PO TID #90 caps 04/23/24
oxycodone-acetaminophen 5 mg-325 mg tablet (Percocet) 1 tab PO Q4H PRN severe pain #20 tabs 04/23/24
Review of Systems
-
History Source: Patient and Family
Constitutional: Reports No Symptoms
EENT: Reports No Symptoms
Respiratory: Reports Trouble Breathing
Cardiac: Reports No Symptoms
Abdomen/GI: Reports No Symptoms
: Reports No Symptoms
Musculoskeletal: Reports No Symptoms
Skin: Reports No Symptoms
Neurological: Reports No Symptoms
Endocrine: Reports No Symptoms
Hematologic/Lymphatic: Reports No Symptoms
Psych: Reports No Symptoms
Physical Exam
Vital Signs
Vital Signs
Temp Pulse Resp BP Pulse Ox
97.8 F 86 21 127/76 93
05/05/24 23:18 05/06/24 04:15 05/06/24 04:15 05/06/24 02:00 05/06/24 04:15
Physical Exam
General: Appears Chronically Ill
HEENT: NormoCephalic, Anicteric, Moist mucous membranes and Atraumatic
Respiratory: Clear
Cardiac: S1/S2 and Regular Rhythm
Breast: Deferred by me
GI: Soft, Non Tender, Non Distended and Normal Bowel Sounds
Rectal: Deferred by Provider
Genito-urinary: Deferred by me
Musculoskeletal: No Clubbing, No Cyanosis and No Edema
Skin: Warm
Neuro: AO x 3
Hematologic/Lymphatic: No Lymphadenopathy
Psych: Calm
Laboratory Results
-
05/05/24 23:42
05/05/24 23:42
Laboratory Results
Total Bilirubin 0.3 mg/dl (0.2-1.3) 05/05/24 23:42
AST 54 U/L (17-59) 05/05/24 23:42
ALT 71 U/L (0-50) H 05/05/24 23:42
Alkaline Phosphatase 290 U/L (38-126) H 05/05/24 23:42
Troponin I < 0.012 ng/ml 05/05/24 23:42
Data Reviewed
-
CT Scan: Report Reviewed by me
Medical Tests (Nuc Med, Echo, EKG etc): Image Personally Visualized and interpreted
Lab Data: Labs Reviewed by me
Old Records: Reviewed
Impression/Plan
-
IMPRESSION:
This is an 88-year-old with past medical history of aortic stenosis status post bioprosthetic aortic valve, has been stenosis with history of recurrent pleural effusion will comes into the emergency department with acute episode of dyspnea on
exertion. He is not hypoxic at 93% on room air. He is however having increased respiratory rate in the 20s. Patient feels that part of his symptom is due to his severe back pain which prevents him from being in any position except in a recliner.
Workup in the ED is negative for acute ischemia, no evidence of pneumonia on the CT scan, no evidence of pulmonary edema on the CT scan. The scan on March 12 was reported as a small loculated pleural effusion done 1 month after a counseled
thoracenteses in February 13. Thoracentesis which was canceled because the patient did not have enough effusion to drain at that time. Prior effusion thoracentesis has been negative for infection. Lungs clear to auscultation for me.
PLAN:
Dyspnea -patient has no evidence of pulmonary edema, PE or pneumonia. He has a left loculated pleural effusion. In comparison to the CT scan done in March dyspnea CT scan shows a very similar degree of pleural effusion. Quite difficult to say
that there is an increased amount of effusion there but there possibly could be. In the past this degree of pleural effusion has resulted in no significant ability to tap the fluid on ultrasound. He has leukocytosis but no fevers. I do not
suspect that he has an infection of the effusion. The etiology of his dyspnea remains unclear at this time but could be related to worsening atelectasis.
- admit to med/surg
- pulmonary consultation
- IR consultation
- if fluid cannot be tapped and no other source of dyspnea or patient remains stable, he wants to be discharged early tuesday to make the spinal appointment at 1230
- pain control and incentive spirometry
- will place on nebs for now
Severe back pain - He is pending a nerve ablation on tuesday morning, very critical for him
- no ac for 1.5 days before the ablation so holding eliquis/lovenox pending if he goes
- oxycodone ineffective, so will give dilaudid prn and continue his regimen of tramadol and gabepentin
Failure to thrive - Had improvement with megace.
- megace on hold while off prophylactic anticoagulation
- regular diet and monitor sodium levels
DVT PPX - SCD
Code Status - Full code
[2024-05-06] MEDS: DILAUDID 0.5 MG IV ×4 (05:29→23:57)
[2024-05-06 06:00] VITALS: BMI 21.5
[2024-05-06 06:02] VITALS: BP 130/78
[2024-05-06 06:45] LABS: Hematocrit 29.2 % (39.0-52.0); Hemoglobin 9.6 g/dL (13.0-18.0); Mean Corp Hgb Conc. 32.9 g/dL (33.0-37.0); Mean Corpuscular Hgb 28.3 pg (27.0-31.0); Mean Corpuscular Volume 86.1 fL (80.0-94.0); Mean Platelet Volume 9.9 fL (7.4-10.4); Platelet Count 439 10^3/uL (130-400); Red Blood Cell Count 3.39 10^6/uL (4.70-6.10); Red Cell Dist. Width 16.8 % (11.5-14.5)
[2024-05-06 07:04] LABS: Blood Urea Nitrogen 34 mg/dl (9-20); Calcium 9.6 mg/dl (8.4-10.2); Carbon Dioxide 25 mmol/L (22-30); Chloride 99 mmol/L (98-107); Estimated Creatinine Clearance 39 ml/min; Glucose 85 mg/dl (70-99); LDH 201 U/L (120-246); Potassium 5.2 mmol/L (3.5-5.1); Sodium 135 mmol/L (135-145); eGFR 53.17
[2024-05-06 07:25] VITALS: BP 135/74
[2024-05-06 07:27] LABS: Glucose - Point of Care 109 mg/dl (70-99)
[2024-05-06] MEDS: DUONEB 3 ML INH ×4 (08:48→19:28)
[2024-05-06] MEDS: FARXIGA 10 MG PO (08:57)
[2024-05-06] MEDS: ZYLOPRIM 150 MG PO (08:57)
[2024-05-06] MEDS: FLUSH (NSS) 1 FLUSH IV (09:00)
[2024-05-06] MEDS: COREG PO (09:55)
[2024-05-06] MEDS: MIRALAX 17 GRAMS PO (10:48)
[2024-05-06 11:53] LABS: Glucose - Point of Care 140 mg/dl (70-99)
--- NOTE | 2024-05-06 13:16 | CM ---
Patient is known to from previous OBS admission in April 2024.
Reji lives home with and son in a one story home with 2 entry steps. He is typically independent, but has been dealing with back pain for several months which has limited his ability to get around. He typically uses a walker but also owns
a cane and wheelchair. Son and daughter provide transportation for he and his .
Jose Juan son advised CM today that Reji is scheduled for an outpatient nerve ablation at [facility] in [facility] tomorrow at 12:30. Pt and son do not want to miss the procedure, as they are hopeful that it will improve his mobility and
decrease his pain which has been his major concern.
CAI form was explained to patient and son who both verbalized understanding. Copy given to patient, original placed in chart.
PCP: Jake Oro
Pharmacy: [facility] in [place], [place]
[2024-05-06 15:30] VITALS: BP 115/62
--- NOTE | 2024-05-06 15:55 | CON.PUL ---
Consultation
Consultation Request
Date/Time Consultation Requested: 05/06/2023
Date/Time Consultation Performed: 05/06/2024
Requesting Provider: Dr. Loera
Performing Provider: Dr. Federico Shah
Reason for Consultation: Exertional dyspnea/loculated pleural effusion
Medical History
-
History of Present Illness:
88-year-old woman with past medical history significant for aortic stenosis status post bioprosthetic valve replacement, history of recurrent pleural effusion comes to the emergency room complaining of dyspnea on exertion. Patient is not requiring
oxygen supplementation.
Patient sleeps in the recliner due to significant back pain. She is very limited regarding that.
CT chest without acute abnormalities.
In January pleural effusion was a small for thoracentesis.
We were consulted on 05/06/2024 for evaluation of dyspnea and pleural effusion.
Persistent since July with chronic back pain patient has not been able to walk or exercise
He has lost about 35 pounds of muscle mass.
PMHx: Recurrent left-sided loculated pleural effusion, asbestos induced pleural plaque, history of aortic valve replacement with bioprosthetic valve, MR s/p mitral valve repair, GERD, snoring, hypertension, CKD stage IIIb, history of rounded
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
stenosis, personal history COVID-19 (May 2023), history of hyponatremia (thiazide induced), history of RA, cervical neck pain
PSHx: Bioprosthetic aortic valve replacement (2009), MV repair (2009), left arm ORIF (as a child), left hand surgery (), hernia repair, pilonidal cyst I&D, right L4-5 ILESI (October 2018), Reyes catheter (2019), TURP (August 2020), bilateral
cataract surgery (August 2023), left-sided thoracentesis (August 2023)
Past Medical History
Past Medical History: Other (See assessment and plan)
Social History
Tobacco: Former Smoker
Alcohol: None
Drug: None
Personal: Single
Living: With Family
Employment: Retired
Family History
Family History: Reviewed & Not Pertinent
Allergies / Home Medications
Allergies
Allergy/AdvReac Type Severity Reaction Status Date / Time
No Known Allergies Allergy Verified 04/20/24 09:32
Home Medications
�Medication �Instructions �Recorded �Confirmed �Last Taken �Type
Lactobac no.2-Bifidobac no.1-S. 1 cap PO DAILY #30 caps 04/13/24 05/06/24 04/19/24 Rx
thermo 112.5 billion cell capsule
(Visbiome)
allopurinol 300 mg tablet 150 mg (1/2 x 300 mg) PO DAILY 04/13/24 05/06/24 04/19/24 Rx
Gout #30 tabs
calcium carbonate 500 mg PO TIDPRN PRN indigestion 04/13/24 05/06/24 10/10/23 Rx
#30 tabs
coenzyme Q10 200 mg capsule (Co 200 mg PO HS Supplement #30 caps 04/13/24 05/06/24 04/19/24 Rx
Q-10)
dapagliflozin propanediol 10 mg 10 mg PO DAILY diabetes #30 tabs 04/13/24 05/06/24 04/19/24 Rx
tablet (Farxiga)
polyethylene glycol 3350 17 gram 17 g PO DAILYPRN PRN constipation 04/13/24 05/06/24 04/18/24 Rx
oral powder packet (Miralax) #1 ea
therapeutic multivitamin 1 tab PO DAILY Supplement #30 tabs 04/13/24 05/06/24 04/19/24 Rx
turmeric 400 mg capsule 400 mg PO BID Supplement #30 caps 04/13/24 05/06/24 04/19/24 Rx
vitamins A,C,G-xqyw-vsglgt 2,148 1 tab PO BID Supplement #30 tabs 04/13/24 05/06/24 04/19/24 Rx
mcg-113 mg-45 mg-17.4 mg tablet
(PreserVision AREDS)
acetaminophen 500 mg tablet 1,000 mg PO BID Pain 04/20/24 05/06/24 04/20/24 History
(Tylenol Extra Strength)
carvedilol 3.125 mg tablet 1.56 mg PO HS Blood Pressure 04/20/24 05/06/24 05/04/24 History
docusate sodium 100 mg capsule 200 mg PO HSPRN PRN constipation 04/20/24 05/06/24 Unknown History
(Colace)
lidocaine 4 % topical patch 1 patch topical Q8H back pains 04/20/24 05/06/24 04/19/24 History
sennosides 8.6 mg tablet (senna) 17.2 mg PO DAILYPRN PRN 04/20/24 05/06/24 Unknown History
constipation
bisacodyl 5 mg tablet,delayed 10 mg (2 x 5 mg) PO HS #0 tabs 04/23/24 05/06/24 Unknown Rx
release
gabapentin 100 mg capsule 100 mg PO TID #90 caps 04/23/24 05/06/24 Unknown Rx
oxycodone-acetaminophen 5 mg-325 1 tab PO Q4H PRN severe pain #20 04/23/24 05/06/24 Unknown Rx
mg tablet (Percocet) tabs
Review of Systems
Vitals / Labs / Diagnostic Testing
Vital Signs
Temp Pulse Resp BP Pulse Ox
97.8 F 94 16 135/74 97
05/06/24 07:25 05/06/24 15:04 05/06/24 15:04 05/06/24 07:25 05/06/24 15:04
Lab Data
05/06/24 06:15
05/06/24 06:15
Diagnostic Testing:
Assessment
-
88-year-old man with past medical history noted. Admitted with worsening shortness of breath. Having significant back pain, ambulatory dysfunction scheduled for ablation on Tuesday. Has not been mobile and the pain is very limiting. We were
consulted for evaluation of shortness of breath. So far workup unrevealing.
Exertional dyspnea: Suspect due to his significant back pain, deconditioning, muscle mass loss.
CT chest 05/06/2024: No evidence for pulmonary embolism or thoracic aortic dissection. Bilateral calcified pleural plaques/prior asbestos exposure. Stable small left loculated pleural effusion. Small right pleural effusion. Mild interstitial
fibrosis suspected. Severe coronary arterial calcification.
Negative troponin
proBNP 1320
-Chronic loculated left pleural effusion: In January to a small for thoracentesis-volume appears stable this admission 05/2024.
Thoracentesis 09/28/2023: 1.4 L of dark bloody pleural fluid negative for cytology-exudate
-Severe back pain/spinal stenosis-pending nerve ablation on Tuesday
-Failure to thrive
-Chronic anemia hemoglobin this time 9.6-contributing to symptoms.
-Metabolic alkalosis
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
#Former tobacco smoker [id number]-xcre history quit at age 57
-
Assessment and plan:
Exertional shortness of breath, worsening.
From the pulmonary perspective I find no evidence for acute decompensation. Left pleural effusion stable compared to prior.
It is noted that in January ultrasound was performed and there is no enough fluid for thoracentesis.
Last thoracentesis performed was 08/2023 exudative negative cultures and cytology- Possibly post asbestos exposure. Mesothelioma cannot be ruled out completely but less likely as the effusion has been there for quite some time without significant
progression.
-
Pleural effusion/restrictive lung defect likely contributing to symptoms but no worse than prior.
Chronic anemia contributing to symptoms as well
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 Recommend continue with pain management. Scheduled for ablation on Tuesday.
Son at the bedside, patient has lost about 30 pounds since the pain started, mainly due to muscle mass loss. 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
-
proBNP moderately increased compared to prior.
There is no evidence for heart failure
This could be addressed in the outpatient setting
-
After ablation may benefit from pulmonary rehabilitation, physical therapy if able to perform.
-
Leukocytosis present. Unclear etiology. Defer to primary team.
No evidence for pulmonary infection at this point.
-
Okay to discharge from my perspective, okay to proceed with ablation tomorrow morning.
Discussed with son
-
Last time seen in our office in follow-up after hospital discharge 10/27/2023 by VAIBHAV Lombardo.
Outpatient follow-up in our office
No further recommendations
Sign off

Data:
CT chest 04/05/2025,
1. No evidence of pulmonary embolism or thoracic aortic dissection.
2. Bilateral calcified pleural plaques, consistent with asbestos related pleural disease.
3. Small loculated left pleural effusion, unchanged compared to prior CT, however increased in size compared to a prior CT dated 09/28/2023. Given calcified pleural plaques and increasing loculated pleural effusion, mesothelioma is not excluded.
4. Small right pleural effusion, new compared to prior CT.
5. Mild reticular interstitial thickening, suggestive of senescent change, mild interstitial fibrosis.
6. Severe coronary arterial calcification. Please correlate with symptoms of and risk factors for coronary artery disease, with further workup as clinically appropriate.
-
CT Chest 02/15/2024:
Small-moderate stable partially loculated left pleural effusion with associated underlying atelectasis.
Stable postoperative changes
Stable calcified pleural plaques suggesting prior asbestos exposure
Atherosclerosis
CXR 02/13/2024:
Moderate loculated left pleural effusion. Stable.
Probable associated mild left lower lobe pneumonia. New
Findings consistent with prior asbestos exposure. Stable.
Chest US 02/14/2024: Small LEFT pleural effusion. Amount of fluid present not sufficient for safe thoracentesis.
-
Echocardiogram 09/08/2023: Normal LVEF. Normal biventricular size and function. Status post aortic valve replacement. Mild TR.
--- NOTE | 2024-05-06 16:13 | W.PN.UPDATE ---
Addendum entered and electronically signed by Rajeev Mina MD 05/06/24 21:23:
Per pulm plan to discharge him in the AM of 05/07/2024. Monitor overnight
After reviewing pulmonary note, would plan to discharge him early on 05/07/2024.
-Can get 2d echo as an outpatient and follow up with pulmonary as an outpatient.
It should be noted that he has a Spine surgery appointment with Yessy Obrien on 05/07/2024 in the AM.
Original Note:
Update Note
Progress Note Update
Seen and examined. Without evidence of respiratory distress breathing comfortably on room air and conversant.
CT reviewed demonstrating bilateral pleural plaques consistent with asbestosis related pleural disease
Noted small loculated left pleural effusion and small right pleural effusion which is new compared to prior CT.
IR consult for potential thoracentesis unsure if they will be able to do it as it is small. Will also have pulmonary evaluate as there is mild interstitial fibrosis.
CT does show severe coronary artery calcifications. Last echocardiogram is from August 2023 at that time EF was 50%. As he is presenting with acute onset shortness of breath CT did not show PE therefore I would consider repeating 2D echocardiogram to
be sure that this SOB is not cardiac related. Or even if pHTN is playing a role.
Nonbillable note
[2024-05-06 16:31] LABS: Glucose - Point of Care 104 mg/dl (70-99)
[2024-05-06] MEDS: DULCOLAX 10 MG PO (20:16)
[2024-05-06] MEDS: COREG 1.5625 MG PO (20:16)
[2024-05-06 23:52] VITALS: BP 142/72
[2024-05-07 03:31] LABS: Glucose - Point of Care 84 mg/dl (70-99)
[2024-05-07 05:45] LABS: Glucose - Point of Care 86 mg/dl (70-99)
[2024-05-07] MEDS: ULTRAM 50 MG PO ×2 (06:26→11:39)
[2024-05-07 07:05] VITALS: BP 146/78
[2024-05-07] MEDS: DUONEB 3 ML INH (07:17)
[2024-05-07] MEDS: COREG PO (07:45)
[2024-05-07] MEDS: NEURONTIN 100 MG PO (07:46)
[2024-05-07] MEDS: FARXIGA 10 MG PO (07:46)
[2024-05-07] MEDS: ZYLOPRIM 150 MG PO (07:46)
--- NOTE | 2024-05-07 07:56 | W.PN.HOSP.TC ---
Today's Communication/Plan
-
dc today
Assessment / Plan
Assessment / Plan
Mr. Reji Cruz is an 88yoM pmh HTN, HLD, CKD stage 3, asbestosis, chronic back pain admitted for dyspnea on exertion.
Dyspnea
- improved
- incentive spirometer
- pulm consulted - ok to dc this am
- IR consulted - insufficient pleural fluid to drain.
- duonebs
Severe back pain
- pending nerve ablation this AM
- no anticoagulation for 1.5 days prior to ablation - hold AC
- dilaudid prn, cont home tramadol and gabapentin
Failure to thrive
- improvement with megace - on hold w out prophylactic anticoagulation
Diet: regular
DVT ppx: SCDs
Code status: FULL CODE
Anticipated Discharge: Today
Subjective/Interval History
-
Date of Service: May 07, 2024
Mr. Reji Cruz is an 88yoM pmh HTN, HLD, CKD stage 3, asbestosis, chronic back pain admitted for dyspnea on exertion. He is currently asymptomatic and looking forward to his nerve ablation at [facility].
Objective Data
-
Vital Signs:
Vital Signs
Temp Pulse Resp BP Pulse Ox
98.9 F 95 16 142/72 96
05/06/24 23:52 05/07/24 07:21 05/07/24 07:21 05/06/24 23:52 05/07/24 07:21
I&O
05/06/24 05/07/24 05/08/24
06:59 06:59 06:59
Intake Total 720 / 720
Output Total 1150 / 1150
Balance -430 / -430
Review of Systems
-
History Source: Patient
Constitutional: Reports No Symptoms
EENT: Reports No Symptoms Reported
Respiratory: Reports No Symptoms
Cardiac: Reports No Symptoms
Abdomen/GI: Reports No Symptoms
Genitourinary: Reports No Symptoms
Musculoskeletal: Reports Muscle Pain (back pain)
Skin: Reports No Symptoms
Neuro: Reports No Symptoms
Physical Exam
-
General: Well Developed, Well Nourished, No Apparent Distress and Comfortable
HEENT: Normocephalic, Atraumatic and Moist Mucous Membranes
Respiratory: Clear to Auscultation
Cardiac: Regular Rhythm, S1/S2 and Murmur
GI: Soft, Nontender, Nondistended and Normal Bowel Sounds
Musculoskeletal: No Clubbing, No Cyanosis and No Edema
Skin: Warm and Dry
Neuro: AO x 3
Psych: Calm
--- NOTE | 2024-05-07 08:28 | W.PN.UPDATE ---
Update Note
Progress Note Update
I saw and evaluated the patient. I reviewed the resident�s note and agree with findings and plan as documented in the resident�s note.
Patient currently denies shortness of breath
146/78, 95, 16, 98.5 �F, 96% RA
Gen: NAD, Awake and alert
Eyes: EOMI, PERRLA, no scleral icterus.
Neck: supple.
CV: RRR, +S1/S2, no m/r/g.
Resp: dec BS in the bases, faint rhonchi in B/L upper lung ward
Skin: No rashes.
Neuro: CN 2-12 intact, non-focal.
Psych: Normal mood and affect.
CTA chest:
1. No evidence of pulmonary embolism or thoracic aortic dissection.
2. Bilateral calcified pleural plaques, consistent with asbestos related pleural disease.
3. Small loculated left pleural effusion, unchanged compared to prior CT, however increased in size compared to a prior CT dated 09/28/2023. Given calcified pleural plaques and increasing loculated pleural effusion, mesothelioma is not excluded.
4. Small right pleural effusion, new compared to prior CT.
5. Mild reticular interstitial thickening, suggestive of senescent change, mild interstitial fibrosis.
6. Severe coronary arterial calcification. Please correlate with symptoms of and risk factors for coronary artery disease, with further workup as clinically appropriate.
Chronic SOB:
-pt with underlying chronic B/L pleural effusions
-currently hemodynamically stable and saturating well on room air. At this moment the patient denies shortness of breath.
-CTA chest above, pleural effusions chronic
-appreciate pulm, medically cleared for d/c
Medically cleared for d/c. LUL gannon RN updated.
Total time spent on d/c = 32 min. This included today's physical exam, progress note, review of laboratory and diagnostic data, preparation of discharge documents and prescriptions, and discussions about the pt's hospital course and discharge plan
with the patient and other medical assistant prn involved in the patient's care.
[2024-05-07 10:50] VITALS: BP 151/91
[2024-05-07] MEDS: DUONEB INH (11:05)
--- NOTE | 2024-05-07 11:47 | PTCARENOTE ---
d/c order noted. 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 patient c/o back pain, not due for PRN Tramadol, one time dose order placed and med given prior patient leaving the hospital. IV taken
out. all the belongings gathered and sent with the patient. transported by volunteers via w/c
--- NOTE | 2024-05-07 12:18 | CM ---
MD entered order for discharge.
Spoke with son Reji YANG he said he will drive pt home.
He declined VN .
PLAN Home no needs
--- NOTE | 2024-05-07 12:31 | W.DCSUMMARY ---
Discharge Summary
Discharge Data
Date of Admission: 05/06/24
Date of Discharge: 05/07/24
-
Pending Results: No
Hospital Course
Discharging Physician : Dr. Paola Hooper, Dr. Taye Rolon
Disposition : home
Primary care physician : Ruben Oro
Principal Discharge diagnosis : Dyspnea on exertion
Chronic Discharge diagnosis : HTN, HLD, CKD stage 3, asbestosis, chronic back pain
Hospital Course : Admitted 05/06 for dyspnea on exertion. Chest CT showed b/l calcified pleural plaques with a small pleural effusion. IR consulted, would not perform a thoracentesis given small size of pleural effusion. Pulmonary consulted, pt
stable for discharge per their perspective. Pt afebrile, hemodynamically stable.
Important imaging findings :
Chest CT:
1. No evidence of pulmonary embolism or thoracic aortic dissection.
2. Bilateral calcified pleural plaques, consistent with asbestos related pleural disease.
3. Small loculated left pleural effusion, unchanged compared to prior CT, however increased in size compared to a prior CT dated 09/28/2023. Given calcified pleural plaques and increasing loculated pleural effusion, mesothelioma is not excluded.
4. Small right pleural effusion, new compared to prior CT.
5. Mild reticular interstitial thickening, suggestive of senescent change, mild interstitial fibrosis.
6. Severe coronary arterial calcification. Please correlate with symptoms of and risk factors for coronary artery disease, with further workup as clinically appropriate.
Procedure findings : n/a
Discharge Plan
-
Patient Disposition: Home (Routine Discharge)
Discharge Diagnosis/Procedures: Exertional dyspnea, asbestosis
Condition: Good
Diet: As tolerated
Activity: As tolerated
Driving Restrictions: As prior to admission
Bathing Restrictions: None
Instructions: Shortness of breath
Referrals:
Jake Oro MD [Family Provider] - in one week
Federico Desai MD [Active] - in two to three weeks
Additional Discharge Medication Instructions: Please get a 2D echo via Dr. Oro.
Prescriptions:
Continued
allopurinol 300 MG tablet
150 mg PO DAILY Qty: 30 0RF
calcium carbonate 500 mg calcium (1,250 mg) Tablet,Chewable
500 mg PO TIDPRN PRN (Reason: indigestion) Qty: 30 0RF
coenzyme Q10 [Co Q-10] 200 MG capsule
200 mg PO HS Qty: 30 0RF
dapagliflozin propanediol [Farxiga] 10 mg Tablet
10 mg PO DAILY Qty: 30 0RF
polyethylene glycol 3350 [Miralax] 17 gram Powder In Packet
17 g PO DAILYPRN PRN (Reason: constipation) Qty: 1 0RF
therapeutic multivitamin Tablet
1 tab PO DAILY Qty: 30 0RF
Visbiome 112.5 billion cell Capsule
1 cap PO DAILY Qty: 30 0RF
PreserVision AREDS 2,148 mcg-113 mg-45 mg-17.4mg Tablet
1 tab PO BID Qty: 30 0RF
sennosides [senna] 8.6 mg Tablet
17.2 mg PO DAILYPRN PRN (Reason: constipation)
lidocaine 4 % Adhesive Patch,Medicated
1 patch TOPICAL Q8H
acetaminophen [Tylenol Extra Strength] 500 mg Tablet
1,000 mg PO BID
carvedilol 3.125 mg tablet
1.56 mg PO HS
docusate sodium [Colace] 100 mg capsule
200 mg PO HSPRN PRN (Reason: constipation)
bisacodyl 5 mg Tablet,Delayed Release (Dr/Ec)
10 mg PO HS Qty: 0 0RF
gabapentin 100 mg Capsule
100 mg PO TID Qty: 90 0RF
oxycodone-acetaminophen [Percocet] 5-325 mg tablet
1 tab PO Q4H PRN (Reason: severe pain) Qty: 20 0RF
Discontinued
turmeric 400 MG capsule
400 mg PO BID Qty: 30 0RF
Discharge Orders:
Discharge Patient (As Directed); Ordered 05/07/24
Ordered By: Taye Rolon
Discharge Date and Time
Discharge Date/Time: 05/07/24 12:00
Print Language: ARMENIAN
== END 2024-05-07 12:00 | disposition home or self-care (01) ==
LOC: 4 EAST ACU 05:26
PROVIDERS: Emergency Medicine; ADMITTING PHYSICIAN Internal Medicine; ATTENDING PHYSICIAN Internal Medicine; CONSULT PHYSICIAN Internal Medicine Critical Care Medicine; EMERGENCY PHYSICIAN Emergency Medicine; FAMILY PHYSICIAN Internal Medicine
DX: J61 Pneumoconiosis due to asbestos and other mineral fibers (principal); R06.09 Other forms of dyspnea; R06.02 Shortness of breath; G89.29 Other chronic pain; M54.6 Pain in thoracic spine; I12.9 Hypertensive chronic kidney disease with stage 1 through stage 4 chronic kidney disease, or unspecified chronic kidney disease; E78.00 Pure hypercholesterolemia, unspecified; J90 Pleural effusion, not elsewhere classified; R62.7 Adult failure to thrive; I27.20 Pulmonary hypertension, unspecified; N18.32 Chronic kidney disease, stage 3b; I48.0 Paroxysmal atrial fibrillation; N40.0 Benign prostatic hyperplasia without lower urinary tract symptoms; D64.9 Anemia, unspecified; E87.3 Alkalosis; D72.829 Elevated white blood cell count, unspecified; J98.11 Atelectasis; I49.1 Atrial premature depolarization; K21.9 Gastro-esophageal reflux disease without esophagitis; Z79.82 Long term (current) use of aspirin; Z79.84 Long term (current) use of oral hypoglycemic drugs; Z87.891 Personal history of nicotine dependence; Z95.3 Presence of xenogenic heart valve; Z86.16 Personal history of COVID-19; Z77.090 Contact with and (suspected) exposure to asbestos
CPT/HCPCS: 71275; 80048; 80053; 82962; 83615; 83880; 84155; 84484; 85025; 85027; 93005; 94640; 99285; G0378; Q9967

== ENCOUNTER 2024-05-09 10:27 | Emergency (ER) | payer MEDICARE, SELFPAY ==
[2024-05-09] VITALS (7 sets, daily range): BP systolic 104–126; BP diastolic 57–69; BMI 23.2
--- NOTE | 2024-05-09 10:54 | ED.GENMED ---
History of Present Illness
General
Chief Complaint: Fainting/Passed Out
Time Seen by Provider: 05/09/24 10:45
History of Present Illness
History of Present Illness:
88-year-old male presents to the emergency department via EMS for evaluation after a syncopal event, he was ambulating out to his car for a routine appointment when he became weak and lightheaded, according to his son he 'went out for several
minutes'. He currently is complaining of diffuse back pain, 2 days status post spinal ablation performed by [facility] orthopedics. Denies any chest pain or dyspnea at this time. He also reports dark urine and urinary retention symptoms
Past History
Past History
ED Past Medical History: HTN, Hypercholesterolemia, Valvular disease, Other (Renal disease, chronic back pain, Diverticulitis, Urinary retention, Anemia, ) and Other (Chronic prostatitis)
ED Past Surgical History: Cardiac (Aortic valve repair mitral repair, pericardial tissue heart valve), Orthopedic (Left hand surgery, Left arm surgery, ) and Other ( Hernia. Pilonidal cyst, )
Social History
Tobacco: Former smoker
Alcohol: Occasional
Drug: None
Personal:
Living: with family
Employment: Retired
Family History
Family History: Hypertension
Review of Systems
Review of Systems
Allergies reviewed?: Yes
All Other Systems: ROS reviewed and negative except as documented in HPI and ROS
Phy Exam
Physical Exam
Physical Exam:
GEN: Well appearing, NAD, WDWN
HEENT: Oral mucosa moist, no scleral icterus
Cardiac: Regular rate and rhythm, no murmur
Lung: No respiratory distress, no tachypnea, faint left-sided breath sounds compatible with known pleural effusion
Abdomen: Soft, nontender
MSK: No gross deformity or injuries
Skin: Good color, no pallor or jaundice, no rashes
Neuro: AO x3, moves all extremities freely
Psych: Calm, cooperative
Course
Orders/Labs/Results
Orders:
Orders
05/09/24 10:32
Electrocardiogram (*1) Urgent
Reason for Study: Abnormal EKG
EKG- Treatment ONCE
05/09/24 10:46
Complete Blood Count/With Diff Urgent
Comprehensive Metabolic Panel Urgent
Troponin I Urgent
05/09/24 10:53
0.9% Sodium Chloride 1000 ml [Nss] 1,000 ml IV BOLUS
HYDROmorphone [Dilaudid] 0.5 mg IV NOW STA
05/09/24 10:54
CR Chest - 2 Views Urgent
Comment:
Reason For Exam: dyspnea
05/09/24 12:10
Tramadol HCl [Ultram] 50 mg PO NOW STA
05/09/24 14:01
Urinalysis Reflex To Culture Urgent
Date Specimen was Collected: 05/09/24
Time Specimen was Collected: 13:59
Urine Microscopic Reflex Cult Urgent
Urine Culture Urgent
EMIL Source: U
Specimen Description:
Date Specimen was Collected: 05/09/24
Time Specimen was Collected: 13:59
05/09/24 15:18
CefTRIAXone [Rocephin] 1,000 mg IV NOW STA
Abnormal Lab Results
05/09/24 05/09/24
10:46 14:01
WBC 12.7 H 10^3/uL
(4.8-10.8)
RBC 3.45 L 10^6/uL
(4.70-6.10)
Hgb 9.7 L g/dL
(13.0-18.0)
Hct 29.4 L %
(39.0-52.0)
RDW 16.6 H %
(11.5-14.5)
Plt Count 456 H 10^3/uL
(130-400)
Abs Immat Gran (auto) 0.1 H 10^3/uL
(0-0.05)
Absolute Neuts (auto) 10.1 H 10^3/uL
(1.4-6.5)
Absolute Lymphs (auto) 1.1 L 10^3/uL
(1.2-3.4)
Absolute Monos (auto) 1.1 H 10^3/uL
(0.1-0.6)
Immature Gran % 0.9 H %
(0-0.5)
Neutrophils % 79.9 H %
(42.2-75.2)
Lymphocytes % 9.0 L %
(20.5-51.1)
Sodium 130 L mmol/L
(135-145)
Chloride 94 L mmol/L
(98-107)
BUN 44 H mg/dl
(9-20)
Glucose 123 H mg/dl
(70-99)
ALT 62 H U/L
(0-50)
Alkaline Phosphatase 216 H U/L
(38-126)
Total Protein 6.1 L g/dl
(6.3-8.2)
Albumin 3.1 L g/dl
(3.5-5.0)
Ur Occult Blood Reflex 4+ A
(Negative)
Leukocyte Esterase Rfl 2+ A
(Negative)
Urine WBC (Reflex) 30-40 A /HPF
(0-5)
Urine Bacteria (Reflex) Many A
(Negative)
Urine Glucose 2+ A
(Negative)
Urine Albumin (Reflex) 1+ A
(Neg - Trace)
05/09/24 10:46
05/09/24 10:46
Vital Signs
Initial and Last Documented VS:
Initial Vital Signs
BP
104/57
05/09/24 10:34
Last Documented Vital Signs
Temp Pulse Resp BP Pulse Ox
98.3 F 78 22 111/64 96
05/09/24 10:38 05/09/24 15:30 05/09/24 15:30 05/09/24 15:00 05/09/24 15:30
MDM/Problems Addressed
MDM/Problems Addressed:
From a syncope standpoint this was most likely vasovagal mediated by dehydration, acute back pain, and tamsulosin use. He remained stable in the emergency department and blood pressure up trended with IV hydration. He is also noted to have
urinalysis consistent with UTI, postvoid residual under 100 mL, no indication for Reyes catheter. Stable for outpatient management, will start broad-spectrum antibiotics
*Critical Care Note
Total Time (30-74mins, 75-104mins- exclusive of procedures): Not Applicable
ED Attending Note
-
Portions of this chart may have been created with voice recognition software.� Occasional wrong word or��sound alike� substitutions may have occurred due to the inherent limitations of voice recognition software.
Discharge Plan
Departure
Patient Disposition: Home (Routine Discharge)
Date of Disposition: 05/09/24
Time of Disposition: 15:34
Patient with high blood pressure during this ER visit?: No
Discharge Problem:
Urinary tract infection
Instructions: Syncope (Fainting) (DC)
Prescriptions:
New
cefdinir 300 mg capsule
300 mg PO Q12H 6 Days Qty: 12 0RF
No Action
allopurinol 300 MG tablet
150 mg PO DAILY Qty: 30 0RF
calcium carbonate 500 mg calcium (1,250 mg) Tablet,Chewable
500 mg PO TIDPRN PRN (Reason: indigestion) Qty: 30 0RF
coenzyme Q10 [Co Q-10] 200 MG capsule
200 mg PO HS Qty: 30 0RF
dapagliflozin propanediol [Farxiga] 10 mg Tablet
10 mg PO DAILY Qty: 30 0RF
polyethylene glycol 3350 [Miralax] 17 gram Powder In Packet
17 g PO DAILYPRN PRN (Reason: constipation) Qty: 1 0RF
therapeutic multivitamin Tablet
1 tab PO DAILY Qty: 30 0RF
Visbiome 112.5 billion cell Capsule
1 cap PO DAILY Qty: 30 0RF
PreserVision AREDS 2,148 mcg-113 mg-45 mg-17.4mg Tablet
1 tab PO BID Qty: 30 0RF
sennosides [senna] 8.6 mg Tablet
17.2 mg PO DAILYPRN PRN (Reason: constipation)
lidocaine 4 % Adhesive Patch,Medicated
1 patch TOPICAL Q8H
acetaminophen [Tylenol Extra Strength] 500 mg Tablet
1,000 mg PO BID
carvedilol 3.125 mg tablet
1.56 mg PO HS
docusate sodium [Colace] 100 mg capsule
200 mg PO HSPRN PRN (Reason: constipation)
bisacodyl 5 mg Tablet,Delayed Release (Dr/Ec)
10 mg PO HS Qty: 0 0RF
gabapentin 100 mg Capsule
100 mg PO TID Qty: 90 0RF
oxycodone-acetaminophen [Percocet] 5-325 mg tablet
1 tab PO Q4H PRN (Reason: severe pain) Qty: 20 0RF
Referrals:
Jake Oro MD [Family Provider] -
Interventions
Interventions:
*Risk Screen - Suicide Last Done: 05/09/24 10:38
*General Assessment Last Done: 05/09/24 10:38
*Neglect/Abuse Screening Last Done: 05/09/24 10:38
ED- Fall Risk Assessment Last Done: 05/09/24 10:55
*ED COVID-19 Vaccine History Last Done: 05/09/24 10:38
*Nursing Disposition Last Done: 05/09/24 15:50
ED- Cardiac Assessment Last Done: 05/09/24 10:55
ED- Neurological Assessment Last Done: 05/09/24 10:55
Discharge Date and Time
Discharge Date/Time: 05/09/24 16:10
Print Language: WOLOF
[2024-05-09] MEDS: DILAUDID 0.5 MG IV (11:05)
[2024-05-09] MEDS: NSS 1000 IV (11:06)
[2024-05-09 11:11] LABS: % Basophils 0.3 % (0-2); % Immature Granulocytes 0.9 % (0-0.5); % Monocytes 8.9 % (1.7-9.3); % Neutrophils 79.9 % (42.2-75.2); Absolute Eosinophils 0.1 10^3/uL (0-0.7); Absolute Immature Granulocytes 0.1 10^3/uL (0-0.05); Absolute Lymphocytes 1.1 10^3/uL (1.2-3.4); Absolute Monocytes 1.1 10^3/uL (0.1-0.6); Absolute Neutrophils 10.1 10^3/uL (1.4-6.5); Hematocrit 29.4 % (39.0-52.0); Hemoglobin 9.7 g/dL (13.0-18.0); Mean Corpuscular Hgb 28.1 pg (27.0-31.0); Mean Corpuscular Volume 85.2 fL (80.0-94.0); Mean Platelet Volume 9.4 fL (7.4-10.4); Nucleated Red Blood Cells % 0 % (-); Platelet Count 456 10^3/uL (130-400); Red Blood Cell Count 3.45 10^6/uL (4.70-6.10); Red Cell Dist. Width 16.6 % (11.5-14.5); White Blood Cell Count 12.7 10^3/uL (4.8-10.8)
[2024-05-09 11:15] LABS: ALT (SGPT) 62 U/L (0-50); AST (SGOT) 48 U/L (17-59); Albumin 3.1 g/dl (3.5-5.0); Alkaline Phosphatase 216 U/L (38-126); Blood Urea Nitrogen 44 mg/dl (9-20); Calcium 9.8 mg/dl (8.4-10.2); Carbon Dioxide 25 mmol/L (22-30); Chloride 94 mmol/L (98-107); Estimated Creatinine Clearance 45 ml/min; Glucose 123 mg/dl (70-99); Potassium 4.9 mmol/L (3.5-5.1); Sodium 130 mmol/L (135-145); Total Bilirubin 0.4 mg/dl (0.2-1.3); Total Protein 6.1 g/dl (6.3-8.2); eGFR 58.53
[2024-05-09 11:23] LABS: Troponin I < 0.012 ng/ml
[2024-05-09] MEDS: ULTRAM 50 MG PO (12:37)
[2024-05-09 14:29] LABS: Urine Albumin 1+ (Neg - Trace); Urine Bilirubin Negative (Negative); Urine Character Clear (Clear); Urine Color Yellow; Urine Glucose 2+ (Negative); Urine Ketone Negative (Negative); Urine Leukocyte 2+ (Negative); Urine Nitrite Negative (Negative); Urine Occult Blood 4+ (Negative); Urine Specific Gravity 1.015 (<1.030); Urine Urobilinogen Negative (Neg - 1+)
[2024-05-09 14:42] LABS: Urine Bacteria Many (Negative); Urine White Cell 30-40 /HPF (0-5)
[2024-05-09 14:43] LABS: Urine Red Blood Cell 0-2 /HPF (0-2)
[2024-05-09] MEDS: ROCEPHIN 1000 MG IV (15:31)
== END 2024-05-09 16:10 | disposition home or self-care (01) ==
LOC: EMR 10:27
PROVIDERS: Physician Assistant; EMERGENCY PHYSICIAN Emergency Medicine; FAMILY PHYSICIAN Internal Medicine
DX: N39.0 Urinary tract infection, site not specified (principal); Z87.891 Personal history of nicotine dependence
CPT/HCPCS: 99285; 96374; 96375; 96361; 71046; 80053; 81003; 81015; 84484; 85025; 87086; 93005

== ENCOUNTER → 2024-05-18 15:01 | Outpatient (REF) | payer MEDICARE, SELFPAY | LOC: RAD 15:01 | PROVIDERS: ATTENDING PHYSICIAN Internal Medicine Cardiovascular Disease; FAMILY PHYSICIAN Internal Medicine | DX: Z95.3 Presence of xenogenic heart valve (principal); I42.8 Other cardiomyopathies; I48.0 Paroxysmal atrial fibrillation; I10 Essential (primary) hypertension | CPT/HCPCS: 71046 ==

== ENCOUNTER → 2024-05-19 09:49 | Outpatient (REF) | payer MEDICARE, SELFPAY ==
[2024-05-19 13:27] LABS: % Basophils 0.4 % (0-2); % Eosinophils 0.8 % (0-6); % Immature Granulocytes 2.2 % (0-0.5); % Lymphocytes 15.1 % (20.5-51.1); % Monocytes 9.8 % (1.7-9.3); % Neutrophils 71.7 % (42.2-75.2); Absolute Basophils 0.1 10^3/uL (0-0.2); Absolute Eosinophils 0.1 10^3/uL (0-0.7); Absolute Immature Granulocytes 0.3 10^3/uL (0-0.05); Absolute Lymphocytes 2.2 10^3/uL (1.2-3.4); Absolute Monocytes 1.4 10^3/uL (0.1-0.6); Absolute Neutrophils 10.4 10^3/uL (1.4-6.5); Hematocrit 29.1 % (39.0-52.0); Hemoglobin 9.3 g/dL (13.0-18.0); Mean Corpuscular Hgb 27.7 pg (27.0-31.0); Mean Corpuscular Volume 86.6 fL (80.0-94.0); Mean Platelet Volume 10.2 fL (7.4-10.4); Nucleated Red Blood Cells % 0 % (-); Platelet Count 534 10^3/uL (130-400); Red Blood Cell Count 3.36 10^6/uL (4.70-6.10); Red Cell Dist. Width 17.7 % (11.5-14.5); White Blood Cell Count 14.4 10^3/uL (4.8-10.8)
[2024-05-19 14:11] LABS: Blood Urea Nitrogen 43 mg/dl (9-20); Calcium 10.1 mg/dl (8.4-10.2); Carbon Dioxide 25 mmol/L (22-30); Chloride 95 mmol/L (98-107); Glucose 74 mg/dl (70-99); Potassium 5.5 mmol/L (3.5-5.1); Sodium 130 mmol/L (135-145); eGFR 58.53
[2024-05-19 14:13] LABS: NT-proBNP 2080 pg/ml
== END ==
LOC: REG 09:49
PROVIDERS: ATTENDING PHYSICIAN Family Medicine; FAMILY PHYSICIAN Internal Medicine
DX: R53.1 Weakness (principal); D64.9 Anemia, unspecified; I10 Essential (primary) hypertension
CPT/HCPCS: 36415; 80048; 83880; 85025

== ENCOUNTER 2024-05-26 18:01 | Inpatient (IN) | payer MEDICARE, SELFPAY ==
[2024-05-26] VITALS (7 sets, daily range): BP systolic 105–158; BP diastolic 61–78; BMI 22.1; BMI 21.5
--- NOTE | 2024-05-26 15:44 | ED.GENMED ---
History of Present Illness
<Jeff Marcos MD, Resident - Last Filed: 05/26/24 18:42>
General
Chief Complaint: Breathing Problem
Source: patient and family
Exam Limitations: none
Time Seen by Provider: 05/26/24 15:47
Nursing documentation reviewed up to this point in time: agreed with
Travel History
Have you traveled to any high risk areas for coronavirus over the past 14 days?: No
Have you had any contact with someone who has COVID-19?: No
Do you have any symptoms of coronavirus? Fever > 100 degrees, chills, cough, shortness of breath, sore throat, loss of taste or smell, muscle aches, or headache?: No
History of Present Illness
History of Present Illness:
88-year-old male with PMH of asbestos lung disease, recurrent pleural effusion requiring thoracentesis 10/23 who presented to the emergency department with son due to worsening dyspnea on exertion and hypoxia. Patient's son states that patient
usually desaturate with exertion but leaves in the lower 90s PaCO2. Son reports that over the past 24 hours patient has been hypoxic with pulse ox around 88% when he returns from the bathroom. He is followed by pulmonology. Patient denies chest
pain, leg swelling, fever, chills, abdominal pain, nausea, vomiting, cough.
Past History
<Jeff Marcos MD, Resident - Last Filed: 05/26/24 18:42>
Past History
ED Past Medical History: HTN, Hypercholesterolemia, Valvular disease, Other (Renal disease, chronic back pain, Diverticulitis, Urinary retention, Anemia, ) and Other (Chronic prostatitis)
ED Past Surgical History: Cardiac (Aortic valve repair mitral repair, pericardial tissue heart valve), Orthopedic (Left hand surgery, Left arm surgery, ) and Other ( Hernia. Pilonidal cyst, )
Patient has exhibited threatening behavior?: No
Social History
Tobacco: Former smoker
Alcohol: Occasional
Drug: None
Personal:
Living: with family
Employment: Retired
Family History
Family History: Hypertension
Review of Systems
<Jeff Marcos MD, Resident - Last Filed: 05/26/24 18:42>
Review of Systems
Allergies reviewed?: Yes
All Other Systems: ROS reviewed and negative except as documented in HPI and ROS
Phy Exam
<Jeff Marcos MD, Resident - Last Filed: 05/26/24 18:42>
General Physical Exam
General Presentation: well appearing and no apparent distress
General age: appears stated age
General Skin: warm and dry
General Habitus: normal
General Mental: alert
General Hydration: dry mucous membranes
Cardiovascular Exam
Cardiovascular Exam: systolic murmur and other (Trace edema bilaterally)
Systolic Murmur: 2/6
Pulmonary Exam
Pulmonary Exam: no respiratory distress, no cough, generalized wheezing and other (Increased work of breathing)
Gastrointestinal Exam
Gastrointestinal Exam: normal bowel sounds, non tender, soft and non distended
Neurological Exam
Neurological Exam: alert and oriented x3
Scores
<Jeff Marcos MD, Resident - Last Filed: 05/26/24 18:42>
Heart Failure Risk
Heart Failure Risk Score: Not Applicable
Course
<Jeff Marcos MD, Resident - Last Filed: 05/26/24 18:42>
Orders/Labs/Results
Orders:
Orders
05/26/24 15:56
CR Chest - 2 Views Urgent
Comment:
Reason For Exam: sob
05/26/24 15:58
COVID-19 Antigen Urgent
Source: Nasal Swab
Complete Blood Count/With Diff Urgent
Comprehensive Metabolic Panel Urgent
NT-proBNP Urgent
Influenza A+B Rapid Molecular Urgent
EMIL Source: Nasal Swab
Specimen Description:
05/26/24 16:25
Ipratropium/Albuterol Sulfate [Duoneb] 3 ml INH R NOW STA
05/26/24 16:51
Azithromycin [Zithromax] 500 mg PO NOW STA
CefTRIAXone [Rocephin] 1,000 mg IV NOW STA
05/26/24 16:54
IRAD CONSULT Routine
Consulting Provider: Dionisio Hyatt
Was physician already notified: Yes
Reason for Consult/Procedure: Thoracentesis
Acknowledgement that appropriate orders are entered: Yes
05/26/24 16:59
LDH Routine
Comment: post procedure, add on to morning labs if already drawn
05/26/24 17:00
Body Fluid Cell Count Routine
What is the Body Fluid: pleural fluid
Comment: post procedure
Body Fluid Glucose Routine
Fluid Source: Pleural
Body Fluid LDH Routine
Fluid Source: Pleural
Body Fluid Protein Routine
Fluid Source: Pleural
Body Fluid Triglycerides Routine
Fluid Source: Pleural
Body Fluid pH Routine
Fluid Source: Pleural
IRAD Cytology Routine
Source: Pleural Fluid, Left
Clinical Impression: Pleural effusion
05/26/24 17:03
Furosemide [Lasix] 40 mg IV NOW STA
05/26/24 17:04
O2 Therapy [RESP] Urgent
Titrate/Wean O2 to maintain O2 sat greater than (%): 94
05/26/24 17:41
Admit/Transfer Patient As Directed
Co-Sign Provider:
Level of Care: Inpatient admission
Assign to:: Telemetry
Physician / Group: tana
Diagnosis: atrial fib
Reason for Telemetry: Arrhythmia
Date to Stop Telemetry: 05/29/24
Time to Stop Telemetry: 11:00
Reason for Hospitalization: atrial fib
Expected length of stay greater than two midnights?: Yes
ELOS- Estimated Length of Stay in days: 3
I certify the patient meets the requirements for IP care: Yes
PRN Pain Medication Management As Directed
May give lesser potent ordered pain med per pt: Yes
preference::
Protocol:: Medication orders for pain may be administered in a
manner that supports deferring to patient preference
when the pt is:
- Requesting an ordered lesser potent pain medication.
Least to most potent pain medications are defined
as: acetaminophen < NSAID < tramadol < opioids
(morphine, oxycodone, hydromorphone).
- Requesting a lesser dose of the same medication IF
ORDERED.
- Requesting a less intrusive route of administration
if both routes are prescribed by the provider (PO <
IV).
05/26/24 17:42
Code Status As Directed
Resuscitation Status: Full Code
05/27/24 07:00
Glucose Routine
Total Protein Routine
Comment: post procedure, add on to morning labs if already drawn
Gram Stain Routine
EMIL Source: Pleural Fluid
Specimen Description:
Comment: POST PROCEDURE
05/29/24 11:00
DC Protocol for Telemetry ONCE
Abnormal Lab Results
05/26/24
15:58
WBC 14.3 H 10^3/uL
(4.8-10.8)
RBC 3.03 L 10^6/uL
(4.70-6.10)
Hgb 8.5 L g/dL
(13.0-18.0)
Hct 26.4 L %
(39.0-52.0)
MCHC 32.2 L g/dL
(33.0-37.0)
RDW 18.8 H %
(11.5-14.5)
Plt Count 413 H 10^3/uL
(130-400)
Abs Immat Gran (auto) 0.3 H 10^3/uL
(0-0.05)
Absolute Neuts (auto) 11.1 H 10^3/uL
(1.4-6.5)
Absolute Monos (auto) 1.3 H 10^3/uL
(0.1-0.6)
Immature Gran % 2.0 H %
(0-0.5)
Neutrophils % 77.2 H %
(42.2-75.2)
Lymphocytes % 11.3 L %
(20.5-51.1)
Sodium 133 L mmol/L
(135-145)
Potassium 5.5 H mmol/L
(3.5-5.1)
Chloride 97 L mmol/L
(98-107)
BUN 60 H mg/dl
(9-20)
Alkaline Phosphatase 157 H U/L
(38-126)
Total Protein 5.9 L g/dl
(6.3-8.2)
Albumin 3.0 L g/dl
(3.5-5.0)
05/26/24 15:58
05/26/24 16:59
Vital Signs
Initial and Last Documented VS:
Initial Vital Signs
Pulse Resp BP Pulse Ox
99 22 120/61 96
05/26/24 15:13 05/26/24 15:13 05/26/24 15:13 05/26/24 15:13
Last Documented Vital Signs
Pulse Resp BP Pulse Ox
88 21 119/75 96
05/26/24 17:15 05/26/24 17:15 05/26/24 17:00 05/26/24 17:15
<Jose Luis Baeza, DO - Last Filed: 05/26/24 16:52>
Orders/Labs/Results
Orders:
Orders
05/26/24 15:56
CR Chest - 2 Views Urgent
Comment:
Reason For Exam: sob
05/26/24 15:58
COVID-19 Antigen Urgent
Source: Nasal Swab
Complete Blood Count/With Diff Urgent
Comprehensive Metabolic Panel Urgent
NT-proBNP Urgent
Influenza A+B Rapid Molecular Urgent
EMIL Source: Nasal Swab
Specimen Description:
05/26/24 16:25
Ipratropium/Albuterol Sulfate [Duoneb] 3 ml INH R NOW STA
05/26/24 16:51
Azithromycin [Zithromax] 500 mg PO NOW STA
CefTRIAXone [Rocephin] 1,000 mg IV NOW STA
05/26/24 16:54
[facility]AD CONSULT Routine
Consulting Provider: Dionisio Hyatt
Was physician already notified: Yes
Reason for Consult/Procedure: Thoracentesis
Acknowledgement that appropriate orders are entered: Yes
05/26/24 16:59
LDH Routine
Comment: post procedure, add on to morning labs if already drawn
05/26/24 17:00
Body Fluid Cell Count Routine
What is the Body Fluid: pleural fluid
Comment: post procedure
Body Fluid Glucose Routine
Fluid Source: Pleural
Body Fluid LDH Routine
Fluid Source: Pleural
Body Fluid Protein Routine
Fluid Source: Pleural
Body Fluid Triglycerides Routine
Fluid Source: Pleural
Body Fluid pH Routine
Fluid Source: Pleural
IRAD Cytology Routine
Source: Pleural Fluid, Left
Clinical Impression: Pleural effusion
05/26/24 17:03
Furosemide [Lasix] 40 mg IV NOW STA
05/26/24 17:04
O2 Therapy [RESP] Urgent
Titrate/Wean O2 to maintain O2 sat greater than (%): 94
05/26/24 17:41
Admit/Transfer Patient As Directed
Co-Sign Provider:
Level of Care: Inpatient admission
Assign to:: Telemetry
Physician / Group: tana
Diagnosis: atrial fib
Reason for Telemetry: Arrhythmia
Date to Stop Telemetry: 05/29/24
Time to Stop Telemetry: 11:00
Reason for Hospitalization: atrial fib
Expected length of stay greater than two midnights?: Yes
ELOS- Estimated Length of Stay in days: 3
I certify the patient meets the requirements for IP care: Yes
PRN Pain Medication Management As Directed
May give lesser potent ordered pain med per pt: Yes
preference::
Protocol:: Medication orders for pain may be administered in a
manner that supports deferring to patient preference
when the pt is:
- Requesting an ordered lesser potent pain medication.
Least to most potent pain medications are defined
as: acetaminophen < NSAID < tramadol < opioids
(morphine, oxycodone, hydromorphone).
- Requesting a lesser dose of the same medication IF
ORDERED.
- Requesting a less intrusive route of administration
if both routes are prescribed by the provider (PO <
IV).
05/26/24 17:42
Code Status As Directed
Resuscitation Status: Full Code
05/27/24 07:00
Glucose Routine
Total Protein Routine
Comment: post procedure, add on to morning labs if already drawn
Gram Stain Routine
EMIL Source: Pleural Fluid
Specimen Description:
Comment: POST PROCEDURE
05/29/24 11:00
DC Protocol for Telemetry ONCE
Abnormal Lab Results
05/26/24
15:58
WBC 14.3 H 10^3/uL
(4.8-10.8)
RBC 3.03 L 10^6/uL
(4.70-6.10)
Hgb 8.5 L g/dL
(13.0-18.0)
Hct 26.4 L %
(39.0-52.0)
MCHC 32.2 L g/dL
(33.0-37.0)
RDW 18.8 H %
(11.5-14.5)
Plt Count 413 H 10^3/uL
(130-400)
Abs Immat Gran (auto) 0.3 H 10^3/uL
(0-0.05)
Absolute Neuts (auto) 11.1 H 10^3/uL
(1.4-6.5)
Absolute Monos (auto) 1.3 H 10^3/uL
(0.1-0.6)
Immature Gran % 2.0 H %
(0-0.5)
Neutrophils % 77.2 H %
(42.2-75.2)
Lymphocytes % 11.3 L %
(20.5-51.1)
Sodium 133 L mmol/L
(135-145)
Potassium 5.5 H mmol/L
(3.5-5.1)
Chloride 97 L mmol/L
(98-107)
BUN 60 H mg/dl
(9-20)
Alkaline Phosphatase 157 H U/L
(38-126)
Total Protein 5.9 L g/dl
(6.3-8.2)
Albumin 3.0 L g/dl
(3.5-5.0)
05/26/24 15:58
05/26/24 16:59
Vital Signs
Initial and Last Documented VS:
Initial Vital Signs
Pulse Resp BP Pulse Ox
99 22 120/61 96
05/26/24 15:13 05/26/24 15:13 05/26/24 15:13 05/26/24 15:13
Last Documented Vital Signs
Pulse Resp BP Pulse Ox
88 21 119/75 96
05/26/24 17:15 05/26/24 17:15 05/26/24 17:00 05/26/24 17:15
<Jeff Marcos MD, Resident - Last Filed: 05/26/24 18:42>
MDM/Problems Addressed
MDM/Problems Addressed:
88-year-old male with past medical history of intermittent WELLER, hypertension, hyperlipidemia, asbestosis lung disease who presented to the emergency department with son with 1 day history of dyspnea on exertion and hypoxia at home. His physical
exam was remarkable for bilateral trace pedal edema, increased work of breathing with diminished breath sounds on the left mid and lower lobes, diminished breath sounds on the right lower lobe and right basilar crackles. Differential diagnosis
include pleural effusion, acute heart failure. Although patient leads a sedentary lifestyle, he does not have chest pain, or prolonged immobilization to suggest PE. Will check chest x-ray, CBC, BMP, proBNP, and COVID.
Chronic conditions affecting care: Other (Pulmonary disease)
<Jeff Marcos MD, Resident - Last Filed: 05/26/24 18:42>
*Radiology
Radiology exam reviewed: radiology read reviewed (Possible chronic left pleural effusion, right basilar opacification? Pneumonia, atelectasis)
*Pulse Oximetry
Patient hypoxic: no
*Critical Care Note
Total Time (30-74mins, 75-104mins- exclusive of procedures): Not Applicable
Data Reviewed
Review of Other/Old Records Reveals: Labs (WBC 14.4) and Radiology Studies (Small right pleural effusion)
<Jeff Marcos MD, Resident - Last Filed: 05/26/24 18:42>
Update Note
Update Note:
1600: Patient CBC remarkable for mild leukocytosis, BMP with hyponatremia, hyperkalemia, and mildly elevated proBNP. CXR reviewed compatible with possible loculated chronic left pleural effusion and questionable pneumonia/atelectasis in the right
lower lobe. Will treat patient with supplemental oxygen and empiric antibiotics for CAP. IRAD consulted for possible therapeutic thoracentesis. Will admit patient to hospitalist service.
ED Attending Note
<Jeff Marcos MD, Resident - Last Filed: 05/26/24 18:42>
-
Portions of this chart may have been created with voice recognition software.� Occasional wrong word or��sound alike� substitutions may have occurred due to the inherent limitations of voice recognition software.
<Jose Luis Baeza, DO - Last Filed: 05/26/24 16:52>
ED Attending Note
Patient seen and examined by attending physician: Yes
I performed a history and physical exam of patient and discussed management with resident, I reviewed resident's note and agree with documented findings and plan of care.: Yes
ED Attending Note:
I have seen and evaluated the patient with a [id number] encounter. I have spoken to the resident and involved in the medical history, the physical exam, medical decision making.
Evaluation and management service: agree unless noted differently below.
Results interpretation: agree unless noted differently below.
Focused HPI: 88-year-old male presenting with worsening shortness of breath. Patient becoming short of breath with minimal exertion. Son at bedside is concerned this could be another accumulation of a pleural effusion for which she required
thoracentesis
Physical exam: Neck, shallow breath sounds, decreased breath sounds on the left. Crackles on the right base
Medical Decision Making: Chest x-ray concerning for reaccumulation of moderate to large sized left pleural effusion. Has increased work of breathing and requiring oxygen. Right base on chest x-ray concerning for possible pneumonia. Will start
antibiotic, oxygen and admit for thoracentesis
Discharge Plan
Departure
Patient Disposition: Admit
Date of Disposition: 05/26/24
Time of Disposition: 17:27
Admit to: Med/Surg
Presentation/result/management discussed w/ accepting MD/DO: Hospitalist
Patient with high blood pressure during this ER visit?: Yes
Condition: Good
Covid-19: Not Applicable
Discharge Problem:
Recurrent left pleural effusion, Acute hyponatremia, Acute dyspnea, WELLER (dyspnea on exertion)
Interventions
Interventions:
*Risk Screen - Suicide Last Done: 05/26/24 15:13
*General Assessment Last Done: 05/26/24 17:20
*Neglect/Abuse Screening Last Done: 05/26/24 15:13
ED- Cardiac Assessment Last Done: 05/26/24 17:20
ED- Pulmonary Assessment Last Done: 05/26/24 17:20
[2024-05-26 16:06] LABS: % Basophils 0.3 % (0-2); % Eosinophils 0.3 % (0-6); % Lymphocytes 11.3 % (20.5-51.1); % Monocytes 8.9 % (1.7-9.3); % Neutrophils 77.2 % (42.2-75.2); Absolute Eosinophils 0.1 10^3/uL (0-0.7); Absolute Immature Granulocytes 0.3 10^3/uL (0-0.05); Absolute Lymphocytes 1.6 10^3/uL (1.2-3.4); Absolute Monocytes 1.3 10^3/uL (0.1-0.6); Absolute Neutrophils 11.1 10^3/uL (1.4-6.5); Hematocrit 26.4 % (39.0-52.0); Hemoglobin 8.5 g/dL (13.0-18.0); Mean Corp Hgb Conc. 32.2 g/dL (33.0-37.0); Mean Corpuscular Hgb 28.1 pg (27.0-31.0); Mean Corpuscular Volume 87.1 fL (80.0-94.0); Mean Platelet Volume 9.3 fL (7.4-10.4); Nucleated Red Blood Cells % 0.1 % (-); Platelet Count 413 10^3/uL (130-400); Red Blood Cell Count 3.03 10^6/uL (4.70-6.10); Red Cell Dist. Width 18.8 % (11.5-14.5); White Blood Cell Count 14.3 10^3/uL (4.8-10.8)
[2024-05-26 16:21] LABS: COVID-19 Antigen Negative (Negative)
[2024-05-26 16:30] LABS: ALT (SGPT) 24 U/L (0-50); AST (SGOT) 36 U/L (17-59); Alkaline Phosphatase 157 U/L (38-126); Blood Urea Nitrogen 60 mg/dl (9-20); Calcium 9.8 mg/dl (8.4-10.2); Carbon Dioxide 28 mmol/L (22-30); Chloride 97 mmol/L (98-107); Glucose 88 mg/dl (70-99); NT-proBNP 2250 pg/ml; Potassium 5.5 mmol/L (3.5-5.1); Sodium 133 mmol/L (135-145); Total Bilirubin 0.5 mg/dl (0.2-1.3); Total Protein 5.9 g/dl (6.3-8.2); eGFR 58.53
[2024-05-26] MEDS: LASIX 40 MG IV (17:12)
[2024-05-26] MEDS: DUONEB 3 ML INH (17:12)
[2024-05-26] MEDS: ZITHROMAX 500 MG PO (17:12)
[2024-05-26] MEDS: ROCEPHIN 1000 MG IV (17:12)
--- NOTE | 2024-05-26 17:17 | HPS.HSE ---
Family Physician
-
Family Physician: Ruben Oro
Chief Complaint
-
sob
History of Present Illness
88-year-old male with PMH of asbestos lung disease, recurrent pleural effusion requiring thoracentesis 10/23, hypertension, anemia, GERD, CHF, atrial Fib, chronic pain syndrome who presented to the emergency department with son due to worsening
dyspnea on exertion and hypoxia. Patient was noted short of breath at rest. His oxygen saturation was high 80s with rest and low 80s with exertion. Patient denied chest pain. Patient denied fever, chills, congestion, cough. Patient denies
headache, dizzy or syncope. Patient denied abdominal pain, nausea, vomiting or diarrhea. Patient denied dysuria hematuria.
Upon arrival patient required 2 L of oxygen. Chest x-ray with pleural effusion and pneumonia. Patient received Zithromax, ceftriaxone, Lasix and nebs in ER. Admitting for further
Medical History
Past Medical History
Past Medical History: Reports Other
Additional Past Medical History:
Hypertension
Hyperkalemia
Cart failure
Carpal tunnel syndrome
Sigmoid diverticulosis
GERD
Gout
A-fib
Cardiomyopathy
Hypertension
Hyperlipidemia
Hyperparathyroidism
BPH
Anemia
Spinal stenosis
Chronic kidney disease
Rheumatoid arthritis
Past Surgical History: Reports Other
Additional Past Surgical History:
Mitral valve repair
ORIF of left arm
Hernia repair
TURP
Bilateral care tract
Left thoracentesis
Social History
Tobacco: Former Smoker
Alcohol: None
Drug: None
Personal:
Living: With Family
Family History
Family History: Not pertinent
Allergies / Home Medications
Allergies reflects when Allergies were last updated in [facility].
Home Medications with original date entered in [facility]
Allergy/Medication List:
Allergies
Allergy/AdvReac Type Severity Reaction Status Date / Time
No Known Allergies Allergy Verified 05/26/24 15:16
Home Medications
Lactobac no.2-Bifidobac no.1-S. thermo 112.5 billion cell capsule (Visbiome) 1 cap PO DAILY #30 caps 04/13/24
allopurinol 300 mg tablet 150 mg (1/2 x 300 mg) PO DAILY Gout #30 tabs 04/13/24
calcium carbonate 500 mg PO TIDPRN PRN indigestion #30 tabs 04/13/24
coenzyme Q10 200 mg capsule (Co Q-10) 200 mg PO HS Supplement #30 caps 04/13/24
dapagliflozin propanediol 10 mg tablet (Farxiga) 10 mg PO DAILY diabetes #30 tabs 04/13/24
polyethylene glycol 3350 17 gram oral powder packet (Miralax) 17 g PO DAILYPRN PRN constipation #1 ea 04/13/24
therapeutic multivitamin 1 tab PO DAILY Supplement #30 tabs 04/13/24
vitamins A,C,R-pjly-iclizb 2,148 mcg-113 mg-45 mg-17.4 mg tablet (PreserVision AREDS) 1 tab PO BID Supplement #30 tabs 04/13/24
acetaminophen 500 mg tablet (Tylenol Extra Strength) 1,000 mg PO BID Pain 04/20/24
carvedilol 3.125 mg tablet 1.56 mg PO HS Blood Pressure 04/20/24
docusate sodium 100 mg capsule (Colace) 200 mg PO HSPRN PRN constipation 04/20/24
lidocaine 4 % topical patch 1 patch topical Q8H back pains 04/20/24
sennosides 8.6 mg tablet (senna) 17.2 mg PO DAILYPRN PRN constipation 04/20/24
bisacodyl 5 mg tablet,delayed release 10 mg (2 x 5 mg) PO HS #0 tabs 04/23/24
gabapentin 100 mg capsule 100 mg PO TID #90 caps 04/23/24
oxycodone-acetaminophen 5 mg-325 mg tablet (Percocet) 1 tab PO Q4H PRN severe pain #20 tabs 04/23/24
cefdinir 300 mg capsule 300 mg PO Q12H 6 days #12 caps 05/09/24
Review of Systems
-
Constitutional: Reports No Symptoms
EENT: Reports No Symptoms
Respiratory: Reports Trouble Breathing
Cardiac: Reports No Symptoms
Abdomen/GI: Reports No Symptoms
: Reports No Symptoms
Musculoskeletal: Reports No Symptoms
Skin: Reports No Symptoms
Neurological: Reports No Symptoms
Endocrine: Reports No Symptoms
Hematologic/Lymphatic: Reports No Symptoms
Psych: Reports No Symptoms
Physical Exam
Vital Signs
Vital Signs
Pulse Resp BP Pulse Ox
99 22 120/61 96
05/26/24 15:13 05/26/24 15:13 05/26/24 15:13 05/26/24 15:13
Physical Exam
General: Well Developed, Well Nourished and No Apparent Distress
HEENT: NormoCephalic, Moist mucous membranes and Atraumatic
Respiratory: Wheezes
Cardiac: S1/S2 and Regular Rhythm; No Murmur or Rub
GI: Soft, Non Tender, Non Distended and Normal Bowel Sounds; No Organomegaly
Rectal: Deferred by Provider
Musculoskeletal: No Clubbing, No Cyanosis and No Edema
Skin: No Rash
Neuro: AO x 3 and Nonfocal/grossly intact
Psych: Calm
Laboratory Results
-
05/26/24 15:58
Laboratory Results
Total Bilirubin 0.5 mg/dl (0.2-1.3) 05/26/24 15:58
AST 36 U/L (17-59) 05/26/24 15:58
ALT 24 U/L (0-50) 05/26/24 15:58
Alkaline Phosphatase 157 U/L (38-126) H 05/26/24 15:58
Data Reviewed
-
Diagnostic Radiology: Report Reviewed by me
Lab Data: Labs Reviewed by me
Impression/Plan
-
# Acute hypoxic respiratory failure secondary to pleural effusion/right lower lobe pneumonia
-Patient requiring 2 L of oxygen
-WBCs 14.3
-COVID-negative
-Chest x-ray with impression Findings compatible with possibly loculated likely chronic left pleural effusion without significant change.Likely slightly increased right basilar opacification which could represent atelectasis and/or pneumonia and
tiny right pleural effusion.
-Negative for influenza A and B
-Continue supplemental oxygen to keep sat greater than 92
-Wean as tolerated
-Continue IV antibiotics ceftriaxone and azithromycin
-IR consulted for thoracentesis
-Nebs as needed for short of breath and wheezing
-Obtain strep pneumonia, urine Legionella
# Acute hypoxia likely secondary to acute on chronic heart failure
-I/O, daily weight
-Continue Farxiga 10 mg daily
-Echo and 08/2023 with impression of EF 50 percentage
-received a dose of Lasix in ER.
-ctm
# Anemia of chronic disease
-Hemoglobin stable at 8.5
-No active bleeding
-Continue to monitor
# Hyponatremia/hyperkalemia likely from fluid overload
-Sodium 133/K5.5
-Continue to monitor
#chronic weight loss - due to acute on chronic cervical/thoracic pain with failure to thrive
-Severe protein/calorie malnutrition of chronic illness
-Appetite improving on Megace.
#Chronic pain syndrome/chronic opiate dependence
#Chronic cervical/thoracic scapular pain
-Morphine continue
#Aortic valve replacement, Mitral valve repair
# Paroxysmal A-fib
-Obtain EKG
-Eliquis continued
#BPH/TURP
#Gout
- cont allopurinol
#DVT prophylaxis
-Eliquis
Code status: FULL CODE
--- NOTE | 2024-05-26 17:51 | W.PN.UPDATE ---
Update Note
Progress Note Update
This is an addendum to the H&P written by Adelaida Ascencio on 05/26/2024. Patient seen and examined independently with [employer].
88-year-old male past medical history of CHF, aortic valve replacement, atrial repair, recurrent left-sided loculated pleural effusion, pleural asbestosis with interstitial fibrosis, CKD 3A, hypertension, chronic pain syndrome, chronic normocytic
anemia, hyperlipidemia, GERD, BPH status post TURP, gout, presenting with shortness of breath for past few days. No cough or upper respiratory symptoms. Has lost weight recently secondary to back pain status post recent injections/nerve ablation.
Vital signs unremarkable. Labs show leukocytosis, chronic anemia, mild hyperkalemia. Cardiac BNP of 2200.
Subtle bilateral wheezing.
Chest x-ray shows likely loculated chronic left pleural effusion. Likely slightly increased right basilar opacification atelectasis versus pneumonia and tiny right pleural effusion.
COVID and flu negative.
Presentation consistent with right lower lobe pneumonia with mild component of CHF exacerbation. Ceftriaxone/azithromycin.
40 IV Lasix given. IR consulted for thoracentesis.
[2024-05-26 19:14] LABS: LDH 233 U/L (120-246)
[2024-05-26] MEDS: MIRALAX PO (20:19)
[2024-05-26] MEDS: LOW STRENGTH ASPIRIN 162 MG PO (21:37)
[2024-05-26] MEDS: ELIQUIS 2.5 MG PO (21:37)
[2024-05-26] MEDS: ProAmatine 5 MG PO (21:38)
[2024-05-26] MEDS: MS CONTIN (EXTENDED RELEASE) 30 MG PO (21:55)
[2024-05-27] VITALS (7 sets, daily range): BP systolic 99–139; BP diastolic 55–71; PULSE 65; O2SAT 89; BMI 21.5
--- NOTE | 2024-05-27 | PTCARENOTE ---
Maritza ESPOSITO notified of 2200 lab results.
[2024-05-27 08:13] LABS: Hemoglobin 9.2 g/dL (13.0-18.0); Mean Corp Hgb Conc. 32.9 g/dL (33.0-37.0); Mean Corpuscular Hgb 28.4 pg (27.0-31.0); Mean Corpuscular Volume 86.4 fL (80.0-94.0); Mean Platelet Volume 9.5 fL (7.4-10.4); Platelet Count 444 10^3/uL (130-400); Red Blood Cell Count 3.24 10^6/uL (4.70-6.10); White Blood Cell Count 13.7 10^3/uL (4.8-10.8)
[2024-05-27] MEDS: MEGACE ORAL SUSPENSION 400 MG PO (08:19)
[2024-05-27] MEDS: ELIQUIS 2.5 MG PO ×2 (08:19→21:26)
[2024-05-27] MEDS: MS CONTIN (EXTENDED RELEASE) 30 MG PO ×2 (08:19→21:26)
[2024-05-27] MEDS: FARXIGA 10 MG PO (08:19)
[2024-05-27] MEDS: ZYLOPRIM 150 MG PO (08:20)
[2024-05-27] MEDS: MIRALAX 17 GRAMS PO (08:20)
[2024-05-27] MEDS: ProAmatine 5 MG PO ×3 (08:20→21:33)
[2024-05-27] MEDS: ZITHROMAX 500 MG PO (08:20)
[2024-05-27 08:35] LABS: Blood Urea Nitrogen 59 mg/dl (9-20); Carbon Dioxide 25 mmol/L (22-30); Chloride 98 mmol/L (98-107); Estimated Creatinine Clearance 36 ml/min; Glucose 75 mg/dl (70-99); HDL Cholesterol 46 mg/dl; LDL Cholesterol, Calculated 42 mg/dl; Magnesium 2.2 mg/dl (1.6-2.3); Potassium 5.3 mmol/L (3.5-5.1); Sodium 134 mmol/L (135-145); Total Cholesterol 108 mg/dl (50-199); Total Protein 6.1 g/dl (6.3-8.2); Triglyceride 102 mg/dl (10-149); Very Low Density Lipoprotein 20 mg/dl (0-30); eGFR 48.65
[2024-05-27 09:01] LABS: TSH Reflex To Free T4 0.35 uIU/ml (0.47-4.68)
[2024-05-27 09:30] LABS: Free T4 1.54 ng/dl (0.78-2.19)
--- NOTE | 2024-05-27 09:38 | W.PN.HOSP.TC ---
Today's Communication/Plan
-
see bold
Assessment / Plan
Assessment / Plan
88-year-old male with PMH of asbestos lung disease, recurrent pleural effusion requiring thoracentesis 10/23, hypertension, anemia, GERD, CHF, atrial Fib, chronic pain syndrome who presented to the emergency department with son due to worsening
dyspnea on exertion and hypoxia. He was recently hospitalized earlier this month for shortness of breath with negative work-up (IR consulted for thoracentesis but not enough fluid)
Upon arrival patient required 2 L of oxygen. Chest x-ray with chronic pleural effusion and RLL pneumonia. Patient volume overloaded on exam.
CXR
IMPRESSION:
Findings compatible with possibly loculated likely chronic left pleural effusion without significant change.
Likely slightly increased right basilar opacification which could represent atelectasis and/or pneumonia and tiny right pleural effusion.
Acute hypoxic respiratory failure secondary to right lower lobe pneumonia and heart failure
-Patient requiring 2 L of oxygen
-COVID-negative and Flu negative; Strep and Legionella negative
-CXR with pleural effusion and pneumonia, results above
-Continue IV antibiotics ceftriaxone and azithromycin
-IR consulted for thoracentesis (discussed with IR, US to be done tomorrow to see if enough fluid)
-Nebs as needed for short of breath and wheezing
HFpEF, Acute Exacerbation
Hx Mitral Valve Repair
Hx Bovine Aortic Valve Replacement
-TTE 09/22 with EF 50%
-s/p Lasix 40 in ER with mild creatinine bump but this is likely 2/2 retention (see below); patient continues to look wet on exam
-start Lasix 40mg IV QD
-Continue Farxiga 10 mg daily
-strict I/O, daily weights
-repeat TTE tomorrow
Urinary Retention
-bladder scanned for > 700
-bladder scan and straight cath protocol
GIOVANY
-in setting of retention
-may need straight cath
-continue diuresis
-montior closely
Hyperkalemia
K 5.3
low K diet for today
-repeat labs 5PM
# Anemia of chronic disease
-Hemoglobin stable at 8.5
-No active bleeding
-Continue to monitor
Hyponatremia
-stable at 134
#chronic weight loss - due to acute on chronic cervical/thoracic pain with failure to thrive
-Severe protein/calorie malnutrition of chronic illness
-Appetite improving on Megace.
#Chronic pain syndrome/chronic opiate dependence
#Chronic cervical/thoracic scapular pain
-Morphine continue
#Aortic valve replacement, Mitral valve repair
# Paroxysmal A-fib
-Obtain EKG
-Eliquis continued
#BPH/TURP
#Gout
- cont allopurinol
#DVT prophylaxis
-Eliquis
Code status: FULL CODE
51 minutes spent on patient care
Anticipated Discharge: 24 - 48 hours
Subjective/Interval History
-
Date of Service: May 27, 2024
he remains short of breath
states is having some trouble urinating - RN about to bladder scan
Objective Data
-
Labs:
Laboratory Results
05/27/24 05/27/24
07:15 07:16
WBC 13.7 H
Hgb 9.2 L
Hct 28.0 L
Plt Count 444 H
Sodium 134 L
Potassium 5.3 H
Chloride 98
Carbon Dioxide 25
BUN 59 H
Creatinine 1.4 H
Glucose 75
Calcium 10.0
Vital Signs:
Vital Signs
Temp Pulse Resp BP Pulse Ox
98 F 80 18 116/71 100
05/27/24 07:00 05/27/24 08:20 05/27/24 07:00 05/27/24 08:20 05/27/24 07:00
I&O
05/26/24 05/27/24 05/28/24
06:59 06:59 06:59
Output Total 250 / 250
Balance -250 / -250
Review of Systems
-
History Source: Patient
All other systems: Reviewed and negative
Physical Exam
-
General: Other (appears midlly tachypneic )
HEENT: Normocephalic, Atraumatic and Moist Mucous Membranes
Respiratory: Rales and Decreased Breath Sounds
Cardiac: Regular Rhythm, S1/S2, Murmur and JVD
GI: Soft, Nontender, Nondistended and Normal Bowel Sounds
Musculoskeletal: No Clubbing, No Cyanosis and No Edema
Skin: Warm and Dry
Neuro: AO x 3
Psych: Calm
Data Reviewed
-
Diagnostic Radiology: Report Reviewed by me
Labs: Labs Reviewed by me
--- NOTE | 2024-05-27 09:51 | CM ---
CM following re: discharge planning.
Reviewed pt's chart, met with pt.
Pt is an 88 year old male, admitted with primary dx of
Patient reports he lives with his and son in a one story home with a basement and one step to enter. Pt repprts his son helps both him and his spouse.
Patient stated he uses a cane for short distances, and a walker for long distances, has a wheelchair. No VN or SNF history.
PCP: Ruben Oro
Pharmacy: [facility] in [place].
D/C plan: home with anticipated no needs. Son to transport at discharge.
CM will continue to follow and assist with discharge planning as hospitalization progresses.
[2024-05-27] MEDS: LASIX 40 MG IV (12:04)
[2024-05-27 17:25] LABS: Blood Urea Nitrogen 63 mg/dl (9-20); Calcium 9.8 mg/dl (8.4-10.2); Carbon Dioxide 28 mmol/L (22-30); Chloride 97 mmol/L (98-107); Estimated Creatinine Clearance 31 ml/min; Glucose 102 mg/dl (70-99); Potassium 5.7 mmol/L (3.5-5.1); Sodium 135 mmol/L (135-145); eGFR 41.44
[2024-05-27] MEDS: STERILE WATER FOR INJECTION 10 ML IV (17:28)
[2024-05-27] MEDS: ROCEPHIN 1000 MG IV (17:28)
[2024-05-27 17:31] LABS: Troponin I 0.012 ng/ml
[2024-05-27] MEDS: MIRALAX PO (17:43)
--- NOTE | 2024-05-27 18:25 | W.PN.UPDATE ---
Update Note
Progress Note Update
repeat labs with worsening renal function and K. He is still retaining
-will place penaloza
-small bolus back and give Lokelma, repeat labs at 11PM
-formal renal consult tomorrow
[2024-05-27] MEDS: NSS 250 IV (18:44)
--- NOTE | 2024-05-27 18:45 | PTCARENOTE ---
Updated Dr. Watkins on lab results from 1700 this evening as well as the need to straight cath pt again for a PVR of 429ml at 1800. See new orders to place penaloza catheter. Updated pt and his son on plan. Inserted penaloza catheter at 1830 without any
difficulty.
[2024-05-27] MEDS: LOKELMA 10 GRAM PO (19:38)
[2024-05-27] MEDS: LOW STRENGTH ASPIRIN 162 MG PO (21:27)
[2024-05-27 22:26] LABS: Blood Urea Nitrogen 63 mg/dl (9-20); Calcium 9.6 mg/dl (8.4-10.2); Carbon Dioxide 26 mmol/L (22-30); Chloride 97 mmol/L (98-107); Estimated Creatinine Clearance 31 ml/min; Glucose 111 mg/dl (70-99); Potassium 4.7 mmol/L (3.5-5.1); Sodium 134 mmol/L (135-145); eGFR 41.44
[2024-05-28] VITALS (11 sets, daily range): BP systolic 80–135; BP diastolic 41–77; PULSE 64–91; O2SAT 95; BMI 21.4
[2024-05-28] MEDS: TYLENOL 650 MG PO (03:39)
[2024-05-28] MEDS: MS CONTIN (EXTENDED RELEASE) 30 MG PO (06:16)
[2024-05-28 07:39] LABS: Hematocrit 24.5 % (39.0-52.0); Hemoglobin 7.7 g/dL (13.0-18.0); Mean Corp Hgb Conc. 31.4 g/dL (33.0-37.0); Mean Corpuscular Hgb 27.7 pg (27.0-31.0); Mean Corpuscular Volume 88.1 fL (80.0-94.0); Mean Platelet Volume 9.2 fL (7.4-10.4); Platelet Count 396 10^3/uL (130-400); Red Blood Cell Count 2.78 10^6/uL (4.70-6.10); Red Cell Dist. Width 18.8 % (11.5-14.5); White Blood Cell Count 12.7 10^3/uL (4.8-10.8)
[2024-05-28 08:08] LABS: Blood Urea Nitrogen 61 mg/dl (9-20); Calcium 9.8 mg/dl (8.4-10.2); Carbon Dioxide 26 mmol/L (22-30); Chloride 98 mmol/L (98-107); Estimated Creatinine Clearance 31 ml/min; Glucose 82 mg/dl (70-99); Potassium 4.7 mmol/L (3.5-5.1); Sodium 134 mmol/L (135-145); eGFR 41.44
[2024-05-28] MEDS: MEGACE ORAL SUSPENSION 400 MG PO (08:31)
[2024-05-28] MEDS: MIRALAX 17 GRAMS PO (08:31)
[2024-05-28] MEDS: FARXIGA 10 MG PO (08:31)
[2024-05-28] MEDS: ZYLOPRIM 150 MG PO (08:32)
[2024-05-28] MEDS: ProAmatine 5 MG PO ×3 (08:32→22:59)
[2024-05-28] MEDS: ZITHROMAX 500 MG PO (08:33)
[2024-05-28] MEDS: ELIQUIS 2.5 MG PO ×2 (08:33→19:55)
--- NOTE | 2024-05-28 08:48 | W.PN.HOSP.TC ---
Today's Communication/Plan
-
see bold
Assessment / Plan
Assessment / Plan
88-year-old male with PMH of asbestos lung disease, recurrent pleural effusion requiring thoracentesis 10/23, hypertension, anemia, GERD, CHF, atrial Fib, chronic pain syndrome who presented to the emergency department with son due to worsening
dyspnea on exertion and hypoxia. He was recently hospitalized earlier this month for shortness of breath with negative work-up (IR consulted for thoracentesis but not enough fluid)
Upon arrival patient required 2 L of oxygen. Chest x-ray with chronic pleural effusion and RLL pneumonia. Patient volume overloaded on exam.
CXR
IMPRESSION:
Findings compatible with possibly loculated likely chronic left pleural effusion without significant change.
Likely slightly increased right basilar opacification which could represent atelectasis and/or pneumonia and tiny right pleural effusion.
Acute hypoxic respiratory failure secondary to right lower lobe pneumonia and heart failure
-Patient requiring 2 L of oxygen, wean as tolerated. Patient does not wear oxygen at home
-COVID-negative and Flu negative; Strep and Legionella negative
-CXR with pleural effusion and pneumonia, results above
-Continue IV antibiotics ceftriaxone and azithromycin D3
-Status post right thoracentesis 05/28, draining 850 cc of dark bloody pleural fluid
-Nebs as needed for short of breath and wheezing
HFmrEF, Acute Exacerbation
Hx Mitral Valve Repair
Hx Bovine Aortic Valve Replacement
-TTE 09/22 with EF 50%
-S/p Lasix 40mg IV daily, consult cardiology, patient known to Dr. Cadence Qureshi
-Continue Farxiga 10 mg daily
-05/28/24 Echo EF 45-50%
Urinary Retention
-S/p penaloza, started flomax
Constipation
-Start laxatives
Stage IIIb CKD
-Appreciate nephrology input, suspect creatinine still in baseline range with known stage IIIb chronic kidney disease
Hyperkalemia
-Resolved status post Lokelma
# Anemia of chronic disease
-Hemoglobin stable
Hyponatremia
-stable
#chronic weight loss - due to acute on chronic cervical/thoracic pain with failure to thrive
-Severe protein/calorie malnutrition of chronic illness
-Appetite improving on Megace.
#Chronic pain syndrome/chronic opiate dependence
#Chronic cervical/thoracic scapular pain
-05/28, patient appears lethargic, decrease MS Contin from 30 mg every 12 hours to 15 mg every 12 hours
#Aortic valve replacement, Mitral valve repair
# Paroxysmal A-fib
-Obtain EKG
-Eliquis continued
#BPH/TURP
#Gout
- cont allopurinol
DVT prophylaxis�Eliquis
Full code
Dispo - lives w/ family, PT rec SNF
Updated son at bedside 05/28
Total time spent to see the patient on the floor, examine the patient, review data and lab results, discuss treatment plan with patient, nursing staff around 51 minutes.
Physical Exam
General: Frail, elderly, no acute distress
HEENT: Normocephalic, Atraumatic, EOMI, MMM
Respiratory: Right basilar Rales with pleural rub
Cardiac: Normal S1/S2, Regular Rate and Rhythm
GI: Soft, Nontender, Nondistended, Normal Bowel Sounds
Extremities: No Clubbing, Cyanosis, or Edema
Anticipated Discharge: 24 - 48 hours
Subjective/Interval History
-
Date of Service: May 28, 2024
Patient reports his shortness of breath is improved. He does feel intermittent palpitations. No chest pain, no cough. No fever, no vomiting.
Objective Data
-
Labs:
Laboratory Results
05/27/24 05/28/24
21:59 06:57
WBC 12.7 H
Hgb 7.7 L
Hct 24.5 L
Plt Count 396
Sodium 134 L 134 L
Potassium 4.7 4.7
Chloride 97 L 98
Carbon Dioxide 26 26
BUN 63 H 61 H
Creatinine 1.6 H 1.6 H
Glucose 111 H 82
Calcium 9.6 9.8
Vital Signs:
Vital Signs
Temp Pulse Resp BP Pulse Ox
97.9 F 89 20 124/68 96
05/28/24 07:20 05/28/24 08:32 05/28/24 07:20 05/28/24 08:32 05/28/24 08:30
I&O
05/27/24 05/28/24 05/29/24
06:59 06:59 06:59
Intake Total 490 / 490
Output Total 250 / 250 2149 / 2149
Balance -250 / -250 -1660 / -1659
[2024-05-28 10:20] LABS: Iron 26 ug/dl (49-181)
--- NOTE | 2024-05-28 10:28 | PTCARENOTE ---
Pt returned from IR via stretcher s/p Rt thoracentesis. Pt AAO x3, HERNANDEZ; able to transfer to bed with assist x2; tires easily. maintained on nc 2 lpm- pt with (+) slight WELLER. pulse ox 95%. Rt flank dsg D/I; lungs with sl coarse scattered BS
posteriorly. Resting in bed at present. Will continue to monitor.
[2024-05-28 10:32] LABS: Percent Saturation 10 % (20-50); Total Iron Binding Capacity 250 ug/dl (261-462)
[2024-05-28 10:44] LABS: Body Fluid pH 7.33
[2024-05-28 10:59] LABS: Body Fluid Glucose 73 mg/dl; Body Fluid LDH 447 U/L; Body Fluid Protein 3.5 g/dl; Body Fluid Triglycerides 38 mg/dl
[2024-05-28 11:20] LABS: Body Fluid Mononuclear 65.3 %; Body Fluid Polymorphonuclear 34.7 %; Body Fluid WBC 1148 /CUMM
[2024-05-28] MEDS: SENOKOT-S 2 TABLET PO ×2 (11:20→19:56)
[2024-05-28] MEDS: FLOMAX 0.4 MG PO (11:22)
[2024-05-28] MEDS: TUMS EX (EXTRA STRENGTH) CHEWABLE TABLET 300 MG PO (11:23)
[2024-05-28 11:27] LABS: Folate > 20.0 ng/ml (2.76-20); Vitamin B12 642 pg/ml (239-931)
[2024-05-28 11:31] LABS: Body Fluid Second Tech EM
--- NOTE | 2024-05-28 12:01 | CON.CAR ---
Addendum entered and electronically signed by Brian Hutchins DO 05/28/24 17:32:
I saw and examined the patient.
The [employer] Customer Support Officer's note was reviewed and I agree with the note.
Comment: PCP: Dr. Oro
Concrete Finishing Machine Operator: Dr. ORLANDO Qureshi
Impression:
Recovered nonischemic CM
HTN
HLD
s/p bioprosthetic AVR and mitral valve repair 04/2010
Paroxysmal atrial fibrillation
Chronic Eliquis AC
Hyperparathyroidism
CKD 3
Asbestosis
Recurrent pleural effusion
s/p thoracentesis 09/28/2023 w/ 1450 cc dark bloody fluid removed
s/p thoracentesis 05/28/2024 w/ 850 cc dark bloody fluid removed. Chronic back pain
Echo 09/28/2023: EF 50%, mild cLVH, well seated #32 annuloplasty ring, well seated #27 Stahl bovine AVR with peak/mean gradients 9/5 mmHg, mild TR, estimated PAP 25-30 mmHg
Echo 05/28/2024: Study pending
PLAN:
Patient's status post thoracentesis with 850 cc dark bloody fluid removed.
Hemoglobin 7.7. Patient takes Eliquis and aspirin currently. Would stop aspirin at this point given increased bleeding risk.
Monitor H/H. May need to hold Eliquis if hemoglobin continues to come down.
He was given 2 doses of IV lasix and creat increased to 1.6. Lasix now on hold. Baseline appears to be closer to 1.2-1.3. Creat remains elevated at 1.6 05/28. Nephrology consulted by primary service.
Patient's weight is stable and lower than it has been per hospital record. Patient does not appear volume overloaded.
The patient does not routinely take Lasix and may not need to be resumed on oral Lasix. Appreciate nephrology input.
Check echo to reevaluate left ventricular systolic function, AVR and MV repair
Continue midodrine for blood pressure support.
Continue pulmonary toilet, O2 management and antibiotics and supportive care by primary service.
Discussed with son at bedside.
HPI: Reji is an 88 year old male with PMH of recovered cardiomyopathy, HTN, HLD, AVR, mitral valve replacement, paroxysmal atrial fibrillation, hyperparathyroidism, CKD, asbestosis, back pain, and recurrent pleural effusion. He presented to [facility]
for evaluation of worsening SOB and hypoxia. With ambulating only short distances at home, his pulse ox was noted to drop into the 80s and he was very SOB. Given worsening symptoms, he came to [facility] for evaluation. In ER, he was hypoxic and required
2L NC. Chest xray noted what appeared to be a chronic pleural effusion on the L. ProBNP was elevated, up to 2250. He was started on IV lasix as well as antibiotics and was admitted for further evaluation. He underwent thoracentesis 05/28 with 850 cc
dark bloody fluid removed. Hgb down to 7.7. Cardiology consulted for evaluation given concern for acute heart failure. He continues to feel somewhat SOB post thoracentesis, however has noted some improvement in breathing throughout admission. Creat
bumped to 1.6 with diuresis and lasix has been placed on hold. Nephrology consult placed y primary service.
Original Note:
Consultation
Consultation Request
Date/Time Consultation Requested: 05/28/2024
Date/Time Consultation Performed: 05/28/2024
Requesting Provider: Dr. Gonsalez
Performing Provider: Gay Truong PA-C for Dr. Hutchins
Reason for Consultation: CHF
Medical History
-
History of Present Illness:
HPI: Reji is an 88 year old male with PMH of recovered cardiomyopathy, HTN, HLD, AVR, mitral valve replacement, paroxysmal atrial fibrillation, hyperparathyroidism, CKD, asbestosis, back pain, and recurrent pleural effusion. He presented to [facility]
for evaluation of worsening SOB and hypoxia. With ambulating only short distances at home, his pulse ox was noted to drop into the 80s and he was very SOB. Given worsening symptoms, he came to [facility] for evaluation. In ER, he was hypoxic and required
2L NC. Chest xray noted what appeared to be a chronic pleural effusion on the L. ProBNP was elevated, up to 2250. He was started on IV lasix as well as antibiotics and was admitted for further evaluation. He underwent thoracentesis 05/28 with 850 cc
dark bloody fluid removed. Hgb down to 7.7. Cardiology consulted for evaluation given concern for acute heart failure. He continues to feel somewhat SOB post thoracentesis, however has noted some improvement in breathing throughout admission. Creat
bumped to 1.6 with diuresis and lasix has been placed on hold. Nephrology consult placed y primary service.
PMH:
Recovered nonischemic CM
HTN
HLD
s/p bioprosthetic AVR and mitral valve repair 04/2010
Paroxysmal atrial fibrillation
Chronic Eliquis AC
Hyperparathyroidism
CKD 3
Asbestosis
Recurrent pleural effusion
Chronic back pain
Past Medical History
Past Medical History: Other (In HPI)
Past Surgical History: Cardiac (AVR, mitral valve replacement ) and Other (hernia repair, TURP, cataract extraction)
Social History
Tobacco: Former Smoker
Alcohol: Occasional
Drug: None
Personal:
Living: With Family
Employment: Retired
Family History
Family History: CAD, Cancer and Hypertension
Allergies / Home Medications
Allergy/AdvReac Type Severity Reaction Status Date / Time
No Known Allergies Allergy Verified 05/26/24 15:16
�Medication �Instructions �Recorded �Confirmed �Type
Lactobac no.2-Bifidobac no.1-S. 1 cap PO DAILY #30 caps 04/13/24 05/26/24 Rx
thermo 112.5 billion cell capsule
(Visbiome)
allopurinol 300 mg tablet 150 mg (1/2 x 300 mg) PO DAILY 04/13/24 05/26/24 Rx
Gout #30 tabs
calcium carbonate 500 mg PO TIDPRN PRN indigestion 04/13/24 05/26/24 Rx
#30 tabs
coenzyme Q10 200 mg capsule (Co 200 mg PO HS Supplement #30 caps 04/13/24 05/26/24 Rx
Q-10)
dapagliflozin propanediol 10 mg 10 mg PO DAILY diabetes #30 tabs 04/13/24 05/26/24 Rx
tablet (Farxiga)
therapeutic multivitamin 1 tab PO DAILY Supplement #30 tabs 04/13/24 05/26/24 Rx
vitamins A,C,D-wecx-mprlrt 2,148 1 tab PO BID Supplement #30 tabs 04/13/24 05/26/24 Rx
mcg-113 mg-45 mg-17.4 mg tablet
(PreserVision AREDS)
lidocaine 4 % topical patch 1 patch topical Q8HPRN PRN LOWER 04/20/24 05/26/24 History
BACK
acetaminophen 650 mg 1,300 mg PO [id number] PRN MILD PAIN 05/26/24 05/26/24 History
tablet,extended release
apixaban 2.5 mg tablet (Eliquis) 2.5 mg PO BID Blood Clot 05/26/24 05/26/24 History
Prevention/Tx
aspirin 81 mg chewable tablet 162 mg PO HS Blood Clot 05/26/24 05/26/24 History
Prevention/Tx
megestrol 400 mg/10 mL (40 mg/mL) 400 mg PO DAILY Gastrointestinal 05/26/24 05/26/24 History
oral suspension Issue
midodrine 5 mg tablet 5 mg PO TID Blood Pressure 05/26/24 05/26/24 History
morphine 30 mg tablet,extended 30 mg PO Q12H Pain 05/26/24 05/26/24 History
release
polyethylene glycol 3350 17 gram 8.5 g PO QPM Gastrointestinal Issue 05/26/24 05/26/24 History
oral powder packet (Miralax)
polyethylene glycol 3350 17 gram 17 g PO DAILY Gastrointestinal 05/26/24 05/26/24 History
oral powder packet (Miralax) Issue
sennosides 8.6 mg tablet (senna) 8.6 mg PO HS Gastrointestinal Issue 05/26/24 05/26/24 History
Review of Systems
-
History Source: Patient
All other systems: Negative unless noted
Physical Exam
Vital Signs
Temp Pulse Resp BP Pulse Ox
97.8 F 96 20 112/65 95
05/28/24 09:25 05/28/24 10:08 05/28/24 10:08 05/28/24 10:08 05/28/24 10:32
Lab Results
05/28/24 06:57
05/28/24 06:57
Troponin I 0.012 ng/ml 05/27/24 16:49
Gzd-K-Czioubvqoto Pept 2250 pg/ml 05/26/24 15:58
Physical Exam
General: Well Developed, Well Nourished and No Apparent Distress
HEENT: Normocephalic and Moist Mucous Membranes
Respiratory: Crackles and Non Labored Respirations
Cardiac: S1/S2 and Regular Rhythm
Musculoskeletal: No Clubbing, No Cyanosis and Edema
Skin: Warm and Dry
Neuro: AO x 3 and Nonfocal/Grossly Intact
Psych: Calm
Impression / Plan
-
PCP: Dr. Oro
Concrete Finishing Machine Operator: Dr. ORLANDO Qureshi
Impression:
Recovered nonischemic CM
HTN
HLD
s/p bioprosthetic AVR and mitral valve repair 04/2010
Paroxysmal atrial fibrillation
Chronic Eliquis AC
Hyperparathyroidism
CKD 3
Asbestosis
Recurrent pleural effusion
s/p thoracentesis 09/28/2023 w/ 1450 cc dark bloody fluid removed
s/p thoracentesis 05/28/2024 w/ 850 cc dark bloody fluid removed.
Chronic back pain
Echo 09/28/2023: EF 50%, mild cLVH, well seated #32 annuloplasty ring, well seated #27 Stahl bovine AVR with peak/mean gradients 9/5 mmHg, mild TR, estimated PAP 25-30 mmHg
Echo 05/28/2024: Study pending
Impression:
-Presented with worsening SOB and hypoxia at home. Admitted with concern for acute heart failure.
-s/p thoracentesis 05/28 with 850 cc dark bloody fluid removed. He has history of blood pleural effusion 08/2023 and underwent thoracentesis 08/2023.
-Hgb down to 7.7 in AM 05/28. On Eliquis 2.5mg BID and aspirin 162 mg daily. Will stop aspirin.
-Continue to follow hgb and may need to also hold Eliquis if hemoglobin continues to drop.
-He was given 2 doses of IV lasix and creat bumped to 1.6. Lasix now on hold. Baseline appears to be closer to 1.2-1.3. Creat remains elevated at 1.6 05/28. Nephrology consulted by primary service.
-Weight is stable at 149lbs. Son reports this is his recent baseline.
-Check echo. Previously EF 50% with stable AVR/mitral valve replacement.
-ECG reviewed. SR with PVCs. No afib noted on review of telemetry.
-BP stable, continue midodrine.
-Continue Farxiga 10mg daily.
-Continue abx per primary service.
-Remains on 2L NC, wean as able.
HPI: Reji is an 88 year old male with PMH of recovered cardiomyopathy, HTN, HLD, AVR, mitral valve replacement, paroxysmal atrial fibrillation, hyperparathyroidism, CKD, asbestosis, back pain, and recurrent pleural effusion. He presented to [facility]
for evaluation of worsening SOB and hypoxia. With ambulating only short distances at home, his pulse ox was noted to drop into the 80s and he was very SOB. Given worsening symptoms, he came to [facility] for evaluation. In ER, he was hypoxic and required
2L NC. Chest xray noted what appeared to be a chronic pleural effusion on the L. ProBNP was elevated, up to 2250. He was started on IV lasix as well as antibiotics and was admitted for further evaluation. He underwent thoracentesis 1/27 with 850 cc
dark bloody fluid removed. Hgb down to 7.7. Cardiology consulted for evaluation given concern for acute heart failure. He continues to feel somewhat SOB post thoracentesis, however has noted some improvement in breathing throughout admission. Creat
bumped to 1.6 with diuresis and lasix has been placed on hold. Nephrology consult placed y primary service.
Data Reviewed
-
EKG: Tracing Personally Visualized and interpreted
Radiology: Report Reviewed by me
Labs: Labs Reviewed by me
Old Records: Reviewed
[2024-05-28] MEDS: PEPCID 20 MG PO (12:43)
[2024-05-28] MEDS: MAALOX PLUS 2 TABLET PO (13:05)
--- NOTE | 2024-05-28 14:30 | W.CON.NEPH ---
Consultation
-
Date/Time Consultation Requested: 05/27/24 1824
Date/Time Consultation Performed: 05/28/24 1600
Requesting Provider: Hilaria Kraus
Performing Provider: Katty Aldrich
Reason for Consultation: GIOVANY with CKD
Medical History
-
Chief Complaint: SOB
History of Present Illness:
88-year-old male with PMH of asbestos lung disease, recurrent pleural effusion requiring thoracentesis 10/23, hypotension on midodrine, GERD, recovered cardiomyopathy, s/p AVR,MVR, P atrial Fib on Eliquis, back pain status post recent
injections/nerve ablation chronic pain syndrome on morphine, hyperparathyroidism, CKD3b baseline cr 1.2-1.[address] Neil who presented to the emergency department with son due to worsening dyspnea on exertion and hypoxia on 05/26. His oxygen
saturation was high 80s with rest and low 80s with exertion. Chest xray noted what appeared to be a chronic pleural effusion on the L. ProBNP was elevated, up to 2250. He was started on IV lasix 40mg daily and his cr noted increase from 1.2 to 1.6,
lasix currently hold and nephrology consulted.
He underwent thoracentesis 05/28 with 850 cc dark bloody fluid removed. Hgb down to 7.7 from 8.5 on admit.
NOte he had recurrent admits in last 1m for back pain and sob and mainly FTT.
Patient denied chest pain. Patient denied fever, chills, congestion, cough. Patient denies headache, dizzy or syncope. Patient denied abdominal pain, nausea, vomiting or diarrhea. Patient denied dysuria hematuria.He only drinks <1lit of
fluid/day. No recent wt gains per family. However he has been more drowzy on pain meds and has poor appetite.
He noted to have U retention and penaloza placed today. He laso has constipation which is better now.
Past Medical History
Hypertension
Hyperkalemia
CKD3b
Carpal tunnel syndrome
Sigmoid diverticulosis
GERD
Gout
A-fib
Cardiomyopathy
Hypertension
Hyperlipidemia
Hyperparathyroidism-secondary
BPH
Anemia
Spinal stenosis
Chronic kidney disease
Rheumatoid arthritis
BPH s/p TURP
Past Surgical History: Other (Mitral valve repair ORIF of left arm Hernia repair TURP Bilateral care tract Left thoracentesis)
Social History
Tobacco: Former Smoker
Alcohol: None
Drug: None
Personal:
Living: With Family
Family History
Family History: Not Pertinent
Allergies / Home Medications
Allergy/AdvReac Type Severity Reaction Status Date / Time
No Known Allergies Allergy Verified 05/26/24 15:16
�Medication �Instructions �Recorded �Confirmed �Type
Lactobac no.2-Bifidobac no.1-S. 1 cap PO DAILY #30 caps 04/13/24 05/26/24 Rx
thermo 112.5 billion cell capsule
(Visbiome)
allopurinol 300 mg tablet 150 mg (1/2 x 300 mg) PO DAILY 04/13/24 05/26/24 Rx
Gout #30 tabs
calcium carbonate 500 mg PO TIDPRN PRN indigestion 04/13/24 05/26/24 Rx
#30 tabs
coenzyme Q10 200 mg capsule (Co 200 mg PO HS Supplement #30 caps 04/13/24 05/26/24 Rx
Q-10)
dapagliflozin propanediol 10 mg 10 mg PO DAILY diabetes #30 tabs 04/13/24 05/26/24 Rx
tablet (Farxiga)
therapeutic multivitamin 1 tab PO DAILY Supplement #30 tabs 04/13/24 05/26/24 Rx
vitamins A,C,A-gjjy-wsopia 2,148 1 tab PO BID Supplement #30 tabs 04/13/24 05/26/24 Rx
mcg-113 mg-45 mg-17.4 mg tablet
(PreserVision AREDS)
lidocaine 4 % topical patch 1 patch topical Q8HPRN PRN LOWER 04/20/24 05/26/24 History
BACK
acetaminophen 650 mg 1,300 mg PO [id number] PRN MILD PAIN 05/26/24 05/26/24 History
tablet,extended release
apixaban 2.5 mg tablet (Eliquis) 2.5 mg PO BID Blood Clot 05/26/24 05/26/24 History
Prevention/Tx
aspirin 81 mg chewable tablet 162 mg PO HS Blood Clot 05/26/24 05/26/24 History
Prevention/Tx
megestrol 400 mg/10 mL (40 mg/mL) 400 mg PO DAILY Gastrointestinal 05/26/24 05/26/24 History
oral suspension Issue
midodrine 5 mg tablet 5 mg PO TID Blood Pressure 05/26/24 05/26/24 History
morphine 30 mg tablet,extended 30 mg PO Q12H Pain 05/26/24 05/26/24 History
release
polyethylene glycol 3350 17 gram 8.5 g PO QPM Gastrointestinal Issue 05/26/24 05/26/24 History
oral powder packet (Miralax)
polyethylene glycol 3350 17 gram 17 g PO DAILY Gastrointestinal 05/26/24 05/26/24 History
oral powder packet (Miralax) Issue
sennosides 8.6 mg tablet (senna) 8.6 mg PO HS Gastrointestinal Issue 05/26/24 05/26/24 History
Review of Systems
-
all complete 12 point ROS have been inquired and found negative other than stated in HPI
Physical Exam
Vital Signs
Vital Signs
Temp Pulse Resp BP Pulse Ox
97.5 F 91 20 124/77 99
05/28/24 11:00 05/28/24 11:00 05/28/24 11:00 05/28/24 11:00 05/28/24 11:00
Lab Results
WBC 12.7 10^3/uL (4.8-10.8) H 05/28/24 06:57
RBC 2.78 10^6/uL (4.70-6.10) L 05/28/24 06:57
Hgb 7.7 g/dL (13.0-18.0) L 05/28/24 06:57
Hct 24.5 % (39.0-52.0) L 05/28/24 06:57
Plt Count 396 10^3/uL (130-400) 05/28/24 06:57
Sodium 134 mmol/L (135-145) L 05/28/24 06:57
Potassium 4.7 mmol/L (3.5-5.1) 05/28/24 06:57
Chloride 98 mmol/L (98-107) 05/28/24 06:57
Carbon Dioxide 26 mmol/L (22-30) 05/28/24 06:57
BUN 61 mg/dl (9-20) H 05/28/24 06:57
Creatinine 1.6 mg/dL (0.7-1.3) H 05/28/24 06:57
eGFR 41.44 05/28/24 06:57
Glucose 82 mg/dl (70-99) 05/28/24 06:57
Calcium 9.8 mg/dl (8.4-10.2) 05/28/24 06:57
Sub-V-Wyxzqshnxxi Pept 2250 pg/ml 05/26/24 15:58
Albumin 3.0 g/dl (3.5-5.0) L 05/26/24 15:58
Physical Exam
General: Awake, Alert, Oriented, AOx3, No Distress and Nontoxic
HEENT: EOMI, Anicteric and No JVD
Respiratory: Clear, Normal Excursion and Nonlabored Respirations
Cardiac: S1/S2 and Regular Rate/Rhythm
Breast: Deferred by me
Abdomen: Soft, Nontender and Nondistended
Musculoskeletal: No Cyanosis and No Edema
Skin: No Rash and Warm
Neuro: Nonfocal/Grossly Intact
Psych: Mood/afflect pleasant and Appropriate
Data Reviewed
-
Radiology: Report Reviewed by me, Discussed with Patient and Discussed with Family
Labs: Labs Reviewed by me, Discussed with Patient and Discussed with Family
Assessment/Plan
-
IMP:
Acute hypoxic respiratory failure secondary to right lower lobe pneumonia and heart failure
HFpEF, Acute Exacerbation
Hx Mitral Valve Repair
Hx Bovine Aortic Valve Replacement
Urinary Retention-bladder scanned for > 700
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
Hyperkalemia
Anemia of chronic disease
Hyponatremia
chronic weight loss - due to acute on chronic cervical/thoracic pain with failure to thrive
Severe protein/calorie malnutrition of chronic illness
Chronic pain syndrome/chronic opiate dependence
Chronic cervical/thoracic scapular pain
Aortic valve replacement, Mitral valve repair
Paroxysmal A-fib
BPH/TURP
Gout
SHPTH
PLan:
A/w SOB, felt to have CHF, ?PNA
s/p lasix cr up at 1.6 from 1.2
suspect cr still in baseline range with known CKD3b
s/p thoracentesis 850cc of dark bloody fluid today
hyperkalemia improved s/p LOkelam
follow U retention with bladder scan , s/p penaloza on flomax
BP stable on midodrine , cotn SGLT2I
cont to hold lasix, unlikely he has CHF exacerbation
could check RHC if needed, await echo
abx per primary
follow h/h -decreasing , fe sat only 10, ferritin borderline high -could still do IV fe course
d/w pt and son at bedside
--- NOTE | 2024-05-28 14:54 | CARDSERVLU ---
Echocardiogram with Lumason completed after protocol screening completed. Allergies verified.
Patent IV site: _Rt FA____
IV site flushed with 0.9% NaCl pre and post administration.
Diluted bolus method utilized to enhance visualization of ventricular barker.
Total volume given: __1.5_ mL
Patient tolerated all procedures well without complications.
--- NOTE | 2024-05-28 16:47 | PTCARENOTE ---
Pt AAO x3, HERNANDEZ; able to transfer to stretcher with assist x1; tejinder well, tires easily; weak; unsteady . VSS Telemetry:NSR with PVC's. Maintained on nc 2 lpm- pulse ox 98%, pt with (+) slight WELLER/tachypnea; occ dry cough. Abd soft, rounded, tejinder
PO, appetite fair; pt c/o 'indigestion' relief obtained with prn meds. Reyes P/I mod amts clear yellow urine. Rt flank thoracentesis site bandaid D/I. Resting quietly at present. Will continue to monitor.
[2024-05-28] MEDS: ROCEPHIN 1000 MG IV (16:59)
[2024-05-28] MEDS: FLUSH (NSS) 1 FLUSH IV (16:59)
[2024-05-28] MEDS: STERILE WATER FOR INJECTION 10 ML IV (16:59)
[2024-05-28] MEDS: MIRALAX 8.2 GRAMS PO (17:38)
--- NOTE | 2024-05-28 18:28 | PTCARENOTE ---
At 1800 called to room by pt's family/PCT. Pt OOB in BR to move bowels; was standing at sink to wash hands and 'passed out' per pt's son. Pt placed in chair; then transferred to bed. Telemetry shows HR - SR to 40's during episode. Pt gradually
awakened; BP 135/71; HR now SR 90's-100's. O2 nc increased to 3 lpm. Per pt's son pt has h/o vasovagal episodes at [facility]. Dr. Gonsalez and Dr. Dany Woodruff notified. Pt resting quietly in bed at present. Will continue to monitor.
[2024-05-28] MEDS: MS CONTIN (EXTENDED RELEASE) 15 MG PO (19:55)
--- NOTE | 2024-05-28 23:07 | PTCARENOTE ---
Ortho VS done. BP sitting dropped to 80/41. Pt unable to tolerate standing to do standing BP.
[2024-05-29] VITALS (8 sets, daily range): BP systolic 85–141; BP diastolic 49–70; PULSE 75–85; O2SAT 96; BMI 21.1
[2024-05-29 07:48] LABS: Hematocrit 24.3 % (39.0-52.0); Hemoglobin 7.9 g/dL (13.0-18.0); Mean Corp Hgb Conc. 32.5 g/dL (33.0-37.0); Mean Corpuscular Hgb 28.7 pg (27.0-31.0); Mean Corpuscular Volume 88.4 fL (80.0-94.0); Mean Platelet Volume 9.7 fL (7.4-10.4); Platelet Count 426 10^3/uL (130-400); Red Blood Cell Count 2.75 10^6/uL (4.70-6.10); Red Cell Dist. Width 19.4 % (11.5-14.5); White Blood Cell Count 12.7 10^3/uL (4.8-10.8)
[2024-05-29 08:10] LABS: Blood Urea Nitrogen 57 mg/dl (9-20); Calcium 9.8 mg/dl (8.4-10.2); Carbon Dioxide 26 mmol/L (22-30); Chloride 99 mmol/L (98-107); Estimated Creatinine Clearance 38 ml/min; Glucose 93 mg/dl (70-99); Potassium 4.7 mmol/L (3.5-5.1); Sodium 135 mmol/L (135-145); eGFR 53.17
[2024-05-29] MEDS: ProAmatine 5 MG PO ×2 (08:40→15:14)
[2024-05-29] MEDS: ZYLOPRIM 150 MG PO (08:40)
[2024-05-29] MEDS: ZITHROMAX 500 MG PO (08:40)
[2024-05-29] MEDS: MS CONTIN (EXTENDED RELEASE) 15 MG PO ×2 (08:41→20:18)
[2024-05-29] MEDS: ELIQUIS 2.5 MG PO ×2 (08:41→20:18)
[2024-05-29] MEDS: FARXIGA 10 MG PO (08:41)
[2024-05-29] MEDS: FLOMAX 0.4 MG PO (08:41)
[2024-05-29] MEDS: PEPCID 20 MG PO (08:41)
[2024-05-29] MEDS: SENOKOT-S 2 TABLET PO (08:41)
[2024-05-29] MEDS: MIRALAX 17 GRAMS PO (08:42)
[2024-05-29] MEDS: MEGACE ORAL SUSPENSION 400 MG PO (08:42)
--- NOTE | 2024-05-29 10:06 | W.PN.HOSP.TC ---
Today's Communication/Plan
-
see bold
Assessment / Plan
Assessment / Plan
88-year-old male with PMH of asbestos lung disease, recurrent pleural effusion requiring thoracentesis 10/23, hypertension, anemia, GERD, CHF, atrial Fib, chronic pain syndrome who presented to the emergency department with son due to worsening
dyspnea on exertion and hypoxia. He was recently hospitalized earlier this month for shortness of breath with negative work-up (IR consulted for thoracentesis but not enough fluid)
Upon arrival patient required 2 L of oxygen. Chest x-ray with chronic pleural effusion and RLL pneumonia. Patient volume overloaded on exam.
CXR
IMPRESSION:
Findings compatible with possibly loculated likely chronic left pleural effusion without significant change.
Likely slightly increased right basilar opacification which could represent atelectasis and/or pneumonia and tiny right pleural effusion.
Acute hypoxic respiratory failure secondary to right lower lobe pneumonia and heart failure
History of asbestosis
-Patient requiring 2 L of oxygen, wean as tolerated. Patient does not wear oxygen at home
-COVID-negative and Flu negative; Strep and Legionella negative
-CXR with pleural effusion and pneumonia, results above
-Continue IV antibiotics ceftriaxone and azithromycin D4
-Status post right thoracentesis 05/28, draining 850 cc of dark bloody pleural fluid
-Nebs as needed for short of breath and wheezing
-Consult pulmonology
HFmrEF, Acute Exacerbation
Hx Mitral Valve Repair
Hx Bovine Aortic Valve Replacement
-TTE 09/22 with EF 50%
-S/p Lasix 40mg IV daily, patient known to Dr. Cadence Qureshi
-Appreciate cardiology input, continue Farxiga 10 mg daily
-05/28/24 Echo EF 45-50%
Orthostatic hypotension
Syncope
-Increase midodrine from 5 mg to 10 mg 3 times daily
Urinary Retention
-S/p penaloza, started flomax
Constipation
-Resolved, continue laxatives
Stage IIIb CKD
-Appreciate nephrology input, suspect creatinine still in baseline range with known stage IIIb chronic kidney disease
Hyperkalemia
-Resolved status post Lokelma
# Anemia of chronic disease weeks with iron deficiency anemia
-Start oral iron with vitamin C
-Hemoglobin stable
Hyponatremia
-stable
#chronic weight loss - due to acute on chronic cervical/thoracic pain with failure to thrive
-Severe protein/calorie malnutrition of chronic illness
-Appetite improving on Megace.
#Chronic pain syndrome/chronic opiate dependence
#Chronic cervical/thoracic scapular pain
-05/28, patient appears lethargic, decreased MS Contin from 30 mg every 12 hours to 15 mg every 12 hours
#Aortic valve replacement, Mitral valve repair
# Paroxysmal A-fib
-Obtain EKG
-Eliquis continued
#BPH/TURP
#Gout
- cont allopurinol
DVT prophylaxis�Eliquis
Full code
Dispo - lives w/ family, PT rec SNF
Updated son at bedside 05/29
Total time spent to see the patient on the floor, examine the patient, review data and lab results, discuss treatment plan with patient, nursing staff around 50 minutes.
Physical Exam
General: Frail, elderly, no acute distress
HEENT: Normocephalic, Atraumatic, EOMI, MMM
Respiratory: Right basilar Rales with pleural rub
Cardiac: Normal S1/S2, Regular Rate and Rhythm
GI: Soft, Nontender, Nondistended, Normal Bowel Sounds
Extremities: No Clubbing, Cyanosis, or Edema
Anticipated Discharge: 24 - 48 hours
Subjective/Interval History
-
Date of Service: May 28, 2024
Patient had an episode of vasovagal syncope yesterday. He reports his shortness of breath is the same today as yesterday. No fever, no vomiting.
Objective Data
-
Labs:
Laboratory Results
05/28/24
06:57
WBC 12.7 H
Hgb 7.7 L
Hct 24.5 L
Plt Count 396
Sodium 134 L
Potassium 4.7
Chloride 98
Carbon Dioxide 26
BUN 61 H
Creatinine 1.6 H
Glucose 82
Calcium 9.8
Vital Signs:
Vital Signs
Temp Pulse Resp BP Pulse Ox
97.5 F 93 16 113/74 98
05/28/24 15:30 05/28/24 16:58 05/28/24 15:30 05/28/24 16:58 05/28/24 16:44
I&O
05/27/24 05/28/24 05/29/24
06:59 06:59 06:59
Intake Total 490 / 490
Output Total 250 / 250 0 / 215
Balance -250 / -250 -1660 / -1660
--- NOTE | 2024-05-29 11:59 | CM ---
Reji lives at home with and son in a one story home with 2 entry steps. He is typically independent, but has been dealing with back pain for several months which has limited his ability to get around. He has a walker, cane and wheelchair at
home. Son and daughter provide transportation for Reji and his .
Recent procedure done at [facility] following hospitalization for pleural effusion in early April 2024. Per Reji's son, pt has been having syncopal episodes which caused him to come to ED.
CM will follow to coordinate all identified discharge needs as hospitalization progresses.
PCP: Ruben Oro
Pharmacy: [facility] in [place].
--- NOTE | 2024-05-29 13:38 | PN.CDI ---
CDI
- -
CDI:
Physician Documentation Request
Admit Date: 05/26/24 18:01
Dear Doctor Do
05/28 hospitalist progress note includes a diagnosis of Severe protein/calorie malnutrition of chronic illness
To ensure the quality of the medical record, based on the above information and the recognized standards for malnutrition , could you please verify in your progress notes which of the following responses best reflects the patient's nutritional
status:
Severe Malnutrition is/was present and is a clinical diagnosis (please provide additional support in the medical record)
Other (please specify)
[place] Criteria ([facility] Hospitalist 2017)
2 or more criteria must be present for either
non severe or severe malnutrition
Note that the criteria differs related to the
presence of an acute or chronic illness
Acute Illness Chronic Illness
Energy Intake Non Severe: <75% for >7 days Non Severe: <75% for >1 month
Severe: <50% for >5 days Severe: <75% for >1 month
Weight Loss Non Severe: 1-2% over 1 week Non Severe: 5% over 1 month
5% over 1 month 7.5% over 3 months
7.5% over 3 months 10% over 6 months
1 year N/A 20% over 1 year
Severe: >2% over 1 week Severe: >5% over 1 month
>5% over 1 month >7.5% over 3 months
>7.5% over 3 months >10% over 6 months
1 year N/A >20% over 1 year
Body Fat Non Severe: Mild Decrease Non Severe: Mild Loss
Severe: Moderate Decrease Severe: Severe Loss
Muscle Mass Non Severe: Mild Decrease Non Severe: Mild Loss
Severe: Moderate Decrease Severe: Severe Loss
Fluid Accumulation Non Severe: Mild Accumulation Non Severe: Mild Accumulation
Severe: Moderate to severe Severe: Moderate to severe
accumulation accumulation
Reduced [employer] Strength Non Severe: N/A Non Severe: N/A
Severe: Measurably reduced Severe: Measurably reduced
Use of terms such as suspected, likely, concern for, or probable (associated with a specific diagnosis that is being evaluated, monitored, or treated as if it exists) are acceptable and can be coded in the inpatient setting, when documented at the
time of discharge.
Thank you,
Irma Mendiola RN, BSN
CDI Specialist
tiger text
Please use your independent medical judgment in providing your response.
--- NOTE | 2024-05-29 13:41 | PN.CDI ---
CDI
- -
CDI:
Physician Documentation Request
Admit Date: 05/26/24 18:01
Dear Doctor Do,
Per ED record, pt presented with worsening dyspnea on exertion and hypoxia.
Hospitalist progress notes contain a diagnosis of Acute hypoxic respiratory failure secondary to right lower lobe pneumonia and heart failure
Per vital signs , patient has no exceeded 4L of oxygen use.
Recognized standard criteria for respiratory failure includes:
(Source: [facility]ist Mar 2013)
ABGs (1 or more)
�PO2 <60 or RA SpO2 <91%
�PcO2 >50 and pH <7.35
�pO2 decrease or pcO2 increase by 10 mmHg from baseline if known Symptoms:
�Tachypnea, SOB, dyspnea
�Pallor or cyanosis
�Anxiety or restlessness
�Use of accessory muscles
�Retractions (grunting in newborns)
�Unable to speak in complete sentences
Supplemental O2 requirement of 40% (5LPM) or more Intubation is not required
Based on the above information and the recognized standard for respiratory failure could you please verify this diagnoses is still accurate and reflective of the patient�s condition to ensure quality of the medical record.
Please clarify in the Progress Notes:
�Respiratory failure is/was present and is a clinical diagnosis based on (please include this additional support in the medical record)
�After study respiratory failure has been ruled out
�Other
Use of terms such as suspected, likely, concern for, or probable (associated with a specific diagnosis that is being evaluated, monitored, or treated as if it exists) are acceptable and can be coded in the inpatient setting, when documented at the
time of discharge.
Thank you,
Irma Mendiola RN, BSN
CDI Specialist
tiger text
Please use your independent medical judgment in providing your response.
--- NOTE | 2024-05-29 14:34 | CON.PUL ---
Consultation
Consultation Request
Date/Time Consultation Requested: 05/29/2024
Date/Time Consultation Performed: 05/29/2024
Requesting Provider: Dr. Gonsalez
Performing Provider: Dr. Federico Shah
Reason for Consultation: Exertional dyspnea/loculated pleural effusion
Medical History
-
History of Present Illness:
88-year-old male with history of asbestos exposure and lung disease, recurrent pleural effusion requiring thoracentesis 10/2023, hypertension, anemia, GERD, CHF, atrial fibrillation, chronic pain syndrome who presented to the emergency room with her
son due to worsening dyspnea on exertion and hypoxemia. Found to be mildly hypoxemic. Patient denies any chest pain. Denies any fevers, chills, phlegm production or hemoptysis.
Chest x-ray demonstrated possible pneumonia and pleural effusion.
Past Medical History
Past Medical History: Other (See assessment and plan)
Social History
Tobacco: Former Smoker
Alcohol: None
Drug: None
Personal:
Living: With Family
Family History
Family History: Reviewed & Not Pertinent
Allergies / Home Medications
Allergies
Allergy/AdvReac Type Severity Reaction Status Date / Time
No Known Allergies Allergy Verified 05/26/24 15:16
Home Medications
�Medication �Instructions �Recorded �Confirmed �Last Taken �Type
Lactobac no.2-Bifidobac no.1-S. 1 cap PO DAILY #30 caps 04/13/24 05/26/24 05/26/24 Rx
thermo 112.5 billion cell capsule
(Visbiome)
allopurinol 300 mg tablet 150 mg (1/2 x 300 mg) PO DAILY 04/13/24 05/26/24 05/26/24 Rx
Gout #30 tabs
calcium carbonate 500 mg PO TIDPRN PRN indigestion 04/13/24 05/26/24 10/10/23 Rx
#30 tabs
coenzyme Q10 200 mg capsule (Co 200 mg PO HS Supplement #30 caps 04/13/24 05/26/24 05/26/24 Rx
Q-10)
dapagliflozin propanediol 10 mg 10 mg PO DAILY diabetes #30 tabs 04/13/24 05/26/24 05/26/24 Rx
tablet (Farxiga)
therapeutic multivitamin 1 tab PO DAILY Supplement #30 tabs 04/13/24 05/26/24 05/26/24 Rx
vitamins A,C,R-zpho-ihevkr 2,148 1 tab PO BID Supplement #30 tabs 04/13/24 05/26/24 05/26/24 Rx
mcg-113 mg-45 mg-17.4 mg tablet
(PreserVision AREDS)
lidocaine 4 % topical patch 1 patch topical Q8HPRN PRN LOWER 04/20/24 05/26/24 3 Days Ago History
BACK ~05/23/24
acetaminophen 650 mg 1,300 mg PO [id number] PRN MILD PAIN 05/26/24 05/26/24 05/26/24 History
tablet,extended release
apixaban 2.5 mg tablet (Eliquis) 2.5 mg PO BID Blood Clot 05/26/24 05/26/24 05/26/24 History
Prevention/Tx
aspirin 81 mg chewable tablet 162 mg PO HS Blood Clot 05/26/24 05/26/24 05/25/24 History
Prevention/Tx
megestrol 400 mg/10 mL (40 mg/mL) 400 mg PO DAILY Gastrointestinal 05/26/24 05/26/24 05/26/24 History
oral suspension Issue
midodrine 5 mg tablet 5 mg PO TID Blood Pressure 05/26/24 05/26/24 05/26/24 History
morphine 30 mg tablet,extended 30 mg PO Q12H Pain 05/26/24 05/26/24 05/26/24 History
release
polyethylene glycol 3350 17 gram 8.5 g PO QPM Gastrointestinal Issue 05/26/24 05/26/24 05/25/24 History
oral powder packet (Miralax)
polyethylene glycol 3350 17 gram 17 g PO DAILY Gastrointestinal 05/26/24 05/26/24 05/26/24 History
oral powder packet (Miralax) Issue
sennosides 8.6 mg tablet (senna) 8.6 mg PO HS Gastrointestinal Issue 05/26/24 05/26/24 05/25/24 History
Review of Systems
-
History Source: Patient
All other systems: Negative unless noted
Vitals / Labs / Diagnostic Testing
Vital Signs
Temp Pulse Resp BP Pulse Ox
97.5 F 79 20 100/55 92
05/29/24 07:00 05/29/24 08:40 05/29/24 07:00 05/29/24 08:40 05/29/24 08:45
Lab Data
05/29/24 06:35
05/29/24 06:35
Microbiology
05/28/24 09:52 Pleural Fluid Gram Stain - Final
05/27/24 00:49 Urine Legionella Urinary Antigen - Final
Negative for Legionella pneumophila Serogroup 1 antigen.
A negative result does not rule out the possiblity of
Legionella infection due to other serogroups or species of
Legionella. Clinical correlation is recommended.
05/27/24 00:49 Urine Streptococcus pneumoniae Antigen (M - Final
Negative for Streptococcus pneumoniae antigen.
A negative result does not exclude infection with
Streptococcus pneumoniae. Clinical correlation is
recommended.
05/26/24 15:58 Nasal Swab Influenza Types A & B (PAYAM) - Final
Negative for Influenza A & B, NAAT
Negative results must be combined with clinical observations
and patient history.
Nucleic Acid Amplification test (NAAT)performed on the
[employer] and love and you platform.
Diagnostic Testing:
Physical Exam
-
HEENT: Normocephalic
Cardiovascular: S1/S2
Respiratory: Non-Labored Respirations
GI: Soft and Non Distended
Neurology: Awake, Alert and No Motor Deficits
Skin: Warm
General: Comfortable
Assessment
-
88-year-old man with past medical history noted. Admitted with worsening shortness of breath. Having significant back pain, ambulatory dysfunction, chronic stable left loculated pleural effusion.
Came to the hospital on 05/26/2024 complaining of shortness of breath and mild hypoxemia. Found to have leukocytosis.
New right lower lobe infiltrate-possible pneumonia
Negative COVID
Negative Legionella/strep antibody/negative influenza
Leukocytosis/afebrile
Right pleural effusion: 850 cc of dark blood pleural fluid 05/28/2024
Cannot rule out heart failure component: Elevated proBNP 2250/negative troponin.
Echocardiogram 05/28/2024: Ejection fraction 45 to 50%. Dilated left atrium. Trace MR. Status post mitral valve and aortic valve replacement. Trivial pericardial effusion.
Chronic anemia hemoglobin 7.9-contributing to shortness of breath
-
Conditions present prior admission:
Chronic exertional dyspnea: Suspect due to his significant back pain, deconditioning, muscle mass loss.
CT chest 05/06/2024: No evidence for pulmonary embolism or thoracic aortic dissection. Bilateral calcified pleural plaques/prior asbestos exposure. Stable small left loculated pleural effusion.
-Chronic loculated left pleural effusion: In January to a small for thoracentesis-volume appears stable this admission 05/2024.
Thoracentesis 09/28/2023: 1.4 L of dark bloody pleural fluid negative for cytology-exudate
-Severe back pain/spinal stenosis-status post ablation.
-Failure to thrive
-Chronic anemia hemoglobin this time 9.6-contributing to symptoms.
-Metabolic alkalosis
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
History of nonischemic cardiomyopathy with recovered EF.
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
Paroxysmal atrial fibrillation
Chronic anticoagulation
Hyperparathyroidism
Chronic kidney disease
#Former tobacco smoker 30-whem-ktrp history quit at age 57
-
Assessment and plan:
-
Current presentation suggest right lower lobe pneumonia with also component of acute on chronic heart failure with reduced ejection fraction.
-
Patient does have history of chronic left pleural effusion that appears stable on current chest x-ray-not enough fluid to drain on ultrasound 05/06/2024 and 02/13/2024. Fluid is loculated and chronic.
-
[facility] records reviewed: He was offered pleural biopsy to determine whether mesothelioma is present but patient declined due to comorbidities and advanced age.
Recent 6-minute walk testing without oxygen saturation in the office 01/03/2024.
Recently he was in the hospital also complaining of shortness of breath in early May and that pleural effusion also appears to be stable.
Prior left thoracentesis showed exudative with negative cytology and culture.
-
Right pleural effusion is new compared to prior imaging: Possibly parapneumonic. Dark bloody fluid in the setting of anticoagulation.
pH 7.33/white blood cells 1148/65% mononuclear/34% polymorph /glucose 73/total protein 3.5/LDH 447/triglycerides 38. Exudative.
Wait for cultures and cytology
Agree with antibiotics to complete 5-7 course
So far all cultures negative continue to follow
-
Continue oxygen supplementation to maintain pulse ox above 88% currently on 2 L. Hopefully can be weaned off.
Not usually on oxygen therapy.
-
Patient does have history of asbestos exposure with significant Benign pleural plaques With minimal increased interstitial markings from chronic fibrosis based on CAT scan from 05/06/2024.
Pleural effusions could be postcardiotomy syndrome versus related to asbestos at least on the left.
Less likely mesothelioma but possible-patient is aware of these as noted above.
Again, right pleural effusion is new and will need to be followed in the outpatient setting.
-
Diuresis per cardiology and nephrology.
Patient is having orthostasis
Continue midodrine
Echocardiogram this admission noted
Follow renal function and electrolytes
-
Toxic metabolic encephalopathy. At risk for aspiration
Morphine has been decreased
Fall precautions
-
Anemia contributing to his shortness of breath as well.
Transfuse as necessary
Nephrology recommended iron infusion
-
He also have chronic back pain that is contributing to shortness of breath. Spinal stenosis. Underwent recent ablation.
Due to immobility has lost significant amount of muscle mass
Continue physical therapy as able
-.
Dr. Shah updated son at the bedside.
-
Patient to follow-up with Dr. Aaron after discharge.
Last time seen in our office was 05/22/2024.

Data:
CT chest 04/05/2025,
1. No evidence of pulmonary embolism or thoracic aortic dissection.
2. Bilateral calcified pleural plaques, consistent with asbestos related pleural disease.
3. Small loculated left pleural effusion, unchanged compared to prior CT, however increased in size compared to a prior CT dated 09/28/2023. Given calcified pleural plaques and increasing loculated pleural effusion, mesothelioma is not excluded.
4. Small right pleural effusion, new compared to prior CT.
5. Mild reticular interstitial thickening, suggestive of senescent change, mild interstitial fibrosis.
6. Severe coronary arterial calcification. Please correlate with symptoms of and risk factors for coronary artery disease, with further workup as clinically appropriate.
-
CT Chest 02/15/2024:
Small-moderate stable partially loculated left pleural effusion with associated underlying atelectasis.
Stable postoperative changes
Stable calcified pleural plaques suggesting prior asbestos exposure
Atherosclerosis
CXR 02/13/2024:
Moderate loculated left pleural effusion. Stable.
Probable associated mild left lower lobe pneumonia. New
Findings consistent with prior asbestos exposure. Stable.
Chest US 02/14/2024: Small LEFT pleural effusion. Amount of fluid present not sufficient for safe thoracentesis.
-
Echocardiogram 09/08/2023: Normal LVEF. Normal biventricular size and function. Status post aortic valve replacement. Mild TR.
--- NOTE | 2024-05-29 14:37 | W.PN.CARDCBS ---
Today's Communication / Plan
-
Episode of orthostasis/syncope on 05/28
Remains hypotensive and may have to increase midodrine
Buhl to be overdiuresed and renal function has normalized
Impression / Plan
-
PCP: Dr. Oro
Scaffold Builder: Dr. ORLANDO Qureshi
Impression:
Recovered nonischemic CM
Syncope/orthostasis 05/28/2024
HTN
HLD
s/p bioprosthetic AVR and mitral valve repair 04/2010
Paroxysmal atrial fibrillation
Chronic Eliquis AC
Hyperparathyroidism
Asbestosis
Recurrent pleural effusion
s/p thoracentesis 09/28/2023 w/ 1450 cc dark bloody fluid removed
s/p thoracentesis 05/28/2024 w/ 850 cc dark bloody fluid removed.
Chronic back pain
Echo 09/28/2023: EF 50%, mild cLVH, well seated #32 annuloplasty ring, well seated #27 Stahl bovine AVR with peak/mean gradients 9/5 mmHg, mild TR, estimated PAP 25-30 mmHg
Echo 05/28/2024: Ejection fraction 45 to 50%, #32 mitral annuloplasty ring with mean gradient of 2 mmHg, #27 Sthal bovine AVR with mean gradient of 3 mmHg
Impression:
Episode of syncope on 05/28/2024 likely due to orthostasis/hypotension
Remains hypotensive
May need to consider increasing midodrine
Continue to follow hgb and may need to also hold Eliquis if hemoglobin continues to drop. Hemoglobin 7.9 on 05/29
Thought to be overdiuresed as renal insufficiency worsened with IV Lasix
No clear CHF at the present time
Nephrology consulted for renal sufficiency which has resolved
Discussed with patient's son at bedside
HPI: Reji is an 88 year old male with PMH of recovered cardiomyopathy, HTN, HLD, AVR, mitral valve replacement, paroxysmal atrial fibrillation, hyperparathyroidism, CKD, asbestosis, back pain, and recurrent pleural effusion. He presented to [facility]
for evaluation of worsening SOB and hypoxia. With ambulating only short distances at home, his pulse ox was noted to drop into the 80s and he was very SOB. Given worsening symptoms, he came to [facility] for evaluation. In ER, he was hypoxic and required
2L NC. Chest xray noted what appeared to be a chronic pleural effusion on the L. ProBNP was elevated, up to 2250. He was started on IV lasix as well as antibiotics and was admitted for further evaluation. He underwent thoracentesis 05/28 with 850 cc
dark bloody fluid removed. Hgb down to 7.7. Cardiology consulted for evaluation given concern for acute heart failure. He continues to feel somewhat SOB post thoracentesis, however has noted some improvement in breathing throughout admission. Creat
bumped to 1.6 with diuresis and lasix has been placed on hold. Nephrology consult placed y primary service.
Progress Note - Scaffold Builder
Subjective
Date of Service: May 29, 2024
No complaints.
Objective
Labs:
05/29/24 06:35
05/29/24 06:35
Labs
Hgb 7.9 g/dL (13.0-18.0) L 05/29/24 06:35
Hct 24.3 % (39.0-52.0) L 05/29/24 06:35
Plt Count 426 10^3/uL (130-400) H 05/29/24 06:35
Sodium 135 mmol/L (135-145) 05/29/24 06:35
Potassium 4.7 mmol/L (3.5-5.1) 05/29/24 06:35
BUN 57 mg/dl (9-20) H 05/29/24 06:35
Creatinine 1.3 mg/dL (0.7-1.3) 05/29/24 06:35
Glucose 93 mg/dl (70-99) 05/29/24 06:35
Troponins
05/27/24
16:49
Troponin I 0.012
Vital Signs and I&O:
Vital Signs
Temp Pulse Resp BP Pulse Ox
97.5 F 79 20 100/55 92
05/29/24 07:00 05/29/24 08:40 05/29/24 07:00 05/29/24 08:40 05/29/24 08:45
Vital Signs
Temp Pulse Resp BP Pulse Ox
97.5 F 79 20 100/55 92
05/29/24 07:00 05/29/24 08:40 05/29/24 07:00 05/29/24 08:40 05/29/24 08:45
Intake & Output
05/27/24 05/28/24 05/29/24 05/30/24
06:59 06:59 06:59 06:59
Intake Total 490 / 490 900 / 900
Output Total 250 / 250 2150 / 2150 900 / 900
Balance -250 / -250 -1660 / -1660 0 / 0
Physical Exam
Physical Exam
General: Well developed, well nourished in NAD.
Neck: Supple, no JVD, HJR, carotids +2 B/L, no bruits bilaterally.
Heart: Non displaced PMI, RRR, no murmurs, No S3, S4, no rubs.
Lungs: Clear to auscultation bilaterally, no wheeze, rhonchi, rubs bilaterally,
normal expiratory phase.
Extremities: No clubbing, cyanosis or edema bilaterally.
Neuro: Grossly nonfocal, awake, alert and oriented x3.
--- NOTE | 2024-05-29 15:43 | W.PN.NEPH.PH ---
Today's Communication / Plan
-
increase midodrine
wean narcs
Assessment/Plan
-
IMP:
Acute hypoxic respiratory failure secondary to right lower lobe pneumonia and heart failure
HFpEF, Acute Exacerbation
Hx Mitral Valve Repair
Hx Bovine Aortic Valve Replacement
Urinary Retention-bladder scanned for > 700
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
Hyperkalemia
Anemia of chronic disease
Hyponatremia
chronic weight loss - due to acute on chronic cervical/thoracic pain with failure to thrive
Severe protein/calorie malnutrition of chronic illness
Chronic pain syndrome/chronic opiate dependence
Chronic cervical/thoracic scapular pain
Aortic valve replacement, Mitral valve repair
Paroxysmal A-fib
BPH/TURP
Gout
SHPTH
PLan:
A/w SOB, felt to have CHF, ?PNA
s/p lasix cr up at 1.6 from 1.2, now better at 1.3 off diuretics
s/p thoracentesis 850cc of dark bloody fluid 05/28
U retention s/p penaloza on flomax
syncope last night, BP still marginal -increase midodrine to 10mg TID, check cortisol
he remains lethargic and poor po intake-suspect narcotic effect-cont to wean
echo normal ef, cotn SGLT2I
abx per primary
follow h/h -decreasing , fe sat only 10, ferritin borderline high -could still do IV fe course-ordered
d/w pt and son at bedside
ok for ensure
d/w nursing
-
-
Date of Service: May 29, 2024
CC / HPI / ROS
-
Chief Complaint:
CKD, hypotension
History of Present Illness:
cr better at 1.3, wt lower
BP soft, syncope last night on standing
no injuries
afebrile
hb low 7.9
Review of Systems:
no cp or osb
has been lethargic and not active
poor po intake
Labs
-
Labs:
WBC 12.7 10^3/uL (4.8-10.8) H 05/29/24 06:35
RBC 2.75 10^6/uL (4.70-6.10) L 05/29/24 06:35
Hgb 7.9 g/dL (13.0-18.0) L 05/29/24 06:35
Hct 24.3 % (39.0-52.0) L 05/29/24 06:35
Plt Count 426 10^3/uL (130-400) H 05/29/24 06:35
Sodium 135 mmol/L (135-145) 05/29/24 06:35
Potassium 4.7 mmol/L (3.5-5.1) 05/29/24 06:35
Chloride 99 mmol/L (98-107) 05/29/24 06:35
Carbon Dioxide 26 mmol/L (22-30) 05/29/24 06:35
BUN 57 mg/dl (9-20) H 05/29/24 06:35
Creatinine 1.3 mg/dL (0.7-1.3) 05/29/24 06:35
eGFR 53.17 05/29/24 06:35
Glucose 93 mg/dl (70-99) 05/29/24 06:35
Calcium 9.8 mg/dl (8.4-10.2) 05/29/24 06:35
Did-C-Fvgsjctmqwx Pept 2250 pg/ml 05/26/24 15:58
Albumin 3.0 g/dl (3.5-5.0) L 05/26/24 15:58
Physical Exam
-
Vital Signs:
Vital Signs
Temp Pulse Resp BP Pulse Ox
97.5 F 79 20 100/55 92
05/29/24 07:00 05/29/24 08:40 05/29/24 07:00 05/29/24 08:40 05/29/24 08:45
Cardiovascular:: Regular rate and rhythm
Respiratory:: Bilateral: CTA
Lung Excursion:: Normal
Abdomen:: Nontender and Soft
Extremity Edema:: None: Bilateral:
Penaloza Catheter: Yes
[2024-05-29] MEDS: FERRLECIT 110 MG IV (16:13)
[2024-05-29] MEDS: ROCEPHIN 1000 MG IV (16:14)
[2024-05-29] MEDS: STERILE WATER FOR INJECTION 10 ML IV (16:14)
[2024-05-29] MEDS: MIRALAX 8.2 GRAMS PO (17:36)
--- NOTE | 2024-05-29 18:31 | PTCARENOTE ---
Pt climbing out of bed, brief period of confusion stated he ad to go to the bathroom, but before staff could assist pt got OOB and had BM on chair in room. Then appeared pale, diaphoretic and weak. assisted back to bed. BP was stable. Once pt was
cleaed up he was more awake and alert ad although still was more confused, thinking his son was still here, and he needed to tell him to get the car detailed he was able to be reoriented and denied any pain or distress. bed alarm in place, CB in
reach.
[2024-05-29] MEDS: SENOKOT-S PO (20:18)
[2024-05-29] MEDS: ProAmatine PO (21:30)
[2024-05-29] MEDS: VITAMIN C PO (23:24)
[2024-05-29] MEDS: FEOSOL PO (23:24)
[2024-05-29] MEDS: VITAMIN C 500 MG PO (23:42)
[2024-05-29] MEDS: ProAmatine 10 MG PO (23:42)
[2024-05-29] MEDS: FEOSOL 325 MG PO (23:42)
[2024-05-29] MEDS: TYLENOL 650 MG PO (23:48)
[2024-05-30] VITALS (8 sets, daily range): BP systolic 80–117; BP diastolic 48–70; BMI 21.3
--- NOTE | 2024-05-30 06:11 | PTCARENOTE ---
Pt continues to have some confusion and attempting to climb OOB. Did sleep for several hours. Eric d/c'd as ordered.
[2024-05-30 08:20] LABS: Cortisol, Random 21.5 ug/dl
--- NOTE | 2024-05-30 08:26 | W.PN.HOSP.TC ---
Today's Communication/Plan
-
see bold
Assessment / Plan
Assessment / Plan
88-year-old male with PMH of asbestos lung disease, recurrent pleural effusion requiring thoracentesis 10/23, hypertension, anemia, GERD, CHF, atrial Fib, chronic pain syndrome who presented to the emergency department with son due to worsening
dyspnea on exertion and hypoxia. He was recently hospitalized earlier this month for shortness of breath with negative work-up (IR consulted for thoracentesis but not enough fluid)
Upon arrival patient required 2 L of oxygen. Chest x-ray with chronic pleural effusion and RLL pneumonia. Patient volume overloaded on exam.
CXR
IMPRESSION:
Findings compatible with possibly loculated likely chronic left pleural effusion without significant change.
Likely slightly increased right basilar opacification which could represent atelectasis and/or pneumonia and tiny right pleural effusion.
Acute hypoxic respiratory failure secondary to right lower lobe pneumonia and heart failure
History of asbestosis
-Patient requiring 2-4 L of oxygen, wean as tolerated. Patient does not wear oxygen at home
-COVID-negative and Flu negative; Strep and Legionella negative
-CXR with pleural effusion and pneumonia, results above
-Continue IV antibiotics ceftriaxone and azithromycin D5
-Status post right thoracentesis 05/28, draining 850 cc of dark bloody pleural fluid
-Nebs as needed for short of breath and wheezing
-Appreciate pulmonology input, who agrees with the above
HFmrEF, Acute Exacerbation
Hx Mitral Valve Repair
Hx Bovine Aortic Valve Replacement
-TTE 09/22 with EF 50%
-S/p Lasix 40mg IV daily, patient known to Dr. Cadence Qureshi
-Appreciate cardiology input, continue Farxiga 10 mg daily
-05/28/24 Echo EF 45-50%
Orthostatic hypotension
Syncope
-Increased midodrine from 5 mg to 10 mg 3 times daily
Urinary Retention
-S/p penaloza, started flomax
Constipation
-Resolved, continue laxatives
Stage IIIb CKD
-Appreciate nephrology input, suspect creatinine still in baseline range with known stage IIIb chronic kidney disease
Hyperkalemia
-Resolved status post Lokelma
# Anemia of chronic disease weeks with iron deficiency anemia
-Ordered IV iron per nephrology, then start oral iron with vitamin C
-Hemoglobin stable
Hyponatremia
-stable
#Chronic weight loss - due to acute on chronic cervical/thoracic pain with failure to thrive
(Severe protein/calorie malnutrition of chronic illness ruled out)
Appetite improving on Megace.
#Chronic pain syndrome/chronic opiate dependence
#Chronic cervical/thoracic scapular pain
-05/28, patient appears lethargic, decreased MS Contin from 30 mg every 12 hours to 15 mg every 12 hours
#Aortic valve replacement, Mitral valve repair
# Paroxysmal A-fib
-Obtain EKG
-Eliquis continued
#BPH/TURP
#Gout
- cont allopurinol
DVT prophylaxis�Eliquis
Full code
Dispo - lives w/ family, PT rec SNF
Updated son at bedside 05/29
Total time spent to see the patient on the floor, examine the patient, review data and lab results, discuss treatment plan with patient, nursing staff around 45 minutes.
Physical Exam
General: Frail, elderly, no acute distress
HEENT: Normocephalic, Atraumatic, EOMI, MMM
Respiratory: Right basilar Rales with pleural rub
Cardiac: Normal S1/S2, Regular Rate and Rhythm
GI: Soft, Nontender, Nondistended, Normal Bowel Sounds
Extremities: No Clubbing, Cyanosis, or Edema
Anticipated Discharge: 24 - 48 hours
Subjective/Interval History
-
Date of Service: May 30, 2024
Patient has intermittent episodes of vasovagal syncope. He complains of back pain today. No fever, no vomiting.
Objective Data
-
Vital Signs:
Vital Signs
Temp Pulse Resp BP Pulse Ox
98.3 F 84 20 117/66 97
05/30/24 04:00 05/30/24 04:00 05/30/24 04:00 05/30/24 04:00 05/29/24 23:32
I&O
05/29/24 05/30/24 05/31/24
06:59 06:59 06:59
Intake Total 900 / 900 100 / 100
Output Total 900 / 900 250 / 250
Balance 0 / 0 -150 / -150
[2024-05-30] MEDS: PEPCID 20 MG PO (08:46)
[2024-05-30] MEDS: MIRALAX PO (08:46)
[2024-05-30] MEDS: MS CONTIN (EXTENDED RELEASE) 15 MG PO ×2 (08:46→21:05)
[2024-05-30] MEDS: ELIQUIS 2.5 MG PO ×2 (08:46→21:05)
[2024-05-30] MEDS: MEGACE ORAL SUSPENSION 400 MG PO (08:46)
[2024-05-30] MEDS: ZYLOPRIM 150 MG PO (08:47)
[2024-05-30] MEDS: ProAmatine 10 MG PO ×3 (08:47→22:06)
[2024-05-30] MEDS: FARXIGA 10 MG PO (08:47)
[2024-05-30] MEDS: ZITHROMAX 500 MG PO (08:47)
[2024-05-30] MEDS: FLOMAX 0.4 MG PO (08:48)
[2024-05-30] MEDS: SENOKOT-S 2 TABLET PO ×2 (08:48→21:04)
[2024-05-30] MEDS: TYLENOL 650 MG PO (09:51)
--- NOTE | 2024-05-30 10:37 | CM ---
Patient is known to CM from previous admission in late 2023.
Reji lives home with and son in a one story home with 2 entry steps. He is typically independent, but has been dealing with back pain for several months which has limited his ability to get around.
He typically uses a walker but also owns a cane and wheelchair. Son and daughter provide transportation for he and his .
Reji is admitted with syncope and exertional dyspnea on 2L O2 which is new for him.
Therapy recommends SNF Rehab at discharge. Discussed with Reji and his son who are agreeable to SNF.
CM to make referrals to SNF facilities and discuss further with pt and son. Will need SNF authorization.
--- NOTE | 2024-05-30 10:52 | W.PN.NEPH.PH ---
Today's Communication / Plan
-
follow BMP
Assessment/Plan
-
IMP:
Acute hypoxic respiratory failure secondary to right lower lobe pneumonia and heart failure
HFpEF, Acute Exacerbation
Hx Mitral Valve Repair
Hx Bovine Aortic Valve Replacement
Urinary Retention-bladder scanned for > 700
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
Hyperkalemia
Anemia of chronic disease
Hyponatremia
chronic weight loss - due to acute on chronic cervical/thoracic pain with failure to thrive
Severe protein/calorie malnutrition of chronic illness
Chronic pain syndrome/chronic opiate dependence
Chronic cervical/thoracic scapular pain
Aortic valve replacement, Mitral valve repair
Paroxysmal A-fib
BPH/TURP
Gout
SHPTH
PLan:
IV iron course
follow BMP
continue midodrine
lasix 40mg IV today
continue farxiga
-
-
Date of Service: May 30, 2024
CC / HPI / ROS
-
Chief Complaint:
CKD, hypotension
History of Present Illness:
cr better at 1.3 yesterday, no Cr today
BP low stable on midodrine
weights stable off lasix
Review of Systems:
no cp.
SOB, more than yesterday
c/o back pain
Labs
-
Labs:
WBC 12.7 10^3/uL (4.8-10.8) H 05/29/24 06:35
RBC 2.75 10^6/uL (4.70-6.10) L 05/29/24 06:35
Hgb 7.9 g/dL (13.0-18.0) L 05/29/24 06:35
Hct 24.3 % (39.0-52.0) L 05/29/24 06:35
Plt Count 426 10^3/uL (130-400) H 05/29/24 06:35
Sodium 135 mmol/L (135-145) 05/29/24 06:35
Potassium 4.7 mmol/L (3.5-5.1) 05/29/24 06:35
Chloride 99 mmol/L (98-107) 05/29/24 06:35
Carbon Dioxide 26 mmol/L (22-30) 05/29/24 06:35
BUN 57 mg/dl (9-20) H 05/29/24 06:35
Creatinine 1.3 mg/dL (0.7-1.3) 05/29/24 06:35
eGFR 53.17 05/29/24 06:35
Glucose 93 mg/dl (70-99) 05/29/24 06:35
Calcium 9.8 mg/dl (8.4-10.2) 05/29/24 06:35
Tvu-F-Arkdrqltndx Pept 2250 pg/ml 05/26/24 15:58
Albumin 3.0 g/dl (3.5-5.0) L 05/26/24 15:58
Physical Exam
-
Vital Signs:
Vital Signs
Temp Pulse Resp BP Pulse Ox
97.4 F 80 24 114/60 96
05/30/24 07:00 05/30/24 08:47 05/30/24 07:00 05/30/24 08:47 05/30/24 07:00
Cardiovascular:: Regular rate and rhythm
Respiratory:: Bilateral: Rhonchi
Lung Excursion:: Normal
Abdomen:: Nontender and Soft
Bowel Sounds:: Normal
Extremity Edema:: None: Bilateral:
--- NOTE | 2024-05-30 11:15 | W.PN.CARDCBS ---
Today's Communication / Plan
-
Orthostatics improved on higher midodrine dose
Nephrology ordered IV Lasix
Follow hemoglobin on Eliquis and is 7.9 on 05/29
Impression / Plan
-
PCP: Dr. Oro
[employer] Member: Dr. ORLANDO Qureshi
Impression:
Recovered nonischemic CM
Syncope/orthostasis 05/28/2024
HTN
HLD
s/p bioprosthetic AVR and mitral valve repair 04/2010
Paroxysmal atrial fibrillation
Chronic Eliquis AC
Hyperparathyroidism
Asbestosis
Recurrent pleural effusion
s/p thoracentesis 09/28/2023 w/ 1450 cc dark bloody fluid removed
s/p thoracentesis 05/28/2024 w/ 850 cc dark bloody fluid removed.
Chronic back pain
Echo 09/28/2023: EF 50%, mild cLVH, well seated #32 annuloplasty ring, well seated #27 Stahl bovine AVR with peak/mean gradients 9/5 mmHg, mild TR, estimated PAP 25-30 mmHg
Echo 05/28/2024: Ejection fraction 45 to 50%, #32 mitral annuloplasty ring with mean gradient of 2 mmHg, #27 Stahl bovine AVR with mean gradient of 3 mmHg
Impression:
Orthostatics improved on higher dose of midodrine
Continue to follow hgb and may need to also hold Eliquis if hemoglobin continues to drop. Hemoglobin 7.9 on 05/29
Thought to be overdiuresed as renal insufficiency worsened with IV Lasix but nephrology has been consulted and he was given IV Lasix on 05/30
Discussed with patient's son at bedside as well as nurse
He remains severely deconditioned and may need rehab
HPI: Reji is an 88 year old male with PMH of recovered cardiomyopathy, HTN, HLD, AVR, mitral valve replacement, paroxysmal atrial fibrillation, hyperparathyroidism, CKD, asbestosis, back pain, and recurrent pleural effusion. He presented to [facility]
for evaluation of worsening SOB and hypoxia. With ambulating only short distances at home, his pulse ox was noted to drop into the 80s and he was very SOB. Given worsening symptoms, he came to [facility] for evaluation. In ER, he was hypoxic and required
2L NC. Chest xray noted what appeared to be a chronic pleural effusion on the L. ProBNP was elevated, up to 2250. He was started on IV lasix as well as antibiotics and was admitted for further evaluation. He underwent thoracentesis 05/28 with 850 cc
dark bloody fluid removed. Hgb down to 7.7. Cardiology consulted for evaluation given concern for acute heart failure. He continues to feel somewhat SOB post thoracentesis, however has noted some improvement in breathing throughout admission. Creat
bumped to 1.6 with diuresis and lasix has been placed on hold. Nephrology consult placed y primary service.
Progress Note - [employer] Member
Subjective
Date of Service: May 30, 2024
No complaint
Objective
Labs:
05/29/24 06:35
05/29/24 06:35
Labs
Hgb 7.9 g/dL (13.0-18.0) L 05/29/24 06:35
Hct 24.3 % (39.0-52.0) L 05/29/24 06:35
Plt Count 426 10^3/uL (130-400) H 05/29/24 06:35
Sodium 135 mmol/L (135-145) 05/29/24 06:35
Potassium 4.7 mmol/L (3.5-5.1) 05/29/24 06:35
BUN 57 mg/dl (9-20) H 05/29/24 06:35
Creatinine 1.3 mg/dL (0.7-1.3) 05/29/24 06:35
Glucose 93 mg/dl (70-99) 05/29/24 06:35
Troponins
05/27/24
16:49
Troponin I 0.012
Vital Signs and I&O:
Vital Signs
Temp Pulse Resp BP Pulse Ox
97.4 F 80 24 114/60 96
05/30/24 07:00 05/30/24 08:47 05/30/24 07:00 05/30/24 08:47 05/30/24 07:00
Vital Signs
Temp Pulse Resp BP Pulse Ox
97.4 F 80 24 114/60 96
05/30/24 07:00 05/30/24 08:47 05/30/24 07:00 05/30/24 08:47 05/30/24 07:00
Intake & Output
05/28/24 05/29/24 05/30/24 05/31/24
06:59 06:59 06:59 06:59
Intake Total 490 / 490 900 / 900 100 / 100
Output Total 2150 / 2150 900 / 900 250 / 250
Balance -1660 / -1660 0 / 0 -150 / -150
Physical Exam
Physical Exam
General: Well developed, well nourished in NAD.
Neck: Supple, no JVD, HJR, carotids +2 B/L, no bruits bilaterally.
Heart: Non displaced PMI, RRR, no murmurs, No S3, S4, no rubs.
Lungs: Scattered rhonchi
Extremities: No clubbing, cyanosis or edema bilaterally.
Neuro: Grossly nonfocal, awake, alert and oriented x3.
[2024-05-30] MEDS: LASIX 40 MG IV (11:43)
[2024-05-30] MEDS: FLUSH (NSS) 1 FLUSH IV ×3 (11:44→16:17)
--- NOTE | 2024-05-30 13:11 | W.PN.PUL3 ---
Today's Communication / Plan
-
Complete 5 to 7 days of antibiotics-azithromycin/ceftriaxone. Hopefully transition to orals tomorrow.
Follow final cultures
Diuresis per nephrology/cardiology
Home oxygen assessment tomorrow
Follow electrolytes
Control of back pain also will be helpful
Follow H&H.
Transfuse as necessary
Iron infusion
Will follow
Assessment
-
88-year-old man with past medical history noted. Admitted with worsening shortness of breath. Having significant back pain, ambulatory dysfunction, chronic stable left loculated pleural effusion.
Came to the hospital on 05/26/2024 complaining of shortness of breath and mild hypoxemia. Found to have leukocytosis.
New right lower lobe infiltrate-possible pneumonia
Negative COVID
Negative Legionella/strep antibody/negative influenza
Leukocytosis/afebrile
Right pleural effusion: 850 cc of dark blood pleural fluid 05/28/2024
Cannot rule out heart failure component: Elevated proBNP 2250/negative troponin.
Echocardiogram 05/28/2024: Ejection fraction 45 to 50%. Dilated left atrium. Trace MR. Status post mitral valve and aortic valve replacement. Trivial pericardial effusion.
Chronic anemia hemoglobin 7.9-contributing to shortness of breath
-
Conditions present prior admission:
Chronic exertional dyspnea: Suspect due to his significant back pain, deconditioning, muscle mass loss.
CT chest 05/06/2024: No evidence for pulmonary embolism or thoracic aortic dissection. Bilateral calcified pleural plaques/prior asbestos exposure. Stable small left loculated pleural effusion.
-Chronic loculated left pleural effusion: In January to a small for thoracentesis-volume appears stable this admission 05/2024.
Thoracentesis 09/28/2023: 1.4 L of dark bloody pleural fluid negative for cytology-exudate
-Severe back pain/spinal stenosis-status post ablation.
-Failure to thrive
-Chronic anemia hemoglobin this time 9.6-contributing to symptoms.
-Metabolic alkalosis
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
History of nonischemic cardiomyopathy with recovered EF.
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
Paroxysmal atrial fibrillation
Chronic anticoagulation
Hyperparathyroidism
Chronic kidney disease
#Former tobacco smoker [id number] history quit at age 57
-
Assessment and plan:
-
Current presentation suggest right lower lobe pneumonia with also component of acute on chronic heart failure with reduced ejection fraction.
-
Patient does have history of chronic left pleural effusion that appears stable on current chest x-ray-not enough fluid to drain on ultrasound 05/06/2024 and 02/13/2024. Fluid is loculated and chronic.
-
[facility] records reviewed: He was offered pleural biopsy to determine whether mesothelioma is present but patient declined due to comorbidities and advanced age.
Recent 6-minute walk testing without oxygen saturation in the office 01/03/2024.
Recently he was in the hospital also complaining of shortness of breath in early May and that pleural effusion also appears to be stable.
Prior left thoracentesis showed exudative with negative cytology and culture.
-
Right pleural effusion is new compared to prior imaging: Possibly parapneumonic. Dark bloody fluid in the setting of anticoagulation.
pH 7.33/white blood cells 1148/65% mononuclear/34% polymorph/glucose 73/total protein 3.5/LDH 447/triglycerides 38. Exudative.
Culture negative
Cytology pending
leukocytosis not worsening, afebrile.
Agree with antibiotics to complete 5-7 course
So far all cultures negative continue to follow
-
Continue oxygen supplementation to maintain pulse ox above 88% currently on 2 L. Hopefully can be weaned off.
Not usually on oxygen therapy.
Home oxygen assessment prior to discharge.
-
Patient does have history of asbestos exposure with significant Benign pleural plaques With minimal increased interstitial markings from chronic fibrosis based on CAT scan from 05/06/2024.
Pleural effusions could be postcardiotomy syndrome versus related to asbestos at least on the left.
Less likely mesothelioma but possible-patient is aware of these as noted above.
Again, right pleural effusion is new and will need to be followed in the outpatient setting.
-
Increased proBNP suggest heart failure component.
Diuresis per cardiology and nephrology.
Patient is having orthostasis-improved.
Continue midodrine-dose adjusted.
Echocardiogram this admission noted
Follow renal function and electrolytes
-
Toxic metabolic encephalopathy. At risk for aspiration
Morphine has been decreased
Fall precautions
-
Anemia contributing to his shortness of breath as well.
Transfuse as necessary
Nephrology recommended iron infusion
-
He also have chronic back pain that is contributing to shortness of breath. Spinal stenosis. Underwent recent ablation.
Due to immobility has lost significant amount of muscle mass
Continue physical therapy as able
-.
Dr. Shah updated son at the bedside.
-
Patient to follow-up with Dr. Aaron after discharge.
Last time seen in our office was 05/22/2024.

Data:
CT chest 04/05/2025,
1. No evidence of pulmonary embolism or thoracic aortic dissection.
2. Bilateral calcified pleural plaques, consistent with asbestos related pleural disease.
3. Small loculated left pleural effusion, unchanged compared to prior CT, however increased in size compared to a prior CT dated 09/28/2023. Given calcified pleural plaques and increasing loculated pleural effusion, mesothelioma is not excluded.
4. Small right pleural effusion, new compared to prior CT.
5. Mild reticular interstitial thickening, suggestive of senescent change, mild interstitial fibrosis.
6. Severe coronary arterial calcification. Please correlate with symptoms of and risk factors for coronary artery disease, with further workup as clinically appropriate.
-
CT Chest 02/15/2024:
Small-moderate stable partially loculated left pleural effusion with associated underlying atelectasis.
Stable postoperative changes
Stable calcified pleural plaques suggesting prior asbestos exposure
Atherosclerosis
CXR 02/13/2024:
Moderate loculated left pleural effusion. Stable.
Probable associated mild left lower lobe pneumonia. New
Findings consistent with prior asbestos exposure. Stable.
Chest US 02/14/2024: Small LEFT pleural effusion. Amount of fluid present not sufficient for safe thoracentesis.
-
Echocardiogram 09/08/2023: Normal LVEF. Normal biventricular size and function. Status post aortic valve replacement. Mild TR.
Subjective Data
-
Date of Service:
Date of Service: May 30, 2024
Objective Data
Data Reviewed
Vital Signs / I&O / Oxygen:
Vital Signs
Temp Pulse Resp BP Pulse Ox
97.7 F 71 18 114/58 99
05/30/24 11:51 05/30/24 11:51 05/30/24 11:51 05/30/24 11:51 05/30/24 11:51
Intake and Output
05/29/24 05/30/24 05/31/24
06:59 06:59 06:59
Intake Total 900 / 900 100 / 100
Output Total 900 / 900 250 / 250
Balance 0 / 0 -150 / -150
SaO2 99
Nasal Cannula flow liters per 4
minute
Labs/Micro/Reports
Lab Data
05/29/24 06:35
05/29/24 06:35
Microbiology
05/28/24 09:52 Pleural Fluid Gram Stain - Final
--- NOTE | 2024-05-30 13:31 | PTCARENOTE ---
Pt OOB to BSC with assist x2, became lightheaded and temporarily unresponsive; gradually came around. Pt assisted back to bed. BP 110/60 HR 97. Currently resting comfortably. Dr. Gonsalez and Dr. Marti notified. Will continue to monitor.
[2024-05-30] MEDS: FERRLECIT 110 MG IV (14:10)
--- NOTE | 2024-05-30 15:51 | PTCARENOTE ---
Pt AAO x3, forgetful at times; very weak/tires easily. HERNANDEZ. OOB to chair earlier in shift with assist x1/walker. BP currently 87/59, HR 75; Dr. Gonsalez notified. Maintained on nc 3 lpm- pulse ox 99%, pt with (+) WELLER/tachypnea Abd soft, tejinder PO,
appetite fair. Voided clear yellow urine on BSC x1. Resting in bed at present; son at bedside. Will continue to monitor.
[2024-05-30] MEDS: STERILE WATER FOR INJECTION 10 ML IV (16:17)
[2024-05-30] MEDS: ROCEPHIN 1000 MG IV (16:17)
[2024-05-30] MEDS: MIRALAX 8.2 GRAMS PO (17:29)
[2024-05-30] MEDS: VITAMIN C 500 MG PO (21:05)
[2024-05-30] MEDS: FEOSOL 325 MG PO (21:05)
[2024-05-31] VITALS (8 sets, daily range): BP systolic 102–133; BP diastolic 55–70; BMI 21.4
[2024-05-31 08:12] LABS: Hematocrit 22.5 % (39.0-52.0); Hemoglobin 7.1 g/dL (13.0-18.0); Mean Corp Hgb Conc. 31.6 g/dL (33.0-37.0); Mean Corpuscular Hgb 28.3 pg (27.0-31.0); Mean Corpuscular Volume 89.6 fL (80.0-94.0); Mean Platelet Volume 9.8 fL (7.4-10.4); Platelet Count 423 10^3/uL (130-400); Red Blood Cell Count 2.51 10^6/uL (4.70-6.10); Red Cell Dist. Width 19.9 % (11.5-14.5); White Blood Cell Count 13.9 10^3/uL (4.8-10.8)
[2024-05-31 08:48] LABS: ALT (SGPT) 23 U/L (0-50); AST (SGOT) 27 U/L (17-59); Albumin 2.8 g/dl (3.5-5.0); Alkaline Phosphatase 139 U/L (38-126); Blood Urea Nitrogen 61 mg/dl (9-20); Calcium 9.6 mg/dl (8.4-10.2); Carbon Dioxide 29 mmol/L (22-30); Chloride 98 mmol/L (98-107); Direct Bilirubin 0.4 mg/dl (0.0-0.4); Estimated Creatinine Clearance 36 ml/min; Glucose 92 mg/dl (70-99); Potassium 4.6 mmol/L (3.5-5.1); Sodium 136 mmol/L (135-145); Total Bilirubin 0.4 mg/dl (0.2-1.3); Total Protein 5.5 g/dl (6.3-8.2); eGFR 48.65
[2024-05-31] MEDS: ZITHROMAX 500 MG PO (08:53)
[2024-05-31] MEDS: FARXIGA 10 MG PO (09:00)
[2024-05-31] MEDS: ELIQUIS 2.5 MG PO ×2 (09:00→21:20)
[2024-05-31] MEDS: ZYLOPRIM 150 MG PO (09:01)
[2024-05-31] MEDS: ProAmatine 10 MG PO ×2 (09:01→16:54)
[2024-05-31] MEDS: MEGACE ORAL SUSPENSION 400 MG PO (09:02)
[2024-05-31] MEDS: MS CONTIN (EXTENDED RELEASE) 15 MG PO ×2 (09:02→21:20)
[2024-05-31] MEDS: MIRALAX 17 GRAMS PO (09:02)
[2024-05-31] MEDS: PEPCID 20 MG PO (09:02)
[2024-05-31] MEDS: FLOMAX 0.4 MG PO (09:02)
--- NOTE | 2024-05-31 09:39 | W.PN.HOSP.TC ---
Today's Communication/Plan
-
see bold
Assessment / Plan
Assessment / Plan
88-year-old male with PMH of asbestos lung disease, recurrent pleural effusion requiring thoracentesis 10/23, hypertension, anemia, GERD, CHF, atrial Fib, chronic pain syndrome who presented to the emergency department with son due to worsening
dyspnea on exertion and hypoxia. He was recently hospitalized earlier this month for shortness of breath with negative work-up (IR consulted for thoracentesis but not enough fluid)
Upon arrival patient required 2 L of oxygen. Chest x-ray with chronic pleural effusion and RLL pneumonia. Patient volume overloaded on exam.
CXR
IMPRESSION:
Findings compatible with possibly loculated likely chronic left pleural effusion without significant change.
Likely slightly increased right basilar opacification which could represent atelectasis and/or pneumonia and tiny right pleural effusion.
Acute hypoxic respiratory insufficiency secondary to right lower lobe pneumonia and heart failure (respiratory failure ruled out)
History of asbestosis
-Patient requiring 2-4 L of oxygen, wean as tolerated. Patient does not wear oxygen at home
-COVID-negative and Flu negative; Strep and Legionella negative
-CXR with pleural effusion and pneumonia, results above
-Continue ceftriaxone and azithromycin D6
-Status post right thoracentesis 05/28, draining 850 cc of dark bloody pleural fluid
-Nebs as needed for short of breath and wheezing
-Appreciate pulmonology input, who agrees with the above
HFmrEF, Acute Exacerbation
Hx Mitral Valve Repair
Hx Bovine Aortic Valve Replacement
-TTE 09/22 with EF 50%
-S/p Lasix 40mg IV daily, patient known to Dr. Cadence Qureshi
-Appreciate cardiology input and nephrology input, continue Lasix as needed
-Continue Farxiga
-05/28/24 Echo EF 45-50%
Orthostatic hypotension
Syncope
-Increased midodrine from 5 mg to 10 mg 3 times daily
Urinary Retention
-S/p penaloza, penaloza re-inserted, then removed on 05/31
-Continue to monitor for retention, check PVRs, started flomax
Constipation
-Resolved, continue laxatives
Stage IIIb CKD
-Appreciate nephrology input, suspect creatinine still in baseline range with known stage IIIb chronic kidney disease
Hyperkalemia
-Resolved status post Lokelma
# Anemia of chronic disease weeks with iron deficiency anemia
-S/p IV iron per nephrology, now started oral iron with vitamin C
-Hemoglobin 7.5, will transfuse 1 unit packed red blood cells 05/31
Hyponatremia
-stable
#Chronic weight loss - due to acute on chronic cervical/thoracic pain with failure to thrive
(Severe protein/calorie malnutrition of chronic illness ruled out)
Appetite improving on Megace.
#Chronic pain syndrome/chronic opiate dependence
#Chronic cervical/thoracic scapular pain
-05/28, patient appears lethargic, decreased MS Contin from 30 mg every 12 hours to 15 mg every 12 hours
#Aortic valve replacement, Mitral valve repair
# Paroxysmal A-fib
-Obtain EKG
-Eliquis continued
#BPH/TURP
#Gout
- cont allopurinol
DVT prophylaxis�Eliquis
Full code
Dispo - lives w/ family, PT rec SNF
Updated son at bedside 05/31 -goals of care discussion held
Total time spent to see the patient on the floor, examine the patient, review data and lab results, discuss treatment plan with patient, nursing staff around 51 minutes.
Physical Exam
General: Frail, elderly, no acute distress
HEENT: Normocephalic, Atraumatic, EOMI, MMM
Respiratory: Right basilar Rales with pleural rub
Cardiac: Normal S1/S2, Regular Rate and Rhythm
GI: Soft, Nontender, Nondistended, Normal Bowel Sounds
Extremities: No Clubbing, Cyanosis, or Edema
Anticipated Discharge: 24 - 48 hours
Subjective/Interval History
-
Date of Service: May 30, 2024
Patient reports feeling tired. He has chronic back pain. Denies shortness of breath. Continues to have intermittent vasovagal syncope. No fever, no vomiting.
Objective Data
-
Vital Signs:
Vital Signs
Temp Pulse Resp BP Pulse Ox
97.5 F 75 18 87/59 99
05/30/24 15:35 05/30/24 16:17 05/30/24 15:48 05/30/24 16:17 05/30/24 15:48
I&O
05/29/24 05/30/24 05/31/24
06:59 06:59 06:59
Intake Total 900 / 900 100 / 100
Output Total 900 / 900 250 / 250
Balance 0 / 0 -150 / -150
--- NOTE | 2024-05-31 09:43 | W.PN.NEPH.PH ---
Today's Communication / Plan
-
BMP
Assessment/Plan
-
IMP:
Acute hypoxic respiratory failure secondary to right lower lobe pneumonia and heart failure
HFpEF, Acute Exacerbation
Hx Mitral Valve Repair
Hx Bovine Aortic Valve Replacement
Urinary Retention-bladder scanned for > 700
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
Hyperkalemia
Anemia of chronic disease
Hyponatremia
chronic weight loss - due to acute on chronic cervical/thoracic pain with failure to thrive
Severe protein/calorie malnutrition of chronic illness
Chronic pain syndrome/chronic opiate dependence
Chronic cervical/thoracic scapular pain
Aortic valve replacement, Mitral valve repair
Paroxysmal A-fib
BPH/TURP
Gout
SHPTH
PLan:
IV iron course
follow BMP
continue midodrine
continue farxiga
Can restart oral Lasix when desired
-
-
Date of Service: May 31, 2024
CC / HPI / ROS
-
Chief Complaint:
CKD, hypotension
History of Present Illness:
cr 1.4, stable
BP low stable on midodrine
weights stable
Review of Systems:
no cp/sob
c/o back pain
Labs
-
Labs:
WBC 13.9 10^3/uL (4.8-10.8) H 05/31/24 06:52
RBC 2.51 10^6/uL (4.70-6.10) L 05/31/24 06:52
Hct 22.5 % (39.0-52.0) L 05/31/24 06:52
Plt Count 423 10^3/uL (130-400) H 05/31/24 06:52
Sodium 136 mmol/L (135-145) 05/31/24 06:52
Potassium 4.6 mmol/L (3.5-5.1) 05/31/24 06:52
Chloride 98 mmol/L (98-107) 05/31/24 06:52
Carbon Dioxide 29 mmol/L (22-30) 05/31/24 06:52
BUN 61 mg/dl (9-20) H 05/31/24 06:52
Creatinine 1.4 mg/dL (0.7-1.3) H 05/31/24 06:52
eGFR 48.65 05/31/24 06:52
Glucose 92 mg/dl (70-99) 05/31/24 06:52
Calcium 9.6 mg/dl (8.4-10.2) 05/31/24 06:52
Zzj-O-Cjzvcahbzzi Pept 2250 pg/ml 05/26/24 15:58
Albumin 2.8 g/dl (3.5-5.0) L 05/31/24 06:52
Physical Exam
-
Vital Signs:
Vital Signs
Temp Pulse Resp BP Pulse Ox
97.6 F 87 16 112/59 98
05/31/24 08:19 05/31/24 09:01 05/31/24 08:19 05/31/24 09:01 05/31/24 08:19
Cardiovascular:: Regular rate and rhythm
Respiratory:: Bilateral: Coarse
Lung Excursion:: Normal
Abdomen:: Nontender and Soft
Bowel Sounds:: Normal
Extremity Edema:: None: Bilateral:
[2024-05-31 10:25] LABS: Hemoglobin 7.5 g/dL (13.0-18.0)
[2024-05-31] MEDS: SENOKOT-S PO (11:54)
--- NOTE | 2024-05-31 13:52 | CM ---
Patient seen at bedside.
Rec blood transfusion today
Home 02 assessment ordered yesterday
PT rec SNF.
Spoke with son regarding accepting facility [facility], but he would like to speak with CM tomorrow regarding other SNF's that were entered in [facility] to see if they accept/have bed. Discussed [facility] does not accept his insurance.
PLAN: SNF, pending bed availability when patient medically stable. WILL NEED TO OBTAIN INSURANCE AUTH
--- NOTE | 2024-05-31 14:46 | W.PN.PUL3 ---
Today's Communication / Plan
-
Consider transition to oral antibiotics in the next 24 hours
Oxygen assessment tomorrow morning 06/01/2024
Pain control
Diuretics per primary team-currently on hold
Incentive spirometry
Will follow
Assessment
-
88-year-old man with past medical history noted. Admitted with worsening shortness of breath. Having significant back pain, ambulatory dysfunction, chronic stable left loculated pleural effusion.
Came to the hospital on 05/26/2024 complaining of shortness of breath and mild hypoxemia. Found to have leukocytosis.
New right lower lobe infiltrate-possible pneumonia
Negative COVID
Negative Legionella/strep antibody/negative influenza
Leukocytosis/afebrile
Right pleural effusion: 850 cc of dark blood pleural fluid 05/28/2024
Cannot rule out heart failure component: Elevated proBNP 2250/negative troponin.
Echocardiogram 05/28/2024: Ejection fraction 45 to 50%. Dilated left atrium. Trace MR. Status post mitral valve and aortic valve replacement. Trivial pericardial effusion.
Chronic anemia hemoglobin 7.9-contributing to shortness of breath
-
Conditions present prior admission:
Chronic exertional dyspnea: Suspect due to his significant back pain, deconditioning, muscle mass loss.
CT chest 05/06/2024: No evidence for pulmonary embolism or thoracic aortic dissection. Bilateral calcified pleural plaques/prior asbestos exposure. Stable small left loculated pleural effusion.
-Chronic loculated left pleural effusion: In January to a small for thoracentesis-volume appears stable this admission 05/2024.
Thoracentesis 09/28/2023: 1.4 L of dark bloody pleural fluid negative for cytology-exudate
-Severe back pain/spinal stenosis-status post ablation.
-Failure to thrive
-Chronic anemia hemoglobin this time 9.6-contributing to symptoms.
-Metabolic alkalosis
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
History of nonischemic cardiomyopathy with recovered EF.
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
Paroxysmal atrial fibrillation
Chronic anticoagulation
Hyperparathyroidism
Chronic kidney disease
#Former tobacco smoker [id number] history quit at age 57
-
Assessment and plan:
-
Current presentation suggest right lower lobe pneumonia with also component of acute on chronic heart failure with reduced ejection fraction.
-
Patient does have history of chronic left pleural effusion that appears stable on current chest x-ray-not enough fluid to drain on ultrasound 05/06/2024 and 02/13/2024. Fluid is loculated and chronic.
-
[facility] records reviewed: He was offered pleural biopsy to determine whether mesothelioma is present but patient declined due to comorbidities and advanced age.
Recent 6-minute walk testing without oxygen saturation in the office 01/03/2024.
Recently he was in the hospital also complaining of shortness of breath in early May and that pleural effusion also appears to be stable.
Prior left thoracentesis showed exudative with negative cytology and culture.
-
Right pleural effusion is new compared to prior imaging: Possibly parapneumonic. Dark bloody fluid in the setting of anticoagulation.
pH 7.33/white blood cells 1148/65% mononuclear/34% polymorph/glucose 73/total protein 3.5/LDH 447/triglycerides 38. Exudative.
Culture negative
Cytology pending
leukocytosis not worsening, afebrile.
Agree with antibiotics to complete 5-7 course currently on ceftriaxone/doxycycline. Okay to transition to oral antibiotics can replace with Ceftin/Doxy combination.
So far all cultures negative continue to follow
-
Continue oxygen supplementation to maintain pulse ox above 88% currently on 2 L. Hopefully can be weaned off.
Not usually on oxygen therapy.
Home oxygen assessment prior to discharge-maybe tomorrow.
-
Patient does have history of asbestos exposure with significant Benign pleural plaques With minimal increased interstitial markings from chronic fibrosis based on CAT scan from 05/06/2024.
Pleural effusions could be postcardiotomy syndrome versus related to asbestos at least on the left.
Less likely mesothelioma but possible-patient is aware of these as noted above.
Again, right pleural effusion is new and will need to be followed in the outpatient setting.
-
Increased proBNP suggest heart failure component.
Diuresis per cardiology and nephrology. Currently on hold due to syncopal episodes/orthostatic hypotension and possible vasovagal syncope.
Patient is having orthostasis-improved.
Continue midodrine-dose adjusted.
Echocardiogram this admission noted
-
Toxic metabolic encephalopathy. At risk for aspiration
Morphine has been decreased
Fall precautions
-
Anemia contributing to his shortness of breath as well.
To be transfused. Per primary team
Status post iron infusion
-
He also have chronic back pain that is contributing to shortness of breath. Spinal stenosis. Underwent recent ablation.
Due to immobility has lost significant amount of muscle mass
Continue physical therapy as able
-.
Dr. Shah updated son at the bedside.
-
Patient to follow-up with Dr. Aaron after discharge.
Last time seen in our office was 05/22/2024.
-
Unfortunately, patient had multiple hospital admissions for different issues, shortness of breath, back pain, failure to thrive, pleural effusion, multiple comorbidities. Difficult is going to recover full function with significant amount of muscle
mass loss and chronic pain on narcotics.
Discussed with primary team, consider DNR status at least. Palliative care may be an option as well.
-
Dr. Shah updated son multiple times through the course of hospital stay last time in 05/31/2024
Discussed with patient and son possibility of goals of care, DNR status given multiple comorbidities to thrive, elderly-I am not quite sure that the patient understand after multiple attempts.
He will think about it. For now full code.

Data:
CT chest 04/05/2025,
1. No evidence of pulmonary embolism or thoracic aortic dissection.
2. Bilateral calcified pleural plaques, consistent with asbestos related pleural disease.
3. Small loculated left pleural effusion, unchanged compared to prior CT, however increased in size compared to a prior CT dated 09/28/2023. Given calcified pleural plaques and increasing loculated pleural effusion, mesothelioma is not excluded.
4. Small right pleural effusion, new compared to prior CT.
5. Mild reticular interstitial thickening, suggestive of senescent change, mild interstitial fibrosis.
6. Severe coronary arterial calcification. Please correlate with symptoms of and risk factors for coronary artery disease, with further workup as clinically appropriate.
-
CT Chest 02/15/2024:
Small-moderate stable partially loculated left pleural effusion with associated underlying atelectasis.
Stable postoperative changes
Stable calcified pleural plaques suggesting prior asbestos exposure
Atherosclerosis
CXR 02/13/2024:
Moderate loculated left pleural effusion. Stable.
Probable associated mild left lower lobe pneumonia. New
Findings consistent with prior asbestos exposure. Stable.
Chest US 02/14/2024: Small LEFT pleural effusion. Amount of fluid present not sufficient for safe thoracentesis.
-
Echocardiogram 09/08/2023: Normal LVEF. Normal biventricular size and function. Status post aortic valve replacement. Mild TR.
Subjective Data
-
Date of Service:
Date of Service: May 31, 2024
Chief Complaint: Pulmonary Follow Up (Hypoxemic respiratory failure due to pleural effusion pneumonia)
Subjective:
Continues to report intermittent back pain.
Also recurrent syncopal episodes likely vasovagal after developing significant back pain.
Poor p.o. intake
Review of Systems
General: Fever (n)
Cardiopulmonary: Dyspnea, Dyspnea on Exertion and Cough
GI: Abdominal Pain (n) and Nausea (n)
Objective Data
Data Reviewed
Vital Signs / I&O / Oxygen:
Vital Signs
Temp Pulse Resp BP Pulse Ox
97.6 F 66 20 108/59 98
05/31/24 13:19 05/31/24 13:19 05/31/24 13:19 05/31/24 13:19 05/31/24 12:40
Intake and Output
05/30/24 05/31/24 06/01/24
06:59 06:59 06:59
Intake Total 100 / 100 950 / 950 0 / 0
Output Total 250 / 250 1000 / 1000
Balance -150 / -150 -50 / -50 0 / 0
SaO2 98
Nasal Cannula flow liters per 3
minute
Physical Exam
General: Comfortable
HEENT: Normocephalic
Cardiovascular: S1-S2
Respiratory: Non-Labored Respirations (at rest)
GI: Soft and Non Distended
Neurology: Awake, Alert and No Motor Deficits
Skin: Warm
Labs/Micro/Reports
Lab Data
05/31/24 10:02
05/31/24 06:52
Microbiology
05/28/24 09:52 Pleural Fluid Gram Stain - Final
--- NOTE | 2024-05-31 16:07 | W.PN.CARDCBS ---
Today's Communication / Plan
-
Receiving blood currently. Hopefully this will help his blood pressure in addition.
Continue midodrine. Continue to follow orthostatic vital signs.
Diuretics per nephrology.
Limited guideline directed medical therapy because of hypotension.
Continue treatment of pneumonia per primary service and pulmonary for
Impression / Plan
-
PCP: Dr. Oro
Director Government: Dr. ORLANDO Qureshi
Impression:
Recovered nonischemic CM
Syncope/orthostasis 05/28/2024
Respiratory failure secondary to heart failure with improved ejection fraction and pneumonia
HTN
HLD
s/p bioprosthetic AVR and mitral valve repair 04/2010
Paroxysmal atrial fibrillation
Chronic Eliquis AC
Hyperparathyroidism
Asbestosis
Recurrent pleural effusion
s/p thoracentesis 09/28/2023 w/ 1450 cc dark bloody fluid removed
s/p thoracentesis 05/28/2024 w/ 850 cc dark bloody fluid removed.
Chronic back pain
Echo 09/28/2023: EF 50%, mild cLVH, well seated #32 annuloplasty ring, well seated #27 Stahl bovine AVR with peak/mean gradients 9/5 mmHg, mild TR, estimated PAP 25-30 mmHg
Echo 05/28/2024: Ejection fraction 45 to 50%, #32 mitral annuloplasty ring with mean gradient of 2 mmHg, #27 Stahl bovine AVR with mean gradient of 3 mmHg
Impression:
Blood pressure has been on the low side and there have been issues with orthostatic hypotension while inpatient during his significant illness.
He is anemic and receiving blood currently. Hopefully this will help his blood pressure in addition.
Blood pressure is fairly stable on midodrine. Continue midodrine. Continue to follow orthostatic vital signs and orthostatics clinically.
Continue antibiotic treatment of pneumonia.
Previously thought to be overdiuresed as renal insufficiency worsened with IV Lasix. Nephrology following. Diuretics per nephrology. Continue to follow status post transfusion.
He has paroxysmal atrial fibrillation and continues on Eliquis. Sinus rhythm noted.
Guideline directed medical therapy for heart failure with improved ejection fraction is limited because of hypotension.
Discussed with patient's son at bedside
He remains severely deconditioned
HPI: Reji is an 88 year old male with PMH of recovered cardiomyopathy, HTN, HLD, AVR, mitral valve replacement, paroxysmal atrial fibrillation, hyperparathyroidism, CKD, asbestosis, back pain, and recurrent pleural effusion. He presented to [facility]
for evaluation of worsening SOB and hypoxia. With ambulating only short distances at home, his pulse ox was noted to drop into the 80s and he was very SOB. Given worsening symptoms, he came to [facility] for evaluation. In ER, he was hypoxic and required
2L NC. Chest xray noted what appeared to be a chronic pleural effusion on the L. ProBNP was elevated, up to 2250. He was started on IV lasix as well as antibiotics and was admitted for further evaluation. He underwent thoracentesis 05/28 with 850 cc
dark bloody fluid removed. Hgb down to 7.7. Cardiology consulted for evaluation given concern for acute heart failure. He continues to feel somewhat SOB post thoracentesis, however has noted some improvement in breathing throughout admission. Creat
bumped to 1.6 with diuresis and lasix has been placed on hold. Nephrology consult placed y primary service.
Progress Note - Director Government
Subjective
Date of Service: May 31, 2024
He is fatigued overall but denies chest pain and palpitations
Objective
Labs:
05/31/24 10:02
05/31/24 06:52
Labs
Hgb 7.5 g/dL (13.0-18.0) L 05/31/24 10:02
Hct 22.5 % (39.0-52.0) L 05/31/24 06:52
Plt Count 423 10^3/uL (130-400) H 05/31/24 06:52
Sodium 136 mmol/L (135-145) 05/31/24 06:52
Potassium 4.6 mmol/L (3.5-5.1) 05/31/24 06:52
BUN 61 mg/dl (9-20) H 05/31/24 06:52
Creatinine 1.4 mg/dL (0.7-1.3) H 05/31/24 06:52
Glucose 92 mg/dl (70-99) 05/31/24 06:52
Vital Signs and I&O:
Vital Signs
Temp Pulse Resp BP Pulse Ox
97.6 F 78 20 102/55 98
05/31/24 15:19 05/31/24 15:19 05/31/24 15:19 05/31/24 15:19 05/31/24 12:40
Vital Signs
Temp Pulse Resp BP Pulse Ox
97.6 F 78 20 102/55 98
05/31/24 15:19 05/31/24 15:19 05/31/24 15:19 05/31/24 15:05/31/24 12:40
Intake & Output
05/29/24 05/30/24 05/31/24 06/01/24
06:59 06:59 06:59 06:59
Intake Total 900 / 900 100 / 100 950 / 950 250 / 250
Output Total 900 / 900 250 / 250 1000 / 1000
Balance 0 / 0 -150 / -150 -50 / -50 250 / 250
Physical Exam
Physical Exam
General: Elderly man that appears weak
Heart: Distant heart sounds regular
Lungs: Coarse anterior breath sounds
Extremities: No clubbing, cyanosis or edema bilaterally.
Neuro: Grossly nonfocal, awake, alert and oriented x3.
[2024-05-31] MEDS: STERILE WATER FOR INJECTION 10 ML IV (16:54)
[2024-05-31] MEDS: ROCEPHIN 1000 MG IV (16:54)
[2024-05-31] MEDS: MIRALAX 8.2 GRAMS PO (17:01)
[2024-05-31] MEDS: ProAmatine PO (21:18)
[2024-05-31] MEDS: SENOKOT-S 2 TABLET PO (21:20)
[2024-05-31] MEDS: FEOSOL 325 MG PO (21:20)
[2024-05-31] MEDS: VITAMIN C 500 MG PO (21:20)
[2024-06-01] VITALS (44 sets, daily range): BP systolic 70–133; BP diastolic 37–84; PULSE 78–90; O2SAT 99; BMI 21.3
[2024-06-01] MEDS: MEGACE ORAL SUSPENSION 400 MG PO (07:23)
[2024-06-01] MEDS: PEPCID 20 MG PO (07:24)
[2024-06-01] MEDS: SENOKOT-S 2 TABLET PO (07:24)
[2024-06-01] MEDS: FLOMAX 0.4 MG PO (07:24)
[2024-06-01] MEDS: ProAmatine 10 MG PO (07:24)
[2024-06-01] MEDS: FARXIGA 10 MG PO (07:24)
[2024-06-01] MEDS: ZITHROMAX 500 MG PO (07:25)
[2024-06-01] MEDS: ELIQUIS 2.5 MG PO (07:25)
[2024-06-01] MEDS: MS CONTIN (EXTENDED RELEASE) 15 MG PO (07:25)
[2024-06-01] MEDS: MIRALAX 17 GRAMS PO (07:25)
[2024-06-01] MEDS: ZYLOPRIM 150 MG PO (07:25)
[2024-06-01 07:35] LABS: Hematocrit 26.9 % (39.0-52.0); Hemoglobin 8.7 g/dL (13.0-18.0); Mean Corp Hgb Conc. 32.3 g/dL (33.0-37.0); Mean Corpuscular Hgb 29.4 pg (27.0-31.0); Mean Corpuscular Volume 90.9 fL (80.0-94.0); Mean Platelet Volume 9.4 fL (7.4-10.4); Platelet Count 424 10^3/uL (130-400); Red Blood Cell Count 2.96 10^6/uL (4.70-6.10); Red Cell Dist. Width 19.3 % (11.5-14.5); White Blood Cell Count 12.8 10^3/uL (4.8-10.8)
[2024-06-01 08:03] LABS: Blood Urea Nitrogen 57 mg/dl (9-20); Calcium 10.2 mg/dl (8.4-10.2); Carbon Dioxide 28 mmol/L (22-30); Chloride 99 mmol/L (98-107); Estimated Creatinine Clearance 38 ml/min; Glucose 86 mg/dl (70-99); Potassium 4.5 mmol/L (3.5-5.1); Sodium 136 mmol/L (135-145); eGFR 53.17
--- NOTE | 2024-06-01 08:42 | W.PN.HOSP.TC ---
Today's Communication/Plan
-
see bold
Assessment / Plan
Assessment / Plan
88-year-old male with PMH of asbestos lung disease, recurrent pleural effusion requiring thoracentesis 10/23, hypertension, anemia, GERD, CHF, atrial Fib, chronic pain syndrome who presented to the emergency department with son due to worsening
dyspnea on exertion and hypoxia. He was recently hospitalized earlier this month for shortness of breath with negative work-up (IR consulted for thoracentesis but not enough fluid)
Upon arrival patient required 2 L of oxygen. Chest x-ray with chronic pleural effusion and RLL pneumonia. Patient volume overloaded on exam.
CXR
IMPRESSION:
Findings compatible with possibly loculated likely chronic left pleural effusion without significant change.
Likely slightly increased right basilar opacification which could represent atelectasis and/or pneumonia and tiny right pleural effusion.
Acute respiratory failure on 06/01
History of asbestosis
-COVID-negative and Flu negative; Strep and Legionella negative
-CXR with pleural effusion and pneumonia, results above
-Continue ceftriaxone D7, s/p azithromycin D6
-Status post right thoracentesis 05/28, draining 850 cc of dark bloody pleural fluid
-Nebs as needed for short of breath and wheezing
-Transfer to the ICU 06/01, currently on NIV
-Consult handmade tile artist, ongoing discussions with family regarding goals of care
-Hold p.o. meds and p.o. intake for now
HFmrEF, Acute Exacerbation
Hx Mitral Valve Repair
Hx Bovine Aortic Valve Replacement
-TTE 09/22 with EF 50%
-S/p Lasix 40mg IV daily, patient known to Dr. Cadence Qureshi
-Appreciate cardiology input and nephrology input, continue IV Lasix as needed
-Hold Farxiga
-05/28/24 Echo EF 45-50%
Orthostatic hypotension
Syncope
-Hold midodrine
Urinary Retention
-S/p penaloza, penaloza re-inserted, then removed on 05/31
-Continue to monitor for retention, check PVRs, hold flomax
Constipation
-Resolved, hold laxatives
Stage IIIb CKD
-Appreciate nephrology input, suspect creatinine still in baseline range with known stage IIIb chronic kidney disease
Hyperkalemia
-Resolved status post Lokelma
# Anemia of chronic disease weeks with iron deficiency anemia
-S/p IV iron per nephrology, hold oral iron with vitamin C
-Hemoglobin 7.5, will transfuse 1 unit packed red blood cells 05/31
Hyponatremia
-stable
#Chronic weight loss - due to acute on chronic cervical/thoracic pain with failure to thrive
(Severe protein/calorie malnutrition of chronic illness ruled out)
Appetite improving on Megace.
#Chronic pain syndrome/chronic opiate dependence
#Chronic cervical/thoracic scapular pain
-05/28, patient appears lethargic, hold MS Contin from 30 mg every 12 hours to 15 mg every 12 hours
#Aortic valve replacement, Mitral valve repair
# Paroxysmal A-fib
-Obtain EKG
-hold Eliquis
#BPH/TURP
#Gout
- Hold allopurinol
DVT prophylaxis�SCDs
Full code
Dispo - lives w/ family, PT rec SNF
Updated son at bedside 05/31 -goals of care discussion held
Updated son at bedside 06/01�goals of care discussion held
Total time spent to see the patient on the floor, examine the patient, review data and lab results, discuss treatment plan with patient, nursing staff around 61 minutes.
Physical Exam
General: Frail, elderly, in respiratory distress
HEENT: Normocephalic, Atraumatic, MMM
Respiratory: Right basilar Rales with pleural rub
Cardiac: Normal S1/S2, Regular Rate and Rhythm
GI: Soft, Nontender, Nondistended, Normal Bowel Sounds
Anticipated Discharge: > 48 hours
Subjective/Interval History
-
Date of Service: June 01, 2024
Patient seen and examined twice. First in the morning, then for rapid response. He complains of shortness of breath, back pain, not feeling well. No fever, no vomiting.
Objective Data
-
Labs:
Laboratory Results
06/01/24
06:46
WBC 12.8 H
Hgb 8.7 L
Hct 26.9 L
Plt Count 424 H
Sodium 136
Potassium 4.5
Chloride 99
Carbon Dioxide 28
BUN 57 H
Creatinine 1.3
Glucose 86
Calcium 10.2
Vital Signs:
Vital Signs
Temp Pulse Resp BP Pulse Ox
97.7 F 69 18 113/57 96
06/01/24 07:55 06/01/24 07:55 06/01/24 07:55 06/01/24 07:55 06/01/24 07:55
I&O
05/31/24 06/01/24 06/02/24
06:59 06:59 06:59
Intake Total 950 / 950 250 / 250
Output Total 1000 / 1000 625 / 625
Balance -50 / -50 -375 / -375
--- NOTE | 2024-06-01 09:30 | PN.CDI ---
CDI
- -
CDI:
Physician Documentation Request
Admit Date: 05/26/24 18:01
Dear Doctor Do,
05/28 patient underwent thoracentesis which yielded 850 cc of dark bloody pleural fluid.
05/31 patient received 1 unit of PRBC
Progress notes state 'anemia of chronic disease weeks with iron deficiency anemia'
Based on the above, could you clarify, in your progress note, which of the following is the most likely type of anemia you are evaluating, monitoring and/or treating?
Acute blood loss anemia with baseline chronic anemia and iron deficiency anemia
Anemia of chronic disease and iron deficiency anemia only
Other
Use of terms such as suspected, likely, concern for, or probable (associated with a specific diagnosis that is being evaluated, monitored, or treated as if it exists) are acceptable and can be coded in the inpatient setting, when documented at the
time of discharge.
Thank you,
Irma Mendiola RN, BSN
CDI Specialist
tiger text
Please use your independent medical judgment in providing your response.
--- NOTE | 2024-06-01 13:20 | W.CON.PAL ---
Addendum entered and electronically signed by Amber Pinedo MD 06/01/24 15:46:
spoke with son, they are waiting to speak with dr sousa, but per our conversation family leaning towards comfort care.
Addendum entered and electronically signed by Amber Pinedo MD 06/01/24 13:53:
at 1:15 attempted to call back son. he was in the room at that time, patient apparently had a medical emergency and was being moved to ICU.
Original Note:
Consultation
-
Date/Time Consultation Requested: 05/31/2024
Date/Time Consultation Performed: 06/01/2024
Requesting Provider: Dr. Gonsalez
Performing Provider: Dr. Pinedo
Reason for Consult: Goals of Care Discussion
Primary Diagnosis: Chronic hypoxic respiratory failure
Consult Requested By: Patient's Physician
Reason for Admission
Illness Course/HPI
Reji is a 88 y/o male with pmhx of asbestos related lung disease, pleural effusions requiring thoracentesis, chronic pain, admitted to hospital with hypoxia due to pneumonia and HF exacerbation. chronic pain from cervical/thoracic region,
overall failure to thrive, episodes of hypotension impacting ability to participate in therapy.
referred to palliative care to discuss goals of care
met with patient at bedside earlier in the day. he was able to participate partially in the conversation, however insight into condition appears limited. he hopes to get better, but feels like he has not made much improvement in breathing over last
few days. feels terrible, pain. but also drowsy and at times falling asleep in visit.
Functional Status
Lives with in [facility].
patient reports that he was independent of self care needs [facility] to [facility]
Goals of Care Discussion
-
Individuals Present for Discussion & Relationship to Patient:
patient
Patient Goals
patient able to partially participate.
Patient reports his goals are to get better, but feels he is not.
Discussed hospice - he states he is not ready for hospice because 'he is not old enough.' unable to share other reasons why he would not be intersted
When asked about code status - he states that he didn't want to be on a machine. but didn't want to make any decisions without talking to his .
Call placed to family contact - son. left message for call back. I called him again at 1:15, son was in the room but unable to talk as a but at that time a medical emergency was called on the patient.
Pain & Symptom Assessment
Patient Symptoms
Patient Symptoms: Pain, Dyspnea and Anxiety
Objective Data
-
Objective Data:
Vital Signs
Temp Pulse Resp BP Pulse Ox
97.7 F 69 18 113/57 95
06/01/24 07:55 06/01/24 07:55 06/01/24 07:55 06/01/24 07:55 06/01/24 09:55
Laboratory Results
06/01/24 06:46
06/01/24 06:46
Total Protein 5.5 g/dl (6.3-8.2) L 05/31/24 06:52
Albumin 2.8 g/dl (3.5-5.0) L 05/31/24 06:52
Free T4 1.54 ng/dl (0.78-2.19) 05/27/24 07:15
Palliative Performance Scale
Palliative Performance Scale:
PPS Level Ambulation Activity & Evidence of Disease Self Care Intake Conscious Level
100% Full Normal Activity & Work; Full Intake Full
No Evidence of Disease
90% Full Normal Activity & Work; Full Normal Full
Some Evidence of Disease
80% Full Normal Activity with Effort Full Normal or Full
Some Evidence of Disease Reduced
70% Reduced Unable Normal Job/Work Full Normal or Full
Significant Disease Reduced
60% Reduced Unable Hobby/Housework Occasional Normal or Full or Confusion
Significant Disease Assistance Reduced
50% Mainly Sit/Lie Unable to do Any Work Considerable Normal or Full or Confusion
Extensive Disease Assistance Req'd Reduced
40% Mainly in Bed Unable to do Most Activity Mainly Assistance Normal or Full or Drowsy;
Extensive Disease Reduced +/- Confusion
30% Totally Bed Unable to do Any Activity Total Care Normal or Full or Drowsy;
Bound Extensive Disease Reduced +/- Confusion
20% Totally Bed Bound Unable to do Any Activity Total Care Minimal to Full or Drowsy;
Extensive Disease Sips +/- Confusion
10% Totally Bed Bound Unable to do Any Activity Total Care Mouth Care Drowsy or Coma;
Extensive Disease Only +/- Confusion
0%
PPS Score Level:
Palliative Performance Score Response
Palliative Performance Score Response: 40%
Physical Exam
-
General: Appears in Distress
Neuro: Awake
Psych: Confused and Anxious
Assessment / Plan
-
Assessment/Plan:
Ongoing family discussions regarding goals of care.
attending updated
[2024-06-01 13:27] LABS: Glucose - Point of Care 159 mg/dl (70-99)
[2024-06-01 13:41] LABS: Hematocrit 28.3 % (39.0-52.0); Mean Corp Hgb Conc. 31.8 g/dL (33.0-37.0); Mean Corpuscular Hgb 29.1 pg (27.0-31.0); Mean Corpuscular Volume 91.6 fL (80.0-94.0); Mean Platelet Volume 9.4 fL (7.4-10.4); Platelet Count 424 10^3/uL (130-400); Red Blood Cell Count 3.09 10^6/uL (4.70-6.10); Red Cell Dist. Width 19.5 % (11.5-14.5); White Blood Cell Count 15.3 10^3/uL (4.8-10.8)
--- NOTE | 2024-06-01 13:47 | RR ---
Patient's son came out of the patient's room asking for help. Upon arrival to room patient found unresponsive.
A Rapid Response was called on this patient, please see Rapid Response form.
[2024-06-01 13:53] LABS: APTT 38.3 Sec (23.4-35.0); INR 1.54; PT 18.8 Sec (11.4-14.6)
[2024-06-01 13:55] LABS: ALT (SGPT) 24 U/L (0-50); AST (SGOT) 30 U/L (17-59); Alkaline Phosphatase 156 U/L (38-126); Blood Urea Nitrogen 56 mg/dl (9-20); Calcium 10.4 mg/dl (8.4-10.2); Carbon Dioxide 29 mmol/L (22-30); Chloride 98 mmol/L (98-107); Estimated Creatinine Clearance 45 ml/min; Glucose 109 mg/dl (70-99); Potassium 5.1 mmol/L (3.5-5.1); Sodium 135 mmol/L (135-145); Total Bilirubin 0.6 mg/dl (0.2-1.3); Total Protein 5.8 g/dl (6.3-8.2); eGFR > 60.00
--- NOTE | 2024-06-01 13:59 | W.PN.INTV ---
Today's Communication / Plan
Recommendations
Check ABG, chest x-ray
Maintain NIV for now
Less likely thromboembolic event given chronic anticoagulation
Unclear whether he may have had an aspiration event. History suggest aspiration risk
Await decision on goals of care
Assessment
-
88-year-old man with past medical history noted. Admitted with worsening shortness of breath. Having significant back pain, ambulatory dysfunction, chronic stable left loculated pleural effusion.
Came to the hospital on 05/26/2024 complaining of shortness of breath and mild hypoxemia. Found to have leukocytosis.
S/p code 9, 06/01/2024
Did not lose pulse
Likely respiratory
Vasovagal event?
New right lower lobe infiltrate-possible pneumonia
Cultures negative
Leukocytosis/afebrile
Right pleural effusion
850 cc of dark blood pleural fluid 05/28/2024
Cytology pending, exudate
Mildly elevated troponin, post CODE 9
Cardiomyopathy, EF 45%
Chronic anemia
Hemoglobin 7.9
Conditions present prior admission:
Chronic exertional dyspnea: Suspect due to his significant back pain, deconditioning, muscle mass loss.
CT chest 05/06/2024: No evidence for pulmonary embolism or thoracic aortic dissection. Bilateral calcified pleural plaques/prior asbestos exposure. Stable small left loculated pleural effusion.
-Chronic loculated left pleural effusion: In January to a small for thoracentesis-volume appears stable this admission 05/2024.
Thoracentesis 09/28/2023: 1.4 L of dark bloody pleural fluid negative for cytology-exudate
-Severe back pain/spinal stenosis-status post ablation.
-Failure to thrive
-Chronic anemia hemoglobin this time 9.6-contributing to symptoms.
-Metabolic alkalosis
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
History of nonischemic cardiomyopathy with recovered EF.
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
Paroxysmal atrial fibrillation
Chronic anticoagulation
Hyperparathyroidism
Chronic kidney disease
#Former tobacco smoker [id number] history quit at age 57
-
Assessment and plan:
At this time, patient remains critically ill
Son describes patient with clothes off, gasping for breath, then appeared to have possibly vasovagal event. Never lost pulse.
Did not require CPR
Did not require intubation
Patient placed on NIV
Presently, blood pressure 113/57, pulse 69
100% saturation on NIV
EKG poor tracing but no obvious ST changes
Patient apparently meeting with hospice, palliative care
Moving forward
We will continue with NIV
Obtain chest x-ray
Check ABG
Reviewed prior films at length. Chronic interstitial changes mild with asbestos pleural plaques, left pleural thickening
Recent right pleural effusion drained, dark bloody fluid, cytology pending
Patient was offered pleural biopsy in the past for possibly of mesothelioma, patient declined due to age and comorbidity
Has had left pleural effusion cytology negative in 2023
Patient also with chronic back pain
Not sure whether pain was playing a role followed by a vasovagal event
Follow
Given possibly of pneumonia, patient to complete 5 to 7 days of antibiotics
No obvious evidence of pneumonia
Son describes episode of productive cough few days ago, this is not recurred
son also admits to possible choking in the past but patient has been careful however aspiration syndrome is likely
Patient does have history of asbestos exposure with significant Benign pleural plaques With minimal increased interstitial markings from chronic fibrosis based on CAT scan from 05/06/2024.
Pleural effusions could be postcardiotomy syndrome versus related to asbestos at least on the left.
Less likely mesothelioma but possible-patient is aware of these as noted above.
Again, right pleural effusion is new and will need to be followed in the outpatient setting.
Increased proBNP suggest heart failure component.
Diuresis per cardiology and nephrology. Currently on hold due to syncopal episodes/orthostatic hypotension and possible vasovagal syncope.
Patient is having orthostasis-improved.
Continue midodrine-dose adjusted.
Echocardiogram this admission noted
Resolving nonischemic cardiomyopathy
Thromboembolic disease is also within the differential but patient on chronic anticoagulation making this less likely
CT angiogram, PE study 05/06/2024 negative for thromboembolic disease
Toxic metabolic encephalopathy. At risk for aspiration
Morphine has been decreased
Fall precautions
-
Anemia contributing to his shortness of breath as well.
To be transfused. Per primary team
Status post iron infusion
-
He also have chronic back pain that is contributing to shortness of breath. Spinal stenosis. Underwent recent ablation.
Due to immobility has lost significant amount of muscle mass
Continue physical therapy as able
-
Reviewed with son at length. Awaiting arrival of sister. Son has made it clear that they want to focus on comfort, awaiting final decision by family
For now, patient appears to be comfortable
Palliative evaluation noted and reviewed
Reviewed with critical care nursing, respiratory care, primary service
TCCT 31 min

Data:
CT chest 04/05/2025,
1. No evidence of pulmonary embolism or thoracic aortic dissection.
2. Bilateral calcified pleural plaques, consistent with asbestos related pleural disease.
3. Small loculated left pleural effusion, unchanged compared to prior CT, however increased in size compared to a prior CT dated 09/28/2023. Given calcified pleural plaques and increasing loculated pleural effusion, mesothelioma is not excluded.
4. Small right pleural effusion, new compared to prior CT.
5. Mild reticular interstitial thickening, suggestive of senescent change, mild interstitial fibrosis.
6. Severe coronary arterial calcification. Please correlate with symptoms of and risk factors for coronary artery disease, with further workup as clinically appropriate.
-
CT Chest 02/15/2024:
Small-moderate stable partially loculated left pleural effusion with associated underlying atelectasis.
Stable postoperative changes
Stable calcified pleural plaques suggesting prior asbestos exposure
Atherosclerosis
CXR 02/13/2024:
Moderate loculated left pleural effusion. Stable.
Probable associated mild left lower lobe pneumonia. New
Findings consistent with prior asbestos exposure. Stable.
Chest US 02/14/2024: Small LEFT pleural effusion. Amount of fluid present not sufficient for safe thoracentesis.
-
Echocardiogram 09/08/2023: Normal LVEF. Normal biventricular size and function. Status post aortic valve replacement. Mild TR.
Subjective Dataa
Subjective Data
Date of Service:
Date of Service: June 01, 2024
Subjective:
Code 9 was called. Patient transferred to ICU, not intubated, on NIV. Never lost pulse. Appears to be primarily respiratory
Objective Data
Data Reviewed
Vital Signs / I&O / Oxygen:
Vital Signs
Temp Pulse Resp BP Pulse Ox
97.7 F 69 18 113/57 95
06/01/24 07:55 06/01/24 07:55 06/01/24 07:55 06/01/24 07:55 06/01/24 09:55
Intake and Output
05/31/24 06/01/24 06/02/24
06:59 06:59 06:59
Intake Total 950 / 950 250 / 250
Output Total 1000 / 1000 625 / 625
Balance -50 / -50 -375 / -375
SaO2 95
Nasal Cannula flow liters per 2
minute
Physical Exam
General: Comfortable (on NIV)
HEENT: Normocephalic
Cardiovascular: S1-S2, Regular Rhythm, Murmur (n) and Rub (n)
Respiratory: Wheeze (n), Crackles (n), Rhonchi (n), Non-Labored Respirations, Stridor (n) and Other (Decreased breath sounds)
GI: Soft, Non Distended and Non Tender
Neurology: Lethargic (Opens eyes, but otherwise comfortable on NIV)
Skin: Cyanosis (n), Rash (n) and Other (Mild pallor)
Labs/Micro/Reports
Lab Data
06/01/24 13:32
06/01/24 13:32
Laboratory Results
06/01/24
13:32
PT 18.8 H
INR 1.54
APTT 38.3 H
--- NOTE | 2024-06-01 14:09 | W.PN.CARDCBS ---
Today's Communication / Plan
-
Status post respiratory arrest
Awaiting decision regarding level of care
Impression / Plan
-
PCP: Dr. Oro
[employer]: Dr. ORLANDO Qureshi
Impression:
Recovered nonischemic CM
Syncope/orthostasis 05/28/2024
Respiratory failure secondary to heart failure with improved ejection fraction and pneumonia
HTN
HLD
s/p bioprosthetic AVR and mitral valve repair 04/2010
Paroxysmal atrial fibrillation
Chronic Eliquis AC
Hyperparathyroidism
Asbestosis
Recurrent pleural effusion
s/p thoracentesis 09/28/2023 w/ 1450 cc dark bloody fluid removed
s/p thoracentesis 05/28/2024 w/ 850 cc dark bloody fluid removed.
Chronic back pain
Echo 09/28/2023: EF 50%, mild cLVH, well seated #32 annuloplasty ring, well seated #27 Stahl bovine AVR with peak/mean gradients 9/5 mmHg, mild TR, estimated PAP 25-30 mmHg
Echo 05/28/2024: Ejection fraction 45 to 50%, #32 mitral annuloplasty ring with mean gradient of 2 mmHg, #27 Stahl bovine AVR with mean gradient of 3 mmHg
Impression:
Code 9 called approximately 1330, patient abruptly poorly responsive with agonal respiration, was bagged, son at bedside, placed in Trendelenburg, never lost pulse or rhythm, lethargic but after minutes responded briefly to verbal commands, but
remained obtunded, decision was made to support in ICU while decision is made regarding level of care and whether or not resuscitative efforts should be continued. Current plan is to attempt noninvasive ventilation until disposition.
Blood pressure has been on the low side and there have been issues with orthostatic hypotension while inpatient during his significant illness.
He is anemic and receiving blood currently. Hopefully this will help his blood pressure in addition.
Blood pressure is fairly stable on midodrine. Continue midodrine. Continue to follow orthostatic vital signs and orthostatics clinically.
At this point, prognosis is very poor. Likelihood of leaving ICU is low, would favor comfort measures and no intubation. Await decision of family members. Discussed at length with son Geovanny.
HPI: Reji is an 88 year old male with PMH of recovered cardiomyopathy, HTN, HLD, AVR, mitral valve replacement, paroxysmal atrial fibrillation, hyperparathyroidism, CKD, asbestosis, back pain, and recurrent pleural effusion. He presented to [facility]
for evaluation of worsening SOB and hypoxia. With ambulating only short distances at home, his pulse ox was noted to drop into the 80s and he was very SOB. Given worsening symptoms, he came to [facility] for evaluation. In ER, he was hypoxic and required
2L NC. Chest xray noted what appeared to be a chronic pleural effusion on the L. ProBNP was elevated, up to 2250. He was started on IV lasix as well as antibiotics and was admitted for further evaluation. He underwent thoracentesis 05/28 with 850 cc
dark bloody fluid removed. Hgb down to 7.7. Cardiology consulted for evaluation given concern for acute heart failure. He continues to feel somewhat SOB post thoracentesis, however has noted some improvement in breathing throughout admission. Creat
bumped to 1.6 with diuresis and lasix has been placed on hold. Nephrology consult placed y primary service.
Progress Note - [employer]
Subjective
Date of Service: June 01, 2024:
Objective
Labs:
06/01/24 13:32
06/01/24 13:32
Labs
Hgb 9.0 g/dL (13.0-18.0) L 06/01/24 13:32
Hct 28.3 % (39.0-52.0) L 06/01/24 13:32
Plt Count 424 10^3/uL (130-400) H 06/01/24 13:32
PT 18.8 Sec (11.4-14.6) H 06/01/24 13:32
INR 1.54 06/01/24 13:32
APTT 38.3 Sec (23.4-35.0) H 06/01/24 13:32
Sodium 135 mmol/L (135-145) 06/01/24 13:32
Potassium 5.1 mmol/L (3.5-5.1) 06/01/24 13:32
BUN 56 mg/dl (9-20) H 06/01/24 13:32
Creatinine 1.1 mg/dL (0.7-1.3) 06/01/24 13:32
Glucose 109 mg/dl (70-99) H 06/01/24 13:32
Vital Signs and I&O:
Vital Signs
Temp Pulse Resp BP Pulse Ox
36.5 C 69 18 113/57 95
06/01/24 07:55 06/01/24 07:55 06/01/24 07:55 06/01/24 07:55 06/01/24 09:55
Vital Signs
Temp Pulse Resp BP Pulse Ox
36.5 C 69 18 113/57 95
06/01/24 07:55 06/01/24 07:55 06/01/24 07:55 06/01/24 07:55 06/01/24 09:55
Intake & Output
05/30/24 05/31/24 06/01/24 06/02/24
07:59 07:59 07:59 07:59
Intake Total 100 / 100 950 / 950 250 / 250
Output Total 250 / 250 1000 / 1000 625 / 625
Balance -150 / -150 -50 / -50 -375 / -375
Physical Exam
Physical Exam
Obtunded, in Trendelenburg, diminished breath sounds in bases, regular rate and rhythm, no edema, cachectic, acutely and chronically ill
[2024-06-01 14:10] LABS: Troponin I 0.045 ng/ml
[2024-06-01 14:35] LABS: Magnesium 2.5 mg/dl (1.6-2.3); Phosphorus 3.9 mg/dl (2.5-4.5)
[2024-06-01 15:06] LABS: B.E. 0.3 mmol/L; HCO3 28.1 mmol/L (21-28); O2 Saturation % 98.4 % (94-98); PCO2 64 mmHg (35-48); PO2 149 mmHg (83-108); pH 7.25 (7.35-7.45)
--- NOTE | 2024-06-01 15:38 | W.PN.NEPH.PH ---
Today's Communication / Plan
-
ok for IVF if needed
Assessment/Plan
-
IMP:
Acute hypoxic respiratory failure secondary to right lower lobe pneumonia and heart failure
HFpEF, Acute Exacerbation
Hx Mitral Valve Repair
Hx Bovine Aortic Valve Replacement
Urinary Retention-bladder scanned for > 700
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
Hyperkalemia
Anemia of chronic disease
Hyponatremia
chronic weight loss - due to acute on chronic cervical/thoracic pain with failure to thrive
Severe protein/calorie malnutrition of chronic illness
Chronic pain syndrome/chronic opiate dependence
Chronic cervical/thoracic scapular pain
Aortic valve replacement, Mitral valve repair
Paroxysmal A-fib
BPH/TURP
Gout
SHPTH
PLan:
s/p resp arrest today
on BIPAP, family trying to make decision
hb stable -IV iron course
stable renal function
follow BMP
continue midodrine as much possible
Can restart oral Lasix when desired
ok for gentle IVF if needed as he is NPO
d/w family and nursing
-
-
Date of Service: June 01, 2024
CC / HPI / ROS
-
Chief Complaint:
CKD, hypotension
History of Present Illness:
cr 1.1, stable
BP low stable on midodrine
weights stable
Review of Systems:
unresponsive on biPAP
resp arrest this am
Labs
-
Labs:
WBC 15.3 10^3/uL (4.8-10.8) H 06/01/24 13:32
RBC 3.09 10^6/uL (4.70-6.10) L 06/01/24 13:32
Hgb 9.0 g/dL (13.0-18.0) L 06/01/24 13:32
Hct 28.3 % (39.0-52.0) L 06/01/24 13:32
Plt Count 424 10^3/uL (130-400) H 06/01/24 13:32
Sodium 135 mmol/L (135-145) 06/01/24 13:32
Potassium 5.1 mmol/L (3.5-5.1) 06/01/24 13:32
Chloride 98 mmol/L (98-107) 06/01/24 13:32
Carbon Dioxide 29 mmol/L (22-30) 06/01/24 13:32
BUN 56 mg/dl (9-20) H 06/01/24 13:32
Creatinine 1.1 mg/dL (0.7-1.3) 06/01/24 13:32
eGFR > 60.00 06/01/24 13:32
Glucose 109 mg/dl (70-99) H 06/01/24 13:32
Calcium 10.4 mg/dl (8.4-10.2) H 06/01/24 13:32
Phosphorus 3.9 mg/dl (2.5-4.5) 06/01/24 13:32
Ujv-Z-Ffyaaxvwmai Pept 2250 pg/ml 05/26/24 15:58
Albumin 3.0 g/dl (3.5-5.0) L 06/01/24 13:32
Physical Exam
-
Vital Signs:
Vital Signs
Temp Pulse Resp BP Pulse Ox
97.7 F 69 18 113/57 100
06/01/24 07:55 06/01/24 07:55 06/01/24 07:55 06/01/24 07:55 06/01/24 13:59
Cardiovascular:: Regular rate and rhythm
Lung Excursion:: Abnormal (decreased)
Abdomen:: Nontender and Soft
Extremity Edema:: None: Bilateral:
Reyes Catheter: No
--- NOTE | 2024-06-01 16:14 | CHAP ---
Emotional and spiritual support provided for Mr. Cruz's family during and after code 9. Family is aware of heavy truck mechanic services availability 22/11. Declined call to at this time though Mr. Cruz is [employer]. Weekend heavy truck mechanic will follow.
--- NOTE | 2024-06-01 16:20 | W.PN.UPDATE ---
Update Note
Progress Note Update
Met with both son and daughter and son-in-law. Patient appears comfortable on noninvasive ventilation, movement lesion anywhere between 8 to 9 L/min
ABG 7.25/64/149 upon arrival to ICU on NIV
Patient does squeeze hand intermittently and occasionally moans but appears comfortable overall
Reviewed with family at length
Primary goal per son and daughter is comfort. They have also been in touch with her mother.
He appears comfortable at this time therefore we will repeat ABG in a few hours and again in the a.m.
This is primarily to determine which direction he is going in the short-term.
They have made it clear that they do not want to 'prolong the inevitable', however given his present stability, lets see how he does through the night
They have also made it clear that they do not want CPR/shock, do not want mechanical intubation
If patient exhibits increased anxiety, agitation, pain then we will transition to comfort measures only per their request
Reviewed at length, all questions answered
Reviewed with critical care nursing
[2024-06-01] MEDS: ROCEPHIN 1000 MG IV (17:22)
[2024-06-01] MEDS: STERILE WATER FOR INJECTION 10 ML IV (17:23)
[2024-06-01] MEDS: LOVENOX 40 MG SC (17:54)
--- NOTE | 2024-06-01 18:13 | PTCARENOTE ---
Pt transferred to ICU following rapid response. Son had been in room when pt expressed he was feeling short of breath. Found to be breathing agonally. Code 9 called overhead, ambu bag utilized. Son at bedside undetermined on code status. Brought to
ICU and placed on non-invasive ventilator. SaO2 100%. Fine crackles auscultated at bases. Pt responsive to tactile stimuli. Moans when arms are lifted or turned. Tolerating NIV. Sinus rhythm/Sinus tach with PAC's and PVC's on laborer cook house.
Peripheral pulses palpable. MAP > 65 without pressors. Bladder scanned for approximately 200ml after incontinent void. Family at bedside and decided DNR status. Plan to draw ABG's tonight and tomorrow to evaluate plan of care.
--- NOTE | 2024-06-01 18:13 | RESPNOTE ---
Respiratory: ABG done on BiPAP 15/5 cmH2O 35% set RR 22, actual RR 27, Tv 527.
[2024-06-01 18:16] LABS: B.E. 1.1 mmol/L; PCO2 57 mmHg (35-48); PO2 109 mmHg (83-108)
--- NOTE | 2024-06-01 20:00 | PTCARENOTE ---
Received patient at 1900. Shortly after, pt. began to wake up. Pt. aggressively pulling off bipap mask. Family at bedside, they made multiple attempts to redirect patient without success. Spoke with nurse practitioner and respiratory therapist.
Given patient's current DNR status and goals of care, midflow nasal cannula place on patient. Pt. much more calm/comfortable now. Afebrile. Heart rhythm currently sinus. Blood pressure normotensive. Lungs sound coarse and diminished. Currently NPO.
Incontinent of bowel and bladder. Condom catheter in place. Skin as documented. Discussed plan of care with patient and his family. Vital signs stable at this time.
[2024-06-02] VITALS (25 sets, daily range): BP systolic 84–116; BP diastolic 42–88; PULSE 2–70; BMI 21.0
--- NOTE | 2024-06-02 00:30 | PTCARENOTE ---
Pt. assessment unchanged. Remains on midflow nasal cannula. Son at bedside. Pt. resting comfortably. Vital signs stable at this time.
[2024-06-02 02:32] LABS: Glucose - Point of Care 77 mg/dl (70-99)
[2024-06-02 04:26] LABS: B.E. 1.2 mmol/L; HCO3 28.2 mmol/L (21-28); O2 Saturation % 95.2 % (94-98); PCO2 56 mmHg (35-48); PO2 140 mmHg (83-108); pH 7.31 (7.35-7.45)
--- NOTE | 2024-06-02 04:30 | PTCARENOTE ---
Pt. assessment unchanged. AM labs drawn. Vital signs stable at this time.
[2024-06-02 04:53] LABS: Hematocrit 26.1 % (39.0-52.0); Hemoglobin 8.3 g/dL (13.0-18.0); Mean Corp Hgb Conc. 31.8 g/dL (33.0-37.0); Mean Corpuscular Volume 91.3 fL (80.0-94.0); Mean Platelet Volume 9.7 fL (7.4-10.4); Platelet Count 393 10^3/uL (130-400); Red Blood Cell Count 2.86 10^6/uL (4.70-6.10); Red Cell Dist. Width 19.5 % (11.5-14.5); White Blood Cell Count 10.5 10^3/uL (4.8-10.8)
[2024-06-02 05:12] LABS: Blood Urea Nitrogen 54 mg/dl (9-20); Calcium 10.2 mg/dl (8.4-10.2); Carbon Dioxide 27 mmol/L (22-30); Chloride 101 mmol/L (98-107); Estimated Creatinine Clearance 45 ml/min; Glucose 88 mg/dl (70-99); Potassium 4.6 mmol/L (3.5-5.1); Sodium 136 mmol/L (135-145); eGFR > 60.00
[2024-06-02] MEDS: TYLENOL 1000 MG PO (05:12)
--- NOTE | 2024-06-02 07:09 | W.PN.INTV ---
Today's Communication / Plan
Recommendations
BiPAP 12/ tonight and intermittently throughout the day as able
Try to minimize pain medication if possible but pain control is a priority
ABG in a.m.
Remains on antibiotics
Assessment
-
88-year-old man with past medical history noted. Admitted with worsening shortness of breath. Having significant back pain, ambulatory dysfunction, chronic stable left loculated pleural effusion.
Came to the hospital on 05/26/2024 complaining of shortness of breath and mild hypoxemia. Found to have leukocytosis.
S/p code 9, 06/01/2024
Did not lose pulse
Likely respiratory
Vasovagal event?
New right lower lobe infiltrate-possible pneumonia
Cultures negative
Leukocytosis/afebrile
Right pleural effusion
850 cc of dark blood pleural fluid 05/28/2024
Cytology pending, exudate
Mildly elevated troponin, post CODE 9
Cardiomyopathy, EF 45%
Chronic anemia
Hemoglobin 7.9
Conditions present prior admission:
Chronic exertional dyspnea: Suspect due to his significant back pain, deconditioning, muscle mass loss.
CT chest 05/06/2024: No evidence for pulmonary embolism or thoracic aortic dissection. Bilateral calcified pleural plaques/prior asbestos exposure. Stable small left loculated pleural effusion.
-Chronic loculated left pleural effusion: In January to a small for thoracentesis-volume appears stable this admission 05/2024.
Thoracentesis 09/28/2023: 1.4 L of dark bloody pleural fluid negative for cytology-exudate
-Severe back pain/spinal stenosis-status post ablation.
-Failure to thrive
-Chronic anemia hemoglobin this time 9.6-contributing to symptoms.
-Metabolic alkalosis
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
History of nonischemic cardiomyopathy with recovered EF.
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
Paroxysmal atrial fibrillation
Chronic anticoagulation
Hyperparathyroidism
Chronic kidney disease
#Former tobacco smoker [id number] history quit at age 57
-
Assessment and plan:
At this time, patient remains critically ill, But appears to be improved
Patient did not tolerate NIV overnight, ripped it off late yesterday p.m.
ABG reviewed ., this was off NIV
Moving forward
Had extensive discussion with patient regarding physiology of his CO2 retention, hypoventilation and how this may have contributed to his overall symptom complex
Patient confirmed DNR status with multiple family members. In fact was adamant about no mechanical ventilation, no CPR
We will try BiPAP tonight, fullface mask, 04/05
Repeat x-ray and ABG in a.m.
Reviewed prior films at length. Chronic interstitial changes mild with asbestos pleural plaques, left pleural thickening
Recent right pleural effusion drained, dark bloody fluid, cytology pending
Patient was offered pleural biopsy in the past for possibly of mesothelioma, patient declined due to age and comorbidity
Has had left pleural effusion cytology negative in 2023
Discussed with patient risks for progressive hypoventilation, CO2 retention which may contribute to overall symptom complex
This may be affected by pain requirements, narcotic therapy
If he is able to tolerate BiPAP and had pain control, this is not an unreasonable outpatient treatment regimen if we can get BiPAP approved through insurance, case management
If he is not able to tolerate BiPAP or refuses, then we will have to except the consequences and risks of progressive CO2 retention and all associated symptoms that may, vent including possible respiratory failure
Although he is uncomfortable with this discussion, he is agreeable with the plan and plans to try BiPAP.
Given possibly of pneumonia, patient to complete 5 to 7 days of antibiotics
No obvious evidence of pneumonia
Son describes episode of productive cough few days ago, this is not recurred
son also admits to possible choking in the past but patient has been careful however aspiration syndrome is likely
Patient does have history of asbestos exposure with significant Benign pleural plaques With minimal increased interstitial markings from chronic fibrosis based on CAT scan from 05/06/2024.
Pleural effusions could be postcardiotomy syndrome versus related to asbestos at least on the left.
Less likely mesothelioma but possible-patient is aware of these as noted above.
Again, right pleural effusion is new and will need to be followed in the outpatient setting.
Increased proBNP suggest heart failure component.
Diuresis per cardiology and nephrology. Currently on hold due to syncopal episodes/orthostatic hypotension and possible vasovagal syncope.
Patient is having orthostasis-improved.
Continue midodrine-dose adjusted.
Echocardiogram this admission noted
Resolving nonischemic cardiomyopathy
Thromboembolic disease is also within the differential but patient on chronic anticoagulation making this less likely
CT angiogram, PE study 05/06/2024 negative for thromboembolic disease
Toxic metabolic encephalopathy. At risk for aspiration
Morphine has been decreased
Fall precautions
Suspect CO2 retention also contributing to this
-
Anemia contributing to his shortness of breath as well.
To be transfused. Per primary team
Status post iron infusion
-
He also have chronic back pain that is contributing to shortness of breath. Spinal stenosis. Underwent recent ablation.
Due to immobility has lost significant amount of muscle mass
Continue physical therapy as able
Pain medications will contribute to worsening CO2 retention
-
Reviewed with patient at length, including son, daughter, and son-in-law at the bedside
Reviewed with critical care nursing, respiratory care
TCCT 31 min

Data:
CT chest 04/05/2025,
1. No evidence of pulmonary embolism or thoracic aortic dissection.
2. Bilateral calcified pleural plaques, consistent with asbestos related pleural disease.
3. Small loculated left pleural effusion, unchanged compared to prior CT, however increased in size compared to a prior CT dated 09/28/2023. Given calcified pleural plaques and increasing loculated pleural effusion, mesothelioma is not excluded.
4. Small right pleural effusion, new compared to prior CT.
5. Mild reticular interstitial thickening, suggestive of senescent change, mild interstitial fibrosis.
6. Severe coronary arterial calcification. Please correlate with symptoms of and risk factors for coronary artery disease, with further workup as clinically appropriate.
-
CT Chest 02/15/2024:
Small-moderate stable partially loculated left pleural effusion with associated underlying atelectasis.
Stable postoperative changes
Stable calcified pleural plaques suggesting prior asbestos exposure
Atherosclerosis
CXR 02/13/2024:
Moderate loculated left pleural effusion. Stable.
Probable associated mild left lower lobe pneumonia. New
Findings consistent with prior asbestos exposure. Stable.
Chest US 02/14/2024: Small LEFT pleural effusion. Amount of fluid present not sufficient for safe thoracentesis.
-
Echocardiogram 09/08/2023: Normal LVEF. Normal biventricular size and function. Status post aortic valve replacement. Mild TR.
Subjective Dataa
Subjective Data
Date of Service:
Date of Service: June 02, 2024
Subjective:
Patient sitting in chair, feels well. Does not recall events from yesterday. Denies chest pain, nausea, back pain, neck pain. Had some back pain earlier this morning. Appears to be in good spirits. Family at bedside
Objective Data
Data Reviewed
Vital Signs / I&O / Oxygen:
Vital Signs
Temp Pulse Resp BP Pulse Ox
98.7 F 80 22 112/52 99
06/02/24 03:30 06/02/24 06:30 06/02/24 06:30 06/02/24 06:00 06/02/24 06:30
Intake and Output
06/01/24 06/02/24 06/03/24
06:59 06:59 06:59
Intake Total 250 / 250
Output Total 625 / 625 900 / 900
Balance -375 / -375 -900 / -900
SaO2 [NIV (Non Invasive 99
Ventilation)]
SaO2 99
Nasal Cannula flow liters per 2
minute
Physical Exam
General: Comfortable (on NIV)
HEENT: Normocephalic
Cardiovascular: S1-S2, Regular Rhythm, Murmur (n) and Rub (n)
Respiratory: Wheeze (n), Crackles (n), Rhonchi (n), Non-Labored Respirations, Stridor (n) and Other (Decreased breath sounds)
GI: Soft, Non Distended and Non Tender
Neurology: Awake, Alert and No Motor Deficits (Moves all extremities)
Skin: Cyanosis (n), Rash (n) and Other (Mild pallor)
Labs/Micro/Reports
Lab Data
06/02/24 04:29
06/02/24 04:29
Laboratory Results
06/01/24 06/01/24 06/01/24
13:32 14:57 18:09
PT 18.8 H
INR 1.54
APTT 38.3 H
pH 7.25 L 7.30 L
pCO2 64 H 57 H
pO2 149 H 109 H
HCO3 28.1 H 28.0
O2 Delivery Level
06/02/24
04:19
PT
INR
APTT
pH 7.31 L
pCO2 56 H
pO2 140 H
HCO3 28.2 H
O2 Delivery Level
--- NOTE | 2024-06-02 08:00 | PTCARENOTE ---
Assumed care of patient. Pt rec'd A&Ox2...confused to time. Forgetful intermittently. Pleasant. Back pain 07/09...will continue to monitor. HERNANDEZ's...assists w/ repositioning. S1 S2 irregular w/ + click....NSR/PAC's/occasional PVC's on monitor.
+PP. No edema. Heels elevated on pillows. Rec'd on 15L MFNC...sats 100%. Right lung clear. Left lung diminished w/ crackles 1/2 up. Encouraged pt to cough and deep breath. Orthopneic.
+ WELLER. Abdomen round...+BS. Incontinent of large loose BM. Breakfast ordered. Skin WNL except left posterior flank intact bandaid. Sacrum blanchable red/pink. 20P RFA capped. 20P RH capped. VS documented. Call nunez within reach. Will
continue to monitor.
--- NOTE | 2024-06-02 08:58 | W.PN.HOSP.TC ---
Today's Communication/Plan
-
see bold
Assessment / Plan
Assessment / Plan
88-year-old male with PMH of asbestos lung disease, recurrent pleural effusion requiring thoracentesis 10/23, hypertension, anemia, GERD, CHF, atrial Fib, chronic pain syndrome who presented to the emergency department with son due to worsening
dyspnea on exertion and hypoxia. He was recently hospitalized earlier this month for shortness of breath with negative work-up (IR consulted for thoracentesis but not enough fluid)
Upon arrival patient required 2 L of oxygen. Chest x-ray with chronic pleural effusion and RLL pneumonia. Patient volume overloaded on exam.
CXR
IMPRESSION:
Findings compatible with possibly loculated likely chronic left pleural effusion without significant change.
Likely slightly increased right basilar opacification which could represent atelectasis and/or pneumonia and tiny right pleural effusion.
Acute respiratory failure on 06/01
History of asbestosis
-COVID-negative and Flu negative; Strep and Legionella negative
-CXR with pleural effusion and pneumonia, results above
-S/p ceftriaxone D7, s/p azithromycin D6
-Status post right thoracentesis 05/28, draining 850 cc of dark bloody pleural fluid
-Nebs as needed for short of breath and wheezing
-Transferred to the ICU 06/01, s/p NIV
-Career Placement Specialist following, patient is improved on 15 L flow
-Continue ongoing discussions with family regarding goals of care
HFmrEF, Acute Exacerbation
Hx Mitral Valve Repair
Hx Bovine Aortic Valve Replacement
-TTE 09/22 with EF 50%
-S/p Lasix 40mg IV daily, patient known to Dr. Cadence Qureshi
-Appreciate cardiology input and nephrology input, continue IV Lasix as needed
-Resumed Farxiga
-05/28/24 Echo EF 45-50%
Orthostatic hypotension
Syncope
-Resumed midodrine
Urinary Retention
-S/p penaloza, penaloza re-inserted, then removed on 05/31
-Continue to monitor for retention, check PVRs, hold flomax due to orthostasis
Constipation
-Resolved, resumed laxatives
Stage IIIb CKD
-Appreciate nephrology input, suspect creatinine still in baseline range with known stage IIIb chronic kidney disease
Hyperkalemia
-Resolved status post Lokelma
#Acute blood loss anemia with baseline chronic anemia and iron deficiency anemia
-S/p IV iron per nephrology, hold oral iron with vitamin C
-Hemoglobin 7.5, will transfuse 1 unit packed red blood cells 05/31
Hyponatremia
-stable
#Chronic weight loss - due to acute on chronic cervical/thoracic pain with failure to thrive
(Severe protein/calorie malnutrition of chronic illness ruled out)
Appetite improving on Megace.
#Chronic pain syndrome/chronic opiate dependence
#Chronic cervical/thoracic scapular pain
-Son asking to discontinue MS Contin permanently, may continue oxycodone 5 mg as needed, Dilaudid 0.25 mg IV as needed
#Aortic valve replacement, Mitral valve repair
# Paroxysmal A-fib
-Obtain EKG
-Resumed Eliquis
#BPH/TURP
#Gout
- Resumed allopurinol
DVT prophylaxis�eliquis
DNR
Dispo - lives w/ family, PT rec SNF
Updated son at bedside 05/31 -goals of care discussion held
Updated son at bedside 06/01�goals of care discussion held
Updated family at bedside oals of care discussion held
Total time spent to see the patient on the floor, examine the patient, review data and lab results, discuss treatment plan with patient, nursing staff around 56 minutes.
Physical Exam
General: Frail, elderly, appears to not feel well
HEENT: Normocephalic, Atraumatic, MMM
Respiratory: Right basilar Rales with pleural rub
Cardiac: Normal S1/S2, Regular Rate and Rhythm
GI: Soft, Nontender, Nondistended, Normal Bowel Sounds
Anticipated Discharge: > 48 hours
Subjective/Interval History
-
Date of Service: June 02, 2024
Patient had back pain this morning, improved with IV Dilaudid. He does feel short of breath. No fever, no vomiting.
Objective Data
-
Labs:
Laboratory Results
06/02/24 06/02/24
04:19 04:29
WBC 10.5
Hgb 8.3 L
Hct 26.1 L
Plt Count 393
HCO3 28.2 H
Sodium 136
Potassium 4.6
Chloride 101
Carbon Dioxide 27
BUN 54 H
Creatinine 1.1
Glucose 88
Calcium 10.2
Vital Signs:
Vital Signs
Temp Pulse Resp BP Pulse Ox
97.1 F 80 22 112/52 99
06/02/24 07:33 06/02/24 06:30 06/02/24 06:30 06/02/24 06:00 06/02/24 06:30
I&O
06/01/24 06/02/24 06/03/24
06:59 06:59 06:59
Intake Total 250 / 250
Output Total 625 / 625 900 / 900
Balance -375 / -375 -900 / -900
[2024-06-02] MEDS: DILAUDID 0.5 MG IV (09:07)
[2024-06-02] MEDS: SENOKOT-S PO ×2 (09:17→21:48)
--- NOTE | 2024-06-02 09:30 | PTCARENOTE ---
Dilaudid IV given for pain..see MAR. Assist x 2 to get pt OOB. Sat 97% on [facility]. updated....orders rec'd.
[2024-06-02] MEDS: ProAmatine 10 MG PO ×3 (09:52→17:32)
[2024-06-02] MEDS: ELIQUIS 2.5 MG PO ×2 (09:53→20:28)
[2024-06-02] MEDS: MEGACE ORAL SUSPENSION 400 MG PO (09:53)
[2024-06-02] MEDS: ZYLOPRIM 150 MG PO (09:53)
[2024-06-02] MEDS: FARXIGA 10 MG PO (09:53)
--- NOTE | 2024-06-02 12:00 | W.PN.CARDCBS ---
Today's Communication / Plan
-
Continue supportive care
Blood pressures
Discussed with family at the bedside
Impression / Plan
-
PCP: Dr. Oro
Weigh Boss: Dr. ORLANDO Qureshi
Impression:
Status post code 9 with agonal respiration, unresponsive requiring being bagged at the bedside (06/02/2024.
Recovered nonischemic CM
Syncope/orthostasis 05/28/2024
Respiratory failure secondary to heart failure with improved ejection fraction and pneumonia
HTN
HLD
s/p bioprosthetic AVR and mitral valve repair 04/2010
Paroxysmal atrial fibrillation
Chronic Eliquis AC
Hyperparathyroidism
Asbestosis
Recurrent pleural effusion
s/p thoracentesis 09/28/2023 w/ 1450 cc dark bloody fluid removed
s/p thoracentesis 05/28/2024 w/ 850 cc dark bloody fluid removed.
Chronic back pain
Echo 09/28/2023: EF 50%, mild cLVH, well seated #32 annuloplasty ring, well seated #27 Stahl bovine AVR with peak/mean gradients 9/5 mmHg, mild TR, estimated PAP 25-30 mmHg
Echo 05/28/2024: Ejection fraction 45 to 50%, #32 mitral annuloplasty ring with mean gradient of 2 mmHg, #27 Stahl bovine AVR with mean gradient of 3 mmHg
Impression:
Sitting in the chair with family at the bedside. Respiratory status stable. Discussed events of yesterday.
Code 9 called approximately 1330, patient abruptly poorly responsive with agonal respiration, was bagged, son at bedside, placed in Trendelenburg, never lost pulse or rhythm, lethargic but after minutes responded briefly to verbal commands, but
remained obtunded, decision was made to support in ICU while decision is made regarding level of care and whether or not resuscitative efforts should be continued.
Continue supportive but conservative management. Remains on mid flow oxygen.
He has known hypotension and orthostatic hypotension for which he remains on midodrine. Continue midodrine.
Caution with position changes
He has anemia and has been fairly stable after transfusion.
As noted prior primary goal is comfort. Continue supportive care.
HPI: Reji is an 88 year old male with PMH of recovered cardiomyopathy, HTN, HLD, AVR, mitral valve replacement, paroxysmal atrial fibrillation, hyperparathyroidism, CKD, asbestosis, back pain, and recurrent pleural effusion. He presented to [facility]
for evaluation of worsening SOB and hypoxia. With ambulating only short distances at home, his pulse ox was noted to drop into the 80s and he was very SOB. Given worsening symptoms, he came to [facility] for evaluation. In ER, he was hypoxic and required
2L NC. Chest xray noted what appeared to be a chronic pleural effusion on the L. ProBNP was elevated, up to 2250. He was started on IV lasix as well as antibiotics and was admitted for further evaluation. He underwent thoracentesis 05/28 with 850 cc
dark bloody fluid removed. Hgb down to 7.7. Cardiology consulted for evaluation given concern for acute heart failure. He continues to feel somewhat SOB post thoracentesis, however has noted some improvement in breathing throughout admission. Creat
bumped to 1.6 with diuresis and lasix has been placed on hold. Nephrology consult placed y primary service.
Progress Note - Weigh Boss
Subjective
Date of Service: June 02, 2024
He denies chest pain and palpitations
Objective
Labs:
06/02/24 04:29
06/02/24 04:29
Labs
Hgb 8.3 g/dL (13.0-18.0) L 06/02/24 04:29
Hct 26.1 % (39.0-52.0) L 06/02/24 04:29
Plt Count 393 10^3/uL (130-400) 06/02/24 04:29
PT 18.8 Sec (11.4-14.6) H 06/01/24 13:32
INR 1.54 06/01/24 13:32
APTT 38.3 Sec (23.4-35.0) H 06/01/24 13:32
Sodium 136 mmol/L (135-145) 06/02/24 04:29
Potassium 4.6 mmol/L (3.5-5.1) 06/02/24 04:29
BUN 54 mg/dl (9-20) H 06/02/24 04:29
Creatinine 1.1 mg/dL (0.7-1.3) 06/02/24 04:29
Glucose 88 mg/dl (70-99) 06/02/24 04:29
Troponins
06/01/24
13:32
Troponin I 0.045 H*
Vital Signs and I&O:
Vital Signs
Temp Pulse Resp BP Pulse Ox
97.1 F 76 20 108/65 99
06/02/24 07:33 06/02/24 10:00 06/02/24 10:00 06/02/24 10:00 06/02/24 08:00
Vital Signs
Temp Pulse Resp BP Pulse Ox
97.1 F 76 20 108/65 99
06/02/24 07:33 06/02/24 10:00 06/02/24 10:00 06/02/24 10:00 06/02/24 08:00
Intake & Output
05/31/24 06/01/24 06/02/24 06/03/24
06:59 06:59 06:59 06:59
Intake Total 950 / 950 250 / 250 360 / 360
Output Total 1000 / 1000 625 / 625 900 / 900
Balance -50 / -50 -375 / -375 -900 / -900 360 / 360
Physical Exam
Physical Exam
General: Elderly man sitting in chair.
Neck: Supple, no JVD, HJR, carotids +2 B/L, no bruits bilaterally.
Heart: Non displaced PMI, RRR, no murmurs, No S3, S4, no rubs.
Lungs: Coarse breath sounds decreased at the bases
Neuro: Awake and answers questions
--- NOTE | 2024-06-02 12:20 | W.PN.NEPH.PH ---
Today's Communication / Plan
-
prn lasix
Assessment/Plan
-
IMP:
Acute hypoxic respiratory failure secondary to right lower lobe pneumonia and heart failure
HFpEF, Acute Exacerbation
Hx Mitral Valve Repair
Hx Bovine Aortic Valve Replacement
Urinary Retention-bladder scanned for > 700
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
Hyperkalemia
Anemia of chronic disease
Hyponatremia
chronic weight loss - due to acute on chronic cervical/thoracic pain with failure to thrive
Severe protein/calorie malnutrition of chronic illness
Chronic pain syndrome/chronic opiate dependence
Chronic cervical/thoracic scapular pain
Aortic valve replacement, Mitral valve repair
Paroxysmal A-fib
BPH/TURP
Gout
SHPTH
PLan:
more awake on NC today
plan BIPAP at night
stable renal function, follow bladder scan off penaloza
hb stable -IV iron course
stable renal function
follow BMP
continue midodrine
Can restart oral Lasix when desired
minimizing narcs
d/w family and nursing
-
-
Date of Service: June 02, 2024
CC / HPI / ROS
-
Chief Complaint:
CKD, hypotension
History of Present Illness:
cr 1.1, stable
BP low stable on midodrine
weights stable
SC once , off penaloza
Review of Systems:
more awake and talking
feels well, low back pain this am better with dilaudid
no n/v
Labs
-
Labs:
WBC 10.5 10^3/uL (4.8-10.8) 06/02/24 04:29
RBC 2.86 10^6/uL (4.70-6.10) L 06/02/24 04:29
Hgb 8.3 g/dL (13.0-18.0) L 06/02/24 04:29
Hct 26.1 % (39.0-52.0) L 06/02/24 04:29
Plt Count 393 10^3/uL (130-400) 06/02/24 04:29
Sodium 136 mmol/L (135-145) 06/02/24 04:29
Potassium 4.6 mmol/L (3.5-5.1) 06/02/24 04:29
Chloride 101 mmol/L (98-107) 06/02/24 04:29
Carbon Dioxide 27 mmol/L (22-30) 06/02/24 04:29
BUN 54 mg/dl (9-20) H 06/02/24 04:29
Creatinine 1.1 mg/dL (0.7-1.3) 06/02/24 04:29
eGFR > 60.00 06/02/24 04:29
Glucose 88 mg/dl (70-99) 06/02/24 04:29
Calcium 10.2 mg/dl (8.4-10.2) 06/02/24 04:29
Phosphorus 3.9 mg/dl (2.5-4.5) 06/01/24 13:32
Jvg-P-Kplgvlvejnd Pept 2250 pg/ml 05/26/24 15:58
Albumin 3.0 g/dl (3.5-5.0) L 06/01/24 13:32
Physical Exam
-
Vital Signs:
Vital Signs
Temp Pulse Resp BP Pulse Ox
97.1 F 76 20 108/65 99
06/02/24 07:33 06/02/24 10:00 06/02/24 10:00 06/02/24 10:00 06/02/24 08:00
Cardiovascular:: Regular rate and rhythm
Lung Excursion:: Abnormal (decreased)
Abdomen:: Nontender and Soft
Extremity Edema:: None: Bilateral:
Penaloza Catheter: No
--- NOTE | 2024-06-02 13:35 | PTCARENOTE ---
Pt incontinent of stool multiple times this am. Pt placed back to bed. Currently on 10L MFNC...sats 97%. No major changes in physical assessment. Call nunez in reach. Will continue to monitor.
--- NOTE | 2024-06-02 16:00 | PTCARENOTE ---
Pt resting comfortably w/ family at bedside. Assessment unchanged except O2 decreased to 10L MFNC...sats 98%. Call nunez in reach. Will continue to monitor.
[2024-06-02] MEDS: DILAUDID 0.25 MG IV (18:43)
--- NOTE | 2024-06-02 20:00 | PTCARENOTE ---
Received patient at 1900. Pt. currently in bed. Oriented to self and place. C/o pain, PRN medication given, see MAR. Afebrile. Heart rhythm sinus. Blood pressure normotensive. Currently on midflow nasal cannula with plans for bipap HS. Lungs sound
diminished. PO diet, good appetite. Incontinent of bowel and bladder. Condom catheter in place. Skin as documented. Discussed plan of care with patient. Vital signs stable at this time.
[2024-06-03] VITALS (23 sets, daily range): BP systolic 84–127; BP diastolic 44–89; BMI 21.0
--- NOTE | 2024-06-03 00:10 | PTCARENOTE ---
Pt. placed on bipap HS. Son at bedside. Pt. tolerating bipap at the moment. Vital signs stable at this time.
[2024-06-03] MEDS: DILAUDID 0.25 MG IV ×3 (01:46→11:14)
[2024-06-03] MEDS: TYLENOL 1000 MG PO (04:12)
[2024-06-03 04:38] LABS: Hematocrit 27.1 % (39.0-52.0); Hemoglobin 8.5 g/dL (13.0-18.0); Mean Corp Hgb Conc. 31.4 g/dL (33.0-37.0); Mean Corpuscular Hgb 29.1 pg (27.0-31.0); Mean Corpuscular Volume 92.8 fL (80.0-94.0); Mean Platelet Volume 9.2 fL (7.4-10.4); Platelet Count 353 10^3/uL (130-400); Red Blood Cell Count 2.92 10^6/uL (4.70-6.10); Red Cell Dist. Width 19.2 % (11.5-14.5); White Blood Cell Count 11.5 10^3/uL (4.8-10.8)
[2024-06-03 05:05] LABS: Blood Urea Nitrogen 54 mg/dl (9-20); Calcium 10.1 mg/dl (8.4-10.2); Carbon Dioxide 29 mmol/L (22-30); Chloride 99 mmol/L (98-107); Estimated Creatinine Clearance 41 ml/min; Glucose 87 mg/dl (70-99); Magnesium 2.4 mg/dl (1.6-2.3); Phosphorus 3.1 mg/dl (2.5-4.5); Potassium 4.7 mmol/L (3.5-5.1); Sodium 134 mmol/L (135-145); eGFR 58.53
--- NOTE | 2024-06-03 07:20 | W.PN.INTV ---
Today's Communication / Plan
Recommendations
At risk for worsening CO2 retention, lethargy, hypoventilation
Continue with BiPAP as able during the day and nightly
If not able to tolerate BiPAP or refuses BiPAP, it is reasonable to consider comfort measures
As I suspect that his lethargy, risk for respiratory failure increases with treatment
Family aware, patient aware
For transfer out of ICU. Pulmonary will continue to follow
Assessment
-
88-year-old man with past medical history noted. Admitted with worsening shortness of breath. Having significant back pain, ambulatory dysfunction, chronic stable left loculated pleural effusion.
Came to the hospital on 05/26/2024 complaining of shortness of breath and mild hypoxemia. Found to have leukocytosis.
S/p code 9, 06/01/2024
Did not lose pulse
Likely respiratory
Vasovagal event?
New right lower lobe infiltrate-possible pneumonia
Cultures negative
Leukocytosis/afebrile
Right pleural effusion
850 cc of dark blood pleural fluid 05/28/2024
Cytology pending, exudate
Mildly elevated troponin, post CODE 9
Cardiomyopathy, EF 45%
Chronic anemia
Hemoglobin 7.9
Conditions present prior admission:
Chronic exertional dyspnea: Suspect due to his significant back pain, deconditioning, muscle mass loss.
CT chest 05/06/2024: No evidence for pulmonary embolism or thoracic aortic dissection. Bilateral calcified pleural plaques/prior asbestos exposure. Stable small left loculated pleural effusion.
-Chronic loculated left pleural effusion: In January to a small for thoracentesis-volume appears stable this admission 05/2024.
Thoracentesis 09/28/2023: 1.4 L of dark bloody pleural fluid negative for cytology-exudate
-Severe back pain/spinal stenosis-status post ablation.
-Failure to thrive
-Chronic anemia hemoglobin this time 9.6-contributing to symptoms.
-Metabolic alkalosis
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
History of nonischemic cardiomyopathy with recovered EF.
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
Paroxysmal atrial fibrillation
Chronic anticoagulation
Hyperparathyroidism
Chronic kidney disease
#Former tobacco smoker [id number] history quit at age 57
-
Assessment and plan:
At this time, patient r appears stable
Patient did not tolerate NIV overnight, ripped it off
Initially refused BiPAP yesterday p.m., then tolerated for 3 hours. Does not like
ABG reviewed , this was off NIV
Moving forward
Had extensive discussion with patient regarding physiology of his CO2 retention, hypoventilation and how this may have contributed to his overall symptom complex
Patient confirmed DNR status with multiple family members. In fact was adamant about no mechanical ventilation, no CPR
Continue with efforts with BiPAP tonight, fullface mask, 04/05, and intermittently during the day
Reviewed with patient and son. If he is not want to continue BiPAP at night or does not improve with BiPAP, the need to focus on comfort measures given narcotic needs, chronic pain issues
Reviewed prior films at length. Chronic interstitial changes mild with asbestos pleural plaques, left pleural thickening
Recent right pleural effusion drained, dark bloody fluid, cytology pending
Patient was offered pleural biopsy in the past for possibly of mesothelioma, patient declined due to age and comorbidity
Has had left pleural effusion cytology negative in 2023
Discussed with patient risks for progressive hypoventilation, CO2 retention which may contribute to overall symptom complex
This may be affected by pain requirements, narcotic therapy
If he is able to tolerate BiPAP and had pain control, this is not an unreasonable outpatient treatment regimen if we can get BiPAP approved through insurance, case management
If he is not able to tolerate BiPAP or refuses, then we will have to except the consequences and risks of progressive CO2 retention and all associated symptoms that may, vent including possible respiratory failure
We will continue with efforts of BiPAP when able
Given possibly of pneumonia, patient to complete 5 to 7 days of antibiotics
No obvious evidence of pneumonia
Son describes episode of productive cough few days ago, this is not recurred
son also admits to possible choking in the past but patient has been careful however aspiration syndrome is likely
Patient does have history of asbestos exposure with significant Benign pleural plaques With minimal increased interstitial markings from chronic fibrosis based on CAT scan from 05/06/2024.
Pleural effusions could be postcardiotomy syndrome versus related to asbestos at least on the left.
Less likely mesothelioma but possible-patient is aware of these as noted above.
Again, right pleural effusion is new and will need to be followed in the outpatient setting.
Increased proBNP suggest heart failure component.
Diuresis per cardiology and nephrology. Currently on hold due to syncopal episodes/orthostatic hypotension and possible vasovagal syncope.
Patient is having orthostasis-improved.
Continue midodrine-dose adjusted.
Echocardiogram this admission noted
Resolving nonischemic cardiomyopathy
Thromboembolic disease is also within the differential but patient on chronic anticoagulation making this less likely
CT angiogram, PE study 05/06/2024 negative for thromboembolic disease
Toxic metabolic encephalopathy. At risk for aspiration
Morphine has been decreased
Fall precautions
Suspect CO2 retention also contributing to this
-
Anemia contributing to his shortness of breath as well.
To be transfused. Per primary team
Status post iron infusion
-
He also have chronic back pain that is contributing to shortness of breath. Spinal stenosis. Underwent recent ablation.
Due to immobility has lost significant amount of muscle mass
Continue physical therapy as able
Pain medications will contribute to worsening CO2 retention
-
Reviewed with patient at length, including son, daughter, and son-in-law at the bedside
Reviewed with critical care nursing, respiratory care
For transfer out of ICU. Pulmonary will continue to follow

Data:
CT chest 04/05/2025,
1. No evidence of pulmonary embolism or thoracic aortic dissection.
2. Bilateral calcified pleural plaques, consistent with asbestos related pleural disease.
3. Small loculated left pleural effusion, unchanged compared to prior CT, however increased in size compared to a prior CT dated 09/28/2023. Given calcified pleural plaques and increasing loculated pleural effusion, mesothelioma is not excluded.
4. Small right pleural effusion, new compared to prior CT.
5. Mild reticular interstitial thickening, suggestive of senescent change, mild interstitial fibrosis.
6. Severe coronary arterial calcification. Please correlate with symptoms of and risk factors for coronary artery disease, with further workup as clinically appropriate.
-
CT Chest 02/15/2024:
Small-moderate stable partially loculated left pleural effusion with associated underlying atelectasis.
Stable postoperative changes
Stable calcified pleural plaques suggesting prior asbestos exposure
Atherosclerosis
CXR 02/13/2024:
Moderate loculated left pleural effusion. Stable.
Probable associated mild left lower lobe pneumonia. New
Findings consistent with prior asbestos exposure. Stable.
Chest US 02/14/2024: Small LEFT pleural effusion. Amount of fluid present not sufficient for safe thoracentesis.
-
Echocardiogram 09/08/2023: Normal LVEF. Normal biventricular size and function. Status post aortic valve replacement. Mild TR.
Subjective Dataa
Subjective Data
Date of Service:
Date of Service: June 03, 2024
Subjective:
Patient tolerated BiPAP only for a few hours. Initially refused it. Did not like it. Did not sleep. Patient falling asleep during my exam this morning. He feels about the same overall
Objective Data
Data Reviewed
Vital Signs / I&O / Oxygen:
Vital Signs
Temp Pulse Resp BP Pulse Ox
97.8 F 91 23 107/51 98
06/03/24 04:00 06/03/24 06:00 06/03/24 06:00 06/03/24 05:00 06/03/24 00:00
Intake and Output
06/02/24 06/03/24 06/04/24
06:59 06:59 06:59
Intake Total 360 / 360
Output Total 900 / 900 625 / 625
Balance -900 / -900 -265 / -265
SaO2 [NIV (Non Invasive 99
Ventilation)]
SaO2 98
Nasal Cannula flow liters per 97
minute
Physical Exam
General: Comfortable (on NIV)
HEENT: Normocephalic
Cardiovascular: S1-S2, Regular Rhythm, Murmur (n) and Rub (n)
Respiratory: Wheeze (n), Crackles (n), Rhonchi (n), Non-Labored Respirations, Stridor (n) and Other (Decreased breath sounds)
GI: Soft, Non Distended and Non Tender
Neurology: Awake (But falls asleep during conversation) and No Motor Deficits (Moves all extremities)
Skin: Cyanosis (n), Rash (n) and Other (Mild pallor)
Labs/Micro/Reports
Lab Data
06/03/24 04:20
06/03/24 04:20
--- NOTE | 2024-06-03 07:45 | PTCARENOTE ---
Assumed care of patient. Pt rec'd A&O to self...confused to place and time. Pleasant. HERNANDEZ's...assists w/ repositioning. S1 S2 irregular w/ + click....NSR/PAC's/occasional PVC's on monitor. +PP. No edema. Heels elevated on pillows. Rec'd on
10L MFNC...sats 100%. Decreased FiO2 to 4L N/C...sats 96%. Right lung w/ fine base crackles. Left lung diminished w/ scattered crackles throughout. Encouraged pt to cough and deep breath. Orthopneic. + WELLER. Abdomen round...+BS. Incontinent
of darya urine...new #25 CC applied. Breakfast ordered. Takes pills whole w/o issue. Skin WNL except left posterior flank intact bandaid. Sacrum blanchable red/pink. 20P RFA capped. 20P RH capped. VS documented. Call nunez within reach. Son
at bedside. Will continue to monitor.
[2024-06-03] MEDS: ELIQUIS 2.5 MG PO ×2 (07:50→20:05)
[2024-06-03] MEDS: FARXIGA 10 MG PO (07:50)
[2024-06-03] MEDS: ZYLOPRIM 150 MG PO (07:51)
[2024-06-03] MEDS: MEGACE ORAL SUSPENSION 400 MG PO (07:52)
[2024-06-03] MEDS: ProAmatine 10 MG PO ×3 (07:52→17:22)
[2024-06-03] MEDS: SENOKOT-S 2 TABLET PO (07:53)
--- NOTE | 2024-06-03 08:25 | W.PN.HOSP.TC ---
Today's Communication/Plan
-
Stable for IMU
Assessment / Plan
Assessment / Plan
88-year-old male with PMH of asbestos lung disease, recurrent pleural effusion requiring thoracentesis 10/23, hypertension, anemia, GERD, CHF, atrial Fib, chronic pain syndrome who presented to the emergency department with son due to worsening
dyspnea on exertion and hypoxia. He was recently hospitalized earlier this month for shortness of breath with negative work-up (IR consulted for thoracentesis but not enough fluid)
Upon arrival patient required 2 L of oxygen. Chest x-ray with chronic pleural effusion and RLL pneumonia. Patient volume overloaded on exam.
CXR
IMPRESSION:
Findings compatible with possibly loculated likely chronic left pleural effusion without significant change.
Likely slightly increased right basilar opacification which could represent atelectasis and/or pneumonia and tiny right pleural effusion.
Acute respiratory failure on 06/01
History of asbestosis
-COVID-negative and Flu negative; Strep and Legionella negative
-CXR with pleural effusion and pneumonia, results above
-S/p ceftriaxone D7, s/p azithromycin D6
-Status post right thoracentesis 05/28, draining 850 cc of dark bloody pleural fluid
-Nebs as needed for short of breath and wheezing
-Transferred to the ICU 06/01, s/p NIV
-Nozzle And Sleeve Worker following, patient is improved on 4 L, down from 15 L flow
-Continue ongoing discussions with family regarding goals of care, consult hospice to give family more information
-Stable for IMU
HFmrEF, Acute Exacerbation
Hx Mitral Valve Repair
Hx Bovine Aortic Valve Replacement
-TTE 09/22 with EF 50%
-S/p Lasix 40mg IV daily, patient known to Dr. Cadence Qureshi
-Appreciate cardiology input and nephrology input, continue Lasix as needed
-Resumed Farxiga
-05/28/24 Echo EF 45-50%
Orthostatic hypotension
Syncope
-Resumed midodrine
Urinary Retention
-S/p penaloza, penaloza re-inserted, then removed on 05/31
-Continue to monitor for retention, check PVRs, hold flomax due to orthostasis
Constipation
-Resolved, resumed laxatives
Stage IIIb CKD
-Appreciate nephrology input, suspect creatinine still in baseline range with known stage IIIb chronic kidney disease
Hyperkalemia
-Resolved status post Lokelma
#Acute blood loss anemia with baseline chronic anemia and iron deficiency anemia
-S/p IV iron per nephrology, hold oral iron with vitamin C
-Hemoglobin 8.5, was 8.7, status post 1 unit packed red blood cells on 05/31, improved from 7.5
Hyponatremia
-stable
#Chronic weight loss - due to acute on chronic cervical/thoracic pain with failure to thrive
(Severe protein/calorie malnutrition of chronic illness ruled out)
Appetite improving on Megace.
#Chronic pain syndrome/chronic opiate dependence
#Chronic cervical/thoracic scapular pain
-Resume morphine sulfate ER 15 mg every 12 hours, can have Dilaudid 2 mg p.o. as needed, Dilaudid 0.25 mg IV as needed
#Aortic valve replacement, Mitral valve repair
# Paroxysmal A-fib
-Obtain EKG
-Resumed Eliquis
#BPH/TURP
#Gout
- Resumed allopurinol
DVT prophylaxis�eliquis
DNR
Dispo - lives w/ family, PT rec SNF
Updated son at bedside 05/31 -goals of care discussion
Updated son at bedside 06/01�goals of care discussion
Updated family at bedside 2/1�goals of care discussion
Updated son at bedside 2/2�goals of care discussion
Total time spent to see the patient on the floor, examine the patient, review data and lab results, discuss treatment plan with patient, nursing staff around 51 minutes.
Physical Exam
General: Frail, elderly, appears to not feel well
HEENT: Normocephalic, Atraumatic, MMM
Respiratory: Right basilar Rales with pleural rub
Cardiac: Normal S1/S2, Regular Rate and Rhythm
GI: Soft, Nontender, Nondistended, Normal Bowel Sounds
Anticipated Discharge: > 48 hours
Subjective/Interval History
-
Date of Service: June 03, 2024
Patient complains of severe 10 out of 10 back pain. He is reports being short of breath due to the pain. No fever, no vomiting.
Objective Data
-
Labs:
Laboratory Results
06/03/24
04:20
WBC 11.5 H
Hgb 8.5 L
Hct 27.1 L
Plt Count 353
Sodium 134 L
Potassium 4.7
Chloride 99
Carbon Dioxide 29
BUN 54 H
Creatinine 1.2
Glucose 87
Calcium 10.1
Vital Signs:
Vital Signs
Temp Pulse Resp BP Pulse Ox
97.8 F 90 23 113/80 96
06/03/24 07:49 06/03/24 07:52 06/03/24 06:00 06/03/24 07:52 06/03/24 07:45
I&O
06/02/24 06/03/24 06/04/24
06:59 06:59 06:59
Intake Total 360 / 360
Output Total 900 / 900 625 / 625
Balance -900 / -900 -265 / -265
--- NOTE | 2024-06-03 09:33 | W.PN.CARDCBS ---
Today's Communication / Plan
-
Continue midodrine for blood pressure support
Oxygen per primary service/pulmonary
Continue supportive care
Impression / Plan
-
PCP: Dr. Oro
Diesel Engine Tester: Dr. ORLANDO Qureshi
Impression:
Status post code 9 with agonal respiration, unresponsive requiring being bagged at the bedside (06/02/2024.
Improved nonischemic CM
Syncope/orthostasis 05/28/2024
Respiratory failure secondary to heart failure with improved ejection fraction and pneumonia
HTN
HLD
s/p bioprosthetic AVR and mitral valve repair 04/2010
Paroxysmal atrial fibrillation
Chronic Eliquis AC
Hyperparathyroidism
Asbestosis
Recurrent pleural effusion
s/p thoracentesis 09/28/2023 w/ 1450 cc dark bloody fluid removed
s/p thoracentesis 05/28/2024 w/ 850 cc dark bloody fluid removed.
Chronic back pain
Echo 09/28/2023: EF 50%, mild cLVH, well seated #32 annuloplasty ring, well seated #27 Stahl bovine AVR with peak/mean gradients 9/5 mmHg, mild TR, estimated PAP 25-30 mmHg
Echo 05/28/2024: Ejection fraction 45 to 50%, #32 mitral annuloplasty ring with mean gradient of 2 mmHg, #27 Stahl bovine AVR with mean gradient of 3 mmHg
Impression:
No acute cardiac issues overnight. Blood pressure remains on the low side but acceptable on midodrine. Son is at the bedside. Difficult night given he was restless.
Telemetry remained stable with predominantly sinus rhythm with PACs in the setting of known paroxysmal atrial fibrillation.
Respiratory arrest 06/01/2024 initially poorly responsive with agonal respiration, was bagged, son at bedside, placed in Trendelenburg, never lost pulse or rhythm, lethargic but after minutes responded briefly to verbal commands. Now with
conservative management. Continue oxygen per pulmonary/clay hoister.
He has known hypotension and orthostatic hypotension for which he remains on midodrine. Continue midodrine.
Caution with position changes
Paroxysmal atrial fibrillation. Currently in sinus rhythm. He continues on anticoagulation.
He has anemia and has been fairly stable after transfusion.
As noted prior primary goal is comfort. Continue supportive care. Would be hospice appropriate if they are agreeable. Being followed by palliative care.
HPI: Reji is an 88 year old male with PMH of recovered cardiomyopathy, HTN, HLD, AVR, mitral valve replacement, paroxysmal atrial fibrillation, hyperparathyroidism, CKD, asbestosis, back pain, and recurrent pleural effusion. He presented to [facility]
for evaluation of worsening SOB and hypoxia. With ambulating only short distances at home, his pulse ox was noted to drop into the 80s and he was very SOB. Given worsening symptoms, he came to [facility] for evaluation. In ER, he was hypoxic and required
2L NC. Chest xray noted what appeared to be a chronic pleural effusion on the L. ProBNP was elevated, up to 2250. He was started on IV lasix as well as antibiotics and was admitted for further evaluation. He underwent thoracentesis 05/28 with 850 cc
dark bloody fluid removed. Hgb down to 7.7. Cardiology consulted for evaluation given concern for acute heart failure. He continues to feel somewhat SOB post thoracentesis, however has noted some improvement in breathing throughout admission. Creat
bumped to 1.6 with diuresis and lasix has been placed on hold. Nephrology consult placed y primary service.
Progress Note - Diesel Engine Tester
Subjective
Date of Service: June 03, 2024
Patient answer some questions and denies chest pain.
Objective
Labs:
06/03/24 04:20
06/03/24 04:20
Labs
Hgb 8.5 g/dL (13.0-18.0) L 06/03/24 04:20
Hct 27.1 % (39.0-52.0) L 06/03/24 04:20
Plt Count 353 10^3/uL (130-400) 06/03/24 04:20
PT 18.8 Sec (11.4-14.6) H 06/01/24 13:32
INR 1.54 06/01/24 13:32
APTT 38.3 Sec (23.4-35.0) H 06/01/24 13:32
Sodium 134 mmol/L (135-145) L 06/03/24 04:20
Potassium 4.7 mmol/L (3.5-5.1) 06/03/24 04:20
BUN 54 mg/dl (9-20) H 06/03/24 04:20
Creatinine 1.2 mg/dL (0.7-1.3) 06/03/24 04:20
Glucose 87 mg/dl (70-99) 06/03/24 04:20
Troponins
06/01/24
13:32
Troponin I 0.045 H*
Vital Signs and I&O:
Vital Signs
Temp Pulse Resp BP Pulse Ox
97.8 F 90 23 113/80 96
06/03/24 07:49 06/03/24 07:52 06/03/24 06:00 06/03/24 07:52 06/03/24 07:45
Vital Signs
Temp Pulse Resp BP Pulse Ox
97.8 F 90 23 113/80 96
06/03/24 07:49 06/03/24 07:52 06/03/24 06:00 06/03/24 07:52 06/03/24 07:45
Intake & Output
06/01/24 06/02/24 06/03/24 06/04/24
06:59 06:59 06:59 06:59
Intake Total 250 / 250 360 / 360 240 / 240
Output Total 625 / 625 900 / 900 625 / 625
Balance -375 / -375 -900 / -900 -265 / -265 240 / 240
Physical Exam
Physical Exam
General: Elderly man somewhat confused.
Heart: Non displaced PMI, RRR with ectopy,
Lungs: Oxygen in place coarse breath sounds
Extremities: No clubbing, cyanosis or edema bilaterally.
Neuro: Awake confused
--- NOTE | 2024-06-03 10:50 | PTCARENOTE ---
Dilaudid IV given @ 1 hr ago. Pt still 10/ back pain and begging for additional pt medicine. Conversation at bedside w/ pt's family Would like more pain meds to provide comfort and a hospice consult. Emotional support provided.
notified.
[2024-06-03] MEDS: LIDOCAINE 4% PATCH 1 PATCH TOPICAL (11:13)
[2024-06-03] MEDS: MS CONTIN (EXTENDED RELEASE) 15 MG PO ×2 (11:27→20:05)
--- NOTE | 2024-06-03 11:30 | PTCARENOTE ---
Orders rec'd. Hospice consulted. Additional 0.25mg IV dilaudid and po MS contin 15mg provided per orders. Will continue to monitor.
--- NOTE | 2024-06-03 12:10 | CHAP ---
Mr. Cruz was awake and alert, in a lot of pain. Family at bedside shared that it is an on-going struggle. Prayer was much appreciated, and Eucharistic Lpn Rn from [facility] came right after. Mr. Cruz was able to receive. Emotional and spiritual
support provided, along with assurance of our availability, if needed.
--- NOTE | 2024-06-03 12:53 | CM ---
assistant manager airside operations received a consult for hospice, hospice options were reviewed with patient, spouse, daughter and son and they have selected [facility], meeting has been set up today with [facility] nurse at 1pm and son and spouse, will
be able to be connected by phone at meeting.
Plan; Hospice meeting today with [facility] at 1pm.
--- NOTE | 2024-06-03 13:09 | HOSPNOTE ---
Addendum entered by Cinda Bernstein RN 06/03/24 14:04:
Notified by that patient resides in [place]. Reviewed with that if patient were to go home with hospice services it would need to be with a facility that serves [place]. Reviewed if patient became GIP appropriate which he is not at this time, then
hospice could admit patient. Reviewed to notify hospice if GIP becomes appropriate and we can then come back and evaluate patient. Hospice will continue to be available if GIP eligibility develops.
Original Note:
Spoke with patients daughter at bedside while son and patients were on speaker phone. Discussed hospice philosophy and services provided. Family appreciative for information. Would like the next couple of days to see where things head and
discuss options as a family. Provided Hospice folder with contact information and to contact us for any questions and concerns. Will continue to follow.
--- NOTE | 2024-06-03 13:20 | PTCARENOTE ---
Ultrasound at bedside to perform ultrasound of bilateral chest.
--- NOTE | 2024-06-03 16:52 | W.PN.NEPH.PH ---
Today's Communication / Plan
-
supportive care, hospice eval
Assessment/Plan
-
IMP:
Acute hypoxic respiratory failure secondary to right lower lobe pneumonia and heart failure
HFpEF, Acute Exacerbation
Hx Mitral Valve Repair
Hx Bovine Aortic Valve Replacement
Urinary Retention-bladder scanned for > 700
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
Hyperkalemia
Anemia of chronic disease
Hyponatremia
chronic weight loss - due to acute on chronic cervical/thoracic pain with failure to thrive
Severe protein/calorie malnutrition of chronic illness
Chronic pain syndrome/chronic opiate dependence
Chronic cervical/thoracic scapular pain
Aortic valve replacement, Mitral valve repair
Paroxysmal A-fib
BPH/TURP
Gout
SHPTH
PLan:
stable renal function, follow bladder scan off penaloza
continue midodrine
Can restart oral Lasix when desired
difficult to manage pain with out causing resp issue
family willing to speak to hospice
d/w family and nursing
will s/o, call with ?s
-
-
Date of Service: June 03, 2024
CC / HPI / ROS
-
Chief Complaint:
CKD, hypotension
History of Present Illness:
cr 1.2, stable
BP low but stable on midodrine
weights down
SC once , off penaloza
Review of Systems:
more awake and talking
back pain difficult to manage
no n/v
Labs
-
Labs:
WBC 11.5 10^3/uL (4.8-10.8) H 06/03/24 04:20
RBC 2.92 10^6/uL (4.70-6.10) L 06/03/24 04:20
Hgb 8.5 g/dL (13.0-18.0) L 06/03/24 04:20
Hct 27.1 % (39.0-52.0) L 06/03/24 04:20
Plt Count 353 10^3/uL (130-400) 06/03/24 04:20
Sodium 134 mmol/L (135-145) L 06/03/24 04:20
Potassium 4.7 mmol/L (3.5-5.1) 06/03/24 04:20
Chloride 99 mmol/L (98-107) 06/03/24 04:20
Carbon Dioxide 29 mmol/L (22-30) 06/03/24 04:20
BUN 54 mg/dl (9-20) H 06/03/24 04:20
Creatinine 1.2 mg/dL (0.7-1.3) 06/03/24 04:20
eGFR 58.53 06/03/24 04:20
Glucose 87 mg/dl (70-99) 06/03/24 04:20
Calcium 10.1 mg/dl (8.4-10.2) 06/03/24 04:20
Phosphorus 3.1 mg/dl (2.5-4.5) 06/03/24 04:20
Nfo-W-Neabhxartar Pept 2250 pg/ml 05/26/24 15:58
Albumin 3.0 g/dl (3.5-5.0) L 06/01/24 13:32
Physical Exam
-
Vital Signs:
Vital Signs
Temp Pulse Resp BP Pulse Ox
97.7 F 96 31 109/71 97
06/03/24 15:37 06/03/24 12:05 06/03/24 12:00 06/03/24 12:05 06/03/24 12:00
Cardiovascular:: Regular rate and rhythm
Lung Excursion:: Abnormal (decreased)
Abdomen:: Nontender and Soft
Extremity Edema:: None: Bilateral:
Penaloza Catheter: No
--- NOTE | 2024-06-03 18:30 | PTCARENOTE ---
Increasing SOB on 4L N/C...sats 98%. Restless and agitated. CXR ordered. updated. Monica ESPOSITO made aware...orders rec'd.
--- NOTE | 2024-06-03 20:00 | PTCARENOTE ---
Resumed care of pt sitting up in bed with family at bedside. Pt confused, AAOx1- self only. Pt restless and pulling off his gown, heart monitor, condom cath ect. Family at bedside with frequent redirection. HR in the 90's in Afib with PVC's on the
monitor, Click present to auscultation. POX 98% on 4 LO2 Midflow NC. Lungs dec with B/L base crackles. Tachypneic, orthopneic, WELLER. 20mg IV lasix administered as ordered. Round abd, + bowel, pt inc of stool x3 today, bowel regimen held this evening.
# [address] draining yellow urine. Palpable peripheral pulses present. Pale skin, heels elevated on pillows. Right forarm, right wrist int capped. Pt repositioned. Son remains at bedside. Will continue to monitor.
[2024-06-03] MEDS: LASIX 20 MG IV (20:06)
[2024-06-03] MEDS: SENOKOT-S PO (20:07)
--- NOTE | 2024-06-03 22:01 | PTCARENOTE ---
Pt restless, pulling off heart monitor leads, gown, BP cuff ect, despite son at bedside. Pt doesnt realize what he is doing, confused. Pt denies having any pain at this time. B/L Hand mitts applied. Son remains at bedside. Will continue to monitor.
[2024-06-04] VITALS (11 sets, daily range): BP systolic 95–145; BP diastolic 56–82; BMI 21.0
[2024-06-04] MEDS: NSS (PRESERVATIVE FREE) 0.25 ML IV ×3 (00:35→16:17)
[2024-06-04] MEDS: ATIVAN 0.5 MG IV ×4 (00:35→16:18)
--- NOTE | 2024-06-04 01:07 | PTCARENOTE ---
Pt with intermittent episodes of agitation. Pt pulled off oxygen, HR dropped to 30. Pt fight son and staff in attempt to place oxygen back on. Pt not cognizant of what he is doing or what is happening. Ghassan ESPOSITO notified, order obtained. Ativan
0.5mg administered as ordered. Discussion with son at bedside with goals of care. B/L hand mitts re applied. Pt now resting. Son remains at bedside.
[2024-06-04 04:51] LABS: Hematocrit 28.6 % (39.0-52.0); Hemoglobin 8.8 g/dL (13.0-18.0); Mean Corp Hgb Conc. 30.8 g/dL (33.0-37.0); Mean Corpuscular Hgb 28.6 pg (27.0-31.0); Mean Corpuscular Volume 92.9 fL (80.0-94.0); Mean Platelet Volume 9.1 fL (7.4-10.4); Platelet Count 363 10^3/uL (130-400); Red Blood Cell Count 3.08 10^6/uL (4.70-6.10); Red Cell Dist. Width 19.5 % (11.5-14.5); White Blood Cell Count 11.4 10^3/uL (4.8-10.8)
--- NOTE | 2024-06-04 04:57 | PTCARENOTE ---
Pt restless, agitated, rolling around in bed, does not open eyes, does not follow commands. Pt not aware of what he is doing. Son at bedside attempting to orient pt. HR elevated, frequent ectopy on the monitor. PRN medication administered as
ordered. Will continue to monitor.
[2024-06-04 05:09] LABS: Blood Urea Nitrogen 47 mg/dl (9-20); Calcium 10.3 mg/dl (8.4-10.2); Carbon Dioxide 31 mmol/L (22-30); Chloride 98 mmol/L (98-107); Estimated Creatinine Clearance 41 ml/min; Glucose 85 mg/dl (70-99); Magnesium 2.3 mg/dl (1.6-2.3); Potassium 4.8 mmol/L (3.5-5.1); Sodium 134 mmol/L (135-145); eGFR 58.53
[2024-06-04] MEDS: ZYLOPRIM PO (08:15)
[2024-06-04] MEDS: FARXIGA PO (08:15)
[2024-06-04] MEDS: ProAmatine PO (08:15)
[2024-06-04] MEDS: SENOKOT-S PO ×2 (08:15→19:46)
[2024-06-04] MEDS: MEGACE ORAL SUSPENSION PO (08:15)
[2024-06-04] MEDS: ELIQUIS PO (08:15)
--- NOTE | 2024-06-04 08:25 | PTCARENOTE ---
Addendum entered by Eda Addison RN 06/04/24 08:26:
son aware pt not alert enough for po intake.
Original Note:
pt received from previous rn- pt restless, attempts to open eyes to name. does not follow commands. afib on monitor, on 4L midflow. plan of care discussed with son at bedside, all questions answered and verbalized understanding. all care explained
as provided. pt turned and repositioned. safety precautions in place.
--- NOTE | 2024-06-04 09:58 | W.PN.HOSP.TC ---
Today's Communication/Plan
-
sedated due to agitation and Ativan overnight. Progressive encephalopathy 2/2 CO2 retention and non-compliance with bipap
discussed with family in details bedside -son wants to discuss with the rest of his family again before establishing hospice, however currently confirmed that no invasive management and no intubation wanted as per family. Reasonable to manage on
the floor as patient sat 97% on midflow
Assessment / Plan
Assessment / Plan
88yo M with PMHx of asbestosis of the lungs, recurrent pleural effusion, HTN, anemia. Afib, CHF, chronic pain syndrome came with recurrent worsening SOB, managed for CHF and RLL pneumonia with chronic loculated L pleural effusion.
A/P:
#Acute hypoxic hypercapnic respiratory failure with lung asbestosis, emphisema and HX of nicotine dependency and severe deconditioning with chronic pain
#Acute on chronic CHF with recovered EF and nonischemic CM with hypoitension
#Possible RLL pneumonia
BiPAP, but patient becoming agitated, removing BiPAP, causing worsening of encephalopathy 2/2 CO2 retention
ABx completed
As per previous chart review - Hx of asbestosis with recommendation for biopsy due to possibility of mesothelioma, but patient declined d=ue to age and comorbidities. Thoracentesis previously with cytology neg
Diuresis as tolerated - Cr worsened with lasix, daily weight, follow electrolytes
midodrine due to vaso-vagakl syncpe on this admisison
CTA chest without pulmonary embolism or
# s/p Bioprosthetic AVR
#MR s/p valvular repair
#Afib on eliquis
#hyperparathyroidism
#CKD
cont home meds
#GOC
multiple discussion swith family by retail wireless sales representative
due to progressive worsening of the symptoms and need in opioids for controlling of dyspnea - discussion about hospice care ongoing
#Acute blood loss anemia with baseline chronic anemia and iron deficiency anemia
follow CBC
s/p PRBC on 06/01/24
#Acute urinary retention
#BPH s/p TURP
penaloza
#Chronic low back pain
pain meds
#Gout
con home meds
DVt ppx on Eliquis
DNR/DNI
I have spent at least 58min reviewing chart, test results, comminication with consuoltants, family and direct patient care
Anticipated Discharge: > 48 hours
Subjective/Interval History
-
Date of Service: June 04, 2024
Objective Data
-
Labs:
Laboratory Results
06/04/24
04:26
WBC 11.4 H
Hgb 8.8 L
Hct 28.6 L
Plt Count 363
Sodium 134 L
Potassium 4.8
Chloride 98
Carbon Dioxide 31 H
BUN 47 H
Creatinine 1.2
Glucose 85
Calcium 10.3 H
Vital Signs:
Vital Signs
Temp Pulse Resp BP Pulse Ox
97.9 F 88 29 120/67 95
06/04/24 07:55 06/04/24 08:00 06/04/24 08:00 06/04/24 08:00 06/04/24 08:00
I&O
06/03/24 06/04/24 06/05/24
06:59 06:59 06:59
Intake Total 360 / 360 600 / 600
Output Total 625 / 625 1250 / 1250
Balance -265 / -265 -650 / -650
Review of Systems
-
Unable to obtain full review of systems at this time due to: Acuity
Physical Exam
-
General: Comfortable
Respiratory: Clear to Auscultation
Cardiac: Regular Rhythm
Neuro: Sedated; Negative Awake
Psych: Calm
--- NOTE | 2024-06-04 10:13 | W.PN.CARDCBS ---
Today's Communication / Plan
-
Transitioning to hospice
Will sign off, please call if questions
Impression / Plan
-
PCP: Dr. Oro
Work Environment Safety Inspector: Dr. ORLANDO Qureshi
Impression:
Status post code 9 with agonal respiration, unresponsive requiring being bagged at the bedside (06/02/2024.
Improved nonischemic CM
Syncope/orthostasis 05/28/2024
Respiratory failure secondary to heart failure with improved ejection fraction and pneumonia
HTN
HLD
s/p bioprosthetic AVR and mitral valve repair 04/2010
Paroxysmal atrial fibrillation
Chronic Eliquis AC
Hyperparathyroidism
Asbestosis
Recurrent pleural effusion
s/p thoracentesis 09/28/2023 w/ 1450 cc dark bloody fluid removed
s/p thoracentesis 05/28/2024 w/ 850 cc dark bloody fluid removed.
Chronic back pain
Echo 09/28/2023: EF 50%, mild cLVH, well seated #32 annuloplasty ring, well seated #27 Stahl bovine AVR with peak/mean gradients 9/5 mmHg, mild TR, estimated PAP 25-30 mmHg
Echo 05/28/2024: Ejection fraction 45 to 50%, #32 mitral annuloplasty ring with mean gradient of 2 mmHg, #27 Stahl bovine AVR with mean gradient of 3 mmHg
Impression:
At this point, he continues to slowly decline.
Appropriately, is in the process of transition to hospice.
No new cardiac recommendations.
Will sign off, please call if questions.
HPI: Reji is an 88 year old male with PMH of recovered cardiomyopathy, HTN, HLD, AVR, mitral valve replacement, paroxysmal atrial fibrillation, hyperparathyroidism, CKD, asbestosis, back pain, and recurrent pleural effusion. He presented to [facility]
for evaluation of worsening SOB and hypoxia. With ambulating only short distances at home, his pulse ox was noted to drop into the 80s and he was very SOB. Given worsening symptoms, he came to [facility] for evaluation. In ER, he was hypoxic and required
2L NC. Chest xray noted what appeared to be a chronic pleural effusion on the L. ProBNP was elevated, up to 2250. He was started on IV lasix as well as antibiotics and was admitted for further evaluation. He underwent thoracentesis 05/28 with 850 cc
dark bloody fluid removed. Hgb down to 7.7. Cardiology consulted for evaluation given concern for acute heart failure. He continues to feel somewhat SOB post thoracentesis, however has noted some improvement in breathing throughout admission. Creat
bumped to 1.6 with diuresis and lasix has been placed on hold. Nephrology consult placed y primary service.
Progress Note - Work Environment Safety Inspector
Subjective
Date of Service: June 04, 2024:
Was agitated last night, got Ativan, somewhat restless but relatively comfortable, opens eyes when called and can verbalize at times. Son Geovanny at bedside.
Decision has been made to go to hospice.
Meds: Currently not taking any oral medications
Objective
Labs:
06/04/24 04:26
06/04/24 04:26
Labs
Hgb 8.8 g/dL (13.0-18.0) L 06/04/24 04:26
Hct 28.6 % (39.0-52.0) L 06/04/24 04:26
Plt Count 363 10^3/uL (130-400) 06/04/24 04:26
PT 18.8 Sec (11.4-14.6) H 06/01/24 13:32
INR 1.54 06/01/24 13:32
APTT 38.3 Sec (23.4-35.0) H 06/01/24 13:32
Sodium 134 mmol/L (135-145) L 06/04/24 04:26
Potassium 4.8 mmol/L (3.5-5.1) 06/04/24 04:26
BUN 47 mg/dl (9-20) H 06/04/24 04:26
Creatinine 1.2 mg/dL (0.7-1.3) 06/04/24 04:26
Glucose 85 mg/dl (70-99) 06/04/24 04:26
Troponins
06/01/24
13:32
Troponin I 0.045 H*
Vital Signs and I&O:
Vital Signs
Temp Pulse Resp BP Pulse Ox
36.6 C 88 29 120/67 95
06/04/24 07:55 06/04/24 08:00 06/04/24 08:00 06/04/24 08:00 06/04/24 08:00
Vital Signs
Telemetry: Atrial fibrillation with controlled ventricular response
Temp Pulse Resp BP Pulse Ox
36.6 C 88 29 120/67 95
06/04/24 07:55 06/04/24 08:00 06/04/24 08:00 06/04/24 08:00 06/04/24 08:00
Intake & Output
06/02/24 06/03/24 06/04/24 06/05/24
07:59 07:59 07:59 07:59
Intake Total 600 / 600 360 / 360
Output Total 900 / 900 625 / 625 1250 / 1250
Balance -900 / -540 -25 / -25 -890 / -890
Physical Exam
Physical Exam
No distress, somewhat restless, head neck exam unremarkable, diminished breath sounds, irregular rate and rhythm, abdomen benign not much edema
--- NOTE | 2024-06-04 10:17 | W.PN.UPDATE ---
Update Note
Progress Note Update
Son bedside confirmed that family would like to establish comfort care only approach, active medications will be stopped, no further diagnostic procedures or blood draw. He verbalized understanding and agreement with plan. Start symptomatic mgmt of
dyspnea, anxiety, constipation.
[2024-06-04] MEDS: MORPHINE SULFATE 2 MG IV ×3 (12:50→16:18)
--- NOTE | 2024-06-04 12:56 | PTCARENOTE ---
pt now comfort care, morphine given per order, see mar. family at bedside. pt opens eyes to name, restless at times. oral care provided. turned and repositioned.
--- NOTE | 2024-06-04 14:02 | CM ---
CM following re: discharge planning.
Reviewed pt's chart, met with pt and family at bedside.
Per MD pt is comfort care. Emotional support offered and provided to pt's family.
revenue liaison following.
D/C plan: comfort care.
CM is available for emotional support.
--- NOTE | 2024-06-04 14:30 | CHAP ---
Fr. Dannie Small of [facility] provided Sacrament of the Sick/Last Rites at family's request.
--- NOTE | 2024-06-04 14:41 | HOSPNOTE ---
Spoke with family and patient will be moved to [facility] and will continue with comfort measures. Will continue to follow.
--- NOTE | 2024-06-04 15:38 | PTCARENOTE ---
incontinence care provided. report given to Emelyn BOGGS on 2N. family aware of pt transport.
--- NOTE | 2024-06-04 16:02 | PTCARENOTE ---
Addendum entered by Emelyn Rogers RN 06/04/24 16:19:
per prn pt given as needed ativan an morphine. pt grimacing, restless and moaning within the room O2 sat stable. see MAR for proper documentation
Original Note:
pt transferred to 2N from ICU- restless but VSS. pt placed on bed alarm.
--- NOTE | 2024-06-04 21:03 | W.PN.UPDATE ---
Update Note
Progress Note Update
Of note, pt was physically in the ICU until 4PM today (06/04/2024). The pt is now being TRX to comfort care. Our service will sign off; please call back with any questions or concerns.
--- NOTE | 2024-06-04 21:58 | W.PN.DEATH ---
Pronouncement of
-
Called to see patient to pronounce.
No spontaneous heart tones or respirations noted.
Patient not responsive to verbal stimuli.
Patient is pronounced .
Time of : 19:34
Date of : 06/04/24
Cause of : Acute hypoxic hypercapnic respiratory failure with lung asbestosis, emphysema, acute on chronic heart failure, chronic kidney disease
Family Notified: Yes (family at bedside)
== END 2024-06-04 19:34 | disposition expired | DRG 193 ==
LOC: 2 NORTH 18:01
PROVIDERS: Family Medicine; Internal Medicine Critical Care Medicine; Radiology Diagnostic Radiology; Registered Nurse; Student in an Organized Health Care Education/Training Program; ADMITTING PHYSICIAN Hospitalist; ATTENDING PHYSICIAN Internal Medicine; CONSULT PHYSICIAN Internal Medicine Critical Care Medicine; CONSULT PHYSICIAN Internal Medicine Hospice and Palliative Medicine; CONSULT PHYSICIAN Nuclear Medicine Nuclear Cardiology; EMERGENCY PHYSICIAN Student in an Organized Health Care Education/Training Program; FAMILY PHYSICIAN Internal Medicine; OTHER PHYSICIAN Internal Medicine
PROC: 0W993ZZ Drainage of Right Pleural Cavity, Percutaneous Approach (ICD-10-PCS; 2024-05-28)
PROC: 30233N1 Transfusion of Nonautologous Red Blood Cells into Peripheral Vein, Percutaneous Approach (ICD-10-PCS; 2024-05-31)
PROC: 5A0935Z Assistance with Respiratory Ventilation, Less than 24 Consecutive Hours (ICD-10-PCS; 2024-06-01)
PROC: 5A09357 Assistance with Respiratory Ventilation, Less than 24 Consecutive Hours, Continuous Positive Airway Pressure (ICD-10-PCS; 2024-06-02)
DX: J18.9 Pneumonia, unspecified organism (principal); G92.8 Other toxic encephalopathy; I50.33 Acute on chronic diastolic (congestive) heart failure; I13.0 Hypertensive heart and chronic kidney disease with heart failure and stage 1 through stage 4 chronic kidney disease, or unspecified chronic kidney disease; J91.8 Pleural effusion in other conditions classified elsewhere; Z66 Do not resuscitate; Z51.5 Encounter for palliative care; F11.20 Opioid dependence, uncomplicated; N17.9 Acute kidney failure, unspecified; E87.1 Hypo-osmolality and hyponatremia; D62 Acute posthemorrhagic anemia; N25.81 Secondary hyperparathyroidism of renal origin; I42.8 Other cardiomyopathies; I48.0 Paroxysmal atrial fibrillation; J61 Pneumoconiosis due to asbestos and other mineral fibers; G89.4 Chronic pain syndrome; N18.32 Chronic kidney disease, stage 3b; N40.1 Benign prostatic hyperplasia with lower urinary tract symptoms; R33.8 Other retention of urine; R62.7 Adult failure to thrive; M06.9 Rheumatoid arthritis, unspecified; K59.00 Constipation, unspecified; K21.9 Gastro-esophageal reflux disease without esophagitis; E87.5 Hyperkalemia; D63.1 Anemia in chronic kidney disease; R09.02 Hypoxemia; R06.89 Other abnormalities of breathing; I95.1 Orthostatic hypotension; E11.22 Type 2 diabetes mellitus with diabetic chronic kidney disease; I25.10 Atherosclerotic heart disease of native coronary artery without angina pectoris; E78.00 Pure hypercholesterolemia, unspecified; Z79.84 Long term (current) use of oral hypoglycemic drugs; Z79.899 Other long term (current) drug therapy; Z95.3 Presence of xenogenic heart valve; Z87.891 Personal history of nicotine dependence; Z11.52 Encounter for screening for COVID-19
CPT/HCPCS: 88305; 32555; 36600; 71045; 71046; 76604; 80048; 80053; 80061; 82248; 82533; 82607; 82728; 82746; 82805; 82945; 82962; 83540; 83550; 83615; 83735; 83880; 83986; 84100; 84155; 84157; 84439; 84443; 84478; 84484; 85018; 85025; 85027; 85610; 85730; 86850; 86900; 86901; 86920; 87205; 87449; 87502; 87811; 87899; 88112; 88341; 88342; 89051; 93005; 93306; 94002; 94640; 96374; 96375; 97162; 97167; 97530; 99285; J2916; P9016; Q9950